=== PATIENT | female | born 1940 | race Caucasian/White ===

== ENCOUNTER 2016-10-22 10:05 | Inpatient (IN) ==
[2016-10-22] MEDS ORDERED: *HR* HYDROmorphone (PF) 1 MG/ML SYRINGE IVP ONE (10:17)
[2016-10-22] MEDS ORDERED: Ondansetron 4 MG/2 ML VIAL IVP ONE (10:19)
--- NOTE | 2016-10-22 10:19 | Emergency Department Note ---
Disposition Clinical Impression: Fall, Pneumonia, Shoulder fracture, left Disposition: Admitted As Inpatient General Adult HPI - General Chief complaint: ED Fall Stated complaint: fall Time Seen by Provider: 10/22/16 10:13 - History of Present Illness Pain Scale: 10 - Related Data Home Medications Medication Instructions Recorded Confirmed Albuterol Sulfate [Proair Hfa] 2 puff IH 4-6XD PRN #0 05/28/15 10/22/16 Amitriptyline [Elavil] 25 mg PO HS #0 05/28/15 10/22/16 Azelastine HCl 1 drop OP BID #0 05/28/15 10/22/16 Citalopram [CeleXA] 40 mg PO HS 05/28/15 10/22/16 Fluticasone Propionate Nasal 1 spray NS DAILY 05/28/15 10/22/16 [Flonase] Montelukast Sodium [Singulair] 10 mg PO HS 05/28/15 10/22/16 Omeprazole [PriLOSEC] 20 mg PO HS 05/28/15 10/22/16 Potassium Chloride [Klor-Con M20] 20 meq PO BID 05/28/15 10/22/16 Tiotropium [Spiriva] 18 mcg IH DAILY 05/28/15 10/22/16 Albuterol Neb [Proventil Neb] 2.5 mg IH Q4HR 09/02/16 10/22/16 Allopurinol [Zyloprim] 300 mg PO DAILY 09/02/16 10/22/16 Aclidinium Peel [Tudorza 1 puff IH BID 10/02/16 10/22/16 Pressair] Guaifenesin [Mucinex] 600 mg PO BID 10/02/16 10/22/16 Oxygen 1 each .ROUTE AD 10/02/16 10/22/16 Cyclobenzaprine HCl 10 mg PO Q12H 10/22/16 10/22/16 Gabapentin [Neurontin] 300 mg PO BID 10/22/16 10/22/16 Hydrocodone/Acetaminophen [Diamond 1 tab PO Q6H 10/22/16 10/22/16 10-325 Tablet] Lactobacillus Acidophilus 1 tab PO TID 10/22/16 10/22/16 [Acidophilus] Lactulose 30 ml PO DAILY 10/22/16 10/22/16 Levofloxacin [Levaquin] 750 mg PO DAILY 10/22/16 10/22/16 Lidocaine Patch [Lidoderm 5% patch] 1 each TP Q12H 10/22/16 10/22/16 Lidocaine Patch [Lidoderm 5% patch] 1 each TP Q12H 10/22/16 10/22/16 Metoprolol [Lopressor] 12.5 mg PO BID 10/22/16 10/22/16 Previous Rx's Medication Instructions Recorded Furosemide [Lasix] 20 mg PO BID #40 tablet 09/09/16 Levothyroxine [Synthroid] 125 mcg PO 0630 #30 tablet 10/15/16 Nystatin [Nystatin Suspension] 100,000 units PO QID #120 ml 10/15/16 Allergies Allergy/AdvReac Type Severity Reaction Status Date / Time acetaminophen [From Percocet] Allergy Rash Verified 10/22/16 12:40 codeine Allergy Rash Verified 10/22/16 12:40 hydrochlorothiazide Allergy Rash Verified 10/22/16 12:40 losartan [Losartan] Allergy Rash Verified 10/22/16 12:40 morphine Allergy Irritable Verified 10/22/16 12:40 Oxycodone [From Percocet] Allergy Rash Verified 10/22/16 12:40 Sulfa (Sulfonamide Allergy Rash Verified 10/22/16 12:40 Antibiotics) NSAIDS (Non-Steroidal AdvReac See Verified 10/22/16 12:40 Anti-Inflamma Comments Past Medical History - Past Medical History Medical history: Reports: arthritis, asthma, CHF, COPD, fibromyalgia, GERD, hyperlipidemia, hypertension, osteoporosis, RA, thyroid disease, syncope, other Surgical history: Reports: appendectomy, cholecystectomy, hysterectomy, orthopedic, other, other Psychiatric history: Reports: no psych history, other FICTION WRITER history: Reports: no FICTION WRITER history - Social History Smoking Status: Never smoker Smokeless Tobacco Status: No Alcohol use: Reports: none Drug use: Reports: none Physical Exam - General General appearance: alert Course - Reevaluation(s) Reevaluation #1: I saw the patient with the resident, Dr. Hill. Patient felt care home. She was stood up and apparently became dizzy and fell backwards. Hit her head on a windowsill. She presents with a complaint of neck pain and left shoulder pain. She has a number of other chronic pain issues but on Physical exam we do not identify any other significant injuries. We will get the patient symptomatically feeling better and get some imaging studies. Time: 10:19 Vital Signs Temperature 98.6 F 10/22/16 10:07 Pulse Rate 87 10/22/16 10:07 Respiratory Rate 18 10/22/16 10:07 Blood Pressure 122/67 10/22/16 10:07 O2 Sat by Pulse Oximetry 89 L 10/22/16 10:07 Temperature 97.4 F L 10/23/16 07:58 Pulse Rate 82 10/23/16 07:58 Respiratory Rate 16 10/23/16 07:58 Blood Pressure 127/92 10/23/16 07:58 O2 Sat by Pulse Oximetry 98 10/23/16 07:58 Oxygen Delivery Oxygen Delivery Nasal Cannula Medical Decision Making - Lab Data Result diagrams: 10/23/16 04:49 10/23/16 04:49 Lab Results 10/22/16 10/22/16 10/22/16 Range/Units 11:29 11:29 11:29 WBC 23.1 H D (4.3-11.1) K/mcL RBC 3.57 L (3.82-4.97) M/mcL Hgb 10.0 L (11.5-15.4) g/dL Hct 31.0 L (35.3-44.9) % MCV 86.8 (83.0-100.0) fL MCH 28.0 (28.0-33.3) pg MCHC 32.3 (31.6-35.5) g/dL RDW 14.7 H (11.5-14.5) % Plt Count 336 (140-400) K/mcL MPV 9.5 (9.4-12.4) fL Immature Gran % 0.8 (0-4) % Seg Neutrophils % 87.1 % Lymphocytes % 6.5 % Monocytes % 4.7 % Eosinophils % 0.6 % Basophils % 0.3 % Neutrophils # 20.1 H (1.6-8.9) K/mcL Lymphocytes # 1.5 (0.6-4.6) K/mcL Monocytes # 1.1 (0.0-1.3) K/mcL Eosinophils # 0.1 (0.0-0.6) K/mcL Basophils # 0.1 (0.0-0.2) K/mcL ABG pH (7.32-7.45) pH Units ABG pCO2 (35-45) mmHg ABG pO2 (85-104) mmHg ABG HCO3 (21-27) mEQ/L ABG Total CO2 (20-26) mEq/L ABG O2 Saturation (95-98) % ABG Base Excess (-2.0 to 3.0) mEq/L Liter Flow L/MIN Blood Gas Modality Inspired O2 % Sodium 137 (136-145) mEq/L Potassium 3.6 (3.5-4.5) mEq/L Chloride 102 (98-109) mEq/L Carbon Dioxide 26 (19-29) mEq/L BUN 21 H (7-20) mg/dL Creatinine 1.52 H (0.57-1.11) mg/dL Est GFR ( Amer) 40 L (> 60) Est GFR (Non-Af Amer) 33 L (> 60) BUN/Creatinine Ratio 14 (6-26) Glucose 119 H (70-99) mg/dL POC Glucose (58-89) Calculated Osmolality 288 (280-300) Lactic Acid (0.5-2.2) mmol/L Calcium 9.1 (8.6-10.8) mg/dL Total Bilirubin 0.4 (0.2-1.2) mg/dL AST 12 (5-34) Units/L ALT 18 (0-55) Units/L Alkaline Phosphatase 87 (38-126) Units/L Troponin I 0.02 (0-0.03) ng/mL Serum Total Protein 6.5 (6.0-8.3) g/dL Albumin 2.7 L (3.5-5.0) g/dL Globulin 3.8 H (2.4-3.5) g/dL Albumin/Globulin Ratio 0.7 L (1.1-2.2) Urine Color (Yellow) Urine Clarity (Clear) Urine pH (5.0-8.0) pH Units Ur Specific [place] (1.010-1.025) Urine Protein (Neg-Trace) mg/dL Urine Glucose (UA) (Normal) mg/dL Urine Ketones (Negative) mg/dL Urine Blood (Negative) Urine Nitrite (Negative) Urine Bilirubin (Negative) Urine Urobilinogen (Normal) mg/dL Ur Leukocyte Esterase (Negative) 10/22/16 10/22/16 10/22/16 Range/Units 11:32 11:54 13:24 WBC (4.3-11.1) K/mcL RBC (3.82-4.97) M/mcL Hgb (11.5-15.4) g/dL Hct (35.3-44.9) % MCV (83.0-100.0) fL MCH (28.0-33.3) pg MCHC (31.6-35.5) g/dL RDW (11.5-14.5) % Plt Count (140-400) K/mcL MPV (9.4-12.4) fL Immature Gran % (0-4) % Seg Neutrophils % % Lymphocytes % % Monocytes % % Eosinophils % % Basophils % % Neutrophils # (1.6-8.9) K/mcL Lymphocytes # (0.6-4.6) K/mcL Monocytes # (0.0-1.3) K/mcL Eosinophils # (0.0-0.6) K/mcL Basophils # (0.0-0.2) K/mcL ABG pH (7.32-7.45) pH Units ABG pCO2 (35-45) mmHg ABG pO2 (85-104) mmHg ABG HCO3 (21-27) mEQ/L ABG Total CO2 (20-26) mEq/L ABG O2 Saturation (95-98) % ABG Base Excess (-2.0 to 3.0) mEq/L Liter Flow L/MIN Blood Gas Modality Inspired O2 % Sodium (136-145) mEq/L Potassium (3.5-4.5) mEq/L Chloride (98-109) mEq/L Carbon Dioxide (19-29) mEq/L BUN (7-20) mg/dL Creatinine (0.57-1.11) mg/dL Est GFR ( Amer) (> 60) Est GFR (Non-Af Amer) (> 60) BUN/Creatinine Ratio (6-26) Glucose (70-99) mg/dL POC Glucose 148 H (58-89) Calculated Osmolality (280-300) Lactic Acid 1.2 (0.5-2.2) mmol/L Calcium (8.6-10.8) mg/dL Total Bilirubin (0.2-1.2) mg/dL AST (5-34) Units/L ALT (0-55) Units/L Alkaline Phosphatase (38-126) Units/L Troponin I (0-0.03) ng/mL Serum Total Protein (6.0-8.3) g/dL Albumin (3.5-5.0) g/dL Globulin (2.4-3.5) g/dL Albumin/Globulin Ratio (1.1-2.2) Urine Color Yellow (Yellow) Urine Clarity Clear (Clear) Urine pH 5.5 (5.0-8.0) pH Units Ur Specific [place] 1.012 (1.010-1.025) Urine Protein Negative (Neg-Trace) mg/dL Urine Glucose (UA) Normal (Normal) mg/dL Urine Ketones Negative (Negative) mg/dL Urine Blood Negative (Negative) Urine Nitrite Negative (Negative) Urine Bilirubin Negative (Negative) Urine Urobilinogen Normal (Normal) mg/dL Ur Leukocyte Esterase Negative (Negative) 10/22/ Range/Units 13:30 WBC (4.3-11.1) K/mcL RBC (3.82-4.97) M/mcL Hgb (11.5-15.4) g/dL Hct (35.3-44.9) % MCV (83.0-100.0) fL MCH (28.0-33.3) pg MCHC (31.6-35.5) g/dL RDW (11.5-14.5) % Plt Count (140-400) K/mcL MPV (9.4-12.4) fL Immature Gran % (0-4) % Seg Neutrophils % % Lymphocytes % % Monocytes % % Eosinophils % % Basophils % % Neutrophils # (1.6-8.9) K/mcL Lymphocytes # (0.6-4.6) K/mcL Monocytes # (0.0-1.3) K/mcL Eosinophils # (0.0-0.6) K/mcL Basophils # (0.0-0.2) K/mcL ABG pH 7.30 L (7.32-7.45) pH Units ABG pCO2 61 H (35-45) mmHg ABG pO2 64 L (85-104) mmHg ABG HCO3 30.0 H (21-27) mEQ/L ABG Total CO2 31.9 H (20-26) mEq/L ABG O2 Saturation 90 L (95-98) % ABG Base Excess 2.4 (-2.0 to 3.0) mEq/L Liter Flow 2 L/MIN Blood Gas Modality [place] Inspired O2 28 % Sodium (136-145) mEq/L Potassium (3.5-4.5) mEq/L Chloride (98-109) mEq/L Carbon Dioxide (19-29) mEq/L BUN (7-20) mg/dL Creatinine (0.57-1.11) mg/dL Est GFR ( Amer) (> 60) Est GFR (Non-Af Amer) (> 60) BUN/Creatinine Ratio (6-26) Glucose (70-99) mg/dL POC Glucose (58-89) Calculated Osmolality (280-300) Lactic Acid (0.5-2.2) mmol/L Calcium (8.6-10.8) mg/dL Total Bilirubin (0.2-1.2) mg/dL AST (5-34) Units/L ALT (0-55) Units/L Alkaline Phosphatase (38-126) Units/L Troponin I (0-0.03) ng/mL Serum Total Protein (6.0-8.3) g/dL Albumin (3.5-5.0) g/dL Globulin (2.4-3.5) g/dL Albumin/Globulin Ratio (1.1-2.2) Urine Color (Yellow) Urine Clarity (Clear) Urine pH (5.0-8.0) pH Units Ur Specific [place] (1.010-1.025) Urine Protein (Neg-Trace) mg/dL Urine Glucose (UA) (Normal) mg/dL Urine Ketones (Negative) mg/dL Urine Blood (Negative) Urine Nitrite (Negative) Urine Bilirubin (Negative) Urine Urobilinogen (Normal) mg/dL Ur Leukocyte Esterase (Negative) Attestation Statement - Attestation Attestation: I, Dr. Sevilla, examined this patient [id number] and my medical decision- making was reviewed with Dr. Hill, Resident Physician. I agree with the documented findings, disposition and treatment plan as described except to the extent set forth below. Please see my progress notes for details.
--- NOTE | 2016-10-22 10:27 | Emergency Department Note ---
Disposition Clinical Impression: Fall Qualifiers: Encounter type: initial encounter Qualified Code(s): W19.XXXA - Unspecified fall, initial encounter Pneumonia Qualifiers: Pneumonia type: due to unspecified organism Laterality: unspecified laterality Lung location: unspecified part of lung Qualified Code(s): J18.9 - Pneumonia, unspecified organism Shoulder fracture, left Qualifiers: Encounter type: initial encounter Fracture type: closed Qualified Code(s): S42.92XA - Fracture of left shoulder girdle, part unspecified, initial encounter for closed fracture Disposition: Admitted As Inpatient Referrals: Unassigned,Provider [Primary Care Provider] - Forms: ED Satisfaction Letter Fall HPI - General Chief Complaint: ED Fall Stated Complaint: fall Time Seen by Provider: 10/22/16 10:13 Source: patient, EMS Mode of arrival: EMS Limitations: no limitations Nursing Notes Reviewed: Yes Vital Signs Reviewed: Yes - History of Present Illness HPI Narrative: 76-year-old female with history of multiple medical problems presents for evaluation following a fall. Patient is a resident at a nursing facility. Fall was described as a patient standing up feeling dizzy and falling back hitting her head on a windowsill. Patient initially denied any loss of consciousness. Patient is not on any blood thinners. Patient does remember the accident. Patient's complaining of left shoulder pain as well as lower cervical pain. Patient states that she feels dizzy every time they give her her medications. Patient denies any chest pain. Does report shortness of breath that has been going on for "years". Daughter at bedside states the patient does have chronic pain management issues were she had a pain pump that was given Dilaudid removed within the past month. Pt Subjective Complaint: fall - Related Data Home Medications Medication Instructions Recorded Confirmed Albuterol Sulfate [Proair Hfa] 2 puff IH 4-6XD PRN #0 05/28/15 10/22/16 Amitriptyline [Elavil] 25 mg PO HS #0 05/28/15 10/22/16 Azelastine HCl 1 drop OP BID #0 05/28/15 10/22/16 Citalopram [CeleXA] 40 mg PO HS 05/28/15 10/22/16 Fluticasone Propionate Nasal 1 spray NS DAILY 05/28/15 10/22/16 [Flonase] Montelukast Sodium [Singulair] 10 mg PO HS 05/28/15 10/22/16 Omeprazole [PriLOSEC] 20 mg PO HS 05/28/15 10/22/16 Potassium Chloride [Klor-Con M20] 20 meq PO BID 05/28/15 10/22/16 Tiotropium [Spiriva] 18 mcg IH DAILY 05/28/15 10/22/16 Albuterol Neb [Proventil Neb] 2.5 mg IH Q4HR 09/02/16 10/22/16 Allopurinol [Zyloprim] 300 mg PO DAILY 09/02/16 10/22/16 Aclidinium [place] [[place]za 1 puff IH BID 10/02/16 10/22/16 Pressair] Guaifenesin [Mucinex] 600 mg PO BID 10/02/16 10/22/16 Oxygen 1 each .ROUTE AD 10/02/16 10/22/16 Cyclobenzaprine HCl 10 mg PO Q12H 10/22/16 10/22/16 Gabapentin [Neurontin] 300 mg PO BID 10/22/16 10/22/16 Hydrocodone/Acetaminophen [[place] 1 tab PO Q6H 10/22/16 10/22/16 10-325 Tablet] Lactobacillus Acidophilus 1 tab PO TID 10/22/16 10/22/16 [Acidophilus] Lactulose 30 ml PO DAILY 10/22/16 10/22/16 Levofloxacin [Levaquin] 750 mg PO DAILY 10/22/16 10/22/16 Lidocaine Patch [Lidoderm 5% patch] 1 each TP Q12H 10/22/16 10/22/16 Lidocaine Patch [Lidoderm 5% patch] 1 each TP Q12H 10/22/16 10/22/16 Metoprolol [Lopressor] 12.5 mg PO BID 10/22/16 10/22/16 Previous Rx's Medication Instructions Recorded Furosemide [Lasix] 20 mg PO BID #40 tablet 09/09/16 Levothyroxine [Synthroid] 125 mcg PO 0630 #30 tablet 10/15/16 Nystatin [Nystatin Suspension] 100,000 units PO QID #120 ml 10/15/16 Allergies Allergy/AdvReac Type Severity Reaction Status Date / Time acetaminophen [From Percocet] Allergy Rash Verified 10/22/16 12:40 codeine Allergy Rash Verified 10/22/16 12:40 hydrochlorothiazide Allergy Rash Verified 10/22/16 12:40 losartan [Losartan] Allergy Rash Verified 10/22/16 12:40 morphine Allergy Irritable Verified 10/22/16 12:40 Oxycodone [From Percocet] Allergy Rash Verified 10/22/16 12:40 Sulfa (Sulfonamide Allergy Rash Verified 10/22/16 12:40 Antibiotics) NSAIDS (Non-Steroidal AdvReac See Verified 10/22/16 12:40 Anti-Inflamma Comments All systems ED: reviewed and negative except as stated. Constitutional: Reports: as per HPI. Denies: fever Eyes: Reports: as per HPI ENT ED: Reports: as per HPI Cardiovascular: Reports: as per HPI. Denies: chest pain Respiratory: Reports: as per HPI, cough, dyspnea Gastrointestinal: Reports: as per HPI. Denies: abdominal pain, nausea, vomiting Genitourinary: Reports: as per HPI Musculoskeletal: Reports: as per HPI, neck pain Integumentary: Reports: as per HPI Neurological: Reports: as per HPI Psychiatric: Reports: as per HPI Endocrine: Reports: as per HPI Fall PM - Past Medical History Medical history: Reports: arthritis, asthma, CHF, COPD, fibromyalgia, GERD, hyperlipidemia, hypertension, osteoporosis, RA, thyroid disease, syncope, other Surgical history: Reports: appendectomy, cholecystectomy, hysterectomy, orthopedic, other, other Psychiatric history: Reports: no psych history, other MACHINE FORMER history: Reports: no MACHINE FORMER history - Social History Smoking Status: Never smoker Alcohol use: Reports: none Drug use: Reports: none Physical Exam She arrived in cervical spine precautions - General Limitations: no limitations General appearance: alert - Head Head exam: normocephalic, normal inspection - Eye Eye exam: Present: normal appearance, EOMI - ENT ENT exam: normal exam, normal oropharynx, mucous membranes moist - Neck Neck exam: Present: normal inspection, other (Cervical spine COLLAR) - Chest Chest inspection: Present: normal inspection, symmetric chest wall rise - Respiratory Respiratory exam: Present: other (Rhonchorous breath sounds). Absent: respiratory distress - Cardiovascular Cardiovascular exam: Present: regular rate, normal rhythm - Abdominal Exam Abdominal exam: Present: soft, Non-Tender. Absent: tenderness, distention, guarding, rebound - Extremities Exam Extremities exam: Present: normal inspection. Absent: pedal edema - Expanded Upper Extremity Exam Shoulder exam: Present: normal inspection, tenderness (Left shoulder). Absent: swelling, abrasion, laceration, ecchymosis - Expanded Lower Extremity Exam Hip/Pelvis exam: Present: normal inspection. Absent: tenderness Upper leg exam: Present: normal inspection. Absent: tenderness Knee exam: Present: normal inspection. Absent: tenderness Lower leg exam: Present: normal inspection. Absent: tenderness Neurovascular/Tendon exam: Present: normal capillary refill - Neurological Exam Neurological exam: Present: alert, oriented X3 - Skin Skin exam: Present: warm, dry, intact, normal color Course Course Narrative: Patient seen and examined. Patient reports after what is presumed to be a mechanical fall. Patient does state that she gets dizzy after medications. Patient alert and oriented 3. Patient will need imaging of the head and neck chest and left shoulder. Patient does have a history of left shoulder rotator cuff injury. - Reevaluation(s) Reevaluation #1: Patient seen and examined. Patient's cervical collar was removed. Daughter was concerned that the patient was not acting appropriately. States that this happens when she feels that her CO2 is off. Patient is receiving a breathing treatment and checking labs. Time: 11:34 Reevaluation #2: Patient seen and examined. Patient's family states the patient is not on any steroids. Patient does have a white count which is not explained. Patient's chest x-ray shows no acute maladies however the patient does have clinical signs and symptoms of pneumonia. Patient will likely need admission Time: 12:27 Vital Signs Temperature 98.6 F 10/22/16 10:07 Pulse Rate 87 10/22/16 10:07 Respiratory Rate 18 10/22/16 10:07 Blood Pressure 122/67 10/22/16 10:07 O2 Sat by Pulse Oximetry 89 L 10/22/16 10:07 Temperature 98.6 F 10/22/16 10:07 Pulse Rate 96 10/22/16 12:23 Respiratory Rate 18 10/22/16 12:23 Blood Pressure 136/68 10/22/16 12:23 O2 Sat by Pulse Oximetry 95 10/22/16 12:23 Oxygen Delivery Oxygen Delivery Room Air Fall - MDM Narrative Medical decision making narrative: 76-year-old female transfer evaluation of fall. It appears that it was a witnessed fall at nursing facility where the patient was getting out of bed or stand up and hit her head on the window sill. There is no obvious trauma to the head. Patient had a workup including imaging of her head and neck and shoulder as well as a chest x-ray. Patient does have findings consistent with his shoulder fracture of the inferior glenoid rim. Daughter states she has been complaining of left shoulder pain for some time now. Patient's lab work reviewed does show that she has a leukocytosis with a left shift that is worsened from past hospitalization. Past hospitalization was concerning for UTI as well as pneumonia. Patient's urine does not appear infected. Patient has been having a productive white cough recently. The chest x-ray did not appreciate a focal infiltrate at this time. Perhaps this is an early pneumonia. Patient does not have a history of CLL or any leukemia. Patient clinically has symptoms of pneumonia. Given the patient's symptoms and recent fall patient would likely need admission for antibiotics and therapy. These findings were discussed with the patient's family at bedside. - Lab Data Lab results reviewed: Yes I reviewed the patient's lab results. Result diagrams: 10/22/16 11:29 10/22/16 11:29 Lab Results 10/22/16 10/22/16 10/22/16 Range/Units 11:29 11:29 11:29 WBC 23.1 H D (4.3-11.1) K/mcL RBC 3.57 L (3.82-4.97) M/mcL Hgb 10.0 L (11.5-15.4) g/dL Hct 31.0 L (35.3-44.9) % MCV 86.8 (83.0-100.0) fL MCH 28.0 (28.0-33.3) pg MCHC 32.3 (31.6-35.5) g/dL RDW 14.7 H (11.5-14.5) % Plt Count 336 (140-400) K/mcL MPV 9.5 (9.4-12.4) fL Immature Gran % 0.8 (0-4) % Seg Neutrophils % 87.1 % Lymphocytes % 6.5 % Monocytes % 4.7 % Eosinophils % 0.6 % Basophils % 0.3 % Neutrophils # 20.1 H (1.6-8.9) K/mcL Lymphocytes # 1.5 (0.6-4.6) K/mcL Monocytes # 1.1 (0.0-1.3) K/mcL Eosinophils # 0.1 (0.0-0.6) K/mcL Basophils # 0.1 (0.0-0.2) K/mcL Sodium 137 (136-145) mEq/L Potassium 3.6 (3.5-4.5) mEq/L Chloride 102 (98-109) mEq/L Carbon Dioxide 26 (19-29) mEq/L BUN 21 H (7-20) mg/dL Creatinine 1.52 H (0.57-1.11) mg/dL Est GFR ( Amer) 40 L (> 60) Est GFR (Non-Af Amer) 33 L (> 60) BUN/Creatinine Ratio 14 (6-26) Glucose 119 H (70-99) mg/dL POC Glucose (58-89) Calculated Osmolality 288 (280-300) Calcium 9.1 (8.6-10.8) mg/dL Total Bilirubin 0.4 (0.2-1.2) mg/dL AST 12 (5-34) Units/L ALT 18 (0-55) Units/L Alkaline Phosphatase 87 (38-126) Units/L Troponin I 0.02 (0-0.03) ng/mL Serum Total Protein 6.5 (6.0-8.3) g/dL Albumin 2.7 L (3.5-5.0) g/dL Globulin 3.8 H (2.4-3.5) g/dL Albumin/Globulin Ratio 0.7 L (1.1-2.2) Urine Color (Yellow) Urine Clarity (Clear) Urine pH (5.0-8.0) pH Units Ur Specific [place] (1.010-1.025) Urine Protein (Neg-Trace) mg/dL Urine Glucose (UA) (Normal) mg/dL Urine Ketones (Negative) mg/dL Urine Blood (Negative) Urine Nitrite (Negative) Urine Bilirubin (Negative) Urine Urobilinogen (Normal) mg/dL Ur Leukocyte Esterase (Negative) 10/22/16 10/22/16 Range/Units 11:32 11:54 WBC (4.3-11.1) K/mcL RBC (3.82-4.97) M/mcL Hgb (11.5-15.4) g/dL Hct (35.3-44.9) % MCV (83.0-100.0) fL MCH (28.0-33.3) pg MCHC (31.6-35.5) g/dL RDW (11.5-14.5) % Plt Count (140-400) K/mcL MPV (9.4-12.4) fL Immature Gran % (0-4) % Seg Neutrophils % % Lymphocytes % % Monocytes % % Eosinophils % % Basophils % % Neutrophils # (1.6-8.9) K/mcL Lymphocytes # (0.6-4.6) K/mcL Monocytes # (0.0-1.3) K/mcL Eosinophils # (0.0-0.6) K/mcL Basophils # (0.0-0.2) K/mcL Sodium (136-145) mEq/L Potassium (3.5-4.5) mEq/L Chloride (98-109) mEq/L Carbon Dioxide (19-29) mEq/L BUN (7-20) mg/dL Creatinine (0.57-1.11) mg/dL Est GFR ( Amer) (> 60) Est GFR (Non-Af Amer) (> 60) BUN/Creatinine Ratio (6-26) Glucose (70-99) mg/dL POC Glucose 148 H (58-89) Calculated Osmolality (280-300) Calcium (8.6-10.8) mg/dL Total Bilirubin (0.2-1.2) mg/dL AST (5-34) Units/L ALT (0-55) Units/L Alkaline Phosphatase (38-126) Units/L Troponin I (0-0.03) ng/mL Serum Total Protein (6.0-8.3) g/dL Albumin (3.5-5.0) g/dL Globulin (2.4-3.5) g/dL Albumin/Globulin Ratio (1.1-2.2) Urine Color Yellow (Yellow) Urine Clarity Clear (Clear) Urine pH 5.5 (5.0-8.0) pH Units Ur Specific [place] 1.012 (1.010-1.025) Urine Protein Negative (Neg-Trace) mg/dL Urine Glucose (UA) Normal (Normal) mg/dL Urine Ketones Negative (Negative) mg/dL Urine Blood Negative (Negative) Urine Nitrite Negative (Negative) Urine Bilirubin Negative (Negative) Urine Urobilinogen Normal (Normal) mg/dL Ur Leukocyte Esterase Negative (Negative) - Radiology Data Radiology results reviewed: Yes I reviewed the patient's radiology results. Cervical Spine CT 10/22/16 10:14 IMPRESSION: 1. Evaluation is limited due to patient motion as well as osteopenia. 2. No convincing evidence of a displaced fracture the cervical spine. 3. Anterior fusion of C5 through C7. 4. Multilevel degenerative changes of the cervical spine. 5. There appears to be mucus within the trachea. D/ / Xavier Hatr MD / Xavier Hart MD Interpreting Provider: Xavier Hart MD Chest X-Ray 10/22/16 10:14 IMPRESSION: Mild right basilar atelectasis. D/ / Hima Cota MD / Hima Cota MD Interpreting Provider: Hima Cota MD Head CT 10/22/16 10:14 IMPRESSION: Limited by motion. No acute traumatic intracranial abnormality Mild atrophy with periventricular and scattered frontal parietal white matter disease, likely due to small-vessel ischemic change. Appearance is similar. Mild paranasal sinus disease D/ / Pablo Ibanez MD / Pablo Ibanez MD Interpreting Provider: Pablo Ibanez MD Shoulder X-Ray 10/22/16 10:14 IMPRESSION: Suspected acute avulsion fractures from the inferior glenoid rim. Alternatively, the fractures may involve the inferior humeral head. Moderate osteoarthritis of the glenohumeral joint. D/ / Hima Cota MD / Hima Cota MD Interpreting Provider: Hima Cota MD - EKG Data EKG attestation: Yes I reviewed and interpreted this EKG. EKG shows normal: sinus rhythm Rate: normal [place]/QRS: normal Voltage: c/w LVH When compared to previous EKG there are: no significant changes Interpretation: no acute changes, unchanged when compared to prior tracing (date ), nonspecific ST-T wave changes
[2016-10-22] MEDS ORDERED: Ipratropium/Albuterol Neb 3 ML IH ONE (11:33)
[2016-10-22 11:36] LABS: Basophils # 0.1 K/mcL (0.0-0.2); Basophils % 0.3 %; Eosinophils % 0.6 %; Immature Granulocytes % 0.8 % (0-4); Lymphocytes # 1.5 K/mcL (0.6-4.6); Lymphocytes % 6.5 %; Mean Corpuscular HGB Conc 32.3 g/dL (31.6-35.5); Mean Corpuscular Volume 86.8 fL (83.0-100.0); Mean Platelet Volume 9.5 fL (9.4-12.4); Monocytes # 1.1 K/mcL (0.0-1.3); Monocytes % 4.7 %; Platelet Count 336 K/mcL (140-400); Red Blood Count 3.57 M/mcL (3.82-4.97); Red Cell Distribution Width 14.7 % (11.5-14.5); Segmented Neutrophils % 87.1 %
[2016-10-22 11:37] LABS: Eosinophils # 0.1 K/mcL (0.0-0.6); Neutrophils # 20.1 K/mcL (1.6-8.9)
[2016-10-22 11:52] LABS: Albumin 2.7 g/dL (3.5-5.0); Albumin/Globulin Ratio 0.7 (1.1-2.2); Bilirubin,Total 0.4 mg/dL (0.2-1.2); Calcium 9.1 mg/dL (8.6-10.8); Globulin 3.8 g/dL (2.4-3.5); Potassium 3.6 mEq/L (3.5-4.5); Total Protein 6.5 g/dL (6.0-8.3)
[2016-10-22 12:07] LABS: Bilirubin,Urine Negative (Negative); Blood,Urine Negative (Negative); Clarity,Urine Clear (Clear); Color,Urine Yellow (Yellow); Glucose,Urine (UA) Normal (Normal); Ketones,Urine Negative (Negative); Leukocyte Esterase,Urine Negative (Negative); Nitrite,Urine Negative (Negative); PH,Urine 5.5 pH Units (5.0-8.0); Protein,Urine Negative (Neg-Trace); Specific Gravity,Urine 1.012 (1.010-1.025); Urobilinogen,Urine Normal (Normal)
[2016-10-22] MEDS ORDERED: 0.9 % Sodium Chloride 500 ML IVC ONE (12:27)
[2016-10-22] MEDS ORDERED: Levofloxacin 750 MG/150 ML 750 MG/150 ML BAG IVPB ONE (12:41)
[2016-10-22] MEDS ORDERED: Vancomycin 1,000 MG in D5% in Water 250 ML IVPB ONE (12:41)
[2016-10-22] MEDS ORDERED: Piperacillin/Tazobactam 3.375 GM in D5% in Water (Mini-Bag+) 100 ML IVPB ONE (12:42)
[2016-10-22 13:46] LABS: ABG Base Excess 2.4 mEq/L (-2.0 to 3.0); ABG Oxygen Saturation 90 % (95-98); ABG PCO2 61 mmHg (35-45); ABG PO2 64 mmHg (85-104); ABG TCO2 31.9 mEq/L (20-26)
[2016-10-22 13:47] LABS: Blood Gas FiO2 28 %; Blood Gas Liter Flow 2 L/MIN
[2016-10-22] MEDS ORDERED: Ondansetron ODT 4 MG TAB.RAPDIS SL PRN (14:07)
[2016-10-22] MEDS ORDERED: Naloxone 0.4 MG/ML INJ IVP PRN (14:07)
[2016-10-22] MEDS ORDERED: *HR* HYDROcodone/Acet 10/325 mg TABLET PO PRN (14:16)
[2016-10-22] MEDS ORDERED: Albuterol 2.5 MG/3 ML NEBULIZER IH PRN (14:21)
--- NOTE | 2016-10-22 15:13 | Internal Med History&Physical ---
<Jed Houser - Last Filed: 10/22/16 18:54> Date of Encounter: 10/22/16 Internal Medicine - H&P: HPI History of present illness: Ms. Lennon is a 76 year old female Internal Medicine - H&P: Meds Albuterol Sulfate [Proair Hfa] 2 puff IH 4-6XD PRN #0 05/28/15 [History] Amitriptyline [Elavil] 25 mg PO HS #0 05/28/15 [History] Azelastine HCl 1 drop OP BID #0 05/28/15 [History] Citalopram [CeleXA] 40 mg PO HS 05/28/15 [History] Fluticasone Propionate Nasal [Flonase] 1 spray NS DAILY 05/28/15 [History] Montelukast Sodium [Singulair] 10 mg PO HS 05/28/15 [History] Omeprazole [PriLOSEC] 20 mg PO HS 05/28/15 [History] Potassium Chloride [Klor-Con M20] 20 meq PO BID 05/28/15 [History] Tiotropium [Spiriva] 18 mcg IH DAILY 05/28/15 [History] Albuterol Neb [Proventil Neb] 2.5 mg IH Q4HR 09/02/16 [History] Allopurinol [Zyloprim] 300 mg PO DAILY 09/02/16 [History] Furosemide [Lasix] 20 mg PO BID #40 tablet 09/09/16 [Rx] Aclidinium [place] [Tudorza Pressair] 1 puff IH BID 10/02/16 [History] Guaifenesin [Mucinex] 600 mg PO BID 10/02/16 [History] Oxygen 1 each .ROUTE AD 10/02/16 [History] Levothyroxine [Synthroid] 125 mcg PO 0630 #30 tablet 10/15/16 [Rx] Nystatin [Nystatin Suspension] 100,000 units PO QID #120 ml 10/15/16 [Rx] Cyclobenzaprine HCl 10 mg PO Q12H 10/22/16 [History] Gabapentin [Neurontin] 300 mg PO BID 10/22/16 [History] Hydrocodone/Acetaminophen [[place] 10-325 Tablet] 1 tab PO Q6H 10/22/16 [History] Lactobacillus Acidophilus [Acidophilus] 1 tab PO TID 10/22/16 [History] Lactulose 30 ml PO DAILY 10/22/16 [History] Levofloxacin [Levaquin] 750 mg PO DAILY 10/22/16 [History] Lidocaine Patch [Lidoderm 5% patch] 1 each TP Q12H 10/22/16 [History] Lidocaine Patch [Lidoderm 5% patch] 1 each TP Q12H 10/22/16 [History] Metoprolol [Lopressor] 12.5 mg PO BID 10/22/16 [History] Allergies acetaminophen [From Percocet] Allergy (Verified 10/22/16 12:40) Rash codeine Allergy (Verified 10/22/16 12:40) Rash hydrochlorothiazide Allergy (Verified 10/22/16 12:40) Rash losartan [Losartan] Allergy (Verified 10/22/16 12:40) Rash morphine Allergy (Verified 10/22/16 12:40) Irritable Oxycodone [From Percocet] Allergy (Verified 10/22/16 12:40) Rash Sulfa (Sulfonamide Antibiotics) Allergy (Verified 10/22/16 12:40) Rash NSAIDS (Non-Steroidal Anti-Inflamma Adverse Reaction (Verified 10/22/16 12:40) See Comments kidney failure All Systems PM: A 10-system review of systems was performed and is negative for pertinent findings except as documented above in the HPI. - Constitutional Vitals: Temp Pulse Resp BP Pulse Ox 98.5 F 96 16 104/61 94 L 10/22/16 15:46 10/22/16 15:46 10/22/16 15:46 10/22/16 15:46 10/22/16 18:10 Internal Med - H&P Results - Labs CBC & Chem 7: 10/22/16 11:29 10/22/16 11:29 - Impressions ITS Impressions Shoulder CT 10/22/16 15:15 IMPRESSION: Examination degraded by motion artifact. Severe left glenohumeral joint osteoarthritic degenerative changes with large marginal osteophytes, extensive subchondral cystic changes, small joint effusion and multiple small intra-articular loose bodies. No evidence of acute fracture or dislocation. Mild AC joint osteoarthritis. D/ / 10/22/2016 16:48:13 Les Hay MD / tim Interpreting Provider: Les Hay MD - Attending Attestation I have seen and examined this patient independently. I have discussed the case with the Nurse Practitioner, Juliet Harrell. I agree with the data gathering in the HPI, physical examination findings, assessment and plan as documented by our ROLLER LEVELER. Admitted after a fall in the SNF. Short of breath and history of COPD and recent discharge from this hospital. Leukocytosis. Will treat as healthcare associated infection. CXR noted. Patient will continue with close monitoring, iv antibiotics, oxygen therapy, bipap. She is DNR comfort care. The plan of care was discussed in detail with the patient and her family member, they expressed understanding. <Juliet Harrell M - Last Filed: 10/22/16 19:42> Date of Encounter: 10/22/16 Time of Encounter: 15:12 Assessment and Plan (1) Hospital acquired PNA Current visit: Yes Status: Acute Patient with worsening cough and SOB. Previous admission for pneumonia, discharged 10/15. Admitted today from senior care. WBC 23. While CXR shows mild right basilar atelectasis, clinically concerning for pneumonia. IV vanc, zosyn and (2) Acute exacerbation of chronic obstructive airways disease Current visit: Yes Status: Acute Patient with wet sounding cough, but unable to bring up sputum. CXR showed mild right basilar atelectasis. Lungs with diffuse wheezing and rhonchi. Concern for HCAP. duoneb treatments q6hr scheduled plus albuterol nebulizers Q2 PRN. Prednisone 40mg PO daily. titrate O2 to O2 sat > 92%. Antibiotics for presumed HCAP. (3) Encephalopathy Current visit: Yes Status: Acute Patient with some inappropriate/out of context comments, and reports seeing things on the ceiling. CT of the head was negative for acute abnormality. With her history of COPD and current exacerbation, it may be encephalopathy due to hypoxemia, though she is satting 96% on 2L. She also has an implanted dilaudid pain pump and receives other pain medication on top of this, so it could be opioid induces, or polypharmacy. Patient is oriented to person place and time. Use pain medication sparingly and only when appropriate, continue to assess respiratory status and neurological status. (4) Fall Current visit: Yes Status: Acute Patient had a witnessed fall this morning after getting up from a chair or bed and getting dizzy. She reports she hit her head on the window sill. Head is atraumatic on exam. CT of Head and Neck show no acute abnormality. Left shoulder XRay showed acute avulsion fracure, ortho consulted. Patient states she gets dizzy when she has "too much medication", and her daughter states she may be getting too much pain medication. Continuous quality assurance monitor, continuous pulse oximetry. Pain medication when appropriate, continue to assess respiratory status and neurological status. Qualifiers: Encounter type: initial encounter Qualified Code(s): W19.XXXA - Unspecified fall, initial encounter (5) Shoulder fracture, left Current visit: Yes Status: Acute Patient fell this morning and was complaining of shoulder pain. Xray of left shoulder showed acute avulsion fracture of inferior glenoid rim versus inferior Humeral head. Consulted Dr. Rubin in orthopedic surgery who requested a CT of her left shoulder. Qualifiers: Encounter type: initial encounter Fracture type: closed Qualified Code(s) : S42.92XA - Fracture of left shoulder girdle, part unspecified, initial encounter for closed fracture (6) Acute and chronic respiratory failure ([id number]) Current visit: No Status: Acute Patient with worsening cough and shortness of breath. ABG showed PCO2 of 61, HCO3 of 30, pH of 7.3, consistent with respiratory acidosis. titrate O2 for O2 sat > 92%. Bipap at night. continuous pulse oximetry Scheduled duoneb treatments Q6H with PRN albuterol Q2H Prednisone 40mg PO daily Qualifiers: Respiratory failure complication: hypoxia and hypercapnia Qualified Code(s) : J96.21 - Acute and chronic respiratory failure with hypoxia; J96.22 - Acute and chronic respiratory failure with hypercapnia (7) Chronic, continuous use of opioids Current visit: Yes Status: Acute Has implanted dilaudid pain pump with lowest setting. Also received oral pain medication from senior care according to her daughter. Assess pain and respiratory status and administer [place] and dilaudid as appropriate. Continuous pulse oximetry Narcan PRN ordered. (8) Chronic back pain Current visit: No Status: Chronic History of multiple spinal fusions Has implanted dilaudid pain pump at lowest setting according to daughter. Qualifiers: Back pain location: low back pain Back pain laterality: bilateral Sciatica presence: without sciatica Qualified Code(s): M54.5 - Low back pain; G89.29 - Other chronic pain (9) Dysphagia Current visit: Yes Status: Acute Patient reports feeling like her food is getting stuck. Speech therapy consult ordered for swallow study. Qualifiers: Dysphagia type: unspecified Qualified Code(s): R13.10 - Dysphagia, unspecified (10) DVT prophylaxis Current visit: No Status: Acute ambulate with assistance calf compressors Heparin 5,000u SQ BID Internal Medicine - H&P: HPI Chief complaint: fall Admitted From: Long-term Nursing Facility Plans for Post Hospital Care: Transfer Residential Care History of present illness: Ms. Lennon is a 76 year old female with history of COPD, chronic back pain, HTN , CKD, who presents from her senior care after a witnessed fall. She was trying to get up from bed, and reportedly got dizzy and fell, hitting her head on a window sill and hitting her left shoulder. She denies any loss of consciousness. She denies any chest pain, palpitations, headache. She reports she has been getting lightheaded lately and states that happens when she gets "too much medicine". She has an implanted dilaudid pain pump for chronic back pain, which is reportedly at the lowest setting down from much higher doses previously, according to the patent's daughter. She is also getting oral pain medicine from the Nursing facility. She also endorses cough and shortness of breath. She reports the cough has been going on for a while, but getting worse in the last week. She reports she feels like she has sputum, but can't get it up. She denies any fever, body aches or night sweats. She was recently discharged on 10/15, and during that hospitalization was treated for UTI, COPD exacerbation, pneumonia, and pain pump malfunction. Her evaluation in the ED was significant for a WBC count of 23. Her UA did not show any infection. Her CXR showed mild right basilar atelectasis. Her CT of the head was negative for any acute abnormality. The xray of the shoulder showed an acute avulsion fracture of the inferior glenoid rim versus the inferior humeral head. She was showing signs of confusion with hallucinations in the ED and an ABG and lactic acid was ordered. The ABG showed chronic respiratory acidosis consistent with her COPD diagnosis. Lactic acid was normal. On exam, she is pleasant, alert and oriented to person, place and time, but does appear to be seeing things on the ceiling and says inappropriate things occasionally. She is satting 96% on 2L, her lungs have diffuse wheezing and rhonchorus sounds, Heart has regular rate and rhythm. Past Med Surg Social Fam HX - Past Medical History Medical history: arthritis, asthma, CHF, COPD, fibromyalgia, GERD, hyperlipidemia, hypertension, osteoporosis, RA, renal disease, thyroid disease, syncope, other Psychiatric history: no psych history, other - Past Surgical History Surgical History: appendectomy, cholecystectomy, hysterectomy, orthopedic, other (cervical fusion, spinal fusion, ), other (right transmetatarsal amputation) - Social History Smoking Status: Never smoker Smokeless Tobacco Status: No Alcohol use: none Drug use: none - Family History Paternal Living Status: Hx Family Cardiac Disorders: Yes Hx Family Respiratory Disorders: Yes Hx Family Cancer: (liver) Hx Family Neurologic Disorders: Yes Hx Family Autoimmune Disorders: (arthritis) Mother Family Member Ethnicity: Non- Living Status: Hx Family Cardiac Disorders: Yes (CHF) Hx Family Respiratory Disorders: No Hx Family Cancer: Yes Hx Family GI Disorders: Yes Hx Family Endocrine Disorder: Yes Hx Family Neuromuscular Disorders: No Hx Family Neurologic Disorders: No Hx Family HEENT Disorders: No Hx Family Autoimmune Disorders: No All Systems PM: A 10-system review of systems was performed and is negative for pertinent findings except as documented above in the HPI. - Constitutional Constitutional: falls, weakness, no chills, no fever(s), no night sweats - EENT Eyes: no change in vision, no discharge, no pain, no photophobia Ears: no ear discharge, no ear pain, no tinnitus Nose, mouth and throat: dysphagia, no nasal discharge, no neck pain, no sore throat - Cardiovascular Cardiovascular ROS IM: dyspnea, no chest pain, no diaphoresis, no lightheadedness, no palpitations, no syncope - Respiratory Respiratory: cough, dyspnea, dyspnea on exertion, wheezing - Gastrointestinal Gastrointestinal: constipation, no abdominal pain, no diarrhea, no hematemesis, no hematochezia, no melena, no nausea, no vomiting - Genitourinary Genitourinary: no change in urinary stream, no dysuria, no flank pain, no hematuria - Musculoskeletal Musculoskeletal ROS IM: no numbness, no tingling - Integumentary Integumentary IM: rash, skin ulcer (sacral) - Neurological Neurological ROS: dizziness, frequent falls, weakness, other visual disturbances , no confusion, no convulsions, no focal weakness, no numbness, no tingling, no tremor(s) - Psychiatric Psychiatric: hallucinations - Hematologic/Lymphatic Hematologic/Lymphatic: easy bruising - Constitutional Vitals: Temp Pulse Resp BP Pulse Ox 98.6 F 98 18 133/67 96 10/22/16 13:53 10/22/16 13:43 10/22/16 13:53 10/22/16 13:53 10/22/16 13:43 General appearance: Present: A&O X 3, pleasant, no acute distress - Head Head exam: Present: atraumatic, normocephalic - Eye Eye exam: Present: PERRL, conjuntiva pink, sclera anicteric Pupils: Present: PERRL - Neck Neck exam general surgery: Present: supple, trachea midline. Absent: lymphadenopathy - Respiratory Respiratory exam: Present: prolonged expiratory phase, rhonchi, wheezes - Cardiovascular Cardiovascular exam: Present: RRR, +S1, +S2. Absent: diastolic murmur, gallop, rubs, systolic murmur - GI/Abdominal GI/Abdominal exam: Present: distended, normal bowel sounds, soft, no peritoneal signs - Extremities Exam Extremities exam: Present: warm, radial pulses palpable and symetrical. Absent : calf tenderness, cyanotic, pedal edema Additional comments: s/p right transmetatarsal amputation, well healed - Expanded Upper Extremities Exam Shoulder exam: Present: tenderness (left). Absent: full ROM (left) - Neurological Exam Neurological exam: Present: alert, altered, CN II-XII intact, strengths equal and symetr throughout. Absent: facial droop, speech deficit - Psychiatric Additional comments: hallucinations and occasional inappropriate comments - Skin Skin exam: Present: rash (under panus) Additional comments: dressing in place over sacral ulcer Internal Med - H&P Results - Labs CBC & Chem 7: 10/22/16 11:29 10/22/16 11:29
[2016-10-22] MEDS: Ipratropium/Albuterol Neb 3 ML IH SCH ×2 (16:20→23:50)
[2016-10-22] MEDS ORDERED: Vancomycin 500 MG in D5% in Water (Mini-Bag+) 100 ML IVPB ONE ×2 (17:00→18:15)
[2016-10-22] MEDS: *HR* Heparin 5,000 UNIT/ML VIAL SQ SCH (17:14)
[2016-10-22] MEDS: Nystatin SUSP 5 ML UD.LIQ PO SCH ×2 (17:15→20:23)
[2016-10-22] MEDS: predniSONE 20 MG TABLET PO SCH (17:29)
--- NOTE | 2016-10-22 17:29 | Orthopedic Consult Note ---
Date of Encounter: 10/22/16 Time of Encounter: 17:27 Assessment and Plan (1) Shoulder arthritis Current Visit: Yes Status: Yoselin Story is a 76-year-old female with multiple medical comorbidities and is being treated for pneumonia. She had an exacerbation of her left shoulder pain after a fall this morning. She has had frequent falls in the past. Exam and imaging shows end-stage osteoarthritis of the left shoulder. She is an established patient of Dr. Lopez. I did discuss treatment options, which include anti-inflammatories and steroid injections. Given that she is admitted with pneumonia, my recommendation was to hold off on injection at this point until she is medically stable. Anti-inflammatories per the hospitalist discretion. Motion and therapy as tolerated, and follow-up with Dr. Lopez as an outpatient once medically stable. I will be available as needed during the patient's inpatient stay. History of Present Illness Chief complaint: Left shoulder pain. HPI: Ms. Lennon is a 76 year old female who is an established patient of Dr. Lopez regarding left shoulder pain. The patient also has several recent admissions for urinary tract infection as well as pneumonia. She is readmitted after a fall and was noted to have an elevated white count and is currently admitted to the hospitalist. She is being treated for pneumonia and orthopedics was consult regarding the left shoulder pain. On my evaluation the patient is complaining of pain at the left shoulder. She has had multiple recent falls including one this morning that exacerbated the left shoulder pain. She denies any new injuries otherwise, denies any headaches, neck pain, chest pain, abdominal pain, and denies new right upper extremity and bilateral lower extremity pain. No numbness, tingling, or any other associated signs or symptoms. Movement makes the pain worse. No other modifying factors. Past Med Surg Social Fam HX - Past Medical History Medical history: arthritis, asthma, CHF, COPD, fibromyalgia, GERD, hyperlipidemia, hypertension, osteoporosis, RA, renal disease, thyroid disease, syncope, other Psychiatric history: no psych history, other - Past Surgical History Surgical History: appendectomy, cholecystectomy, hysterectomy, orthopedic, other (cervical fusion, spinal fusion, ), other (right transmetatarsal amputation) - Social History Smoking Status: Never smoker Smokeless Tobacco Status: No Alcohol use: none Drug use: none - Family History Paternal Living Status: Hx Family Cardiac Disorders: Yes Hx Family Respiratory Disorders: Yes Hx Family Cancer: (liver) Hx Family Neurologic Disorders: Yes Hx Family Autoimmune Disorders: (arthritis) Mother Family Member Ethnicity: Non- Living Status: Hx Family Cardiac Disorders: Yes (CHF) Hx Family Respiratory Disorders: No Hx Family Cancer: Yes Hx Family GI Disorders: Yes Hx Family Endocrine Disorder: Yes Hx Family Neuromuscular Disorders: No Hx Family Neurologic Disorders: No Hx Family HEENT Disorders: No Hx Family Autoimmune Disorders: No Medications and Allergies Albuterol Sulfate [Proair Hfa] 2 puff IH 4-6XD PRN #0 05/28/15 [History] Amitriptyline [Elavil] 25 mg PO HS #0 05/28/15 [History] Azelastine HCl 1 drop OP BID #0 05/28/15 [History] Citalopram [CeleXA] 40 mg PO HS 05/28/15 [History] Fluticasone Propionate Nasal [Flonase] 1 spray NS DAILY 05/28/15 [History] Montelukast Sodium [Singulair] 10 mg PO HS 05/28/15 [History] Omeprazole [PriLOSEC] 20 mg PO HS 05/28/15 [History] Potassium Chloride [Klor-Con M20] 20 meq PO BID 05/28/15 [History] Tiotropium [Spiriva] 18 mcg IH DAILY 05/28/15 [History] Albuterol Neb [Proventil Neb] 2.5 mg IH Q4HR 09/02/16 [History] Allopurinol [Zyloprim] 300 mg PO DAILY 09/02/16 [History] Furosemide [Lasix] 20 mg PO BID #40 tablet 09/09/16 [Rx] Aclidinium [place] [Tudorza Pressair] 1 puff IH BID 10/02/16 [History] Guaifenesin [Mucinex] 600 mg PO BID 10/02/16 [History] Oxygen 1 each .ROUTE AD 10/02/16 [History] Levothyroxine [Synthroid] 125 mcg PO 0630 #30 tablet 10/15/16 [Rx] Nystatin [Nystatin Suspension] 100,000 units PO QID #120 ml 10/15/16 [Rx] Cyclobenzaprine HCl 10 mg PO Q12H 10/22/16 [History] Gabapentin [Neurontin] 300 mg PO BID 10/22/16 [History] Hydrocodone/Acetaminophen [[place] 10-325 Tablet] 1 tab PO Q6H 10/22/16 [History] Lactobacillus Acidophilus [Acidophilus] 1 tab PO TID 10/22/16 [History] Lactulose 30 ml PO DAILY 10/22/16 [History] Levofloxacin [Levaquin] 750 mg PO DAILY 10/22/16 [History] Lidocaine Patch [Lidoderm 5% patch] 1 each TP Q12H 10/22/16 [History] Lidocaine Patch [Lidoderm 5% patch] 1 each TP Q12H 10/22/16 [History] Metoprolol [Lopressor] 12.5 mg PO BID 10/22/16 [History] Allergies acetaminophen [From Percocet] Allergy (Verified 10/22/16 12:40) Rash codeine Allergy (Verified 10/22/16 12:40) Rash hydrochlorothiazide Allergy (Verified 10/22/16 12:40) Rash losartan [Losartan] Allergy (Verified 10/22/16 12:40) Rash morphine Allergy (Verified 10/22/16 12:40) Irritable Oxycodone [From Percocet] Allergy (Verified 10/22/16 12:40) Rash Sulfa (Sulfonamide Antibiotics) Allergy (Verified 10/22/16 12:40) Rash NSAIDS (Non-Steroidal Anti-Inflamma Adverse Reaction (Verified 10/22/16 12:40) See Comments kidney failure All Systems Reviewed: Constitutional and musculoskeletal systems were reviewed and are negative unless otherwise stated in history of present illness. Physical Exam - Constitutional Vitals: Temp Pulse Resp BP Pulse Ox 98.5 F 96 16 104/61 96 10/22/16 15:46 10/22/16 15:46 10/22/16 15:46 10/22/16 15:46 10/22/16 15:46 Constitutional -Vitals reviewed -The patient is a frail, elderly female. -Mood is pleasant. Psychiatric -Some slight confusion. Respiratory: -Respiratory effort normal Abdomen: -Soft abdomen -Non tender -Non distended: Left upper extremity: -No swelling to the shoulder. The overlying skin is intact. I am able to gently range the shoulder, however this does exacerbate her pain. -No tenderness at the brachium, elbow, forearm, wrist, hands, or fingers. -She is able to grossly flex and extend the digits. -Sensation grossly intact to light touch throughout the median, radial, and ulnar distributions. -Radial pulse is present; Fingers have good capillary refill. Right upper extremity: -No deformities. The overlying skin is intact. No obvious signs of acute trauma. -No tenderness to palpation throughout. -No significant pain with passive motion of the shoulder, elbow, wrist, and fingers within the limits of the bed. -She is able to grossly flex and extend the digits. -Sensation grossly intact to light touch throughout the median, radial, and ulnar distributions. -Radial pulse is present; Fingers have good capillary refill. Left lower extremity: -No deformities. The overlying skin is intact. No obvious signs of acute trauma. -No tenderness to palpation throughout. -No pain with passive motion of the hip, knee, ankle, and toes within the limits of the bed. -No pain with axial loading of the thigh. -Able to dorsiflex and plantarflex the ankle and toes. -Sensation is grossly intact to light touch throughout the sural, saphenous, superficial peroneal, and deep peroneal distributions. -Toes have good capillary refill. Right lower extremity: -Prior amputation of all the toes. No deformities. The overlying skin is intact. No obvious signs of acute trauma. -No tenderness to palpation throughout. -No pain with passive motion of the hip, knee, ankle, and toes within the limits of the bed. -No pain with axial loading of the thigh. -Able to dorsiflex and plantarflex the ankle. -Sensation is grossly intact to light touch throughout the sural, saphenous, superficial peroneal, and deep peroneal distributions. -Toes have good capillary refill. Results - Labs Result Diagrams: 10/22/16 11:29 10/22/16 11:29 Labs: Abnormal lab results WBC 23.1 K/mcL (4.3-11.1) H D 10/22/16 11: RBC 3.57 M/mcL (3.82-4.97) L 10/22/16 11: Hgb 10.0 g/dL (11.5-15.4) L 10/22/16 11: Hct 31.0 % (35.3-44.9) L 10/22/16 11: RDW 14.7 % (11.5-14.5) H 10/22/16 11:29 Neutrophils # 20.1 K/mcL (1.6-8.9) H 10/22/16 11:29 ABG pH 7.30 pH Units (7.32-7.45) L 10/22/16 13:30 ABG pCO2 61 mmHg (35-45) H 10/22/16 13:30 ABG pO2 64 mmHg (85-104) L 10/22/16 13:30 ABG HCO3 30.0 mEQ/L (21-27) H 10/22/16 13:30 ABG Total CO2 31.9 mEq/L (20-26) H 10/22/16 13:30 ABG O2 Saturation 90 % (95-98) L 10/22/16 13:30 BUN 21 mg/dL (7-20) H 10/22/16 11:29 Creatinine 1.52 mg/dL (0.57-1.11) H 10/22/16 11:29 Est GFR ( Amer) 40 (> 60) L 10/22/16 11:29 Est GFR (Non-Af Amer) 33 (> 60) L 10/22/16 11:29 Glucose 119 mg/dL (70-99) H 10/22/16 11:29 POC Glucose 148 (58-89) H 10/22/16 11:32 Albumin 2.7 g/dL (3.5-5.0) L 10/22/16 11:29 Globulin 3.8 g/dL (2.4-3.5) H 10/22/16 11:29 Albumin/Globulin Ratio 0.7 (1.1-2.2) L 10/22/16 11:29 All other labs normal. - Diagnostic results Shoulder CT: image reviewed (X-rays and CT scan of the left shoulder demonstrate end-stage osteoarthritis.) Consult Discharge Plan - Plan Referrals: Unassigned,Provider [Primary Care Provider] -
[2016-10-22] MEDS: Gabapentin 300 MG CAPSULE PO SCH (20:25)
[2016-10-22] MEDS: (Azelastine Hcl [Azelastine Hcl] 1 DROP) OP SCH (20:30)
[2016-10-22] MEDS ORDERED: Furosemide 20 MG TABLET PO SCH (21:00)
[2016-10-23] MEDS: Piperacillin/Tazobactam 3.375 GM in D5% in Water (Mini-Bag+) 100 ML IVPB SCH ×3 (00:11→17:13)
[2016-10-23] MEDS: Ipratropium/Albuterol Neb 3 ML IH SCH ×4 (04:05→22:21)
[2016-10-23 05:06] LABS: Basophils % 0.1 %; Hematocrit 27.4 % (35.3-44.9); Hemoglobin 8.7 g/dL (11.5-15.4); Immature Granulocytes % 0.5 % (0-4); Lymphocytes # 1.4 K/mcL (0.6-4.6); Lymphocytes % 8.2 %; Mean Corpuscular HGB Conc 31.8 g/dL (31.6-35.5); Mean Corpuscular Hemoglobin 27.5 pg (28.0-33.3); Mean Corpuscular Volume 86.7 fL (83.0-100.0); Mean Platelet Volume 9.5 fL (9.4-12.4); Monocytes # 0.5 K/mcL (0.0-1.3); Monocytes % 3.1 %; Neutrophils # 14.5 K/mcL (1.6-8.9); Platelet Count 302 K/mcL (140-400); Red Blood Count 3.16 M/mcL (3.82-4.97); Red Cell Distribution Width 14.8 % (11.5-14.5); Segmented Neutrophils % 88.1 %
[2016-10-23 05:20] LABS: Calcium 8.9 mg/dL (8.6-10.8); Potassium 3.2 mEq/L (3.5-4.5)
[2016-10-23] MEDS: *HR* Heparin 5,000 UNIT/ML VIAL SQ SCH ×2 (07:00→16:54)
[2016-10-23] MEDS ORDERED: Furosemide 40 MG/4 ML VIAL IVP SCH (10:30)
--- NOTE | 2016-10-23 11:12 | Electrocardiograph Report ---
[facility] Test Date: 2016-10-22 Pat Name: Janet Lennon Department: 104 Room: 2NE35 Gender: F Security Shift Manager: SHAWANDA : 1940 Requested By: Edwardo Hill Order Number: [id number] Reading MD: Betito Mckeon Measurements Intervals Holiday Rate: 86 P: 33 RI: 190 QRS: -7 QRSD: 91 T: 91 QT: 375 QTc: 418 Interpretive Statements SINUS RHYTHM MODERATE VOLTAGE CRITERIA FOR LVH, CONSIDER NORMAL VARIANT NONSPECIFIC T-WAVE ABNORMALITY Electronically Signed On 10-23-16 11:11:31 EST by Betito Mckeon
[2016-10-23 11:14] LABS: ABG Base Excess 8.9 mEq/L (-2.0 to 3.0); ABG HCO3 35.5 mEQ/L (21-27); ABG Oxygen Saturation 99 % (95-98); ABG PCO2 60 mmHg (35-45); ABG PH 7.38 pH Units (7.32-7.45); ABG PO2 118 mmHg (85-104); ABG TCO2 37.3 mEq/L (20-26)
[2016-10-23 11:15] LABS: Blood Gas FiO2 32 %
--- NOTE | 2016-10-23 12:49 | Internal Med Progress Note ---
<Alonzo Richards - Last Filed: 10/23/16 13:50> Date of Encounter: 10/23/16 Time of Encounter: 10:00 - Assessment and plan (1) Pneumonia Current Visit: Yes Status: Acute Assessment and plan: Suspect HCAP given pts recent hospitalization. CXR reveals mild right basilar atelectasis. Will continue Vancomycin, Zosyn. Follow blood cultures. Qualifiers: Pneumonia type: due to unspecified organism Laterality: unspecified laterality Lung location: unspecified part of lung Qualified Code(s): J18.9 - Pneumonia, unspecified organism (2) Acute exacerbation of chronic obstructive airways disease Current Visit: Yes Status: Acute Assessment and plan: Must consider given pts smoking history and acute hypoxemia. 89% upon admission. Currently 98% on 4L. Will continue O2, duoneb q6h, prednisone 40mg/day, albuterol prn. (3) Leukocytosis Current Visit: Yes Status: Acute Assessment and plan: Likely related to possible PNA infection. WBC peaked at 23.1. Current WBC is 16.5. Likely decreased to due Abx therapy. Qualifiers: Leukocytosis type: unspecified Qualified Code(s): D72.829 - Elevated white blood cell count, unspecified (4) Encephalopathy Current Visit: Yes Status: Acute Assessment and plan: Pt is currently unresponsive to her name or sternal rub. Daughter states this is unlike her. Head and cervical CT scans were negative. AMS likely related to hypoxemia, pneumonia, polypharmacy. Will monitor clinical progression. (5) Shoulder arthritis Current Visit: Yes Status: Chronic Assessment and plan: Shoulder Xray revealed possible avulsion fracture and OA. Ortho consulted, and states that there is severe OA in her left shoulder. Recommended out-patient f/u for steroid injection after PNA has resolved. (6) Congestive heart failure Current Visit: No Status: Chronic Assessment and plan: Pt currently takes 20 mg Lasix PO/day. SOB may be related to acute CHF exacerbation. Will give 40 mg Lasix IV and monitor clinical progression of pt. Qualifiers: Congestive heart failure type: diastolic Congestive heart failure chronicity: chronic Qualified Code(s): I50.32 - Chronic diastolic (congestive ) heart failure (7) HTN (hypertension) Current Visit: No Status: Chronic Assessment and plan: Stable. Continue current regimen. Qualifiers: Hypertension type: unspecified secondary hypertension Qualified Code(s): I15.9 - Secondary hypertension, unspecified; I15 - Secondary hypertension - Time Spent With Patient 25 - 35 minutes - Subjective Interval history: Janet Lennon is a 76 F with a hx of CHF, COPD fibromyalgia, HLD, HTN, RA and asthma who was admitted from a nursing facility to the ED for lightheadedness upon standing with subsequently falling. Pt hit her head on a window ledge when she fell to the ground. She denies any LOC, chest pain and remembers the event. Pt came to the ED because she was experiencing neck and shoulder pain. Pt is also complaining of SOB, which began approximately 2 weeks ago during her previous admission at [facility]. Pt normally requires home O2 and uses a CPAP at night. The entire history today was provided by the pts daughter. The pt is currently not responding to her name or sternal rub. Daughter states that this is not her usual state, and that yesterday she was talking nonsensically. - Constitutional Vitals: Temp Pulse Resp BP Pulse Ox 98.1 F 81 16 133/69 99 10/23/16 10:47 10/23/16 10:47 10/23/16 10:47 10/23/16 10:47 10/23/16 10:47 General appearance: Present: A&O X 0, underweight Exam: Pt appears to be sleeping. She is unresponsive to name and sternal rub. Daughter states that this is unusual. - Head Head exam: Present: atraumatic, normocephalic - Eye Pupils: Present: PERRL - Respiratory Respiratory exam: Present: rales, rhonchi (scattered bilaterally) - Cardiovascular Cardiovascular exam: Present: diastolic murmur (aortic regurg, possible mitral regurg), RRR, +S1, +S2 - GI/Abdominal GI/Abdominal exam: Present: soft, no peritoneal signs. Absent: distended, mass , rigid, tenderness - Extremities Exam Extremities exam: Present: normal capillary refill, radial pulses palpable and symetrical. Absent: calf tenderness, pedal edema - Neurological Exam Neurological exam: Absent: alert, oriented X3 Internal Medicine: Result - Labs CBC & Chem 7: 10/23/16 04:49 10/23/16 04:49 Labs: Short CBC 10/23/16 Range/Units 04:49 WBC 16.5 H (4.3-11.1) K/mcL Hgb 8.7 L (11.5-15.4) g/dL Hct 27.4 L (35.3-44.9) % Plt Count 302 (140-400) K/mcL Neutrophils # 14.5 H (1.6-8.9) K/mcL BMP 10/23/16 04:49 Sodium 139 Potassium 3.2 L Chloride 102 Carbon Dioxide 29 BUN 18 Creatinine 1.45 H Glucose 121 H Calcium 8.9 - ABG Interpretation ABG results: ABG ABG pH 7.38 pH Units (7.32-7.45) 10/23/16 10:54 ABG pCO2 60 mmHg (35-45) H 10/23/16 10:54 ABG pO2 118 mmHg (85-104) H 10/23/16 10:54 ABG O2 Saturation 99 % (95-98) H 10/23/16 10:54 Consult Discharge Plan - Plan Referrals: Unassigned,Provider [Primary Care Provider] - <Gera Mcmahan - Last Filed: 10/23/16 15:53> Date of Encounter: 10/23/16 - Constitutional Vitals: Temp Pulse Resp BP Pulse Ox 98 F 89 14 140/68 96 10/23/16 14:57 10/23/16 14:57 10/23/16 14:57 10/23/16 14:57 10/23/16 14:57 Internal Medicine: Result - Labs CBC & Chem 7: 10/23/16 04:49 10/23/16 04:49 Labs: Short CBC 10/23/16 Range/Units 04:49 WBC 16.5 H (4.3-11.1) K/mcL Hgb 8.7 L (11.5-15.4) g/dL Hct 27.4 L (35.3-44.9) % Plt Count 302 (140-400) K/mcL Neutrophils # 14.5 H (1.6-8.9) K/mcL BMP 10/23/16 04:49 Sodium 139 Potassium 3.2 L Chloride 102 Carbon Dioxide 29 BUN 18 Creatinine 1.45 H Glucose 121 H Calcium 8.9 - ABG Interpretation ABG results: ABG ABG pH 7.38 pH Units (7.32-7.45) 10/23/16 10:54 ABG pCO2 60 mmHg (35-45) H 10/23/16 10:54 ABG pO2 118 mmHg (85-104) H 10/23/16 10:54 ABG O2 Saturation 99 % (95-98) H 10/23/16 10:54 - Attending Attestation I examined this patient and my medical decision-making was reviewed with Dr. Richards. I agree with the documented findings, disposition and treatment plan as described except to the extent set forth below. Pt. on BIPAP and more awake now per staff and family compared to today AM Exam reveals reduced breath sounds bilaterally. Labs reviewed. 1. COPD exacerbation - Steroids, abx. High risk due to worsened respiratory failure and risk of sepsis and septic shock. 2. Pneumonia - At risk of MRSA, MDR E.coli and Pseudomonas. On appropriate antibiotic therapy. 3. CHF 4. Acute on chronic hypercapnic and hypoxic respiratory failure Gera Mcmahan MD
[2016-10-23] MEDS: (Azelastine Hcl [Azelastine Hcl] 1 DROP) OP SCH ×2 (13:02→20:47)
[2016-10-23] MEDS: Fluticasone Propionate Nasal 50 MCG/SPRAY BOTTLE NS SCH (13:10)
[2016-10-23] MEDS: Nystatin SUSP 5 ML UD.LIQ PO SCH ×4 (13:11→20:41)
[2016-10-23] MEDS: Gabapentin 300 MG CAPSULE PO SCH ×2 (13:11→20:46)
[2016-10-23] MEDS: predniSONE 20 MG TABLET PO SCH (13:12)
[2016-10-23] MEDS ORDERED: Vancomycin 1,000 MG in D5% in Water 250 ML IVPB SCH (15:00)
[2016-10-23] MEDS: MethylPREDNISolone 40 MG/ML VIAL IVP SCH (16:54)
[2016-10-23] MEDS: *HR* HYDROcodone/Acet 10/325 mg TABLET PO PRN (17:57)
[2016-10-24] MEDS: Piperacillin/Tazobactam 3.375 GM in D5% in Water (Mini-Bag+) 100 ML IVPB SCH ×3 (00:54→16:58)
[2016-10-24] MEDS: Ipratropium/Albuterol Neb 3 ML IH SCH ×4 (05:01→22:22)
[2016-10-24] MEDS: MethylPREDNISolone 40 MG/ML VIAL IVP SCH ×2 (06:11→16:58)
[2016-10-24] MEDS: *HR* Heparin 5,000 UNIT/ML VIAL SQ SCH ×2 (06:14→16:58)
[2016-10-24] MEDS: *HR* HYDROcodone/Acet 10/325 mg TABLET PO PRN (06:17)
[2016-10-24 08:59] LABS: Basophils % 0.1 %; Hematocrit 28.1 % (35.3-44.9); Hemoglobin 9.1 g/dL (11.5-15.4); Immature Granulocytes % 0.6 % (0-4); Lymphocytes # 0.8 K/mcL (0.6-4.6); Lymphocytes % 5.2 %; Mean Corpuscular HGB Conc 32.4 g/dL (31.6-35.5); Mean Corpuscular Hemoglobin 28.3 pg (28.0-33.3); Mean Corpuscular Volume 87.3 fL (83.0-100.0); Mean Platelet Volume 9.8 fL (9.4-12.4); Monocytes # 0.5 K/mcL (0.0-1.3); Monocytes % 3.2 %; Neutrophils # 13.1 K/mcL (1.6-8.9); Platelet Count 299 K/mcL (140-400); Red Blood Count 3.22 M/mcL (3.82-4.97); Segmented Neutrophils % 90.9 %
[2016-10-24 09:15] LABS: Calcium 9.7 mg/dL (8.6-10.8); Potassium 3.2 mEq/L (3.5-4.5)
[2016-10-24] MEDS: (Azelastine Hcl [Azelastine Hcl] 1 DROP) OP SCH ×2 (10:43→22:30)
[2016-10-24] MEDS: Fluticasone Propionate Nasal 50 MCG/SPRAY BOTTLE NS SCH (10:54)
--- NOTE | 2016-10-24 10:54 | Internal Med Progress Note ---
<Alonzo Richards - Last Filed: 10/24/16 12:20> Date of Encounter: 10/24/16 Time of Encounter: 10:52 - Assessment and plan (1) Pneumonia Current Visit: Yes Status: Acute Assessment and plan: Suspect HCAP given pts recent hospitalization. CXR reveals mild right basilar atelectasis. Will continue Vancomycin, Zosyn, DAY 2. Blood cx: NGTD - Prelim Afebrile, vitals stable gentle fluid hydration, 50ml/hr NS Qualifiers: Pneumonia type: due to unspecified organism Laterality: unspecified laterality Lung location: unspecified part of lung Qualified Code(s): J18.9 - Pneumonia, unspecified organism (2) Acute exacerbation of chronic obstructive airways disease Current Visit: Yes Status: Acute Assessment and plan: Respiratory status appears to be improving since yesterday. Must consider given pts smoking history and acute hypoxemia. 89% upon admission. On 2L O2 at home continuous Currently on 2L at 93% Will continue O2, duoneb q6h, 40mg IV solumedrol BID , albuterol prn. (3) Leukocytosis Current Visit: Yes Status: Acute Assessment and plan: Likely related to possible HCAP Afebrile. Not tachy or tachypneic. WBC peaked at 23.1. Current WBC is 14.5 and trending down. Continue ABx Monitor labs Qualifiers: Leukocytosis type: unspecified Qualified Code(s): D72.829 - Elevated white blood cell count, unspecified (4) Encephalopathy Current Visit: Yes Status: Resolved Assessment and plan: Pt was unresponsive to her name or sternal rub yesterday. Today is awake and alert. Suspect hypercarbia as cause d/t COPD and PNA Head and cervical CT scans were negative. Will monitor clinical progression. (5) Shoulder arthritis Current Visit: Yes Status: Chronic Assessment and plan: Shoulder Xray revealed possible avulsion fracture and OA. Ortho consulted, and states that there is severe OA in her left shoulder. Recommended out-patient f/u for steroid injection after PNA has resolved. Pain meds PRN (6) Congestive heart failure Current Visit: No Status: Chronic Assessment and plan: SOB may be related to acute CHF exacerbation. Received one dose of Lasix yesterday. D/Cd now as looks more likely to be PNA than CHFE. Cr today down to 1.39 from 1.45 Net negative 655 ml since admission Hold lasix for now as pt. does not appear to be fluid overloaded. No rales auscultated, no pedal edema. Harrison in place d/t fall risk Monitor volume status, I&O, daily weights Qualifiers: Congestive heart failure type: diastolic Congestive heart failure chronicity: chronic Qualified Code(s): I50.32 - Chronic diastolic (congestive ) heart failure (7) HTN (hypertension) Current Visit: No Status: Chronic Assessment and plan: Stable. Continue current regimen. Qualifiers: Hypertension type: unspecified secondary hypertension Qualified Code(s): I15.9 - Secondary hypertension, unspecified; I15 - Secondary hypertension - Subjective Interval history: Patient seen and examined. Awake and alert this am. Conversational. Richardson contrast from yesterday when patient was not arousable. States she slept ok and is feeling ok this am. She believes she tripped while at her ECF prior to admission and did not have a LOC. She denied any palpitations, lightheadedness , n/v/diaphoresis prior to fall. Complaining of left shoulder pain. Denies cp, sob, n/v/d. - Constitutional Vitals: Temp Pulse Resp BP Pulse Ox 97.6 F 87 14 123/59 93 L 10/24/16 06:53 10/24/16 06:53 10/24/16 06:53 10/24/16 06:53 10/24/16 08:00 General appearance: Present: A&O X 0, cooperative, A&O X 3, pleasant, underweight - Head Head exam: Present: atraumatic, normocephalic - Eye Eye exam: Present: PERRL, conjuntiva pink, sclera anicteric Pupils: Present: PERRL - Neck Neck exam general surgery: Present: supple, trachea midline. Absent: lymphadenopathy - Respiratory Respiratory exam: Present: decreased breath sounds, prolonged expiratory phase, rhonchi, wheezes. Absent: CTAB, respiratory distress - Cardiovascular Cardiovascular exam: Present: RRR, +S1, +S2 - GI/Abdominal GI/Abdominal exam: Present: normal bowel sounds, soft, tenderness (heparin subq bruising), no peritoneal signs. Absent: rebound, rigid - Extremities Exam Extremities exam: Present: warm, radial pulses palpable and symetrical. Absent : calf tenderness, cyanotic, normal inspection (right foot distal amputation), pedal edema - Back Exam Back exam: Absent: normal inspection (pain pump subdermal left lower back) - Neurological Exam Neurological exam: Present: CN II-XII intact, oriented X3, no focal deficits. Absent: facial droop, speech deficit Internal Medicine: Result - Labs CBC & Chem 7: 10/24/16 08:40 10/24/16 08:40 Labs: Short CBC 10/24/16 Range/Units 08:40 WBC 14.5 H (4.3-11.1) K/mcL Hgb 9.1 L (11.5-15.4) g/dL Hct 28.1 L (35.3-44.9) % Plt Count 299 (140-400) K/mcL Neutrophils # 13.1 H (1.6-8.9) K/mcL BMP 10/24/16 08:40 Sodium 140 Potassium 3.2 L Chloride 98 Carbon Dioxide 32 H BUN 20 Creatinine 1.39 H Glucose 140 H Calcium 9.7 - ABG Interpretation ABG results: ABG ABG pH 7.38 pH Units (7.32-7.45) 10/23/16 10:54 ABG pCO2 60 mmHg (35-45) H 10/23/16 10:54 ABG pO2 118 mmHg (85-104) H 10/23/16 10:54 ABG O2 Saturation 99 % (95-98) H 10/23/16 10:54 - VTE Documentation of Mechanical Device: Intermittent pneumatic compression device Consult Discharge Plan - Plan Referrals: Unassigned,Provider [Primary Care Provider] - <Gera Mcmahan - Last Filed: 10/24/16 16:09> Date of Encounter: 10/24/16 - Constitutional Vitals: Temp Pulse Resp BP Pulse Ox 98 F 81 16 133/63 97 10/24/16 15:05 10/24/16 15:05 10/24/16 15:05 10/24/16 15:05 10/24/16 15:05 Internal Medicine: Result - Labs CBC & Chem 7: 10/24/16 08:40 10/24/16 08:40 Labs: Short CBC 10/24/16 Range/Units 08:40 WBC 14.5 H (4.3-11.1) K/mcL Hgb 9.1 L (11.5-15.4) g/dL Hct 28.1 L (35.3-44.9) % Plt Count 299 (140-400) K/mcL Neutrophils # 13.1 H (1.6-8.9) K/mcL BMP 10/24/16 08:40 Sodium 140 Potassium 3.2 L Chloride 98 Carbon Dioxide 32 H BUN 20 Creatinine 1.39 H Glucose 140 H Calcium 9.7 - ABG Interpretation ABG results: ABG ABG pH 7.38 pH Units (7.32-7.45) 10/23/16 10:54 ABG pCO2 60 mmHg (35-45) H 10/23/16 10:54 ABG pO2 118 mmHg (85-104) H 10/23/16 10:54 ABG O2 Saturation 99 % (95-98) H 10/23/16 10:54 - Attending Attestation I examined this patient and my medical decision-making was reviewed with Dr. Richards. I agree with the documented findings, disposition and treatment plan as described except to the extent set forth below. High risk due to unresolved pneumonia and COPD exacerbation and risk of worsening respiratory failure and sepsis. Gera Mcmahan MD
[2016-10-24] MEDS: Gabapentin 300 MG CAPSULE PO SCH ×2 (10:56→22:21)
[2016-10-24] MEDS: Nystatin SUSP 5 ML UD.LIQ PO SCH ×4 (10:56→22:22)
[2016-10-24] MEDS: *HR* HYDROcodone/Acet 7.5/325 mg TABLET PO PRN ×2 (10:56→18:10)
[2016-10-24] MEDS ORDERED: 0.9 % Sodium Chloride 1,000 ML IVC SCH (11:15)
[2016-10-24] MEDS: Vancomycin 750 MG in D5% in Water 250 ML IVPB SCH (15:19)
[2016-10-25] MEDS: Piperacillin/Tazobactam 3.375 GM in D5% in Water (Mini-Bag+) 100 ML IVPB SCH ×4 (00:48→23:40)
[2016-10-25] MEDS: Ipratropium/Albuterol Neb 3 ML IH SCH ×4 (04:38→22:30)
[2016-10-25 05:24] LABS: Basophils % 0.1 %; Hematocrit 25.5 % (35.3-44.9); Hemoglobin 8.4 g/dL (11.5-15.4); Immature Granulocytes % 0.5 % (0-4); Lymphocytes # 1.3 K/mcL (0.6-4.6); Lymphocytes % 11.4 %; Mean Corpuscular HGB Conc 32.9 g/dL (31.6-35.5); Mean Corpuscular Hemoglobin 28.7 pg (28.0-33.3); Mean Platelet Volume 9.4 fL (9.4-12.4); Monocytes # 0.6 K/mcL (0.0-1.3); Monocytes % 5.7 %; Platelet Count 272 K/mcL (140-400); Red Blood Count 2.93 M/mcL (3.82-4.97); Red Cell Distribution Width 14.8 % (11.5-14.5); Segmented Neutrophils % 82.3 %
[2016-10-25] MEDS: MethylPREDNISolone 40 MG/ML VIAL IVP SCH (05:34)
[2016-10-25] MEDS: *HR* Heparin 5,000 UNIT/ML VIAL SQ SCH ×3 (05:34→18:28)
[2016-10-25] MEDS: *HR* HYDROcodone/Acet 7.5/325 mg TABLET PO PRN ×3 (05:42→14:11)
[2016-10-25 05:45] LABS: Calcium 9.3 mg/dL (8.6-10.8); Potassium 3.6 mEq/L (3.5-4.5)
--- NOTE | 2016-10-25 09:38 | Internal Med Progress Note ---
Date of Encounter: 10/25/16 Time of Encounter: 09:36 - Assessment and plan (1) Pneumonia Current Visit: Yes Status: Acute Assessment and plan: Suspect HCAP given pts recent hospitalization. CXR reveals mild right basilar atelectasis. right LL rales auscultated Will continue Vancomycin, Zosyn, DAY 3. Will continue Vanc for 1 more day. Blood cx: NGTD - Prelim Afebrile, vitals stable Leukocytosis trending down Drinking and eating well Incentive spirometry Up to chair Change from IV to PO steroid Qualifiers: Pneumonia type: due to unspecified organism Laterality: unspecified laterality Lung location: unspecified part of lung Qualified Code(s): J18.9 - Pneumonia, unspecified organism (2) Acute exacerbation of chronic obstructive airways disease Current Visit: Yes Status: Acute Assessment and plan: Respiratory status appears to be improving since yesterday. Must consider given pts smoking history and acute hypoxemia. 89% upon admission. On 2L O2 at home continuous Currently on 2L at 93% Will continue O2, duoneb q6h, albuterol prn. Resp Panel Pending Stop IV solumedrol, start PO prednisone (3) Leukocytosis Current Visit: Yes Status: Acute Assessment and plan: Likely related to possible HCAP Afebrile. Not tachy or tachypneic. WBC peaked at 23.1. Current WBC is 11.0 and is trending down Continue ABx (vanc and zosyn Day 3) Monitor labs Qualifiers: Leukocytosis type: unspecified Qualified Code(s): D72.829 - Elevated white blood cell count, unspecified (4) Encephalopathy Current Visit: Yes Status: Resolved Assessment and plan: Resolved Today is awake and alert. Suspect hypercarbia as cause d/t COPD and PNA Head and cervical CT scans were negative. Will monitor clinical progression. (5) Shoulder arthritis Current Visit: Yes Status: Chronic Assessment and plan: Shoulder Xray revealed possible avulsion fracture and OA. Ortho consulted, and states that there is severe OA in her left shoulder. Recommended out-patient f/u for steroid injection after PNA has resolved. Pain meds PRN (6) Congestive heart failure Current Visit: No Status: Chronic Assessment and plan: SOB may be related to acute CHF exacerbation. Received one dose of Lasix yesterday. D/Cd now as looks more likely to be PNA than CHFE. Cr 1.18 today and trending down Harrison in place d/t fall risk Monitor volume status, I&O, daily weights Qualifiers: Congestive heart failure type: diastolic Congestive heart failure chronicity: chronic Qualified Code(s): I50.32 - Chronic diastolic (congestive ) heart failure (7) HTN (hypertension) Current Visit: No Status: Chronic Assessment and plan: Stable. Continue current regimen. Qualifiers: Hypertension type: unspecified secondary hypertension Qualified Code(s): I15.9 - Secondary hypertension, unspecified; I15 - Secondary hypertension - Subjective Interval history: Patient seen and examined. Awake and alert this am. Conversational. Richardson contrast from two days ago when patient was not arousable. States she slept ok and is feeling ok this am. Complaining of left shoulder pain. States pain is controlled with norco. Denies cp, sob, n/v/d. - Constitutional Vitals: Temp Pulse Resp BP Pulse Ox 97.5 F L 75 18 156/91 99 10/25/16 04:00 10/25/16 07:00 10/25/16 07:00 10/25/16 07:00 10/25/16 07:00 General appearance: Present: cooperative, A&O X 3, pleasant, underweight - Head Head exam: Present: atraumatic, normocephalic - Eye Eye exam: Present: PERRL, conjuntiva pink, sclera anicteric Pupils: Present: PERRL - Neck Neck exam general surgery: Present: supple, trachea midline. Absent: lymphadenopathy - Respiratory Respiratory exam: Present: decreased breath sounds, prolonged expiratory phase, rales, rhonchi. Absent: respiratory distress - Cardiovascular Cardiovascular exam: Present: RRR, +S1, +S2. Absent: diastolic murmur, gallop, rubs - GI/Abdominal GI/Abdominal exam: Present: normal bowel sounds, soft, no peritoneal signs. Absent: distended, tenderness - Extremities Exam Extremities exam: Present: warm, radial pulses palpable and symetrical. Absent : calf tenderness, cyanotic, normal inspection (right foot amputation), pedal edema - Neurological Exam Neurological exam: Present: CN II-XII intact, oriented X3, no focal deficits. Absent: facial droop, speech deficit - Skin Skin exam: Present: dry, intact Internal Medicine: Result - Labs CBC & Chem 7: 10/25/16 05:06 10/25/16 05:06 Labs: Short CBC 10/25/16 Range/Units 05:06 WBC 11.0 (4.3-11.1) K/mcL Hgb 8.4 L (11.5-15.4) g/dL Hct 25.5 L (35.3-44.9) % Plt Count 272 (140-400) K/mcL Neutrophils # 9.0 H (1.6-8.9) K/mcL BMP 10/25/16 05:06 Sodium 142 Potassium 3.6 Chloride 102 Carbon Dioxide 33 H BUN 23 H Creatinine 1.18 H Glucose 90 Calcium 9.3 - ABG Interpretation ABG results: ABG ABG pH 7.38 pH Units (7.32-7.45) 10/23/16 10:54 ABG pCO2 60 mmHg (35-45) H 10/23/16 10:54 ABG pO2 118 mmHg (85-104) H 10/23/16 10:54 ABG O2 Saturation 99 % (95-98) H 10/23/16 10:54 - VTE Documentation of Mechanical Device: Intermittent pneumatic compression device Consult Discharge Plan - Plan Referrals: Unassigned,Provider [Primary Care Provider] -
[2016-10-25] MEDS: (Azelastine Hcl [Azelastine Hcl] 1 DROP) OP SCH ×2 (10:11→23:44)
[2016-10-25] MEDS: Fluticasone Propionate Nasal 50 MCG/SPRAY BOTTLE NS SCH (10:19)
[2016-10-25] MEDS: Nystatin SUSP 5 ML UD.LIQ PO SCH ×4 (10:19→21:01)
[2016-10-25] MEDS: Gabapentin 300 MG CAPSULE PO SCH ×2 (10:21→21:00)
[2016-10-25 13:36] LABS: Adenovirus Not Detected (Not Detect); Bordetella Pertussis Not Detected (Not Detect); Chlamydophila pneumoniae Not Detected (Not Detect); Coronavirus 229E Not Detected (Not Detect); Coronavirus HKU1 Not Detected (Not Detect); Coronavirus NL63 Not Detected (Not Detect); Coronavirus OC43 Not Detected (Not Detect); Human Metapneumovirus Not Detected (Not Detect); Human Rhinovirus/Enterovirus Not Detected (Not Detect); Influenza A Subtype 2009 H1 Not Detected (Not Detect); Influenza A Untypeable Not Detected (Not Detect); Influenza B Not Detected (Not Detect); Mycoplasma pneumoniae Not Detected (Not Detect); Parainfluenza Virus 1 Not Detected (Not Detect); Parainfluenza Virus 2 Not Detected (Not Detect); Parainfluenza Virus 3 Not Detected (Not Detect); Parainfluenza Virus 4 Not Detected (Not Detect); Respiratory Syncytial Virus Not Detected (Not Detect)
[2016-10-25] MEDS: Vancomycin 750 MG in D5% in Water 250 ML IVPB SCH (18:09)
[2016-10-26] MEDS: Ipratropium/Albuterol Neb 3 ML IH SCH ×4 (04:22→22:38)
[2016-10-26] MEDS: *HR* Heparin 5,000 UNIT/ML VIAL SQ SCH ×2 (05:30→18:09)
[2016-10-26] MEDS: (Azelastine Hcl [Azelastine Hcl] 1 DROP) OP SCH (08:00)
[2016-10-26] MEDS: Fluticasone Propionate Nasal 50 MCG/SPRAY BOTTLE NS SCH (08:10)
[2016-10-26] MEDS: Nystatin SUSP 5 ML UD.LIQ PO SCH ×4 (08:10→21:31)
[2016-10-26] MEDS: *HR* HYDROcodone/Acet 7.5/325 mg TABLET PO PRN ×2 (08:11→12:55)
[2016-10-26] MEDS: Piperacillin/Tazobactam 3.375 GM in D5% in Water (Mini-Bag+) 100 ML IVPB SCH ×2 (08:11→18:14)
[2016-10-26] MEDS: Gabapentin 300 MG CAPSULE PO SCH ×2 (08:11→21:31)
[2016-10-26] MEDS: predniSONE 20 MG TABLET PO SCH (08:11)
--- NOTE | 2016-10-26 12:04 | Internal Med Progress Note ---
<Alonzo Richards - Last Filed: 10/26/16 14:06> Date of Encounter: 10/26/16 Time of Encounter: 12:01 - Assessment and plan (1) Pneumonia Current Visit: Yes Status: Acute Assessment and plan: Suspect HCAP given pts recent hospitalization. CXR reveals mild right basilar atelectasis. right LL rales auscultated Will continue Vancomycin, Zosyn, DAY 4 Hx of MRSA. Blood cx: NGTD - Prelim Afebrile, vitals stable Leukocytosis trending down Drinking and eating well Incentive spirometry Up to chair, ambulate. Change from IV to PO steroid Hope to D/C tomorrow home with home health. Social service helping with D/c planning. Qualifiers: Pneumonia type: due to unspecified organism Laterality: unspecified laterality Lung location: unspecified part of lung Qualified Code(s): J18.9 - Pneumonia, unspecified organism (2) Acute exacerbation of chronic obstructive airways disease Current Visit: Yes Status: Acute Assessment and plan: Respiratory status appears to be improving since yesterday. Must consider given pts smoking history and acute hypoxemia. 89% upon admission. On 2L O2 at home continuous Currently on 1L at 92% Will continue O2, duoneb q6h, albuterol prn. Resp Panel negative Stop IV solumedrol, start PO prednisone (3) Leukocytosis Current Visit: Yes Status: Acute Assessment and plan: Likely related to possible HCAP Afebrile. Not tachy or tachypneic. WBC peaked at 23.1. Current WBC is 11.1 and is stable x2 dyas Continue ABx (vanc and zosyn Day 4) Monitor labs Qualifiers: Leukocytosis type: unspecified Qualified Code(s): D72.829 - Elevated white blood cell count, unspecified (4) Encephalopathy Current Visit: Yes Status: Resolved Assessment and plan: Resolved Today is awake and alert. Suspect hypercarbia as cause d/t COPD and PNA Head and cervical CT scans were negative. Will monitor clinical progression. (5) Shoulder arthritis Current Visit: Yes Status: Chronic Assessment and plan: Shoulder Xray revealed possible avulsion fracture and OA. Ortho consulted, and states that there is severe OA in her left shoulder. Recommended out-patient f/u for steroid injection after PNA has resolved. Pain meds PRN (6) Congestive heart failure Current Visit: No Status: Chronic Assessment and plan: SOB may be related to acute CHF exacerbation. Received one dose of Lasix yesterday. D/Cd now as looks more likely to be PNA than CHFE. Cr 1.18 today and trending down [place] to be removed today. net negative 1200 ml since admission. 61.8 kg today. Was 60.1 kg yesterday. No pedal edema. Does not appear to be volume overloaded. Monitor volume status, I&O, daily weights Qualifiers: Congestive heart failure type: diastolic Congestive heart failure chronicity: chronic Qualified Code(s): I50.32 - Chronic diastolic (congestive ) heart failure (7) HTN (hypertension) Current Visit: No Status: Chronic Assessment and plan: Stable. Continue current regimen. Qualifiers: Hypertension type: unspecified secondary hypertension Qualified Code(s): I15.9 - Secondary hypertension, unspecified; I15 - Secondary hypertension - Subjective Interval history: Patient seen and examined. Awake and alert this am. Conversational. States she slept ok and is feeling ok this am. Complaining of left shoulder pain. States pain is controlled with norco. Denies cp, sob, n/v/d. Patient has stated that she is interested in going home with her daughter as opposed to going back to [facility]. - Constitutional Vitals: Temp Pulse Resp BP Pulse Ox 97.5 F L 77 16 151/81 92 L 10/26/16 07:00 10/26/16 07:00 10/26/16 07:00 10/26/16 07:00 10/26/16 07:00 General appearance: Present: cooperative, A&O X 3, pleasant, underweight - Head Head exam: Present: atraumatic, normocephalic - Eye Eye exam: Present: PERRL, conjuntiva pink, sclera anicteric Pupils: Present: PERRL - Neck Neck exam general surgery: Present: supple, trachea midline. Absent: lymphadenopathy - Respiratory Respiratory exam: Present: wheezes. Absent: CTAB - Cardiovascular Cardiovascular exam: Present: RRR, +S1, +S2 - GI/Abdominal GI/Abdominal exam: Present: normal bowel sounds, soft, no peritoneal signs. Absent: distended, tenderness - Extremities Exam Extremities exam: Absent: normal inspection (Right foot amputation) - Neurological Exam Neurological exam: Present: CN II-XII intact, oriented X3, no focal deficits. Absent: facial droop, speech deficit - Skin Skin exam: Present: dry, intact Internal Medicine: Result - Labs CBC & Chem 7: 10/26/16 13:39 10/26/16 13:39 - ABG Interpretation ABG results: ABG ABG pH 7.38 pH Units (7.32-7.45) 10/23/16 10:54 ABG pCO2 60 mmHg (35-45) H 10/23/16 10:54 ABG pO2 118 mmHg (85-104) H 10/23/16 10:54 ABG O2 Saturation 99 % (95-98) H 10/23/16 10:54 - VTE Documentation of Mechanical Device: Intermittent pneumatic compression device Consult Discharge Plan - Plan Referrals: Unassigned,Provider [Primary Care Provider] - <Emir Naqvi - Last Filed: 10/26/16 19:07> Date of Encounter: 10/26/16 - Constitutional Vitals: Temp Pulse Resp BP Pulse Ox 98.5 F 74 18 139/69 98 10/26/16 15:00 10/26/16 15:00 10/26/16 15:42 10/26/16 15:00 10/26/16 15:42 Internal Medicine: Result - Labs CBC & Chem 7: 10/26/16 13:39 10/26/16 13:39 Labs: Short CBC 10/26/16 Range/Units 13:39 WBC 11.1 (4.3-11.1) K/mcL Hgb 9.4 L (11.5-15.4) g/dL Hct 30.0 L (35.3-44.9) % Plt Count 302 (140-400) K/mcL Neutrophils # 10.4 H (1.6-8.9) K/mcL BMP 10/26/16 13:39 Sodium 141 Potassium 4.5 Chloride 103 Carbon Dioxide 29 BUN 25 H Creatinine 1.22 H Glucose 144 H Calcium 9.3 - ABG Interpretation ABG results: ABG ABG pH 7.38 pH Units (7.32-7.45) 10/23/16 10:54 ABG pCO2 60 mmHg (35-45) H 10/23/16 10:54 ABG pO2 118 mmHg (85-104) H 10/23/16 10:54 ABG O2 Saturation 99 % (95-98) H 10/23/16 10:54 - Attending Attestation I examined this patient and my medical decision-making was reviewed with the DIORAMIST/PA/Advanced Practice Nurse/Resident Physician. I agree with the documented findings, disposition and treatment plan as described
[2016-10-26 13:49] LABS: Basophils % 0.1 %; Eosinophils % 0.1 %; Hemoglobin 9.4 g/dL (11.5-15.4); Immature Granulocytes % 0.4 % (0-4); Lymphocytes # 0.6 K/mcL (0.6-4.6); Lymphocytes % 5.3 %; Mean Corpuscular HGB Conc 31.3 g/dL (31.6-35.5); Mean Corpuscular Hemoglobin 27.8 pg (28.0-33.3); Mean Corpuscular Volume 88.8 fL (83.0-100.0); Mean Platelet Volume 9.6 fL (9.4-12.4); Monocytes # 0.1 K/mcL (0.0-1.3); Monocytes % 0.5 %; Neutrophils # 10.4 K/mcL (1.6-8.9); Platelet Count 302 K/mcL (140-400); Red Blood Count 3.38 M/mcL (3.82-4.97); Red Cell Distribution Width 15.3 % (11.5-14.5); Segmented Neutrophils % 93.6 %
[2016-10-26 14:03] LABS: Calcium 9.3 mg/dL (8.6-10.8); Potassium 4.5 mEq/L (3.5-4.5)
[2016-10-27] MEDS: (Azelastine Hcl [Azelastine Hcl] 1 DROP) OP SCH ×2 (00:07→10:22)
[2016-10-27] MEDS: Piperacillin/Tazobactam 3.375 GM in D5% in Water (Mini-Bag+) 100 ML IVPB SCH ×2 (00:10→10:21)
[2016-10-27] MEDS: Ipratropium/Albuterol Neb 3 ML IH SCH ×3 (03:12→16:29)
[2016-10-27] MEDS: *HR* Heparin 5,000 UNIT/ML VIAL SQ SCH (06:16)
[2016-10-27] MEDS: Fluticasone Propionate Nasal 50 MCG/SPRAY BOTTLE NS SCH (10:21)
[2016-10-27] MEDS: Gabapentin 300 MG CAPSULE PO SCH (10:21)
[2016-10-27] MEDS: Nystatin SUSP 5 ML UD.LIQ PO SCH (10:22)
[2016-10-27] MEDS: predniSONE 20 MG TABLET PO SCH (10:22)
[2016-10-27] MEDS: *HR* HYDROcodone/Acet 7.5/325 mg TABLET PO PRN (10:30)
--- NOTE | 2016-10-27 12:09 | Discharge Summary ---
Date of Encounter: 10/27/16 Time of Encounter: 12:05 - Discharge Diagnosis (1) Acute exacerbation of chronic obstructive airways disease Priority: Primary Status: Acute (2) Hospital acquired PNA Priority: Primary Status: Acute - Discharge Medications Prescriptions: Levofloxacin [Levaquin] 750 mg PO DAILY #5 tablet PredniSONE 10 mg PO DAILY #21 tablet Home Medications: Albuterol Sulfate [Proair Hfa] 2 puff IH 4-6XD PRN #0 05/28/15 [History] Amitriptyline [Elavil] 25 mg PO HS #0 05/28/15 [History] Azelastine HCl 1 drop OP BID #0 05/28/15 [History] Citalopram [CeleXA] 40 mg PO HS 05/28/15 [History] Fluticasone Propionate Nasal [Flonase] 1 spray NS DAILY 05/28/15 [History] Montelukast Sodium [Singulair] 10 mg PO HS 05/28/15 [History] Omeprazole [PriLOSEC] 20 mg PO HS 05/28/15 [History] Potassium Chloride [Klor-Con M20] 20 meq PO BID 05/28/15 [History] Tiotropium [Spiriva] 18 mcg IH DAILY 05/28/15 [History] Albuterol Neb [Proventil Neb] 2.5 mg IH Q4HR 09/02/16 [History] Allopurinol [Zyloprim] 300 mg PO DAILY 09/02/16 [History] Furosemide [Lasix] 20 mg PO BID #40 tablet 09/09/16 [Rx] Aclidinium [place] [Tudorza Pressair] 1 puff IH BID 10/02/16 [History] Guaifenesin [Mucinex] 600 mg PO BID 10/02/16 [History] Oxygen 1 each .ROUTE AD 10/02/16 [History] Levothyroxine [Synthroid] 125 mcg PO 0630 #30 tablet 10/15/16 [Rx] Nystatin [Nystatin Suspension] 100,000 units PO QID #120 ml 10/15/16 [Rx] Cyclobenzaprine HCl 10 mg PO Q12H 10/22/16 [History] Gabapentin [Neurontin] 300 mg PO BID 10/22/16 [History] Hydrocodone/Acetaminophen [[place] 10-325 Tablet] 1 tab PO Q6H 10/22/16 [History] Lactobacillus Acidophilus [Acidophilus] 1 tab PO TID 10/22/16 [History] Lactulose 30 ml PO DAILY 10/22/16 [History] Lidocaine Patch [Lidoderm 5% patch] 1 each TP Q12H 10/22/16 [History] Lidocaine Patch [Lidoderm 5% patch] 1 each TP Q12H 10/22/16 [History] Metoprolol [Lopressor] 12.5 mg PO BID 10/22/16 [History] Levofloxacin [Levaquin] 750 mg PO DAILY #5 tablet 10/27/16 [Rx] PredniSONE 10 mg PO DAILY #21 tablet 10/27/16 [Rx] Allergies/Adverse Reactions: Allergies acetaminophen [From Percocet] Allergy (Verified 10/22/16 12:40) Rash codeine Allergy (Verified 10/22/16 12:40) Rash hydrochlorothiazide Allergy (Verified 10/22/16 12:40) Rash losartan [Losartan] Allergy (Verified 10/22/16 12:40) Rash morphine Allergy (Verified 10/22/16 12:40) Irritable Oxycodone [From Percocet] Allergy (Verified 10/22/16 12:40) Rash Sulfa (Sulfonamide Antibiotics) Allergy (Verified 10/22/16 12:40) Rash NSAIDS (Non-Steroidal Anti-Inflamma Adverse Reaction (Verified 10/22/16 12:40) See Comments kidney failure Date of admission: 10/22/16 16:47 Primary care physician: Provider Unassigned Consults: 10/24/16 12:19 Consult to Occupational Therapy [CONS] Routine Comment: Evaluate, develop and implement POC Consult to Physical Therapy [CONS] Routine Comment: Evaluate, develop and implement POC Discharging clinician: Emir Naqvi Anticipated date of discharge: 10/27/16 - Patient Status Disposition: Home, Self-Care Condition: Fair Functional capacity at discharge: independent ambulation Overall status at discharge: patient is back to baseline - Discharge Instructions Instructions: Prednisone (By mouth), Levofloxacin (By mouth), Chronic Obstructive Pulmonary Disease (DC), Fall Prevention (DC), Pneumonia (DC) Follow Up With: Unassigned,Provider [Non-Partnered Physician] - - Diet and Activity Activity: as per physical therapy Diet: advance to your usual diet Interval History: Ms. Lennon is a 76 year old female with history of COPD, chronic back pain, HTN , CKD, who presents from her [facility] after a witnessed fall. She was trying to get up from bed, and reportedly got dizzy and fell, hitting her head on a window sill and hitting her left shoulder. She denies any loss of consciousness. She denies any chest pain, palpitations, headache. She reports she has been getting lightheaded lately and states that happens when she gets "too much medicine". She has an implanted dilaudid pain pump for chronic back pain, which is reportedly at the lowest setting down from much higher doses previously, according to the patent's daughter. She is also getting oral pain medicine from the Nursing facility. She also endorses cough and shortness of breath. She reports the cough has been going on for a while, but getting worse in the last week. She reports she feels like she has sputum, but can't get it up. She denies any fever, body aches or night sweats. She was recently discharged on 10/15, and during that hospitalization was treated for UTI, COPD exacerbation, pneumonia, and pain pump malfunction. Her evaluation in the ED was significant for a WBC count of 23. Her UA did not show any infection. Her CXR showed mild right basilar atelectasis. Her CT of the head was negative for any acute abnormality. The xray of the shoulder showed an acute avulsion fracture of the inferior glenoid rim versus the inferior humeral head. She was showing signs of confusion with hallucinations in the ED and an ABG and lactic acid was ordered. The ABG showed chronic respiratory acidosis consistent with her COPD diagnosis. Lactic acid was normal. Hospital course: Ms. Lennon was admitted for HCAP suspected cliniclaly. CXR reveals mild right basilar atelectasis.right LL rales auscultated, was initially started on Vancomycin, Zosyn. Blood cx: NGTD , vanco was stopped, Afebrile, vitals stable WBC peaked at 23.1.,Leukocytosis trended down with IV zosyn. Resp Panel negative Drinking and eating well Incentive spirometry, IV steroids was tapered to oral , patinet improved cliniclaly on above treatment. she is being dc today in stable condition. Time spent discussing smoking cessation with patient: more than 10 minutes - Time Spent with Patient Total time spent providing and/or coordinating discharge services: Greater than 30 minutes - Constitutional Vitals: Temp Pulse Resp BP Pulse Ox 98 F 68 16 178/79 100 10/27/16 08:16 10/27/16 08:16 10/27/16 10:00 10/27/16 08:16 10/27/16 10:00 General appearance: Present: cooperative, A&O X 3, pleasant, underweight Exam: General appearance: Present: cooperative, A&O X 3, pleasant, underweight - Head Head exam: Present: atraumatic, normocephalic - Eye Eye exam: Present: PERRL, conjuntiva pink, sclera anicteric Pupils: Present: PERRL - Neck Neck exam general surgery: Present: supple, trachea midline. Absent: lymphadenopathy - Respiratory Respiratory exam: Present: wheezes. Absent: CTAB - Cardiovascular Cardiovascular exam: Present: RRR, +S1, +S2 - GI/Abdominal GI/Abdominal exam: Present: normal bowel sounds, soft, no peritoneal signs. Absent: distended, tenderness - Extremities Exam Extremities exam: Absent: normal inspection (Right foot amputation) - Neurological Exam Neurological exam: Present: CN II-XII intact, oriented X3, no focal deficits. Absent: facial droop, speech deficit - Skin Skin exam: Present: dry, intact - VTE Documentation of Mechanical Device: Intermittent pneumatic compression device
--- NOTE | 2016-10-27 12:11 | Physician Discharge Referral ---
ExtendedCare Referral Info Transfer To: F Provider in Charge: maricruz siu Institutional Level of Care: Skilled - Diagnosis (1) Acute exacerbation of chronic obstructive airways disease Status: Acute (2) Hospital acquired PNA Status: Acute - Transfer Medications Prescriptions: Levofloxacin [Levaquin] 750 mg PO DAILY #5 tablet PredniSONE 10 mg PO DAILY #21 tablet Home Medications: Albuterol Sulfate [Proair Hfa] 2 puff IH 4-6XD PRN #0 05/28/15 [History] Amitriptyline [Elavil] 25 mg PO HS #0 05/28/15 [History] Azelastine HCl 1 drop OP BID #0 05/28/15 [History] Citalopram [CeleXA] 40 mg PO HS 05/28/15 [History] Fluticasone Propionate Nasal [Flonase] 1 spray NS DAILY 05/28/15 [History] Montelukast Sodium [Singulair] 10 mg PO HS 05/28/15 [History] Omeprazole [PriLOSEC] 20 mg PO HS 05/28/15 [History] Potassium Chloride [Klor-Con M20] 20 meq PO BID 05/28/15 [History] Tiotropium [Spiriva] 18 mcg IH DAILY 05/28/15 [History] Albuterol Neb [Proventil Neb] 2.5 mg IH Q4HR 09/02/16 [History] Allopurinol [Zyloprim] 300 mg PO DAILY 09/02/16 [History] Furosemide [Lasix] 20 mg PO BID #40 tablet 09/09/16 [Rx] Aclidinium [place] [Tudorza Pressair] 1 puff IH BID 10/02/16 [History] Guaifenesin [Mucinex] 600 mg PO BID 10/02/16 [History] Oxygen 1 each .ROUTE AD 10/02/16 [History] Levothyroxine [Synthroid] 125 mcg PO 0630 #30 tablet 10/15/16 [Rx] Nystatin [Nystatin Suspension] 100,000 units PO QID #120 ml 10/15/16 [Rx] Cyclobenzaprine HCl 10 mg PO Q12H 10/22/16 [History] Gabapentin [Neurontin] 300 mg PO BID 10/22/16 [History] Hydrocodone/Acetaminophen [[place] 10-325 Tablet] 1 tab PO Q6H 10/22/16 [History] Lactobacillus Acidophilus [Acidophilus] 1 tab PO TID 10/22/16 [History] Lactulose 30 ml PO DAILY 10/22/16 [History] Lidocaine Patch [Lidoderm 5% patch] 1 each TP Q12H 10/22/16 [History] Lidocaine Patch [Lidoderm 5% patch] 1 each TP Q12H 10/22/16 [History] Metoprolol [Lopressor] 12.5 mg PO BID 10/22/16 [History] Levofloxacin [Levaquin] 750 mg PO DAILY #5 tablet 10/27/16 [Rx] PredniSONE 10 mg PO DAILY #21 tablet 10/27/16 [Rx] Allergies/Adverse Reactions: Allergies acetaminophen [From Percocet] Allergy (Verified 10/22/16 12:40) Rash codeine Allergy (Verified 10/22/16 12:40) Rash hydrochlorothiazide Allergy (Verified 10/22/16 12:40) Rash losartan [Losartan] Allergy (Verified 10/22/16 12:40) Rash morphine Allergy (Verified 10/22/16 12:40) Irritable Oxycodone [From Percocet] Allergy (Verified 10/22/16 12:40) Rash Sulfa (Sulfonamide Antibiotics) Allergy (Verified 10/22/16 12:40) Rash NSAIDS (Non-Steroidal Anti-Inflamma Adverse Reaction (Verified 10/22/16 12:40) See Comments kidney failure - Respiratory Orders Oxygen / L per min (2.5l) Smoking Cessation: Smoking cessation has been advised. For more information, call the [place] Tobacco Quit Line at 8-110-JNYA-NOW. - Advance Directives Code Status: DNR-Comfort Care - Mobility Orders Chair, Ambulate - Rehabiliation Orders Rehab Potential: Fair Rehab Orders: ROM Exercises, Evaluation for Physical Therapy, Evaluation for Occupational Therapy - Diet Orders Mechanical Soft CERTIFICATION: I certify that the transfer of the above named patient to an Extended Care Facility is necessary for the continuing treatment of the diagnosis listed. The above information is true and accurate reflection of patient's current condition. Confidential - Redisclosure prohibited without a patient's written consent.
--- NOTE | 2016-10-27 12:20 | Physician Discharge Referral ---
Home Health/Hosp Referral Info Transfer to: Home Health Attending Provider: maricruz siu - Diagnosis (1) Acute exacerbation of chronic obstructive airways disease Status: Acute (2) Hospital acquired PNA Status: Acute - Respiratory Orders Oxygen / L per min (2.5) Smoking Cessation: Smoking cessation has been advised. For more information, call the [place] Tobacco Quit Line at 0-445-XYRC-NOW. - Diet/Nutrition Diet/Nutrition Orders: Regular - Activity Activity Orders: Up ad [place], Ambulate - Services Needed Following services are medically necessary services: Nursing, Home Health Aide, Physical Therapy, Occupational Therapy - Transfer Medications Prescriptions: Levofloxacin [Levaquin] 750 mg PO DAILY #5 tablet PredniSONE 10 mg PO DAILY #21 tablet Home Medications: Albuterol Sulfate [Proair Hfa] 2 puff IH 4-6XD PRN #0 05/28/15 [History] Amitriptyline [Elavil] 25 mg PO HS #0 05/28/15 [History] Azelastine HCl 1 drop OP BID #0 05/28/15 [History] Citalopram [CeleXA] 40 mg PO HS 05/28/15 [History] Fluticasone Propionate Nasal [Flonase] 1 spray NS DAILY 05/28/15 [History] Montelukast Sodium [Singulair] 10 mg PO HS 05/28/15 [History] Omeprazole [PriLOSEC] 20 mg PO HS 05/28/15 [History] Potassium Chloride [Klor-Con M20] 20 meq PO BID 05/28/15 [History] Tiotropium [Spiriva] 18 mcg IH DAILY 05/28/15 [History] Albuterol Neb [Proventil Neb] 2.5 mg IH Q4HR 09/02/16 [History] Allopurinol [Zyloprim] 300 mg PO DAILY 09/02/16 [History] Furosemide [Lasix] 20 mg PO BID #40 tablet 09/09/16 [Rx] Aclidinium [place] [Tudorza Pressair] 1 puff IH BID 10/02/16 [History] Guaifenesin [Mucinex] 600 mg PO BID 10/02/16 [History] Oxygen 1 each .ROUTE AD 10/02/16 [History] Levothyroxine [Synthroid] 125 mcg PO 0630 #30 tablet 10/15/16 [Rx] Nystatin [Nystatin Suspension] 100,000 units PO QID #120 ml 10/15/16 [Rx] Cyclobenzaprine HCl 10 mg PO Q12H 10/22/16 [History] Gabapentin [Neurontin] 300 mg PO BID 10/22/16 [History] Hydrocodone/Acetaminophen [[place] 10-325 Tablet] 1 tab PO Q6H 10/22/16 [History] Lactobacillus Acidophilus [Acidophilus] 1 tab PO TID 10/22/16 [History] Lactulose 30 ml PO DAILY 10/22/16 [History] Lidocaine Patch [Lidoderm 5% patch] 1 each TP Q12H 10/22/16 [History] Lidocaine Patch [Lidoderm 5% patch] 1 each TP Q12H 10/22/16 [History] Metoprolol [Lopressor] 12.5 mg PO BID 10/22/16 [History] Levofloxacin [Levaquin] 750 mg PO DAILY #5 tablet 10/27/16 [Rx] PredniSONE 10 mg PO DAILY #21 tablet 10/27/16 [Rx] Allergies/Adverse Reactions: Allergies acetaminophen [From Percocet] Allergy (Verified 10/22/16 12:40) Rash codeine Allergy (Verified 10/22/16 12:40) Rash hydrochlorothiazide Allergy (Verified 10/22/16 12:40) Rash losartan [Losartan] Allergy (Verified 10/22/16 12:40) Rash morphine Allergy (Verified 10/22/16 12:40) Irritable Oxycodone [From Percocet] Allergy (Verified 10/22/16 12:40) Rash Sulfa (Sulfonamide Antibiotics) Allergy (Verified 10/22/16 12:40) Rash NSAIDS (Non-Steroidal Anti-Inflamma Adverse Reaction (Verified 10/22/16 12:40) See Comments kidney failure Certification: Further, I certify that my clinical findings support that this patient is homebound (i.e. absences from home require considerable and taxing effort and are for medical reasons or yazdanism services or infrequently or short duration when for other reasons) because: Homebound Reason: Patient requires assistance of a person or device to safely leave home Attestation: My signature below is to certify that this patient is under my care and that I, or nurse practitioner, or a physician's assistant professor of archaeology working with me, has a face-to -face encounter with this patient.
[2016-10-27 16:07] VITALS: BP 139/67
[2016-10-27] MEDS ORDERED: Aminoglycoside Consult 1 EACH MC ONE (17:04)
== END 2016-10-27 17:05 | disposition home or self-care (01) | DRG 190 ==
LOC: EMEROO 10:05 → 2NENU 10:05 → SUATTDRO 16:47
PROVIDERS: ADMIT Internal Medicine; ATTEND Internal Medicine Endocrinology, Diabetes & Metabolism

== ENCOUNTER 2017-03-09 22:22 | Inpatient (IN) ==
[2017-03-09 23:14] LABS: Basophils % 0.3 %; Eosinophils # 0.2 K/mcL (0.0-0.6); Eosinophils % 1.7 %; Hematocrit 30.1 % (35.3-44.9); Hemoglobin 9.6 g/dL (11.5-15.4); Immature Granulocytes % 0.4 % (0-4); Immature Platelets 2.1 % (1.1-6.1); Lymphocytes # 1.8 K/mcL (0.6-4.6); Lymphocytes % 14.3 %; Mean Corpuscular HGB Conc 31.9 g/dL (31.6-35.5); Mean Corpuscular Hemoglobin 28.2 pg (28.0-33.3); Mean Corpuscular Volume 88.5 fL (83.0-100.0); Mean Platelet Volume 8.8 fL (9.4-12.4); Monocytes # 0.7 K/mcL (0.0-1.3); Monocytes % 5.8 %; Neutrophils # 9.5 K/mcL (1.6-8.9); Platelet Count 429 K/mcL (140-400); Red Cell Distribution Width 13.8 % (11.5-14.5); Segmented Neutrophils % 77.5 %
[2017-03-09 23:18] LABS: INR 1.3; Prothrombin Time 14.4 Seconds (9.4-12.1)
[2017-03-09 23:21] LABS: Activated Partial Thrombo Time 34.8 Seconds (26.0-36.0)
[2017-03-09 23:26] LABS: Calcium 9.9 mg/dL (8.6-10.8)
[2017-03-09] MEDS ORDERED: Ipratropium/Albuterol Neb 3 ML IH ONE (23:44)
--- NOTE | 2017-03-09 23:48 | Emergency Department Note ---
Disposition Clinical Impression: Community acquired pneumonia Disposition: Admitted As Inpatient Condition: Good Referrals: NO,PCP [Primary Care Provider] - Forms: ED Satisfaction Letter Time of Disposition: 00:46 SOB HPI - General Chief Complaint: ED Chest Pain Stated Complaint: Worse pneumonia Time Seen by Provider: 03/09/17 23:26 Source: patient, family Mode of arrival: ambulatory Limitations: no limitations Nursing Notes Reviewed: Yes Vital Signs Reviewed: Yes - History of Present Illness 76-year-old female with history of COPD and diagnosis of pneumonia 12 days ago presents with persistent shortness of breath especially on minimal exertion despite Levaquin administration. No associated chest pain or hemoptysis. No productive cough, fevers, headache, confusion. No abdominal pain, nausea or vomiting, changes in bowel movements or urination. No rashes or lower extremity edema. She does note left shoulder pain due to chronic rotator cuff injury and currently is using a sling for the pain because it is worse with her cough. She states that she has had the pneumonia diagnosis and shortness of breath prior to the shoulder injury. She notes that she is unable to perform her ADLs for the last 1-2 days due to her significant diffuse weakness. Pt Subjective Complaint: shortness of breath, cough - Related Data Home Medications Medication Instructions Recorded Confirmed Albuterol Sulfate [Proair Hfa] 2 puff IH 4-6XD PRN #0 05/28/15 10/22/16 Amitriptyline [Elavil] 25 mg PO HS #0 05/28/15 10/22/16 Azelastine HCl 1 drop OP BID #0 05/28/15 10/22/16 Citalopram [CeleXA] 40 mg PO HS 05/28/15 10/22/16 Fluticasone Propionate Nasal 1 spray NS DAILY 05/28/15 10/22/16 [Flonase] Montelukast Sodium [Singulair] 10 mg PO HS 05/28/15 10/22/16 Omeprazole [PriLOSEC] 20 mg PO HS 05/28/15 10/22/16 Potassium Chloride [Klor-Con M20] 20 meq PO BID 05/28/15 10/22/16 Tiotropium [Spiriva] 18 mcg IH DAILY 05/28/15 10/22/16 Albuterol Neb [Proventil Neb] 2.5 mg IH Q4HR 09/02/16 10/22/16 Allopurinol [Zyloprim] 300 mg PO DAILY 09/02/16 10/22/16 Aclidinium [place] [Tudorza 1 puff IH BID 10/02/16 10/22/16 Pressair] Guaifenesin [Mucinex] 600 mg PO BID 10/02/16 10/22/16 Oxygen 1 each .ROUTE AD 10/02/16 10/22/16 Cyclobenzaprine HCl 10 mg PO Q12H 10/22/16 10/22/16 Gabapentin [Neurontin] 300 mg PO BID 10/22/16 10/22/16 Hydrocodone/Acetaminophen [[place] 1 tab PO Q6H 10/22/16 10/22/16 10-325 Tablet] Lactobacillus Acidophilus 1 tab PO TID 10/22/16 10/22/16 [Acidophilus] Lactulose 30 ml PO DAILY 10/22/16 10/22/16 Lidocaine Patch [Lidoderm 5% patch] 1 each TP Q12H 10/22/16 10/22/16 Lidocaine Patch [Lidoderm 5% patch] 1 each TP Q12H 10/22/16 10/22/16 Metoprolol [Lopressor] 12.5 mg PO BID 10/22/16 10/22/16 Previous Rx's Medication Instructions Recorded Furosemide [Lasix] 20 mg PO BID #40 tablet 09/09/16 Levothyroxine [Synthroid] 125 mcg PO 0630 #30 tablet 10/15/16 Nystatin [Nystatin Suspension] 100,000 units PO QID #120 ml 10/15/16 Levofloxacin [Levaquin] 750 mg PO DAILY #5 tablet 10/27/16 predniSONE [PredniSONE] 10 mg PO DAILY #21 tablet 10/27/16 Clindamycin HCl [Cleocin HCl] 300 mg PO QID #40 cap 12/08/16 Gabapentin [Neurontin] 300 mg PO BID #60 capsule 12/08/16 cephALEXin [Keflex] 500 mg PO QID #40 capsule 12/08/16 hydrOXYzine pamoate [Hydroxyzine 25 mg PO Q6HR #30 capsule 12/08/16 Pamoate] Cefdinir [Omnicef] 300 mg PO BID #20 capsule 12/31/16 Allergies Allergy/AdvReac Type Severity Reaction Status Date / Time acetaminophen [From Percocet] Allergy Rash Verified 10/22/16 12:40 clindamycin Allergy Itching Verified 12/31/16 13:54 codeine Allergy Rash Verified 10/22/16 12:40 hydrochlorothiazide Allergy Rash Verified 10/22/16 12:40 losartan [Losartan] Allergy Rash Verified 10/22/16 12:40 morphine Allergy Irritable Verified 10/22/16 12:40 Oxycodone [From Percocet] Allergy Rash Verified 10/22/16 12:40 Sulfa (Sulfonamide Allergy Rash Verified 10/22/16 12:40 Antibiotics) NSAIDS (Non-Steroidal AdvReac See Verified 10/22/16 12:40 Anti-Inflamma Comments All systems ED: reviewed and negative except as stated. Past Medical History - Past Medical History Attestation: Yes The following information was validated with the patient. Source: patient Medical history: Reports: asthma, COPD, hyperlipidemia, hypertension Surgical history: Reports: appendectomy, cholecystectomy, hysterectomy, orthopedic, other, other Psychiatric history: Reports: no psych history, other EDUCATION LIAISON history: Reports: no EDUCATION LIAISON history - Social History Smoking Status: Former smoker Smokeless Tobacco Status: No Alcohol use: Reports: none Drug use: Reports: none Physical Exam - Head Head exam: atraumatic, normocephalic, normal inspection - Eye Eye exam: Present: normal appearance, PERRL, EOMI - ENT ENT exam: normal exam, normal oropharynx, mucous membranes moist - Neck Neck exam: Present: normal inspection, full ROM, trachea midline - Chest Chest inspection: Present: normal inspection, symmetric chest wall rise - Respiratory Diffuse moderate wheezes with good air movement throughout. No respiratory distress. Cardiovascular Cardiovascular exam: Present: regular rate, normal rhythm, normal heart sounds - Abdominal Exam Abdominal exam: Present: soft, Non-Tender. Absent: tenderness, distention, guarding, rebound, rigidity - Extremities Exam Right foot is status post TMA. Left leg is normal. No calf swelling or tenderness. - Back Exam Back exam: Present: normal inspection, full ROM. Absent: tenderness, CVA tenderness (R), CVA tenderness (L) - Neurological Exam Neurological exam: Present: alert, oriented X3, CN II-XII intact - Psychiatric Psychiatric exam: Present: normal affect, normal mood - Skin Skin exam: Present: warm, dry, intact, normal color - General Limitations: no limitations General appearance: alert, in no apparent distress Course - Reevaluation(s) Reevaluation #1: CT of the chest performed to better evaluate the patient's lungs. This shows right-sided pneumonia. D-dimer was mildly elevated 2 645 which is less than the patient's expected age-adjusted d-dimer maximum of 700. Patient had no significant improvement after nebulizers. Given the patient is feeling too weak to perform her ADLs and lives alone and has failed outpatient Levaquin therapy she will need to be admitted for her pneumonia. Started on Rocephin and azithromycin here. Time: 00:45 Reevaluation #2: Excepted by Dr. Sow. Time: 01:07 Vital Signs Temperature 98.0 F 03/09/17 22:27 Pulse Rate 104 03/09/17 22:27 Respiratory Rate 20 03/09/17 22:27 Blood Pressure 133/72 03/09/17 22:27 O2 Sat by Pulse Oximetry 95 03/09/17 22:27 Temperature 98.0 F 03/09/17 22:27 Pulse Rate 88 03/10/17 00:14 Respiratory Rate 20 03/10/17 00:14 Blood Pressure 130/76 03/10/17 00:14 O2 Sat by Pulse Oximetry 100 03/10/17 00:14 Oxygen Delivery Oxygen Delivery Nasal Cannula Shortness of Breath/Dyspnea - Lab Data Result diagrams: 03/09/17 23:05 03/09/17 23:05 Lab Results 03/09/17 03/09/17 03/09/17 Range/Units 23:05 23:05 23:05 WBC 12.2 H (4.3-11.1) K/mcL RBC 3.40 L (3.82-4.97) M/mcL Hgb 9.6 L (11.5-15.4) g/dL Hct 30.1 L (35.3-44.9) % MCV 88.5 (83.0-100.0) fL MCH 28.2 (28.0-33.3) pg MCHC 31.9 (31.6-35.5) g/dL RDW 13.8 (11.5-14.5) % Plt Count 429 H (140-400) K/mcL MPV 8.8 L (9.4-12.4) fL Immature Gran % 0.4 (0-4) % Seg Neutrophils % 77.5 % Lymphocytes % 14.3 % Monocytes % 5.8 % Eosinophils % 1.7 % Basophils % 0.3 % Neutrophils # 9.5 H (1.6-8.9) K/mcL Lymphocytes # 1.8 (0.6-4.6) K/mcL Monocytes # 0.7 (0.0-1.3) K/mcL Eosinophils # 0.2 (0.0-0.6) K/mcL Basophils # 0.0 (0.0-0.2) K/mcL Immature Plt Fraction 2.1 (1.1-6.1) % PT 14.4 H (9.4-12.1) Seconds INR 1.3 APTT 34.8 (26.0-36.0) Seconds D-Dimer (0-500) ng/mLFEU Sodium 136 (136-145) mEq/L Potassium 3.0 L (3.5-4.5) mEq/L Chloride 91 L (98-109) mEq/L Carbon Dioxide 29 (19-29) mEq/L BUN 31 H (7-20) mg/dL Creatinine 1.67 H (0.57-1.11) mg/dL Est GFR ( Amer) 36 L (> 60) Est GFR (Non-Af Amer) 30 L (> 60) BUN/Creatinine Ratio 19 (6-26) Glucose 165 H (70-99) mg/dL Calculated Osmolality 292 (280-300) Calcium 9.9 (8.6-10.8) mg/dL Troponin I (0-0.03) ng/mL 03/09/17 03/09/17 Range/Units 23:05 23:05 WBC (4.3-11.1) K/mcL RBC (3.82-4.97) M/mcL Hgb (11.5-15.4) g/dL Hct (35.3-44.9) % MCV (83.0-100.0) fL MCH (28.0-33.3) pg MCHC (31.6-35.5) g/dL RDW (11.5-14.5) % Plt Count (140-400) K/mcL MPV (9.4-12.4) fL Immature Gran % (0-4) % Seg Neutrophils % % Lymphocytes % % Monocytes % % Eosinophils % % Basophils % % Neutrophils # (1.6-8.9) K/mcL Lymphocytes # (0.6-4.6) K/mcL Monocytes # (0.0-1.3) K/mcL Eosinophils # (0.0-0.6) K/mcL Basophils # (0.0-0.2) K/mcL Immature Plt Fraction (1.1-6.1) % PT (9.4-12.1) Seconds INR APTT (26.0-36.0) Seconds D-Dimer 645 H (0-500) ng/mLFEU Sodium (136-145) mEq/L Potassium (3.5-4.5) mEq/L Chloride (98-109) mEq/L Carbon Dioxide (19-29) mEq/L BUN (7-20) mg/dL Creatinine (0.57-1.11) mg/dL Est GFR ( Amer) (> 60) Est GFR (Non-Af Amer) (> 60) BUN/Creatinine Ratio (6-26) Glucose (70-99) mg/dL Calculated Osmolality (280-300) Calcium (8.6-10.8) mg/dL Troponin I 0.00 (0-0.03) ng/mL - EKG Data EKG attestation: Yes I reviewed and interpreted this EKG. EKG results narrative: EKG shows sinus tachycardia at 103 with left axis deviation. No ST elevation or depression. No pathologic Q waves. No significant change other than rate when compared with 10/22/2016.
[2017-03-10] MEDS ORDERED: Azithromycin 500 MG in D5% in Water 250 ML IVPB ONE (00:43)
--- NOTE | 2017-03-10 00:59 | Emergency Department Note ---
Disposition Clinical Impression: Community acquired pneumonia Disposition: Admitted As Inpatient Condition: Good Referrals: NO,PCP [Primary Care Provider] - Forms: ED Satisfaction Letter General Adult HPI - General Chief complaint: ED Chest Pain Stated complaint: Worse pneumonia Time Seen by Provider: 03/09/17 23:26 Source: patient, family Mode of arrival: ambulatory Limitations: no limitations - History of Present Illness Pain Scale: 4 - Related Data Home Medications Medication Instructions Recorded Confirmed Albuterol Sulfate [Proair Hfa] 2 puff IH 4-6XD PRN #0 05/28/15 10/22/16 Amitriptyline [Elavil] 25 mg PO HS #0 05/28/15 10/22/16 Azelastine HCl 1 drop OP BID #0 05/28/15 10/22/16 Citalopram [CeleXA] 40 mg PO HS 05/28/15 10/22/16 Fluticasone Propionate Nasal 1 spray NS DAILY 05/28/15 10/22/16 [Flonase] Montelukast Sodium [Singulair] 10 mg PO HS 05/28/15 10/22/16 Omeprazole [PriLOSEC] 20 mg PO HS 05/28/15 10/22/16 Potassium Chloride [Klor-Con M20] 20 meq PO BID 05/28/15 10/22/16 Tiotropium [Spiriva] 18 mcg IH DAILY 05/28/15 10/22/16 Albuterol Neb [Proventil Neb] 2.5 mg IH Q4HR 09/02/16 10/22/16 Allopurinol [Zyloprim] 300 mg PO DAILY 09/02/16 10/22/16 Aclidinium [place] [Tudorza 1 puff IH BID 10/02/16 10/22/16 Pressair] Guaifenesin [Mucinex] 600 mg PO BID 10/02/16 10/22/16 Oxygen 1 each .ROUTE AD 10/02/16 10/22/16 Cyclobenzaprine HCl 10 mg PO Q12H 10/22/16 10/22/16 Gabapentin [Neurontin] 300 mg PO BID 10/22/16 10/22/16 Hydrocodone/Acetaminophen [[place] 1 tab PO Q6H 10/22/16 10/22/16 10-325 Tablet] Lactobacillus Acidophilus 1 tab PO TID 10/22/16 10/22/16 [Acidophilus] Lactulose 30 ml PO DAILY 10/22/16 10/22/16 Lidocaine Patch [Lidoderm 5% patch] 1 each TP Q12H 10/22/16 10/22/16 Lidocaine Patch [Lidoderm 5% patch] 1 each TP Q12H 10/22/16 10/22/16 Metoprolol [Lopressor] 12.5 mg PO BID 10/22/16 10/22/16 Previous Rx's Medication Instructions Recorded Furosemide [Lasix] 20 mg PO BID #40 tablet 09/09/16 Levothyroxine [Synthroid] 125 mcg PO 0630 #30 tablet 10/15/16 Nystatin [Nystatin Suspension] 100,000 units PO QID #120 ml 10/15/16 Levofloxacin [Levaquin] 750 mg PO DAILY #5 tablet 10/27/16 predniSONE [PredniSONE] 10 mg PO DAILY #21 tablet 10/27/16 Clindamycin HCl [Cleocin HCl] 300 mg PO QID #40 cap 12/08/16 Gabapentin [Neurontin] 300 mg PO BID #60 capsule 12/08/16 cephALEXin [Keflex] 500 mg PO QID #40 capsule 12/08/16 hydrOXYzine pamoate [Hydroxyzine 25 mg PO Q6HR #30 capsule 12/08/16 Pamoate] Cefdinir [Omnicef] 300 mg PO BID #20 capsule 12/31/16 Allergies Allergy/AdvReac Type Severity Reaction Status Date / Time acetaminophen [From Percocet] Allergy Rash Verified 10/22/16 12:40 clindamycin Allergy Itching Verified 12/31/16 13:54 codeine Allergy Rash Verified 10/22/16 12:40 hydrochlorothiazide Allergy Rash Verified 10/22/16 12:40 losartan [Losartan] Allergy Rash Verified 10/22/16 12:40 morphine Allergy Irritable Verified 10/22/16 12:40 Oxycodone [From Percocet] Allergy Rash Verified 10/22/16 12:40 Sulfa (Sulfonamide Allergy Rash Verified 10/22/16 12:40 Antibiotics) NSAIDS (Non-Steroidal AdvReac See Verified 10/22/16 12:40 Anti-Inflamma Comments Past Medical History - Past Medical History Medical history: Reports: asthma, COPD, hyperlipidemia, hypertension Surgical history: Reports: appendectomy, cholecystectomy, hysterectomy, orthopedic, other, other Psychiatric history: Reports: no psych history, other YARN SPOOLER history: Reports: no YARN SPOOLER history - Social History Smoking Status: Former smoker Smokeless Tobacco Status: No Alcohol use: Reports: none Drug use: Reports: none Physical Exam - General Limitations: no limitations General appearance: alert, in no apparent distress Course - Reevaluation(s) Reevaluation #1: I saw the patient with the resident, Dr. Carrillo. Patient presents complaining of weakness and shortness of breath. She was initially diagnosed with pneumonia and started on Levaquin. She has taken her last dose but feels that she still getting worse. On examination she is tachycardic. CAT scan still shows pneumonia in the chest. Given the overall weakness and shortness of breath that is worsening despite outpatient antibiotics, I feel the patient is to be admitted for IV antibiotics to treat this pneumonia. We have spoken with the hospitalist and the patient has been accepted for admission. Time: 00:58 Vital Signs Temperature 98.0 F 03/09/17 22:27 Pulse Rate 104 03/09/17 22:27 Respiratory Rate 20 03/09/17 22:27 Blood Pressure 133/72 03/09/17 22:27 O2 Sat by Pulse Oximetry 95 03/09/17 22:27 Temperature 98.0 F 03/09/17 22:27 Pulse Rate 88 03/10/17 00:14 Respiratory Rate 20 03/10/17 00:14 Blood Pressure 130/76 03/10/17 00:14 O2 Sat by Pulse Oximetry 100 03/10/17 00:14 Oxygen Delivery Oxygen Delivery Nasal Cannula Medical Decision Making - Lab Data Result diagrams: 03/09/17 23:05 03/09/17 23:05 Lab Results 03/09/17 03/09/17 03/09/17 Range/Units 23:05 23:05 23:05 WBC 12.2 H (4.3-11.1) K/mcL RBC 3.40 L (3.82-4.97) M/mcL Hgb 9.6 L (11.5-15.4) g/dL Hct 30.1 L (35.3-44.9) % MCV 88.5 (83.0-100.0) fL MCH 28.2 (28.0-33.3) pg MCHC 31.9 (31.6-35.5) g/dL RDW 13.8 (11.5-14.5) % Plt Count 429 H (140-400) K/mcL MPV 8.8 L (9.4-12.4) fL Immature Gran % 0.4 (0-4) % Seg Neutrophils % 77.5 % Lymphocytes % 14.3 % Monocytes % 5.8 % Eosinophils % 1.7 % Basophils % 0.3 % Neutrophils # 9.5 H (1.6-8.9) K/mcL Lymphocytes # 1.8 (0.6-4.6) K/mcL Monocytes # 0.7 (0.0-1.3) K/mcL Eosinophils # 0.2 (0.0-0.6) K/mcL Basophils # 0.0 (0.0-0.2) K/mcL Immature Plt Fraction 2.1 (1.1-6.1) % PT 14.4 H (9.4-12.1) Seconds INR 1.3 APTT 34.8 (26.0-36.0) Seconds D-Dimer (0-500) ng/mLFEU Sodium 136 (136-145) mEq/L Potassium 3.0 L (3.5-4.5) mEq/L Chloride 91 L (98-109) mEq/L Carbon Dioxide 29 (19-29) mEq/L BUN 31 H (7-20) mg/dL Creatinine 1.67 H (0.57-1.11) mg/dL Est GFR ( Amer) 36 L (> 60) Est GFR (Non-Af Amer) 30 L (> 60) BUN/Creatinine Ratio 19 (6-26) Glucose 165 H (70-99) mg/dL Calculated Osmolality 292 (280-300) Calcium 9.9 (8.6-10.8) mg/dL Troponin I (0-0.03) ng/mL 03/09/17 03/09/17 Range/Units 23:05 23:05 WBC (4.3-11.1) K/mcL RBC (3.82-4.97) M/mcL Hgb (11.5-15.4) g/dL Hct (35.3-44.9) % MCV (83.0-100.0) fL MCH (28.0-33.3) pg MCHC (31.6-35.5) g/dL RDW (11.5-14.5) % Plt Count (140-400) K/mcL MPV (9.4-12.4) fL Immature Gran % (0-4) % Seg Neutrophils % % Lymphocytes % % Monocytes % % Eosinophils % % Basophils % % Neutrophils # (1.6-8.9) K/mcL Lymphocytes # (0.6-4.6) K/mcL Monocytes # (0.0-1.3) K/mcL Eosinophils # (0.0-0.6) K/mcL Basophils # (0.0-0.2) K/mcL Immature Plt Fraction (1.1-6.1) % PT (9.4-12.1) Seconds INR APTT (26.0-36.0) Seconds D-Dimer 645 H (0-500) ng/mLFEU Sodium (136-145) mEq/L Potassium (3.5-4.5) mEq/L Chloride (98-109) mEq/L Carbon Dioxide (19-29) mEq/L BUN (7-20) mg/dL Creatinine (0.57-1.11) mg/dL Est GFR ( Amer) (> 60) Est GFR (Non-Af Amer) (> 60) BUN/Creatinine Ratio (6-26) Glucose (70-99) mg/dL Calculated Osmolality (280-300) Calcium (8.6-10.8) mg/dL Troponin I 0.00 (0-0.03) ng/mL Attestation Statement - Attestation Attestation: I, Dr. Sevilla, examined this patient [id number] and my medical decision- making was reviewed with Dr. Carrillo, Resident Physician. I agree with the documented findings, disposition and treatment plan as described except to the extent set forth below. Please see my progress notes for details.
[2017-03-10] MEDS ORDERED: Naloxone 0.4 MG/ML INJ IVP PRN (03:30)
--- NOTE | 2017-03-10 03:50 | Internal Med History&Physical ---
Date of Encounter: 03/10/17 Time of Encounter: 03:41 Assessment and Plan (1) Community acquired pneumonia Current visit: Yes Status: Acute With failed outpatient therapy. CT scan shows evidence of bilateral pneumonia. Patient was given Rocephin and Zithromax in the ED. Given that the patient has a history of MRSA pneumonia we will cover for this with vancomycin. Continue Zithromax. (2) COPD exacerbation Current visit: No Status: Resolved Patient has moderate to severe COPD with evidence of exacerbation. Likely related to pneumonia as discussed above. Patient has diffuse wheezing and reports wheezing at home despite nebulized breathing treatments. We will continue oxygen therapy, nebulized DuoNeb nebs every 4 hours scheduled. Antibiotics have been ordered. We will start prednisone 40 mg daily for 5 days. (3) Hypokalemia Current visit: No Status: Acute Potassium 3.0 on presentation. Will replete orally. We will check magnesium. No EKG changes. (4) BEVERLY (obstructive sleep apnea) Current visit: No Status: Acute Patient uses CPAP at home, will order for use in the hospital. (5) Chronic back pain Current visit: No Status: Chronic On chronic opioid therapy as well as lidocaine patches. Patient also has a pain pump in place. Pain is at baseline. Continue current therapy. Qualifiers: Back pain location: low back pain Back pain laterality: bilateral Sciatica presence: without sciatica Qualified Code(s): M54.5 - Low back pain; G89.29 - Other chronic pain (6) HTN (hypertension) Current visit: No Status: Chronic Blood pressures under good control at this time. Continue home medications. Qualifiers: Hypertension type: unspecified secondary hypertension Qualified Code(s): I15.9 - Secondary hypertension, unspecified; I15 - Secondary hypertension (7) DVT prophylaxis Current visit: No Status: Acute Heparin 5000 units subcutaneous twice a day Internal Medicine - H&P: HPI Chief complaint: Dyspnea Admitted From: Emergency Dept Plans for Post Hospital Care: Home History of present illness: Ms. Lennon is a 76 year old female with history of COPD presents with shortness of breath and cough. Patient states that her symptoms began approximately 2 weeks ago at which time she saw her PCP who placed her on Levaquin. Patient states that she has not felt any better despite antibiotic therapy and is continued to get worse. She complains of worsening shortness of breath, dry cough. She denies production but feels like she has sputum that she just cannot get up. Patient also reports wheezing, chills but denies fever. She states that today she developed chest pain that she reports as an ache in the center of her chest. She denies radiation, associated shortness of breath or diaphoresis. Patient states that the pain is not related to activity. She denies nausea, vomiting, diarrhea, dysuria, lower extremity swelling. Past Med Surg Social Fam HX - Past Medical History Medical history: asthma, COPD, hyperlipidemia, hypertension Psychiatric history: no psych history, other - Past Surgical History Surgical History: appendectomy, cholecystectomy, hysterectomy, orthopedic, other , other - Social History Smoking Status: Former smoker Smokeless Tobacco Status: No Alcohol use: none Drug use: none - Family History Paternal Living Status: Hx Family Cardiac Disorders: Yes Hx Family Respiratory Disorders: Yes Hx Family Cancer: (liver) Hx Family Neurologic Disorders: Yes Hx Family Autoimmune Disorders: (arthritis) Mother Family Member Ethnicity: Non- Living Status: Hx Family Cardiac Disorders: Yes (CHF) Hx Family Respiratory Disorders: No Hx Family Cancer: Yes Hx Family GI Disorders: Yes Hx Family Endocrine Disorder: Yes Hx Family Neuromuscular Disorders: No Hx Family Neurologic Disorders: No Hx Family HEENT Disorders: No Hx Family Autoimmune Disorders: No Internal Medicine - H&P: Meds Albuterol Sulfate [Proair Hfa] 2 puff IH 4-6XD PRN #0 05/28/15 [History] Amitriptyline [Elavil] 25 mg PO HS #0 05/28/15 [History] Azelastine HCl 1 drop OP BID #0 05/28/15 [History] Citalopram [CeleXA] 40 mg PO HS 05/28/15 [History] Fluticasone Propionate Nasal [Flonase] 1 spray NS DAILY 05/28/15 [History] Montelukast Sodium [Singulair] 10 mg PO HS 05/28/15 [History] Omeprazole [PriLOSEC] 20 mg PO HS 05/28/15 [History] Potassium Chloride [Klor-Con M20] 20 meq PO BID 05/28/15 [History] Tiotropium [Spiriva] 18 mcg IH DAILY 05/28/15 [History] Albuterol Neb [Proventil Neb] 2.5 mg IH Q4HR 09/02/16 [History] Allopurinol [Zyloprim] 300 mg PO DAILY 09/02/16 [History] Furosemide [Lasix] 20 mg PO BID #40 tablet 09/09/16 [Rx] Aclidinium [place] [Tudorza Pressair] 1 puff IH BID 10/02/16 [History] Guaifenesin [Mucinex] 600 mg PO BID 10/02/16 [History] Oxygen 1 each .ROUTE AD 10/02/16 [History] Levothyroxine [Synthroid] 125 mcg PO 0630 #30 tablet 10/15/16 [Rx] Nystatin [Nystatin Suspension] 100,000 units PO QID #120 ml 10/15/16 [Rx] Cyclobenzaprine HCl 10 mg PO Q12H 10/22/16 [History] Gabapentin [Neurontin] 300 mg PO BID 10/22/16 [History] Hydrocodone/Acetaminophen [Annona 10-325 Tablet] 1 tab PO Q6H 10/22/16 [History] Lactobacillus Acidophilus [Acidophilus] 1 tab PO TID 10/22/16 [History] Lactulose 30 ml PO DAILY 10/22/16 [History] Lidocaine Patch [Lidoderm 5% patch] 1 each TP Q12H 10/22/16 [History] Lidocaine Patch [Lidoderm 5% patch] 1 each TP Q12H 10/22/16 [History] Metoprolol [Lopressor] 12.5 mg PO BID 10/22/16 [History] Levofloxacin [Levaquin] 750 mg PO DAILY #5 tablet 10/27/16 [Rx] predniSONE [PredniSONE] 10 mg PO DAILY #21 tablet 10/27/16 [Rx] Clindamycin HCl [Cleocin HCl] 300 mg PO QID #40 cap 12/08/16 [Rx] Gabapentin [Neurontin] 300 mg PO BID #60 capsule 12/08/16 [Rx] cephALEXin [Keflex] 500 mg PO QID #40 capsule 12/08/16 [Rx] hydrOXYzine pamoate [Hydroxyzine Pamoate] 25 mg PO Q6HR #30 capsule 12/08/16 [Rx ] Cefdinir [Omnicef] 300 mg PO BID #20 capsule 12/31/16 [Rx] Allergies acetaminophen [From Percocet] Allergy (Verified 10/22/16 12:40) Rash clindamycin Allergy (Verified 12/31/16 13:54) Itching codeine Allergy (Verified 10/22/16 12:40) Rash hydrochlorothiazide Allergy (Verified 10/22/16 12:40) Rash losartan [Losartan] Allergy (Verified 10/22/16 12:40) Rash morphine Allergy (Verified 10/22/16 12:40) Irritable Oxycodone [From Percocet] Allergy (Verified 10/22/16 12:40) Rash Sulfa (Sulfonamide Antibiotics) Allergy (Verified 10/22/16 12:40) Rash NSAIDS (Non-Steroidal Anti-Inflamma Adverse Reaction (Verified 10/22/16 12:40) See Comments kidney failure All Systems PM: A 10-system review of systems was performed and is negative for pertinent findings except as documented above in the HPI. - Constitutional Constitutional: chills, lethargy, weakness, no fever(s) - EENT Eyes: no blurry vision, no change in vision Nose, mouth and throat: no sinus pain, no sinus pressure, no sore throat - Cardiovascular Cardiovascular ROS IM: chest pain, dyspnea, dyspnea on exertion, no edema, no palpitations - Respiratory Respiratory: cough, dyspnea, wheezing, chest congestion, pain with cough, no hemoptysis, no excessive phlegm production, no change in phlegm color - Gastrointestinal Gastrointestinal: no abdominal pain, no diarrhea, no nausea, no vomiting - Genitourinary Genitourinary: no dysuria, no hematuria, no urinary frequency, no urinary hesitancy, no urinary incontinence, no urinary urgency - Musculoskeletal Musculoskeletal ROS IM: numbness, tingling - Integumentary Integumentary IM: sores - Neurological Neurological ROS: weakness, no confusion, no frequent falls - Constitutional Vitals: Temp Pulse Resp BP Pulse Ox 98.0 F 92 18 134/89 98 03/09/17 22:27 03/10/17 01:07 03/10/17 02:12 03/10/17 02:12 03/10/17 01:07 General appearance: Present: A&O X 3, pleasant, no acute distress - Head Head exam: Present: atraumatic, normal inspection, normocephalic - Eye Eye exam: Present: EOMI, PERRL - ENT ENT exam: Present: mucous membranes moist - Respiratory Respiratory exam: Present: rhonchi (Bilateral), wheezes (Bilateral, scattered). Absent: rales, respiratory distress, tachypnea - Cardiovascular Cardiovascular exam: Present: RRR, systolic murmur (2 out of 6). Absent: gallop , rubs, tachycardia - GI/Abdominal GI/Abdominal exam: Present: soft. Absent: distended, tenderness - Extremities Exam Extremities exam: Present: warm. Absent: pedal edema, tenderness Additional comments: The toes on the right foot are surgically absent - Neurological Exam Neurological exam: Present: alert, CN II-XII intact, oriented X3, no focal deficits - Skin Skin exam: Present: dry, intact, warm Internal Med - H&P Results - Labs CBC & Chem 7: 03/09/17 23:05 03/09/17 23:05
[2017-03-10] MEDS ORDERED: Azithromycin 500 MG in D5% in Water 250 ML IVPB SCH (04:00)
[2017-03-10] MEDS ORDERED: Vancomycin (wt based) 1,000 MG VIAL IVPB SCH (04:00)
[2017-03-10] MEDS: Ipratropium/Albuterol Neb 3 ML IH SCH ×5 (04:10→20:21)
[2017-03-10] MEDS ORDERED: Vancomycin 1,250 MG in D5% in Water 250 ML IVPB ONE ×2 (05:00→19:00)
[2017-03-10] MEDS: *HR* Heparin 5,000 UNIT/ML VIAL SQ SCH ×2 (05:02→21:48)
[2017-03-10] MEDS ORDERED: *HR* HYDROcodone/Acet 10/325 mg TABLET PO SCH (05:15)
[2017-03-10 05:53] LABS: Basophils # 0.1 K/mcL (0.0-0.2); Basophils % 0.4 %; Eosinophils # 0.2 K/mcL (0.0-0.6); Eosinophils % 1.5 %; Hematocrit 27.5 % (35.3-44.9); Hemoglobin 8.9 g/dL (11.5-15.4); Immature Granulocytes % 0.4 % (0-4); Lymphocytes # 2.1 K/mcL (0.6-4.6); Lymphocytes % 17.8 %; Mean Corpuscular HGB Conc 32.4 g/dL (31.6-35.5); Mean Corpuscular Hemoglobin 28.7 pg (28.0-33.3); Mean Corpuscular Volume 88.7 fL (83.0-100.0); Monocytes # 0.8 K/mcL (0.0-1.3); Monocytes % 6.7 %; Neutrophils # 8.7 K/mcL (1.6-8.9); Platelet Count 344 K/mcL (140-400); Red Cell Distribution Width 13.8 % (11.5-14.5); Segmented Neutrophils % 73.2 %
[2017-03-10] MEDS ORDERED: Albuterol 2.5 MG/3 ML NEBULIZER IH PRN (06:00)
[2017-03-10] MEDS: Acetaminophen 325 MG TABLET PO PRN ×2 (06:05→21:51)
[2017-03-10 06:12] LABS: Hemoglobin A1C 5.2 %
[2017-03-10 06:18] LABS: Calcium 9.4 mg/dL (8.6-10.8); Magnesium 1.4 mg/dL (1.6-2.6); Potassium 2.8 mEq/L (3.5-4.5)
[2017-03-10] MEDS: Lactobacillus 1 EACH CAP.SPRINK PO SCH ×2 (08:35→21:50)
[2017-03-10] MEDS: Furosemide 20 MG TABLET PO SCH ×2 (08:36→21:48)
[2017-03-10] MEDS: Fluticasone Propionate Nasal 50 MCG/SPRAY BOTTLE NS SCH (08:36)
[2017-03-10] MEDS ORDERED: predniSONE 20 MG TABLET PO SCH (09:00)
--- NOTE | 2017-03-10 10:14 | Internal Med Progress Note ---
<Jenny Garrison - Last Filed: 03/10/17 15:12> Date of Encounter: 03/10/17 Time of Encounter: 10:15 - Assessment and plan (1) Pneumonia Current Visit: No Status: Acute Assessment and plan: - Worsening shortness of breath and cough failed to outpatient levofloxacin treatment. Patient needs to be hospitalized for close monitoring and management with IV antibiotics. - CT chest found bilateral scattered ground-glass opacities, greater in CONCHA, suggestive of pneumonia. - Sputum culture from 02/28/17 grew melo-sensitive (including levofloxacin) Pseudomonas aeruginosa. 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 - Negative urine antigens for Legionella and S. pneumoniae. - Sputum culture with gram stain if sputum sample can be obtained. - Continue IV vancomycin and azithromycin. Will add IV cefepime for Pseudomonas. - Closely monitor. Qualifiers: Pneumonia type: due to unspecified organism Laterality: bilateral Lung location: unspecified part of lung Qualified Code(s): J18.9 - Pneumonia, unspecified organism (2) COPD exacerbation Current Visit: No Status: Resolved Assessment and plan: - With moderate to severe COPD at baseline. - Likely secondary pneumonia. - Continue prednisone, scheduled Duoneb and supplemental oxygen. (3) Hypokalemia Current Visit: No Status: Acute Assessment and plan: - K at 2.8 with Mg at 1.4 today. - Will give KCl (40 meq IV and 20 meq PO BID) and MgSO4 2 g IV x1. - Continue to monitor and replenish accordingly. (4) BEVERLY (obstructive sleep apnea) Current Visit: No Status: Acute Assessment and plan: - Continue nighttime CPAP use. (5) HTN (hypertension) Current Visit: No Status: Chronic Assessment and plan: - Continue current antihypertensive regimen. Qualifiers: Hypertension type: unspecified secondary hypertension Qualified Code(s): I15.9 - Secondary hypertension, unspecified; I15 - Secondary hypertension (6) DVT prophylaxis Current Visit: No Status: Acute Assessment and plan: - SQ heparin - Subjective Interval history: This note is not for billing purpose. Patient was seen and examined this morning. Patient reports breathing better compared to on admission but still has some non-productive cough. Patient denies fever, chills, chest pain, abdominal pain, nausea, vomiting, diarrhea. - Constitutional Vitals: Temp Pulse Resp BP Pulse Ox 98.2 F 92 18 139/75 95 03/10/17 06:58 03/10/17 08:03 03/10/17 08:03 03/10/17 08:03 03/10/17 08:03 General appearance: Present: A&O X 3, pleasant, no acute distress - Head Head exam: Present: atraumatic, normocephalic - Eye Eye exam: Present: EOMI, PERRL, conjuntiva pink, sclera anicteric - Neck Neck exam general surgery: Present: supple, trachea midline. Absent: lymphadenopathy - Respiratory Respiratory exam: Present: rales (Bibasilar crackles). Absent: accessory muscle use, rhonchi, wheezes - Cardiovascular Cardiovascular exam: Present: RRR, +S1, +S2, systolic murmur. Absent: diastolic murmur, gallop, rubs - GI/Abdominal GI/Abdominal exam: Present: normal bowel sounds, soft, no peritoneal signs. Absent: distended, tenderness - Extremities Exam Extremities exam: Present: warm, radial pulses palpable and symetrical. Absent : calf tenderness, cyanotic, pedal edema - Neurological Exam Neurological exam: Present: CN II-XII intact, oriented X3, no focal deficits. Absent: pronater drift, facial droop, speech deficit - Skin Skin exam: Present: dry, intact, warm Internal Medicine: Result - Labs CBC & Chem 7: 03/10/17 05:40 03/10/17 05:40 Labs: Short CBC 03/10/17 Range/Units 05:40 WBC 11.9 H (4.3-11.1) K/mcL Hgb 8.9 L (11.5-15.4) g/dL Hct 27.5 L (35.3-44.9) % Plt Count 344 (140-400) K/mcL Neutrophils # 8.7 (1.6-8.9) K/mcL BMP 03/10/17 05:40 Sodium 133 L Potassium 2.8 L Chloride 91 L Carbon Dioxide 33 H BUN 28 H Creatinine 1.52 H Glucose 197 H Calcium 9.4 Cardiac Enzymes 03/10/17 Range/Units 05:40 Troponin I 0.01 (0-0.03) ng/mL - ABG Interpretation ABG results: PT/INR, D-dimer PT 14.4 Seconds (9.4-12.1) H 03/09/17 23:05 D-Dimer 645 ng/mLFEU (0-500) H 03/09/17 23:05 - Impressions Impressions Chest X-Ray 03/09/17 22:33 IMPRESSION: Left lung airspace disease has improved. Chest x-ray is otherwise unchanged. D/ / Joe Khalil MD / Joe Khalil MD Interpreting Provider: Joe Khalil MD Chest CT 03/10/17 00:04 IMPRESSION: 1. Minimal scattered ground-glass opacities in both lungs, greater in the left upper lobes. Findings are suspicious for mild pneumonia. 2. Chronic elevation of right hemidiaphragm is without appreciable change. D/ / 03/10/2017 06:14:11 Elijah Kenney MD / yunier Interpreting Provider: Elijah Kenney MD Consult Discharge Plan - Plan Referrals: NO,PCP [Primary Care Provider] - <Dilip Sanabria - Last Filed: 03/10/17 18:24> Date of Encounter: 03/10/17 - Constitutional Vitals: Temp Pulse Resp BP Pulse Ox 97.9 F 86 16 123/69 98 03/10/17 15:35 03/10/17 15:35 03/10/17 16:28 03/10/17 15:35 03/10/17 16:28 Internal Medicine: Result - Labs CBC & Chem 7: 03/10/17 05:40 03/10/17 05:40 Labs: Short CBC 03/10/17 Range/Units 05:40 WBC 11.9 H (4.3-11.1) K/mcL Hgb 8.9 L (11.5-15.4) g/dL Hct 27.5 L (35.3-44.9) % Plt Count 344 (140-400) K/mcL Neutrophils # 8.7 (1.6-8.9) K/mcL BMP 03/10/17 05:40 Sodium 133 L Potassium 2.8 L Chloride 91 L Carbon Dioxide 33 H BUN 28 H Creatinine 1.52 H Glucose 197 H Calcium 9.4 Cardiac Enzymes 03/10/17 Range/Units 05:40 Troponin I 0.01 (0-0.03) ng/mL - ABG Interpretation ABG results: PT/INR, D-dimer PT 14.4 Seconds (9.4-12.1) H 03/09/17 23:05 D-Dimer 645 ng/mLFEU (0-500) H 03/09/17 23:05 - Attending Attestation I examined this patient and my medical decision-making was reviewed with the Resident Physician on 03/10/17. I agree with the documented findings, disposition and treatment plan as described except to the extent set forth below. Ms. Lennon was admitted early this AM with pneumonia. She is doing about the same. Continue same plan as ordered.
[2017-03-10] MEDS: Cefepime HCl 2,000 MG in D5% in Water (Mini-Bag+) 100 ML IVPB SCH (14:35)
[2017-03-10] MEDS ORDERED: Magnesium Sulfate 2 GM in D5% in Water 100 ML IVPB ONE (15:32)
--- NOTE | 2017-03-10 20:42 | Electrocardiograph Report ---
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
[2017-03-11] MEDS: Ipratropium/Albuterol Neb 3 ML IH SCH ×7 (00:09→23:29)
[2017-03-11] MEDS: Azithromycin 500 MG in D5% in Water 250 ML IVPB SCH ×2 (00:19→23:53)
[2017-03-11] MEDS ORDERED: POTASSIUM CHLORIDE IVPB ONE (01:42)
[2017-03-11 05:43] LABS: Basophils % 0.4 %; Eosinophils # 0.2 K/mcL (0.0-0.6); Hematocrit 27.4 % (35.3-44.9); Hemoglobin 8.9 g/dL (11.5-15.4); Immature Granulocytes % 0.3 % (0-4); Lymphocytes # 3.3 K/mcL (0.6-4.6); Mean Corpuscular HGB Conc 32.5 g/dL (31.6-35.5); Mean Corpuscular Hemoglobin 28.6 pg (28.0-33.3); Mean Corpuscular Volume 88.1 fL (83.0-100.0); Mean Platelet Volume 9.3 fL (9.4-12.4); Monocytes # 0.9 K/mcL (0.0-1.3); Monocytes % 8.7 %; Neutrophils # 6.1 K/mcL (1.6-8.9); Platelet Count 352 K/mcL (140-400); Red Blood Count 3.11 M/mcL (3.82-4.97); Segmented Neutrophils % 57.6 %
[2017-03-11 05:55] LABS: Calcium 9.3 mg/dL (8.6-10.8); Potassium 3.5 mEq/L (3.5-4.5)
[2017-03-11] MEDS ORDERED: 0.9 % Sodium Chloride 250 ML ONE (06:15)
[2017-03-11] MEDS: Furosemide 20 MG TABLET PO SCH ×2 (08:28→22:07)
[2017-03-11] MEDS: *HR* Heparin 5,000 UNIT/ML VIAL SQ SCH ×2 (08:28→17:10)
[2017-03-11] MEDS: Lactobacillus 1 EACH CAP.SPRINK PO SCH ×2 (08:29→22:05)
[2017-03-11] MEDS: Fluticasone Propionate Nasal 50 MCG/SPRAY BOTTLE NS SCH (08:36)
--- NOTE | 2017-03-11 09:33 | Internal Med Progress Note ---
<Jenny Garrison - Last Filed: 03/11/17 11:36> Date of Encounter: 03/11/17 Time of Encounter: 09:15 - Assessment and plan (1) Pneumonia Current Visit: No Status: Acute Assessment and plan: - Worsening shortness of breath and cough failed to outpatient levofloxacin treatment on admission. Patient needs to be hospitalized for close monitoring and management with IV antibiotics. - CT chest found bilateral scattered ground-glass opacities, greater in CONCHA, suggestive of pneumonia. - Sputum culture from 02/28/17 grew melo-sensitive (including levofloxacin) Pseudomonas aeruginosa. 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 - Negative urine antigens for Legionella and S. pneumoniae. - Sputum culture with gram stain if sputum sample can be obtained. - Blood cultures pending. - Continue IV vancomycin, cefepime and azithromycin. Will de-escalate later based on clinical findings and/or culture result. - Closely monitor. Qualifiers: Pneumonia type: due to unspecified organism Laterality: bilateral Lung location: unspecified part of lung Qualified Code(s): J18.9 - Pneumonia, unspecified organism (2) COPD (chronic obstructive pulmonary disease) Current Visit: No Status: Chronic Assessment and plan: - Moderate to severe COPD - Continue prednisone, scheduled Duoneb and supplemental oxygen. Qualifiers: COPD type: unspecified COPD Qualified Code(s): J44.9 - Chronic obstructive pulmonary disease, unspecified (3) Hypokalemia Current Visit: No Status: Acute Assessment and plan: - K as low as 2.8 on 03/10/17 - K at 3.5 today. - Continue to monitor and replenish accordingly. (4) BEVERLY (obstructive sleep apnea) Current Visit: No Status: Acute Assessment and plan: - Continue nighttime CPAP use. (5) HTN (hypertension) Current Visit: No Status: Chronic Assessment and plan: - Continue current antihypertensive regimen. Qualifiers: Hypertension type: unspecified secondary hypertension Qualified Code(s): I15.9 - Secondary hypertension, unspecified (6) DVT prophylaxis Current Visit: No Status: Acute Assessment and plan: - SQ heparin - Subjective Interval history: No significant event noted overnight. Patient was seen and examined this morning. Patient reports breathing better and able to cough better compared to yesterday. Patient denies fever, chills, chest pain, abdominal pain, nausea, vomiting, diarrhea. - Constitutional Vitals: Temp Pulse Resp BP Pulse Ox 98 F 91 16 142/73 98 03/11/17 07:29 03/11/17 07:29 03/11/17 07:29 03/11/17 07:29 03/11/17 07:29 General appearance: Present: A&O X 3, pleasant, no acute distress - Head Head exam: Present: atraumatic, normocephalic - Eye Eye exam: Present: EOMI, PERRL, conjuntiva pink, sclera anicteric - Neck Neck exam general surgery: Present: supple, trachea midline. Absent: lymphadenopathy - Respiratory Respiratory exam: Present: rhonchi (Bilateral). Absent: accessory muscle use, rales, wheezes - Cardiovascular Cardiovascular exam: Present: +S1, +S2, tachycardia. Absent: diastolic murmur, gallop, rubs, systolic murmur - GI/Abdominal GI/Abdominal exam: Present: normal bowel sounds, soft, no peritoneal signs. Absent: distended, tenderness - Extremities Exam Extremities exam: Present: warm, radial pulses palpable and symetrical. Absent : calf tenderness, cyanotic, pedal edema - Neurological Exam Neurological exam: Present: CN II-XII intact, oriented X3, no focal deficits. Absent: pronater drift, facial droop, speech deficit - Skin Skin exam: Present: dry, intact, warm Internal Medicine: Result - Labs CBC & Chem 7: 03/11/17 04:34 03/11/17 04:34 Labs: Short CBC 03/11/17 Range/Units 04:34 WBC 10.5 (4.3-11.1) K/mcL Hgb 8.9 L (11.5-15.4) g/dL Hct 27.4 L (35.3-44.9) % Plt Count 352 (140-400) K/mcL Neutrophils # 6.1 (1.6-8.9) K/mcL BMP 03/11/17 04:34 Sodium 135 L Potassium 3.5 Chloride 93 L Carbon Dioxide 29 BUN 21 H Creatinine 1.31 H Glucose 103 H Calcium 9.3 - ABG Interpretation ABG results: PT/INR, D-dimer PT 14.4 Seconds (9.4-12.1) H 03/09/17 23:05 D-Dimer 645 ng/mLFEU (0-500) H 03/09/17 23:05 Consult Discharge Plan - Plan Referrals: NO,PCP [Primary Care Provider] - <Dilip Sanabria - Last Filed: 03/11/17 18:27> Date of Encounter: 03/11/17 - Assessment and plan (1) Acute and chronic respiratory failure with hypoxia Current Visit: Yes Status: Acute Assessment and plan: Supplement oxygen. (2) Community acquired pneumonia Current Visit: Yes Status: Acute (3) COPD (chronic obstructive pulmonary disease) Current Visit: No Status: Chronic Qualifiers: COPD type: unspecified COPD Qualified Code(s): J44.9 - Chronic obstructive pulmonary disease, unspecified (4) Hypokalemia Current Visit: No Status: Acute (5) HTN (hypertension) Current Visit: No Status: Chronic Qualifiers: Hypertension type: essential hypertension Qualified Code(s): I10 - Essential (primary) hypertension - Constitutional Vitals: Temp Pulse Resp BP Pulse Ox 98.1 F 81 16 129/73 98 03/11/17 15:16 03/11/17 15:16 03/11/17 15:16 03/11/17 15:16 03/11/17 15:16 Internal Medicine: Result - Labs CBC & Chem 7: 03/11/17 04:34 03/11/17 04:34 Labs: Short CBC 03/11/17 Range/Units 04:34 WBC 10.5 (4.3-11.1) K/mcL Hgb 8.9 L (11.5-15.4) g/dL Hct 27.4 L (35.3-44.9) % Plt Count 352 (140-400) K/mcL Neutrophils # 6.1 (1.6-8.9) K/mcL BMP 03/11/17 04:34 Sodium 135 L Potassium 3.5 Chloride 93 L Carbon Dioxide 29 BUN 21 H Creatinine 1.31 H Glucose 103 H Calcium 9.3 - ABG Interpretation ABG results: PT/INR, D-dimer PT 14.4 Seconds (9.4-12.1) H 03/09/17 23:05 D-Dimer 645 ng/mLFEU (0-500) H 03/09/17 23:05 - Attending Attestation I examined this patient and my medical decision-making was reviewed with the Resident Physician on 03/11/17. I agree with the documented findings, disposition and treatment plan as described except to the extent set forth below. Ms. Lennon is currently admitted for acute hypoxic resp failure and pneumonia. She is moderate to high risk due to potential for worsening respiratory status. Ms. Lennon is beginning to feel a little better. She has been up with therapy. No fever or chills. No GI symptoms. Exam Alert. Comfortable Heart not tachy Lungs with crackles on L mostly I/P 1. Hypoxic resp failure 2. PNA Further diagnoses and plan as above.
[2017-03-11] MEDS: Acetaminophen 325 MG TABLET PO PRN (10:00)
[2017-03-11] MEDS: Cefepime HCl 2,000 MG in D5% in Water (Mini-Bag+) 100 ML IVPB SCH (14:45)
[2017-03-12] MEDS: Acetaminophen 325 MG TABLET PO PRN ×2 (01:14→22:11)
[2017-03-12] MEDS: Ipratropium/Albuterol Neb 3 ML IH SCH ×6 (04:11→23:58)
[2017-03-12] MEDS: *HR* Heparin 5,000 UNIT/ML VIAL SQ SCH ×2 (04:52→17:18)
[2017-03-12 08:24] LABS: Basophils % 0.4 %; Eosinophils # 0.3 K/mcL (0.0-0.6); Eosinophils % 3.7 %; Hematocrit 30.2 % (35.3-44.9); Hemoglobin 9.7 g/dL (11.5-15.4); Immature Granulocytes % 0.2 % (0-4); Lymphocytes # 3.1 K/mcL (0.6-4.6); Lymphocytes % 33.3 %; Mean Corpuscular HGB Conc 32.1 g/dL (31.6-35.5); Mean Corpuscular Hemoglobin 28.6 pg (28.0-33.3); Mean Corpuscular Volume 89.1 fL (83.0-100.0); Mean Platelet Volume 9.1 fL (9.4-12.4); Monocytes # 0.8 K/mcL (0.0-1.3); Monocytes % 8.4 %; Platelet Count 320 K/mcL (140-400); Red Blood Count 3.39 M/mcL (3.82-4.97)
[2017-03-12] MEDS: Lactobacillus 1 EACH CAP.SPRINK PO SCH ×2 (08:34→22:12)
[2017-03-12] MEDS: Furosemide 20 MG TABLET PO SCH ×2 (08:35→17:18)
[2017-03-12] MEDS: Fluticasone Propionate Nasal 50 MCG/SPRAY BOTTLE NS SCH (08:35)
[2017-03-12 08:40] LABS: Calcium 9.4 mg/dL (8.6-10.8); Potassium 3.7 mEq/L (3.5-4.5)
[2017-03-12 08:59] LABS: Magnesium 1.3 mg/dL (1.6-2.6)
[2017-03-12] MEDS ORDERED: Magnesium Sulfate 2 GM in D5% in Water 100 ML IVPB ONE (09:03)
--- NOTE | 2017-03-12 10:23 | Internal Med Progress Note ---
<Jenny Garrison - Last Filed: 03/12/17 15:02> Date of Encounter: 03/12/17 Time of Encounter: 10:00 - Assessment and plan (1) Pneumonia Current Visit: No Status: Acute Assessment and plan: - Worsening shortness of breath and cough failed to outpatient levofloxacin treatment on admission. Patient needs to be hospitalized for close monitoring and management with IV antibiotics. - CT chest found bilateral scattered ground-glass opacities, greater in CONCHA, suggestive of pneumonia. - Sputum culture from 02/28/17 grew melo-sensitive (including levofloxacin) Pseudomonas aeruginosa. 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 - Negative urine antigens for Legionella and S. pneumoniae. - Sputum culture with gram stain if sputum sample can be obtained. - Blood cultures NGTD. - Will discontinue azithromycin. Continue IV cefepime and plan to switch to prolonged course of PO anti-pseudomonas antibiotic on discharge. - Closely monitor. Qualifiers: Pneumonia type: due to unspecified organism Laterality: bilateral Lung location: unspecified part of lung Qualified Code(s): J18.9 - Pneumonia, unspecified organism (2) COPD (chronic obstructive pulmonary disease) Current Visit: No Status: Chronic Assessment and plan: - Moderate to severe COPD - Continue prednisone, scheduled Duoneb and supplemental oxygen. Qualifiers: COPD type: unspecified COPD Qualified Code(s): J44.9 - Chronic obstructive pulmonary disease, unspecified (3) Hypokalemia Current Visit: No Status: Acute Assessment and plan: - K as low as 2.8 on 03/10/17 - K at 3.7 today. - Continue to monitor and replenish accordingly. (4) BEVERLY (obstructive sleep apnea) Current Visit: No Status: Acute Assessment and plan: - Continue nighttime CPAP use. (5) HTN (hypertension) Current Visit: No Status: Chronic Assessment and plan: - Continue current antihypertensive regimen. Qualifiers: Hypertension type: essential hypertension Qualified Code(s): I10 - Essential (primary) hypertension (6) DVT prophylaxis Current Visit: No Status: Acute Assessment and plan: - SQ heparin - Subjective Interval history: No significant event noted overnight. Patient was seen and examined this morning. Patient reports breathing and cough continue to improve. Patient denies fever, chills, chest pain, abdominal pain, nausea, vomiting, diarrhea. Patient is somnolent but arousable to verbal stimuli. Patient states she did not get good sleep last night. - Constitutional Vitals: Temp Pulse Resp BP Pulse Ox 98.2 F 83 16 143/71 99 03/12/17 07:25 03/12/17 07:25 03/12/17 07:43 03/12/17 07:25 03/12/17 07:43 General appearance: Present: A&O X 3, pleasant, no acute distress - Head Head exam: Present: atraumatic, normocephalic - Eye Eye exam: Present: EOMI, PERRL, conjuntiva pink, sclera anicteric - Neck Neck exam general surgery: Present: supple, trachea midline. Absent: lymphadenopathy - Respiratory Respiratory exam: Present: CTAB. Absent: accessory muscle use, rales, rhonchi, wheezes - Cardiovascular Cardiovascular exam: Present: RRR, +S1, +S2. Absent: diastolic murmur, gallop, rubs, systolic murmur - GI/Abdominal GI/Abdominal exam: Present: normal bowel sounds, soft, no peritoneal signs. Absent: distended, tenderness - Extremities Exam Extremities exam: Present: warm, radial pulses palpable and symetrical. Absent : calf tenderness, cyanotic, pedal edema - Neurological Exam Neurological exam: Present: CN II-XII intact, oriented X3, no focal deficits. Absent: pronater drift, facial droop, speech deficit - Skin Skin exam: Present: dry, intact, warm Internal Medicine: Result - Labs CBC & Chem 7: 03/12/17 08:13 03/12/17 08:13 Labs: Short CBC 03/12/17 Range/Units 08:13 WBC 9.2 (4.3-11.1) K/mcL Hgb 9.7 L (11.5-15.4) g/dL Hct 30.2 L (35.3-44.9) % Plt Count 320 (140-400) K/mcL Neutrophils # 5.0 (1.6-8.9) K/mcL BMP 03/12/17 08:13 Sodium 137 Potassium 3.7 Chloride 96 L Carbon Dioxide 30 H BUN 19 Creatinine 1.32 H Glucose 106 H Calcium 9.4 - ABG Interpretation ABG results: PT/INR, D-dimer PT 14.4 Seconds (9.4-12.1) H 03/09/17 23:05 D-Dimer 645 ng/mLFEU (0-500) H 03/09/17 23:05 Consult Discharge Plan - Plan Referrals: NO,PCP [Primary Care Provider] - <Dilip Sanabria - Last Filed: 03/12/17 18:53> Date of Encounter: 03/12/17 - Assessment and plan (1) Acute and chronic respiratory failure with hypoxia Current Visit: Yes Status: Acute (2) Community acquired pneumonia Current Visit: Yes Status: Acute (3) COPD (chronic obstructive pulmonary disease) Current Visit: No Status: Chronic Qualifiers: COPD type: unspecified COPD Qualified Code(s): J44.9 - Chronic obstructive pulmonary disease, unspecified (4) Hypokalemia Current Visit: No Status: Acute (5) HTN (hypertension) Current Visit: No Status: Chronic Qualifiers: Hypertension type: essential hypertension Qualified Code(s): I10 - Essential (primary) hypertension (6) CKD (chronic kidney disease) stage 3, GFR 30-59 ml/min Current Visit: No Status: Chronic - Constitutional Vitals: Temp Pulse Resp BP Pulse Ox 98.3 F 98 16 121/73 98 03/12/17 15:23 03/12/17 15:23 03/12/17 17:04 03/12/17 15:23 03/12/17 17:04 Internal Medicine: Result - Labs CBC & Chem 7: 03/12/17 08:13 03/12/17 08:13 Labs: Short CBC 03/12/17 Range/Units 08:13 WBC 9.2 (4.3-11.1) K/mcL Hgb 9.7 L (11.5-15.4) g/dL Hct 30.2 L (35.3-44.9) % Plt Count 320 (140-400) K/mcL Neutrophils # 5.0 (1.6-8.9) K/mcL BMP 03/12/17 08:13 Sodium 137 Potassium 3.7 Chloride 96 L Carbon Dioxide 30 H BUN 19 Creatinine 1.32 H Glucose 106 H Calcium 9.4 - ABG Interpretation ABG results: PT/INR, D-dimer PT 14.4 Seconds (9.4-12.1) H 03/09/17 23:05 D-Dimer 645 ng/mLFEU (0-500) H 03/09/17 23:05 - Attending Attestation I examined this patient and my medical decision-making was reviewed with the Resident Physician on 03/12/17. I agree with the documented findings, disposition and treatment plan as described except to the extent set forth below. Ms. Lennon is currently admitted for acute on chronic hypoxic resp failure. She is moderate to high risk due to potential for worsening respiratory status. Ms. Lennon is feeling somewhat better. She is coughing less. She was tired a lot today. She is going to wear her CPAP tonight. Exam Alert. Comfortable Heart reg Lungs with rales No edema I/P 1. Hypoxic resp failure 2. PNA Further diagnoses and plan as above.
[2017-03-12] MEDS: Cefepime HCl 2,000 MG in D5% in Water (Mini-Bag+) 100 ML IVPB SCH (17:19)
[2017-03-13] MEDS ORDERED: *HR* OxyCODONE/APAP 5/325 TABLET PO ONE (02:55)
[2017-03-13 03:38] LABS: Basophils # 0.1 K/mcL (0.0-0.2); Basophils % 0.5 %; Eosinophils # 0.4 K/mcL (0.0-0.6); Eosinophils % 3.7 %; Hematocrit 29.4 % (35.3-44.9); Hemoglobin 9.3 g/dL (11.5-15.4); Immature Granulocytes % 0.6 % (0-4); Lymphocytes # 2.6 K/mcL (0.6-4.6); Lymphocytes % 25.3 %; Mean Corpuscular HGB Conc 31.6 g/dL (31.6-35.5); Mean Corpuscular Volume 88.6 fL (83.0-100.0); Mean Platelet Volume 9.3 fL (9.4-12.4); Monocytes # 0.8 K/mcL (0.0-1.3); Monocytes % 7.9 %; Neutrophils # 6.4 K/mcL (1.6-8.9); Platelet Count 355 K/mcL (140-400); Red Blood Count 3.32 M/mcL (3.82-4.97); Red Cell Distribution Width 14.1 % (11.5-14.5)
[2017-03-13] MEDS: Ipratropium/Albuterol Neb 3 ML IH SCH ×5 (03:45→20:29)
[2017-03-13 03:57] LABS: Calcium 9.6 mg/dL (8.6-10.8); Potassium 3.9 mEq/L (3.5-4.5)
[2017-03-13] MEDS: Acetaminophen 325 MG TABLET PO PRN (04:01)
[2017-03-13] MEDS: *HR* Heparin 5,000 UNIT/ML VIAL SQ SCH (06:18)
[2017-03-13] MEDS: Lactobacillus 1 EACH CAP.SPRINK PO SCH (08:40)
[2017-03-13] MEDS: Furosemide 20 MG TABLET PO SCH ×2 (08:40→15:34)
[2017-03-13] MEDS: Fluticasone Propionate Nasal 50 MCG/SPRAY BOTTLE NS SCH (08:41)
[2017-03-13] MEDS: Cefepime HCl 2,000 MG in D5% in Water (Mini-Bag+) 100 ML IVPB SCH (15:34)
[2017-03-13 15:44] VITALS: BP 109/58
--- NOTE | 2017-03-13 16:13 | Discharge Summary ---
Date of Encounter: 03/13/17 Time of Encounter: 16:06 - Discharge Diagnosis (1) Acute and chronic respiratory failure with hypoxia Priority: Primary Status: Acute (2) Community acquired pneumonia Priority: Primary Status: Acute (3) COPD (chronic obstructive pulmonary disease) Priority: Secondary Status: Chronic Qualifiers: COPD type: unspecified COPD Qualified Code(s): J44.9 - Chronic obstructive pulmonary disease, unspecified (4) Hypokalemia Priority: Secondary Status: Acute (5) HTN (hypertension) Priority: Secondary Status: Chronic Qualifiers: Hypertension type: essential hypertension Qualified Code(s): I10 - Essential (primary) hypertension (6) CKD (chronic kidney disease) stage 3, GFR 30-59 ml/min Priority: Secondary Status: Chronic (7) BEVERLY (obstructive sleep apnea) Priority: Secondary Status: Chronic (8) Chronic back pain Priority: Secondary Status: Chronic Qualifiers: Back pain location: low back pain Back pain laterality: bilateral Sciatica presence: without sciatica Qualified Code(s): M54.5 - Low back pain; G89.29 - Other chronic pain (9) Hypothyroidism Priority: Secondary Status: Chronic Qualifiers: Hypothyroidism type: unspecified Qualified Code(s): E03.9 - Hypothyroidism , unspecified (10) HLD (hyperlipidemia) Priority: Secondary Status: Chronic Qualifiers: Hyperlipidemia type: mixed hyperlipidemia Qualified Code(s): E78.2 - Mixed hyperlipidemia - Discharge Medications Prescriptions: Levofloxacin [Levaquin] 750 mg PO DAILY #5 tablet Levothyroxine Sodium [Levo-T] 150 mcg PO 0630 #30 tablet Home Medications: Albuterol Sulfate [Proair Hfa] 2 puff IH 4-6XD PRN #0 05/28/15 [History] Amitriptyline [Elavil] 25 mg PO HS #0 05/28/15 [History] Azelastine HCl 1 drop OP BID #0 05/28/15 [History] Citalopram [CeleXA] 40 mg PO HS 05/28/15 [History] Fluticasone Propionate Nasal [Flonase] 1 spray NS DAILY 05/28/15 [History] Montelukast Sodium [Singulair] 10 mg PO HS 05/28/15 [History] Potassium Chloride [Klor-Con M20] 20 meq PO BID 08/04/15 [History] Tiotropium [Spiriva] 18 mcg IH DAILY 05/28/15 [History] Allopurinol [Zyloprim] 300 mg PO DAILY 09/02/16 [History] Furosemide [Lasix] 20 mg PO BID #40 tablet 09/09/16 [Rx] Aclidinium [place] [Tudorza Pressair] 1 puff IH BID 10/02/16 [History] Guaifenesin [Mucinex] 600 mg PO BID 10/02/16 [History] Oxygen 2 l NS AD 10/02/16 [History] Cyclobenzaprine HCl 10 mg PO TID PRN 10/22/16 [History] Hydrocodone/Acetaminophen [[place] 10-325 Tablet] 1 tab PO Q8H PRN 10/22/16 [ History] Lactobacillus Acidophilus [Acidophilus] 1 tab PO BID 10/22/16 [History] Metoprolol [Lopressor] 12.5 mg PO BID 10/22/16 [History] Celecoxib [Celebrex] 100 mg PO DAILY 03/10/17 [History] Docusate [Colace] 100 mg PO DAILY 03/10/17 [History] Estrogens, Conjugated [Premarin] 0.625 mg PO QPM 03/10/17 [History] Ferrous Sulfate [Iron] 325 mg PO DAILY 03/10/17 [History] Ipratropium/Albuterol Neb [Duoneb] 3 ml IH Q6HR PRN 03/10/17 [History] Ipratropium/Albuterol Neb [Duoneb] 3 ml IH [id number] inhsol 03/13/17 [Rx] Levofloxacin [Levaquin] 750 mg PO DAILY #5 tablet 03/13/17 [Rx] Levothyroxine Sodium [Levo-T] 150 mcg PO 0630 #30 tablet 03/13/17 [Rx] Allergies/Adverse Reactions: Allergies clindamycin Allergy (Verified 12/31/16 13:54) Itching codeine Allergy (Verified 10/22/16 12:40) Rash hydrochlorothiazide Allergy (Verified 10/22/16 12:40) Rash hydrocodone Allergy (Verified 03/10/17 06:01) Rash losartan [Losartan] Allergy (Verified 10/22/16 12:40) Rash morphine Allergy (Verified 10/22/16 12:40) Irritable Oxycodone [From Percocet] Allergy (Verified 10/22/16 12:40) Rash Sulfa (Sulfonamide Antibiotics) Allergy (Verified 10/22/16 12:40) Rash NSAIDS (Non-Steroidal Anti-Inflamma Adverse Reaction (Verified 10/22/16 12:40) See Comments kidney failure Date of admission: 03/10/17 03:47 Primary care physician: PCP NO Consults: 03/10/17 03:56 Consult to Physical Therapy [CONS] Routine Comment: Evaluate, develop and implement POC Reason for Consult: Deconditioning 03/10/17 03:57 Consult to Occupational Therapy [CONS] Routine Comment: Evaluate, develop and implement POC Reason for Consult: Deconditioning 03/10/17 16:47 PICC [Consult to Invasive Line Access Team] [CONS] Routine Reason for Consult: PNA needs IV antibiotic Line Type: EPIV PICC line indications: Limited vascular access Call Completed: No Discharging clinician: Dilip Sanabria Anticipated date of discharge: 03/13/17 - Patient Status Disposition: Home Health Service Condition: Good Functional capacity at discharge: uses cane/walker Overall status at discharge: patient is progressing back to baseline - Discharge Instructions Follow Up With: NO,PCP [Primary Care Provider] - Additional Instructions: Follow with usual doctor/PCP in 1-2 weeks. Start antibiotic tomorrow. For worsening symptoms please return. - Diet and Activity Activity: increase activity as tolerated Diet: advance to your usual diet Hospital course: Ms. Lennon is a 76 year old female with history of MRSA pneumonia and MAC presented to ED with cough and dyspnea. She had completed outpatient treatment with abx but had not improved. In ED she was felt to have pneumonia and admitted. Recent sputum culture grew Pseudomonas. Ms. Lennon was admitted to [facility]. She was placed on IV abx of Azithromycin and Vancomycin. She had continued with oxygen and aerosol and received Prednisone as well. On day 2 Cefipime was added for Pseudomonas and her potassium and magnesium were replaced. She had slow improvement in her symptoms initially. Azithromycin was discontinued and she completed steroids. She was seen by PT/ OT and home care was recommended. On 03/12 she was doing somewhat better but still not quite near baseline. She slept better and on 03/13 was doing well. She was afebrile with stable vitals. At that time she was felt ready to be discharged home. - Time Spent with Patient Total time spent providing and/or coordinating discharge services: 42min - Constitutional Vitals: Temp Pulse Resp BP Pulse Ox 97.8 F 92 16 109/58 96 03/13/17 15:42 03/13/17 15:42 03/13/17 15:42 03/13/17 15:42 03/13/17 15:42 General appearance: Present: A&O X 3, pleasant, no acute distress - Head Head exam: Present: normocephalic - ENT ENT exam: Present: mucous membranes moist - Respiratory Respiratory exam: Present: decreased breath sounds, rales. Absent: rhonchi, wheezes - Cardiovascular Cardiovascular exam: Present: RRR. Absent: tachycardia - GI/Abdominal GI/Abdominal exam: Present: soft. Absent: tenderness - Extremities Exam Extremities exam: Present: warm. Absent: tenderness - Neurological Exam Neurological exam: Present: alert, oriented X3 - Skin Skin exam: Present: dry, warm. Absent: rash
--- NOTE | 2017-03-13 16:28 | Physician Discharge Referral ---
Home Health/Hosp Referral Info Transfer to: Home Health Attending Provider: Dilip Sanabria DO Provider in Charge Post Discharge: PCP - Diagnosis (1) Acute and chronic respiratory failure with hypoxia Priority: Primary Status: Acute (2) Community acquired pneumonia Priority: Primary Status: Acute (3) COPD (chronic obstructive pulmonary disease) Priority: Secondary Status: Chronic (4) Hypokalemia Priority: Secondary Status: Acute (5) HTN (hypertension) Priority: Secondary Status: Chronic (6) CKD (chronic kidney disease) stage 3, GFR 30-59 ml/min Priority: Secondary Status: Chronic (7) BEVERLY (obstructive sleep apnea) Priority: Secondary Status: Chronic (8) Chronic back pain Status: Chronic (9) Hypothyroidism Priority: Secondary Status: Chronic (10) HLD (hyperlipidemia) Priority: Secondary Status: Chronic - Respiratory Orders Oxygen / L per min (Maintain saturation greater than 90%) Smoking Cessation: Smoking cessation has been advised. For more information, call the [employer] Tobacco Quit Line at 1-404-OZMF-NOW. - Diet/Nutrition Diet/Nutrition Orders: Cardiac - Activity Activity Orders: Up ad [place], Walker - Services Needed Following services are medically necessary services: Nursing, Physical Therapy, Occupational Therapy - Transfer Medications Prescriptions: Levofloxacin [Levaquin] 750 mg PO DAILY #5 tablet Levothyroxine Sodium [Levo-T] 150 mcg PO 0630 #30 tablet Home Medications: Albuterol Sulfate [Proair Hfa] 2 puff IH 4-6XD PRN #0 05/28/15 [History] Amitriptyline [Elavil] 25 mg PO HS #0 05/28/15 [History] Azelastine HCl 1 drop OP BID #0 05/28/15 [History] Citalopram [CeleXA] 40 mg PO HS 05/28/15 [History] Fluticasone Propionate Nasal [Flonase] 1 spray NS DAILY 05/28/15 [History] Montelukast Sodium [Singulair] 10 mg PO HS 05/28/15 [History] Potassium Chloride [Klor-Con M20] 20 meq PO BID 05/28/15 [History] Tiotropium [Spiriva] 18 mcg IH DAILY 05/28/15 [History] Allopurinol [Zyloprim] 300 mg PO DAILY 09/02/16 [History] Furosemide [Lasix] 20 mg PO BID #40 tablet 09/09/16 [Rx] Aclidinium [place] [Tudorza Pressair] 1 puff IH BID 10/02/16 [History] Guaifenesin [Mucinex] 600 mg PO BID 10/02/16 [History] Oxygen 2 l NS AD 10/02/16 [History] Cyclobenzaprine HCl 10 mg PO TID PRN 10/22/16 [History] Hydrocodone/Acetaminophen [[place] 10-325 Tablet] 1 tab PO Q8H PRN 10/22/16 [ History] Lactobacillus Acidophilus [Acidophilus] 1 tab PO BID 10/22/16 [History] Metoprolol [Lopressor] 12.5 mg PO BID 10/22/16 [History] Celecoxib [Celebrex] 100 mg PO DAILY 03/10/17 [History] Docusate [Colace] 100 mg PO DAILY 03/10/17 [History] Estrogens, Conjugated [Premarin] 0.625 mg PO QPM 03/10/17 [History] Ferrous Sulfate [Iron] 325 mg PO DAILY 03/10/17 [History] Ipratropium/Albuterol Neb [Duoneb] 3 ml IH Q6HR PRN 03/10/17 [History] Ipratropium/Albuterol Neb [Duoneb] 3 ml IH [id number] inhsol 03/13/17 [Rx] Levofloxacin [Levaquin] 750 mg PO DAILY #5 tablet 03/13/17 [Rx] Levothyroxine Sodium [Levo-T] 150 mcg PO 0630 #30 tablet 03/13/17 [Rx] Allergies/Adverse Reactions: Allergies clindamycin Allergy (Verified 12/31/16 13:54) Itching codeine Allergy (Verified 10/22/16 12:40) Rash hydrochlorothiazide Allergy (Verified 10/22/16 12:40) Rash hydrocodone Allergy (Verified 03/10/17 06:01) Rash losartan [Losartan] Allergy (Verified 10/22/16 12:40) Rash morphine Allergy (Verified 10/22/16 12:40) Irritable Oxycodone [From Percocet] Allergy (Verified 10/22/16 12:40) Rash Sulfa (Sulfonamide Antibiotics) Allergy (Verified 10/22/16 12:40) Rash NSAIDS (Non-Steroidal Anti-Inflamma Adverse Reaction (Verified 10/22/16 12:40) See Comments kidney failure Certification: Further, I certify that my clinical findings support that this patient is homebound (i.e. absences from home require considerable and taxing effort and are for medical reasons or restorationism services or infrequently or short duration when for other reasons) because: Homebound Reason: Patient requires assistance of a person or device to safely leave home, Leaving home requires considerable and taxing effort due to condition, Severity of cardiac or pulmonary status limits activity tolerance Attestation: My signature below is to certify that this patient is under my care and that I, or nurse practitioner, or a physician's court assistant working with me, has a face-to -face encounter with this patient.
[2017-03-13] MEDS ORDERED: Aminoglycoside Consult 1 EACH MC ONE (19:29)
== END 2017-03-13 19:30 | disposition home health service (06) | DRG 190 ==
LOC: EMEROO 22:22 → 2NENU 22:22 → UNDODISIN 03-11 15:22
PROVIDERS: ADMIT Internal Medicine; ATTEND Internal Medicine

== ENCOUNTER 2018-07-05 14:25 | Inpatient (IN) ==
--- NOTE | 2018-07-05 15:07 | Emergency Department Note ---
Disposition Clinical Impression: Atrial flutter with rapid ventricular response Atrial flutter Qualifiers: Atrial flutter type: typical Qualified Code(s): I48.3 - Typical atrial flutter Disposition: Admitted As Inpatient Referrals: Ritika Humphreys CNP [Primary Care Provider] - Forms: ED Satisfaction Letter Time of Disposition: 16:27 General Adult HPI - General Chief complaint: ED Arrhythmia/Palpitations Stated complaint: High Heart Rate 150 Time Seen by Provider: 07/05/18 14:56 Source: patient, family Mode of arrival: ambulatory Limitations: no limitations - History of Present Illness HPI Narrative: This is a 78-year-old female who comes to emergency department with shortness of breath for the last few days, and found to have a rapid heart rate 2-3 hours prior to arrival when she was seen by her visiting nurse. Her daughter states that she had previously been taking metoprolol, but her mangle tender recently switched her to carvedilol because she apparently was intolerant of metoprolol. She denies chest pain. Pain Scale: 0 - Related Data Home Medications Medication Instructions Recorded Confirmed Amitriptyline [Elavil] 25 mg PO HS #0 05/28/15 01/30/18 Citalopram [CeleXA] 40 mg PO HS 05/28/15 01/30/18 Fluticasone Propionate Nasal 1 spray NS DAILY 05/28/15 01/30/18 [Flonase] Montelukast Sodium [Singulair] 10 mg PO HS 05/28/15 01/30/18 Allopurinol [Zyloprim] 300 mg PO DAILY 09/02/16 01/30/18 Docusate [Colace] 100 mg PO DAILY 03/10/17 01/30/18 Ferrous Sulfate [Iron] 325 mg PO DAILY 03/10/17 01/30/18 Cyclobenzaprine [Flexeril] 10 mg PO BID PRN 10/19/17 01/30/18 Gabapentin [Neurontin] 300 mg PO BID 10/19/17 01/30/18 Multivitamin [Multivitamins] 1 each PO QAM 10/19/17 01/30/18 Omeprazole 20 mg PO QAM 10/19/17 01/30/18 Tiotropium [Spiriva] 18 mcg IH 0700 10/19/17 01/30/18 Albuterol Neb [Proventil Neb] 2.5 mg IH QID PRN 01/17/18 01/30/18 Albuterol Sulfate [Proair Hfa] 2 puff IH Q4H PRN 01/17/18 01/30/18 Fluticasone/Salmeterol [Advair 1 puff IH BID 01/17/18 01/30/18 500-50 Diskus] GuaiFENesin/Dextromethorphan 1 tab PO BID 01/17/18 01/30/18 [Mucinex Dm] HYDROcodone/Acet 10/325 mg [Pitcher 1 tab PO TID PRN 01/17/18 01/30/18 10-325 mg] Previous Rx's Medication Instructions Recorded Furosemide [Lasix] 20 mg PO DAILY #40 tablet 10/21/17 Isosorbide MONOnitrate (24 HR) 30 mg PO DAILY #30 tab.er.24h 10/21/17 [Imdur] Metoprolol [Lopressor] 25 mg PO BID #60 tablet 10/21/17 Lisinopril [Zestril] 10 mg PO DAILY #30 tablet 01/25/18 Levothyroxine [Synthroid] 125 mcg PO 0630 #30 tablet 01/29/18 Allergies Allergy/AdvReac Type Severity Reaction Status Date / Time acetaminophen [From Percocet] Allergy Rash Verified 12/19/17 19:38 clindamycin Allergy Itching Verified 12/19/17 19:38 codeine Allergy Rash Verified 12/19/17 19:38 hydrochlorothiazide Allergy Rash Verified 12/19/17 19:38 losartan [Losartan] Allergy Rash Verified 12/19/17 19:38 morphine Allergy Irritable Verified 12/19/17 19:38 Oxycodone [From Percocet] Allergy Rash Verified 12/19/17 19:38 Sulfa (Sulfonamide Allergy Rash Verified 12/19/17 19:38 Antibiotics) NSAIDS (Non-Steroidal AdvReac See Verified 12/19/17 19:38 Anti-Inflamma Comments All systems ED: reviewed and negative except as stated. Cardiovascular: Reports: other (Tachycardia) Respiratory: Reports: dyspnea Past Medical History - Past Medical History Medical history: Reports: asthma, atrial fibrillation, COPD, diabetes, hyperlipidemia, hypertension Surgical history: Reports: appendectomy, cholecystectomy, hysterectomy, orthopedic, other, other Psychiatric history: Reports: no psych history, other TEACHERS AIDE history: Reports: no TEACHERS AIDE history - Social History Smoking Status: Former smoker Smokeless Tobacco Status: No Alcohol use: Reports: none Drug use: Reports: none Physical Exam - General Limitations: no limitations General appearance: alert, in no apparent distress - Head Head exam: atraumatic, normocephalic, normal inspection - Eye Eye exam: Present: normal appearance, PERRL, EOMI - Chest Chest inspection: Present: normal inspection, symmetric chest wall rise - Respiratory Respiratory exam: Present: normal lung sounds bilaterally - Cardiovascular Cardiovascular exam: Present: tachycardia, irregular rhythm, normal heart sounds - Abdominal Exam Abdominal exam: Present: soft, Non-Tender. Absent: tenderness, distention, guarding, rebound, rigidity - Extremities Exam Extremities exam: Present: normal inspection, full ROM. Absent: tenderness, pedal edema - Neurological Exam Neurological exam: Present: alert, oriented X3 - Psychiatric Psychiatric exam: Present: normal affect, normal mood - Skin Skin exam: Present: warm, dry, intact, normal color Course Course Narrative: This is a 78-year-old female who appears to have atrial fibrillation with RVR. Vital Signs Temperature 98.0 F 07/05/18 14:49 Pulse Rate 160 07/05/18 14:49 Respiratory Rate 18 07/05/18 14:49 Blood Pressure 118/73 07/05/18 14:49 O2 Sat by Pulse Oximetry 98 07/05/18 14:49 Temperature 98.0 F 07/05/18 15:06 Pulse Rate 89 07/05/18 15:50 Respiratory Rate 16 07/05/18 15:50 Blood Pressure 113/62 07/05/18 15:50 O2 Sat by Pulse Oximetry 100 07/05/18 15:50 Oxygen Delivery Oxygen Delivery Nasal Cannula Medical Decision Making - [facility] Narrative Medical decision making narrative: This is a 78-year-old female with atrial flutter with RVR. She was rate controlled using diltiazem, and will benefit from admission for optimization of her heart rate control. Heparin infusion was started for anticoagulation I discussed her case with the on-call hospitalist, who accepted her for admission - Lab Data Result diagrams: 07/05/18 15:25 07/05/18 15:25 Lab Results 07/05/18 07/05/18 Range/Units 15:25 15:25 WBC 9.6 (4.3-11.1) K/mcL RBC 3.25 L (3.82-4.97) M/mcL Hgb 9.7 L (11.5-15.4) g/dL Hct 31.9 L (35.3-44.9) % MCV 98.2 (83.0-100.0) fL MCH 29.8 (28.0-33.3) pg MCHC 30.4 L (31.6-35.5) g/dL RDW 14.6 H (11.5-14.5) % Plt Count 313 (140-400) K/mcL MPV 9.4 (9.4-12.4) fL Immature Gran % 0.3 (0-4) % Seg Neutrophils % 59.4 % Lymphocytes % 28.1 % Monocytes % 7.8 % Eosinophils % 3.9 % Basophils % 0.5 % Neutrophils # 5.7 (1.6-8.9) K/mcL Lymphocytes # 2.7 (0.6-4.6) K/mcL Monocytes # 0.8 (0.0-1.3) K/mcL Eosinophils # 0.4 (0.0-0.6) K/mcL Basophils # 0.1 (0.0-0.2) K/mcL Sodium 140 (136-145) mEq/L Potassium 4.3 (3.5-5.1) mEq/L Chloride 99 (98-107) mEq/L Carbon Dioxide 37 H (23-29) mEq/L BUN 21 (8-23) mg/dL Creatinine 1.21 H (0.60-1.20) mg/dL Est GFR ( Amer) 52 L (> 60) Est GFR (Non-Af Amer) 43 L (> 60) BUN/Creatinine Ratio 17 (6-26) Glucose 114 H (70-105) mg/dL Calculated Osmolality 294 (280-300) Calcium 8.9 (8.6-10.3) mg/dL Magnesium 2.0 (1.6-2.6) mg/dL Troponin I < 0.03 (< 0.04) ng/mL - Radiology Data Radiology results reviewed: Yes I reviewed the patient's radiology results. Chest x-ray shows chronic elevation of the right hemidiaphragm and no acute process - EKG Data EKG #1 EKG attestation: Yes I reviewed and interpreted this EKG. EKG results narrative: ECG shows a regular tachycardia at 154 bpm there is most likely atrial flutter, normal intervals, normal axis, no T-wave abnormalities, slight ST depression in V5 and V6 Critical Care Time Critical Care Time: Yes Total Critical Care Time: 30 Attestation: 20 minutes of critical care time was invested independent of other separately billable procedures
[2018-07-05 15:38] LABS: Basophils # 0.1 K/mcL (0.0-0.2); Basophils % 0.5 %; Eosinophils # 0.4 K/mcL (0.0-0.6); Eosinophils % 3.9 %; Hematocrit 31.9 % (35.3-44.9); Hemoglobin 9.7 g/dL (11.5-15.4); Immature Granulocytes % 0.3 % (0-4); Lymphocytes # 2.7 K/mcL (0.6-4.6); Lymphocytes % 28.1 %; Mean Corpuscular HGB Conc 30.4 g/dL (31.6-35.5); Mean Corpuscular Hemoglobin 29.8 pg (28.0-33.3); Mean Corpuscular Volume 98.2 fL (83.0-100.0); Mean Platelet Volume 9.4 fL (9.4-12.4); Monocytes # 0.8 K/mcL (0.0-1.3); Monocytes % 7.8 %; Neutrophils # 5.7 K/mcL (1.6-8.9); Platelet Count 313 K/mcL (140-400); Red Blood Count 3.25 M/mcL (3.82-4.97); Red Cell Distribution Width 14.6 % (11.5-14.5); Segmented Neutrophils % 59.4 %
[2018-07-05 16:04] LABS: BUN/Creatinine Ratio 17 (6-26); Blood Urea Nitrogen 21 mg/dL (8-23); Calcium 8.9 mg/dL (8.6-10.3); Carbon Dioxide 37 mEq/L (23-29); Chloride 99 mEq/L (98-107); Glucose 114 mg/dL (70-105); Osmolality,Calculated 294 (280-300); Potassium 4.3 mEq/L (3.5-5.1); Sodium 140 mEq/L (136-145); Troponin I < 0.03 ng/mL (< 0.04); eGFR For Non-African Americans 43 (> 60)
[2018-07-05] MEDS ORDERED: *HR* Heparin 5,000 UNIT/ML VIAL IVP ONE (16:24)
[2018-07-05] MEDS ORDERED: *HR* Heparin 5,000 UNIT/ML VIAL IVP PRN ×2 (16:24)
[2018-07-05 16:44] LABS: Heparin anti-factor XA UFH 0.04 IU/mL (0.30-0.70)
[2018-07-05 16:45] LABS: INR 0.9; Prothrombin Time 10.5 Seconds (9.4-12.1)
[2018-07-05] MEDS: Heparin 25,000 UNIT/500 ML D5W 25,000 UNIT/500 ML BAG IVC SCH (17:22)
[2018-07-05] MEDS ORDERED: Naloxone 0.4 MG/ML INJ IVP PRN (17:27)
[2018-07-05] MEDS ORDERED: Acetaminophen 325 MG TABLET PO PRN (17:27)
--- NOTE | 2018-07-05 18:02 | Internal Med History&Physical ---
<BrittneyJorge A Bolivar - Last Filed: 07/05/18 18:56> Date of Encounter: 07/05/18 Time of Encounter: 16:30 Internal Medicine - H&P: HPI Chief complaint: Arrhythmia/Palpitations Admitted From: Emergency Dept Plans for Post Hospital Care: Home History of present illness: Ms. Lennon is a 78 year old female w/PMH of asthma, gout, thyroid disease, diastolic CHF, atrial fibrillation, COPD, HLD, HTN, and pain pump in back for chronic back pain presents from ED w/CC of arrhythmia and heart palpitations today and SOB for the past several days. Pt. reports associated sx of weakness, shakiness, and nausea. States symptoms occurred before in April when Holter monitor was ordered. Pts. daughter states pt. does not take Imdur or Metoprolol anymore since Dr. Cooper changed to Carvedilol and Lisinopril d/t large swings in pts. BP. No aggravating or alleviating factors. Pt. denies recent illness, fever, chills, vomiting, changes in vision, headache, chest pain, unusual bleeding, abdominal pain, diarrhea, constipation, dizziness, lightheadedness, numbness, tingling, pre-syncope, or syncope. 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 neuropathy - Social History Smoking Status: Former smoker Packs per day: 10 cigarettes daily - Reports quitting in 1981 Smokeless Tobacco Status: No Alcohol use: none Drug use: none Current living situation: Home, With Family Activity Level: Uses cane/walker Recent Out of Country Travel Within the Last 8 Weeks: No Exposure or Possible Exposure to Illness During Travel: No - Family History Brother Race: Family Member Ethnicity: Non- Living Status: Age at : 77 Cause of : CVA Hx Family Cardiac Disorders: Yes (CAD, CVA) Hx Family Cancer: Yes (Colon) Hx Family Neurologic Disorders: Yes (CVA) Sister Race: Family Member Ethnicity: Non- Living Status: Age at : 70 Cause of : DM complications Hx Family Endocrine Disorder: Yes (DM) Paternal Race: Family Member Ethnicity: Non- Living Status: Hx Family Cardiac Disorders: Yes Hx Family Respiratory Disorders: Yes Hx Family Cancer: (liver) Hx Family GI Disorders: No Hx Family Endocrine Disorder: No Hx Family Neuromuscular Disorders: No Hx Family Neurologic Disorders: Yes Hx Family HEENT Disorders: No Hx Family Autoimmune Disorders: (arthritis) Mother Race: Family Member Ethnicity: Non- Living Status: Age at : 78 Cause of : Liver cancer Hx Family Cardiac Disorders: Yes (HTN) Hx Family Cancer: Yes (Liver) Hx Family Endocrine Disorder: Yes (DM) Father Race: Family Member Ethnicity: Non- Living Status: Age at : 86 Cause of : Heart failure Hx Family Cardiac Disorders: Yes (CAD, HF) Internal Medicine - H&P: Meds Albuterol Sulfate [Proair Hfa] 2 puff IH Q4H PRN 07/05/18 [History] Allopurinol [Zyloprim] 300 mg PO DAILY 07/05/18 [History] Amitriptyline [Elavil] 25 mg PO HS 07/05/18 [History] Azelastine HCl 1 drop BOTH EYES BID 07/05/18 [History] Carvedilol [Coreg] 6.25 mg PO BIDWM 07/05/18 [History] Citalopram Hydrobromide [Celexa] 40 mg PO DAILY 07/05/18 [History] Cyclobenzaprine HCl 10 mg PO TID PRN 07/05/18 [History] Denosumab [Prolia (For Outpatient Infusion)] 60 mg SQ [id number] 07/05/18 [History ] Docusate [Colace] 100 mg PO DAILY 07/05/18 [History] Ferrous Sulfate 325 mg PO DAILY 07/05/18 [History] Fluticasone Propionate Nasal [Flonase] 1 spr NS DAILY PRN 07/05/18 [History] Fluticasone/Salmeterol [Advair 250-50 Diskus] 1 puff IH BID 07/05/18 [History] Furosemide [Lasix] 20 mg PO DAILY 07/05/18 [History] Gabapentin [Neurontin] 400 mg PO BID 07/05/18 [History] HYDROcodone/Acet 10/325 mg [Harrell 10-325 mg] 1 tab PO Q8H PRN 07/05/18 [History] Ipratropium/Albuterol Neb [Duoneb] 3 ml IH Q6HR PRN 07/05/18 [History] Lactobacillus Acidophilus [Acidophilus] 1 cap PO HS 07/05/18 [History] Levothyroxine [Synthroid] 125 mcg PO 6XW 07/05/18 [History] Lisinopril [Zestril] 5 mg PO DAILY 07/05/18 [History] Montelukast [Singulair] 10 mg PO HS 07/05/18 [History] Multivitamin [One Daily Multivitamin] 1 tab PO DAILY 07/05/18 [History] Nystatin Cream [Mycostatin Cream] 1 appl TP BID PRN 07/05/18 [History] Omeprazole [PriLOSEC] 20 mg PO DAILY 07/05/18 [History] Polyethylene Glycol 3350 [MiraLAX] 17 gm PO DAILY 07/05/18 [History] Roflumilast [Daliresp] 500 mcg PO DAILY 07/05/18 [History] Tiotropium [place] [Spiriva Respimat] 2 puff IH DAILY 07/05/18 [History] 3 Allergy/AdvReac Type Severity Reaction Status Date / Time acetaminophen [From Percocet] Allergy Rash Verified 07/05/18 19:07 aspirin Allergy See Verified 07/05/18 19:07 Comments clindamycin Allergy Itching Verified 07/05/18 19:07 hydrochlorothiazide Allergy Rash Verified 07/05/18 19:07 losartan [Losartan] Allergy Rash Verified 07/05/18 19:07 Oxycodone [From Percocet] Allergy Rash Verified 07/05/18 19:07 Sulfa (Sulfonamide Allergy Rash Verified 07/05/18 19:07 Antibiotics) codeine AdvReac Nausea Verified 07/05/18 19:07 levofloxacin [From Levaquin] AdvReac Hallucinati Verified 07/05/18 19:07 ng morphine AdvReac Irritable Verified 07/05/18 19:07 NSAIDS (Non-Steroidal AdvReac See Verified 07/05/18 19:07 Anti-Inflamma Comments rofecoxib [From Vioxx] AdvReac See Verified 07/05/18 19:07 Comments ropinirole [From Requip] AdvReac See Verified 07/05/18 19:07 Comments All Systems PM: A 10-system review of systems was performed and is negative for pertinent findings except as documented above in the HPI. - Constitutional Constitutional: as per HPI, fatigue, weakness, no chills, no fever(s), no night sweats - EENT Eyes: no change in vision, no discharge, no pain, no photophobia Ears: no ear discharge, no ear pain, no tinnitus Nose, mouth and throat: no dysphagia, no nasal discharge, no neck pain, no sore throat - Breasts Breasts: as per HPI - Cardiovascular Cardiovascular ROS IM: as per HPI, dyspnea, dyspnea on exertion, irregular heart rhythm, no chest pain, no diaphoresis, no lightheadedness, no palpitations , no syncope - Respiratory Respiratory: as per HPI, dyspnea, dyspnea on exertion, no cough, no wheezing, no excessive phlegm production - Gastrointestinal Gastrointestinal: as per HPI, nausea, no abdominal pain, no diarrhea, no hematemesis, no hematochezia, no melena, no vomiting - Genitourinary Genitourinary: no change in urinary stream, no dysuria, no flank pain, no hematuria Menstruation: as per HPI, post hysterectomy - Musculoskeletal Musculoskeletal ROS IM: as per HPI, back pain, no numbness, no tingling - Integumentary Integumentary IM: no rash, no unusual bruising - Neurological Neurological ROS: as per HPI, weakness, no confusion, no convulsions, no focal weakness, no numbness, no tingling, no tremor(s) - Psychiatric Psychiatric: as per HPI - Endocrine Endocrine IM: as per HPI - Hematologic/Lymphatic Hematologic/Lymphatic: no easy bruising - Allergic/Immunologic Allergic/Immunologic: as per HPI - Constitutional Vitals: Temp Pulse Resp BP Pulse Ox 98.0 F 87 15 143/75 100 07/05/18 15:06 07/05/18 17:29 07/05/18 17:29 07/05/18 17:29 07/05/18 17:29 General appearance: Present: cooperative, mild distress (Respiratory), A&O X 3, pleasant, answers questions appropriately Exam: Pt. examined at bedside in ED. Pt. reports SOB, weakness, shakiness, and nausea w/palpitations. Reports hx of COPD and CHF. Denies CP. Also reports swings in her BP for which Dr. Cooper adjusted her HTN medications from Metoprolol and Imdur to Carvedilol and Lisinopril. Reports chronic back pain and presence of pain pump set to lowest dosing. Will monitor pt. for constipations d/t opioids. Falls/safety precautions and up with assist. Pt. denies any other complaints at this time. Plan of care discussed w/pt. and daughter. VS: temp 98.0F, HR 89, RR 16, BP 113/62, and SpO2 100% on 2L via NC. - Head Head exam: Present: atraumatic, normocephalic - Eye Eye exam: Present: PERRL, conjuntiva pink, sclera anicteric Pupils: Present: PERRL - ENT ENT exam: Present: normal exam - Neck Neck exam general surgery: Present: normal inspection, supple, trachea midline. Absent: lymphadenopathy - Respiratory Respiratory exam: Present: CTAB. Absent: accessory muscle use, rales, rhonchi, wheezes - Cardiovascular Cardiovascular exam: Present: RRR, +S1, +S2. Absent: diastolic murmur, gallop, rubs, systolic murmur - GI/Abdominal GI/Abdominal exam: Present: normal bowel sounds, soft, no peritoneal signs. Absent: distended, tenderness - Rectal Rectal exam: Present: deferred - Additional comments: exam deferred. - Extremities Exam Extremities exam: Present: pedal edema, warm, radial pulses palpable and symmetrical. Absent: calf tenderness, cyanotic - Back Exam Back exam: Present: normal inspection - Neurological Exam Neurological exam: Present: alert, CN II-XII intact, oriented X3, no focal deficits. Absent: pronater drift, facial droop, speech deficit - Psychiatric Psychiatric exam: Present: normal affect, normal mood - Skin Skin exam: Present: dry, intact Internal Med - H&P Results - Labs CBC & Chem 7: 07/05/18 15:25 07/05/18 15:25 - EKG Data Prior EKG available for review: yes EKG comments: 07/05/18 18:18 EKG dated 05/09/2018 shows sinus rhythm with voltage criteria for LVH and nonspecific T-wave abnormality. EKG dated 07/05/2018 so supraventricular tachycardia with right axis deviation, low voltage in extremity and precordial leads, and anteroseptal infarct ( probably old). - Diagnostic Studies Chest x-ray Additional comments: Impressions Chest X-Ray 07/05/18 15:03 IMPRESSION: Stable chest demonstrating elevation of the right hemidiaphragm and atelectatic changes in the right lung. No acute abnormalities identified D/ / Tyson Suarez MD / Tyson Suarez MD Interpreting Provider: Tyson Suarez MD - Assessment and plan (1) Atrial flutter with rapid ventricular response Current Visit: Yes Status: Acute Assessment and plan: Acute atrial flutter w/RVR that began today. Denies CP. Pt. has hx of chronic atrial fibrillation and is not currently anti-coagulated. Pt. states she does not take daily aspirin. Pt. reports having her HTN medications changed recently by Dr. Cooper from Metoprolol and Imdur to Carvedilol and Lisinopril. States she has large swings in her BP. Dobutamine Stress Echo on 04/19/18 showed normal left ventricular systolic function at baseline with LVEF of 60-65%. Baseline ECG demonstrates NSR with nonspecific ST-T changes, pharmacologic stress ECG is nondiagnostic for ischemia secondary to baseline nonspecific ST and T findings, 1 PVC observed during early stress, no chest pain during stress procedure, appropriate increase LVEF with stress. Pt. placed on Cardizem drip and heparin drip in ED and will continue. Continuous cardiac telemetry. Supplemental O2 w/ titration and SpO2 monitoring. Consider adding Cardiology consult d/t pt. not being anti-coagulated on regular basis w/hx of chronic Afib or have pt. f/u on OP basis w/Seasonal Customer Service Associate. Pt. discussed w/Dr. Sahni who agrees w/plan of care. Pt. is high risk for further morbidity and complications d/t current atrial flutter w/RVR requiring Cardizem and heparin drips w/close monitoring and titration, hx of chronic Afib not on anti-coagulation, weakness and increased risk for falls, hx; and risk factors of HLD, HTN w/wide swings, COPD, and CHF. Inpatient. (2) Nausea Current Visit: Yes Status: Acute Assessment and plan: Acute nausea w/current sx. IVP Phenergan 12.5 Q6HR PRN for N/V. (3) SOB (shortness of breath) Current Visit: Yes Status: Acute Assessment and plan: Acute on chronic SOB w/current Afib sx. Pt. has hx of COPD and CHF. Continue pts. inhalers and home breathing txs. Supplemental O2 w/titration and SpO2 monitoring. (4) Chronic, continuous use of opioids Current Visit: Yes Status: Chronic Assessment and plan: Hx of chronic opioid use d/t chronic back pain and lumbar back surgeries x3. Pt. and daughter report presence of pain pump in pts. back which is currently set to lowest setting. Continue Colace for bowels. Add Miralax if pt. becomes constipated. (5) CKD (chronic kidney disease) stage 3, GFR 30-59 ml/min Current Visit: Yes Status: Chronic Assessment and plan: Hx of CKD, currently stage 3 w/GFR of 43 and creatinine of 1.21. Will use IV fluids judiciously if warranted d/t hx of CHF and current renal dysfunction. Avoid nephrotoxins. Monitor I&O and daily weight. (6) COPD (chronic obstructive pulmonary disease) Current Visit: Yes Status: Chronic Assessment and plan: Hx of chronic COPD. Stable. Continue pts. inhalers and home txs. Supplemental O2 w/titration and SpO2 monitoring. BiPAP HS. Respiratory consult. Qualifiers: COPD type: unspecified COPD Qualified Code(s): J44.9 - Chronic obstructive pulmonary disease, unspecified (7) Diastolic CHF Current Visit: Yes Status: Chronic Assessment and plan: Hx of diastolic CHF. Stable. Dobutamine Stress Echo on 04/19/18 showed normal left ventricular systolic function at baseline with LVEF of 60-65%. Baseline ECG demonstrates NSR with nonspecific ST-T changes, pharmacologic stress ECG is nondiagnostic for ischemia secondary to baseline nonspecific ST and T findings, 1 PVC observed during early stress, no chest pain during stress procedure, appropriate increase LVEF with stress. 1.5L daily fluid restriction. Monitor I& O and daily weight. Will use IV fluids judiciously if warranted. Qualifiers: Heart failure chronicity: acute on chronic Qualified Code(s): I50.33 - Acute on chronic diastolic (congestive) heart failure (8) HLD (hyperlipidemia) Current Visit: Yes Status: Chronic Assessment and plan: Hx of chronic HLD. Lipid panel in a.m. labs. Pt. does not currently take statin. Consider adding statin to pts. home medications based on lipid panel results. Qualifiers: Hyperlipidemia type: mixed hyperlipidemia Qualified Code(s): E78.2 - Mixed hyperlipidemia (9) HTN (hypertension) Current Visit: Yes Status: Chronic Assessment and plan: Hx of chronic HTN. Monitor pt. and VS. Pt. reports previously taking Imdur and Metoprolol but was changed to Lisinopril and Carvedilol by Dr. Cooper d/t large swings in pts. BP. Add hydralazine 5 mg Q6HR PRN w/parameters. Qualifiers: Hypertension type: essential hypertension Qualified Code(s): I10 - Essential (primary) hypertension (10) BEVERLY (obstructive sleep apnea) Current Visit: Yes Status: Chronic Assessment and plan: Hx of chronic BEVERLY. Pt. reports using BiPAP nightly. BiPAP ordered w/respiratory consult. (11) Gout Current Visit: Yes Status: Chronic Assessment and plan: Hx of chronic gout. Continue pts. Allopurinol. Qualifiers: Gout site: unspecified site Gout etiology: unspecified cause Chronicity: chronic Presence of tophus: without tophus Qualified Code(s): M1A.9XX0 - Chronic gout, unspecified, without tophus (tophi) (12) Thyroid disease Current Visit: Yes Status: Chronic Assessment and plan: Hx of chronic thyroid disease. TSH ordered. Continue pts. Synthroid. (13) DVT prophylaxis Current Visit: Yes Status: Acute Assessment and plan: Pt. placed on heparin drip d/t current atrial flutter w/RVR. Monitor pt. for signs of bleeding. (14) Weakness Current Visit: Yes Status: Acute Assessment and plan: Acute weakness over the past several days w/SOB and palpitations. Falls/safety precautions and up with assist only. PT/OT consults to assess for rehab needs. - Time Spent With Patient Total time spent is greater than 50% in coordination of care (as documented) at patient's floor/unit and/or counseling patient: <Gisela Sahni - Last Filed: 07/06/18 20:08> Date of Encounter: 07/06/18 Internal Medicine - H&P: HPI History of present illness: Ms. Lennon is a 78 year old female All Systems PM: A 10-system review of systems was performed and is negative for pertinent findings except as documented above in the HPI. - Constitutional Vitals: Temp Pulse Resp BP Pulse Ox 98.2 F 87 20 165/80 98 07/06/18 16:32 07/06/18 16:32 07/06/18 16:32 07/06/18 16:32 07/06/18 16:32 Internal Med - H&P Results - Labs CBC & Chem 7: 07/06/18 03:49 07/06/18 03:49 Labs: Short CBC 07/06/18 Range/Units 03:49 WBC 8.4 (4.3-11.1) K/mcL Hgb 8.5 L (11.5-15.4) g/dL Hct 29.0 L (35.3-44.9) % Plt Count 265 (140-400) K/mcL Neutrophils # 4.3 (1.6-8.9) K/mcL BMP 07/06/18 03:49 Sodium 140 Potassium 4.0 Chloride 104 Carbon Dioxide 33 H BUN 21 Creatinine 0.98 Glucose 96 Calcium 8.6 Liver Function 07/06/18 Range/Units 03:49 Total Bilirubin 0.2 L (0.3-1.0) mg/dL AST 15 (13-39) Units/L ALT 8 (7-52) Units/L Alkaline Phosphatase 76 (34-104) Units/L Albumin 3.2 L (3.5-5.7) g/dL - Assessment and plan (1) COPD (chronic obstructive pulmonary disease) Current Visit: Yes Status: Chronic Qualifiers: COPD type: unspecified COPD Qualified Code(s): J44.9 - Chronic obstructive pulmonary disease, unspecified (2) BEVERLY (obstructive sleep apnea) Current Visit: Yes Status: Chronic (3) HLD (hyperlipidemia) Current Visit: Yes Status: Chronic Qualifiers: Hyperlipidemia type: mixed hyperlipidemia Qualified Code(s): E78.2 - Mixed hyperlipidemia (4) HTN (hypertension) Current Visit: Yes Status: Chronic Qualifiers: Hypertension type: essential hypertension Qualified Code(s): I10 - Essential (primary) hypertension (5) CKD (chronic kidney disease) stage 3, GFR 30-59 ml/min Current Visit: Yes Status: Chronic (6) Chronic, continuous use of opioids Current Visit: Yes Status: Chronic (7) Atrial flutter with rapid ventricular response Current Visit: Yes Status: Acute (8) Diastolic CHF Current Visit: Yes Status: Chronic Qualifiers: Heart failure chronicity: acute on chronic Qualified Code(s): I50.33 - Acute on chronic diastolic (congestive) heart failure (9) DVT prophylaxis Current Visit: Yes Status: Acute (10) SOB (shortness of breath) Current Visit: Yes Status: Acute (11) Gout Current Visit: Yes Status: Chronic Qualifiers: Gout site: unspecified site Gout etiology: unspecified cause Chronicity: chronic Presence of tophus: without tophus Qualified Code(s): M1A.9XX0 - Chronic gout, unspecified, without tophus (tophi) (12) Thyroid disease Current Visit: Yes Status: Chronic (13) Nausea Current Visit: Yes Status: Acute (14) Weakness Current Visit: Yes Status: Acute - Time Spent With Patient Total time spent is greater than 50% in coordination of care (as documented) at patient's floor/unit and/or counseling patient: - Attending Attestation Seen and assessed. Continue management for atrial flutter with RVR. Agree with plan per [employer] PREPARATION SUPERVISOR
[2018-07-05] MEDS ORDERED: *HR* Promethazine 25 MG/ML VIAL IVP PRN (18:45)
[2018-07-05 19:31] LABS: Thyroid Stimulating Hormone 0.066 mcIU/mL (0.340-5.600)
[2018-07-05 19:52] LABS: Vitamin B12 1223 pg/mL (250-1100)
[2018-07-05 19:55] LABS: Folate > 22.3 ng/mL (3.0-16.0)
[2018-07-05] MEDS ORDERED: Nystatin Cream 15 GM TUBE TP PRN (20:08)
[2018-07-05] MEDS ORDERED: Fluticasone Propionate Nasal 50 MCG/SPRAY BOTTLE NS PRN (20:08)
[2018-07-05] MEDS ORDERED: Ipratropium/Albuterol Neb 3 ML IH PRN (20:08)
[2018-07-05] MEDS: Lactobacillus 1 EACH CAP.SPRINK PO SCH (22:20)
[2018-07-05] MEDS: Gabapentin 400 MG CAPSULE PO SCH (22:20)
[2018-07-06] MEDS: *HR* HYDROcodone/Acet 10/325 mg TABLET PO PRN (01:33)
[2018-07-06 03:57] LABS: Basophils # 0.1 K/mcL (0.0-0.2); Basophils % 0.6 %; Eosinophils # 0.4 K/mcL (0.0-0.6); Eosinophils % 4.2 %; Hemoglobin 8.5 g/dL (11.5-15.4); Immature Granulocytes % 0.1 % (0-4); Lymphocytes % 35.5 %; Mean Corpuscular HGB Conc 29.3 g/dL (31.6-35.5); Mean Corpuscular Hemoglobin 28.8 pg (28.0-33.3); Mean Corpuscular Volume 98.3 fL (83.0-100.0); Mean Platelet Volume 9.4 fL (9.4-12.4); Monocytes # 0.7 K/mcL (0.0-1.3); Monocytes % 8.3 %; Neutrophils # 4.3 K/mcL (1.6-8.9); Platelet Count 265 K/mcL (140-400); Red Blood Count 2.95 M/mcL (3.82-4.97); Red Cell Distribution Width 14.6 % (11.5-14.5); Segmented Neutrophils % 51.3 %
[2018-07-06 04:04] LABS: Prothrombin Time 11.2 Seconds (9.4-12.1)
[2018-07-06 04:21] LABS: Alanine Aminotransferase 8 Units/L (7-52); Albumin 3.2 g/dL (3.5-5.7); Albumin/Globulin Ratio 1.2 (1.1-2.2); Alkaline Phosphatase 76 Units/L (34-104); Aspartate Amino Transferase 15 Units/L (13-39); BUN/Creatinine Ratio 21 (6-26); Bilirubin,Total 0.2 mg/dL (0.3-1.0); Blood Urea Nitrogen 21 mg/dL (8-23); Calcium 8.6 mg/dL (8.6-10.3); Carbon Dioxide 33 mEq/L (23-29); Chloride 104 mEq/L (98-107); Chol/HDL Ratio 3.3 (0-4.9); Cholesterol 150 mg/dL (< 200); Globulin 2.6 g/dL (2.4-3.5); Glucose 96 mg/dL (70-105); HDL Cholesterol 46 mg/dL (40-59); LDL Cholesterol,Calculated 88 mg/dL (0-99); Osmolality,Calculated 293 (280-300); Sodium 140 mEq/L (136-145); Total Protein 5.8 g/dL (6.4-8.9); Triglycerides 78 mg/dL (< 150); eGFR For Non-African Americans 55 (> 60)
[2018-07-06 04:34] LABS: Activated Partial Thrombo Time 151.5 Seconds (26.0-36.0)
[2018-07-06 08:56] LABS: Estimated Average Glucose 120 mg/dl; Hemoglobin A1C 5.8 %
[2018-07-06] MEDS: Furosemide 20 MG TABLET PO SCH (09:24)
[2018-07-06] MEDS: Multivit/Ca/Min/Fe/FA 1 TAB TABLET PO SCH (09:24)
[2018-07-06] MEDS: Gabapentin 400 MG CAPSULE PO SCH ×2 (09:25→19:45)
[2018-07-06] MEDS: Budesonide/Formoterol 80/4.5 MDI IH SCH ×2 (11:41→21:17)
[2018-07-06] MEDS: Tiotropium 18 MCG inhalation IH SCH (11:45)
--- NOTE | 2018-07-06 12:27 | Cardiology Consult Note ---
<JoséMacario yuan R - Last Filed: 07/06/18 13:07> Date of Encounter: 07/06/18 Time of Encounter: 12:24 Assessment and Plan (1) Atrial flutter with rapid ventricular response Current Visit: Yes Status: Acute Known PAF hx. Presented A-Flutter RVR HR 150s. Was on Coreg 6.125mg BID at home. Started on Cardizem gtt on admission and has since converted back to SR. Hospitalist started Cardizem PO 30mg [id number]. Will transition to long acting Cardizem CD 120mg daily. Recent stress echo 03/2018 EF preserved with appropriate increase in EF during test. K, Mag WNL. TSH 0.066--management per primary team. [id number] 4 (Age, HTN, Female). Currently on heparin gtt. High CVA risk. Per pt , frequent nose bleeds over recent weeks, all right sided. HGB 8.5--within baseline range, chronic anemia. Will consult ENT for right sided epistaxis to see if intervention is warranted in order to safely anticoagulate with Coumadin vs NOAC. Continue to follow. Plan to refer to EP as outpt for PAF/Fl. Discussion w patient/family: The assessment and plan as outlined above was discussed with the patient and/or family members who expressed understanding and agreement. All questions were answered. Thank you for involving us in the care of your patient. Please call with any questions. I will discuss all the above with Dr. Vallecillo and make changes as necessary. History of Present Illness Consult date: 07/06/18 Consult reason: A-Fib Chief complaint: weakness History of present illness: Ms. Lennon is a 78 year old female w/PMH of asthma, gout, thyroid disease, diastolic CHF, PAF, COPD, HLD, HTN, and pain pump in back for chronic back pain presents from ED w/CC of weakness, heart palpitations, dyspnea, shakiness, and nausea. Reports HR 150s at home. EKG on presentation reviewed--Appears to be A- Flutter HR 150s. College Advisor is Dr. Cooper, seen outpt recently and Lopressor was changed to Carvedilol due to complaints of fatigue and dyspnea. Pt was started on cardizem gtt and has since converted back to SR. Cardizem gtt turned off--now on PO Cardizem 30mg [id number]. Pt also endorses frequent nose bleeds over recent weeks. Prior CV testing: Holter 05/11/18--Baseline rhythm NS with occasional PVCs and PACs. Dobutamine stress echo 04/21/18: Appropriate increase in LVEF with stress. Pharmacologic stress ECG is not diagnostic for ischemia secondary to baseline nonspecific ST and T findings. Normal left ventricular systolic function at baseline, LVEF 60-65%. TTE 10/19/17: LVEF 60-65%. Mild left ventricular diastolic dysfunction. Normal right ventricular structure and function. Moderate aortic regurgitation. Mild- moderate mitral regurgitation. Mild pulmonic regurgitation. No pulmonary hypertension. Possible inter-atrial septal defect. 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 neuropathy - Social History Smoking Status: Former smoker Packs per day: 10 cigarettes daily - Reports quitting in 1981 Smokeless Tobacco Status: No Alcohol use: none Drug use: none - Family History Brother Race: Family Member Ethnicity: Non- Living Status: Age at : 77 Cause of : CVA Hx Family Cardiac Disorders: Yes (CAD, CVA) Hx Family Respiratory Disorders: No Hx Family Cancer: Yes (Colon) Hx Family GI Disorders: No Hx Family Endocrine Disorder: Yes Hx Family Neuromuscular Disorders: No Hx Family Neurologic Disorders: Yes (CVA) Hx Family HEENT Disorders: No Hx Family Autoimmune Disorders: No Sister Race: Family Member Ethnicity: Non- Living Status: Age at : 70 Cause of : DM complications Hx Family Cardiac Disorders: Yes Hx Family Respiratory Disorders: No Hx Family Cancer: No Hx Family GI Disorders: No Hx Family Endocrine Disorder: Yes (DM) Hx Family Neuromuscular Disorders: No Hx Family Neurologic Disorders: No Hx Family HEENT Disorders: No Hx Family Autoimmune Disorders: No Father Race: Family Member Ethnicity: Non- Living Status: Age at : 86 Cause of : Heart failure Hx Family Cardiac Disorders: Yes (CAD, HF) Hx Family Respiratory Disorders: No Hx Family Cancer: No Hx Family GI Disorders: No Hx Family Genitourinary Disorders: No Hx Family Endocrine Disorder: No Hx Family Musculoskeletal Disorders: No Hx Family Neuromuscular Disorders: No Hx Family Medical Disorders: Yes Paternal Race: Family Member Ethnicity: Non- Living Status: Hx Family Cardiac Disorders: Yes Hx Family Respiratory Disorders: Yes Hx Family Cancer: (liver) Hx Family GI Disorders: No Hx Family Endocrine Disorder: No Hx Family Neuromuscular Disorders: No Hx Family Neurologic Disorders: Yes Hx Family HEENT Disorders: No Hx Family Autoimmune Disorders: (arthritis) Mother Race: Family Member Ethnicity: Non- Living Status: Age at : 78 Cause of : Liver cancer Hx Family Cardiac Disorders: Yes (HTN) Hx Family Respiratory Disorders: No Hx Family Cancer: Yes (Liver) Hx Family GI Disorders: Yes Hx Family Endocrine Disorder: Yes (DM) Hx Family Neuromuscular Disorders: No Hx Family Neurologic Disorders: No Hx Family HEENT Disorders: No Hx Family Autoimmune Disorders: No Medications and Allergies Albuterol Sulfate [Proair Hfa] 2 puff IH Q4H PRN 07/05/18 [History] Allopurinol [Zyloprim] 300 mg PO DAILY 07/05/18 [History] Amitriptyline [Elavil] 25 mg PO HS 07/05/18 [History] Azelastine HCl 1 drop BOTH EYES BID 07/05/18 [History] Carvedilol [Coreg] 6.25 mg PO BIDWM 07/05/18 [History] Citalopram Hydrobromide [Celexa] 40 mg PO DAILY 07/05/18 [History] Cyclobenzaprine HCl 10 mg PO TID PRN 07/05/18 [History] Denosumab [Prolia (For Outpatient Infusion)] 60 mg SQ [id number] 07/05/18 [History ] Docusate [Colace] 100 mg PO DAILY 07/05/18 [History] Ferrous Sulfate 325 mg PO DAILY 07/05/18 [History] Fluticasone Propionate Nasal [Flonase] 1 spr NS DAILY PRN 07/05/18 [History] Fluticasone/Salmeterol [Advair 250-50 Diskus] 1 puff IH BID 07/05/18 [History] Furosemide [Lasix] 20 mg PO DAILY 07/05/18 [History] Gabapentin [Neurontin] 400 mg PO BID 07/05/18 [History] HYDROcodone/Acet 10/325 mg [Redding 10-325 mg] 1 tab PO Q8H PRN 07/05/18 [History] Ipratropium/Albuterol Neb [Duoneb] 3 ml IH Q6HR PRN 07/05/18 [History] Lactobacillus Acidophilus [Acidophilus] 1 cap PO HS 07/05/18 [History] Levothyroxine [Synthroid] 125 mcg PO 6XW 07/05/18 [History] Lisinopril [Zestril] 5 mg PO DAILY 07/05/18 [History] Montelukast [Singulair] 10 mg PO HS 07/05/18 [History] Multivitamin [One Daily Multivitamin] 1 tab PO DAILY 07/05/18 [History] Nystatin Cream [Mycostatin Cream] 1 appl TP BID PRN 07/05/18 [History] Omeprazole [PriLOSEC] 20 mg PO DAILY 07/05/18 [History] Polyethylene Glycol 3350 [MiraLAX] 17 gm PO DAILY 07/05/18 [History] Roflumilast [Daliresp] 500 mcg PO DAILY 07/05/18 [History] Tiotropium Onsted [Spiriva Respimat] 2 puff IH DAILY 07/05/18 [History] 3 Allergy/AdvReac Type Severity Reaction Status Date / Time acetaminophen [From Percocet] Allergy Rash Verified 07/05/18 19:07 aspirin Allergy See Verified 07/05/18 19:07 Comments clindamycin Allergy Itching Verified 07/05/18 19:07 hydrochlorothiazide Allergy Rash Verified 07/05/18 19:07 losartan [Losartan] Allergy Rash Verified 07/05/18 19:07 Oxycodone [From Percocet] Allergy Rash Verified 07/05/18 19:07 Sulfa (Sulfonamide Allergy Rash Verified 07/05/18 19:07 Antibiotics) codeine AdvReac Nausea Verified 07/05/18 19:07 levofloxacin [From Levaquin] AdvReac Hallucinati Verified 07/05/18 19:07 ng morphine AdvReac Irritable Verified 07/05/18 19:07 NSAIDS (Non-Steroidal AdvReac See Verified 07/05/18 19:07 Anti-Inflamma Comments rofecoxib [From Vioxx] AdvReac See Verified 07/05/18 19:07 Comments ropinirole [From Requip] AdvReac See Verified 07/05/18 19:07 Comments All Systems Review: The remainder of the systems were reviewed and are negative - Constitutional Constitutional: weakness - Cardiovascular Cardiovascular: as per HPI, dyspnea at rest, dyspnea on exertion, palpitations - Respiratory Respiratory: dyspnea Physical Examination Vital Signs, Last 4 Hours Resp Pulse Ox 07/06/18 11:46 16 95 07/06/18 09:39 95 Vital Signs Temp Pulse Resp BP Pulse Ox 07/06/18 11:46 16 95 07/06/18 09:39 95 07/06/18 07:59 96.9 F L 88 20 159/83 95 07/06/18 04:02 97.5 F L 86 16 143/72 98 07/06/18 00:08 98.1 F 91 16 146/86 97 07/05/18 23:30 16 98 07/05/18 18:30 98.2 F 86 16 145/79 98 07/05/18 17:29 87 15 143/75 100 07/05/18 15:50 89 16 113/62 100 07/05/18 15:06 98.0 F 160 18 118/73 100 07/05/18 15:05 100 07/05/18 14:49 98.0 F 160 18 118/73 98 Intake and Output 07/05/18 07/06/18 07/06/18 23:59 07:59 15:59 Intake Total 0 / 0 350 / 350 40 / 40 Output Total 200 / 200 850 / 850 400 / 400 Balance -200 / -200 -500 / -500 -360 / -360 Intake: IV Fluids 250 / 250 40 / 40 Cardizem 50 MG In 0.9 % Sodium 50 / 50 40 / 40 Chloride 40 ML @ 5 MG/HR 5 mls/ hr IVC .Q10H [facility] Rx#:[id number] Heparin 25,000 UNIT/500 ML D5W 200 / 200 25,000 unit In 500 ml @ 14 UNIT /KG/HR 15.876 mls/hr IVC .Q24H [facility] Rx#:[id number] Oral 0 / 0 100 / 100 Output: Urine 200 / 200 850 / 850 400 / 400 Other: Stool Size Copious Stool Consistency formed Stool Color Green # Bowel Movements 1 Weight 57.5 kg 57.5 kg Patient Weight 07/06/18 23:59 Weight 57.5 kg General: Conversant, No Apparent Distress HEENT: Atraumatic, Normocephaly, Mucus Membranes Moist Neck: No JVD, Normal carotid pulses Cardiac: Reg Rate and Rhythm, Normal S1 and S2, No Murmur Lungs: Normal Breath Sounds, No Wheeze, Rales, Rhonchi Neuro: Alert and responsive, No focal deficits noted Abdomen: Soft, Non-Tender Skin: No rashes noted on visualized skin Musculoskeletal: No Chest Wall Tenderness Extremities: No Clubbing, No Cyanosis, No Edema, Normal Pulses Results 07/06/18 03:49 07/06/18 03:49 Lab Results 07/06/18 07/06/18 07/06/18 03:49 03:49 03:49 WBC 8.4 Hgb 8.5 L Hct 29.0 L Plt Count 265 INR 1.0 APTT 151.5 H* Sodium 140 Potassium 4.0 Chloride 104 Carbon Dioxide 33 H BUN 21 Creatinine 0.98 Glucose 96 Calcium 8.6 Total Bilirubin 0.2 L AST 15 ALT 8 Alkaline Phosphatase 76 Short CBC 07/06/18 07/05/18 Range/Units 03:49 15:25 WBC 8.4 9.6 (4.3-11.1) K/mcL Hgb 8.5 L 9.7 L (11.5-15.4) g/dL Hct 29.0 L 31.9 L (35.3-44.9) % Plt Count 265 313 (140-400) K/mcL Neutrophils # 4.3 5.7 (1.6-8.9) K/mcL BMP 07/06/18 07/05/18 Range/Units 03:49 15:25 Sodium 140 140 (136-145) mEq/L Potassium 4.0 4.3 (3.5-5.1) mEq/L Chloride 104 99 (98-107) mEq/L Carbon Dioxide 33 H 37 H (23-29) mEq/L BUN 21 21 (8-23) mg/dL Creatinine 0.98 1.21 H (0.60-1.20) mg/dL Glucose 96 114 H (70-105) mg/dL Calcium 8.6 8.9 (8.6-10.3) mg/dL Cardiac Enzymes 07/05/18 Range/Units 15:25 Troponin I < 0.03 (< 0.04) ng/mL Liver Function 07/06/18 Range/Units 03:49 Total Bilirubin 0.2 L (0.3-1.0) mg/dL AST 15 (13-39) Units/L ALT 8 (7-52) Units/L Alkaline Phosphatase 76 (34-104) Units/L Albumin 3.2 L (3.5-5.7) g/dL Active Medications Hydrocodone Bitart/Acetaminophen (Redding 10-325 Mg) 1 each PO Q8H PRN PRN Reason: mild to moderate pain Stop: 01/05/19 01:04 Last Admin: 07/06/18 01:33 Dose: 1 each Albuterol Sulfate (Albuterol Inhaler) 2 puff IH Q4H PRN PRN Reason: Shortness Of Breath Stop: 01/04/19 20:09 Allopurinol (Zyloprim) 300 mg PO DAILY [facility] Stop: 01/05/19 09:01 Last Admin: 07/06/18 09:24 Dose: 300 mg Amitriptyline HCl (Elavil) 25 mg PO HS [facility] Stop: 01/04/19 21:01 Last Admin: 07/05/18 22:19 Dose: 25 mg Budesonide/Formoterol Fumarate (Symbicort) 1 puff IH BIDR [facility] Stop: 01/05/19 10:01 Last Admin: 07/06/18 11:41 Dose: 1 puff Carvedilol (Coreg) 6.25 mg PO BIDWM [facility] PRN Reason: Protocol Stop: 01/05/19 08:01 Last Admin: 07/06/18 09:29 Dose: 6.25 mg Citalopram Hydrobromide (Celexa) 40 mg PO DAILY [facility] Stop: 01/05/19 09:01 Last Admin: 07/06/18 09:25 Dose: 40 mg Cyclobenzaprine HCl (Flexeril) 10 mg PO TID PRN PRN Reason: Muscle Spasm Stop: 01/04/19 20:09 Last Admin: 07/05/18 23:39 Dose: 10 mg Diltiazem HCl (Cardizem) 30 mg PO Q6H [facility] Stop: 01/05/19 09:01 Last Admin: 07/06/18 09:25 Dose: 30 mg Docusate Sodium (Colace) 100 mg PO DAILY [facility] PRN Reason: Protocol Stop: 01/04/19 20:16 Last Admin: 07/06/18 09:25 Dose: 100 mg Ferrous Sulfate (Ferrous Sulfate) 325 mg PO DAILY [facility] Stop: 01/05/19 09:01 Last Admin: 07/06/18 09:25 Dose: 325 mg Fluticasone Propionate (Flonase) 50 mcg NS DAILY PRN; Protocol PRN Reason: Allergy Symptoms Stop: 01/04/19 20:09 Furosemide (Lasix) 20 mg PO DAILY [facility] Stop: 01/05/19 09:01 Last Admin: 07/06/18 09:24 Dose: 20 mg Gabapentin (Neurontin) 400 mg PO BID [facility] Stop: 01/04/19 21:01 Last Admin: 07/06/18 09:25 Dose: 400 mg Heparin Sodium (Porcine) (Heparin) 4,000 unit 70 unit/kg (4000 unit) IVP Q6H PRN PRN Reason: SEE COMMENTS Stop: 01/04/19 16:25 Heparin Sodium (Porcine) (Heparin) 2,000 unit 35 unit/kg (2000 unit) IVP Q6H PRN PRN Reason: SEE COMMENTS Stop: 01/04/19 16:25 Hydralazine HCl (Hydralazine) 5 mg IVP Q6HR PRN PRN Reason: Hypertension Stop: 01/04/19 17:55 Diltiazem HCl 50 mg/ Sodium (Chloride) 50 mls @ 5 mls/hr IVC .Q10H [facility] PRN Reason: 5 MG/HR Stop: 01/04/19 15:16 Last Infusion: 07/06/18 10:46 Dose: 0 mg/hr, 0 mls/hr Heparin Sodium/Dextrose (Heparin 25,000 Unit/500 Ml D5w) 25,000 unit in 500 mls @ 15.876 mls/hr IVC .Q24H [facility]; 14 UNIT/KG/HR PRN Reason: Protocol Stop: 01/04/19 16:31 Last Titration: 07/06/18 06:04 Dose: 14 unit/kg/hr, 15.876 mls/hr Lactobacillus Acidophilus/Rhamnosus (Culturelle) 1 each PO HS [facility] Stop: 01/04/19 21:01 Last Admin: 07/05/18 22:20 Dose: 1 each Levothyroxine Sodium (Synthroid) 125 mcg PO 6XW@0630 [facility] Stop: 01/05/19 06:31 Last Admin: 07/06/18 05:39 Dose: 125 mcg Lisinopril (Zestril) 5 mg PO DAILY [facility] PRN Reason: Protocol Stop: 01/05/19 09:01 Last Admin: 07/06/18 09:24 Dose: 5 mg Montelukast Sodium (Singulair) 10 mg PO HS [facility] Stop: 01/04/19 21:01 Last Admin: 07/05/18 22:19 Dose: 10 mg Multivitamins/Calcium (Thera M Plus) 1 tab PO DAILY [facility] Stop: 01/05/19 09:01 Last Admin: 07/06/18 09:24 Dose: 1 tab Naloxone HCl (Narcan) 0.4 mg IVP Q2MIN PRN PRN Reason: SEE COMMENTS Stop: 01/04/19 17:28 Nystatin (Mycostatin Cream) 1 appl TP BID PRN PRN Reason: Skin Irritation Stop: 01/04/19 20:09 Omeprazole (Prilosec) 20 mg PO 0630 [facility] PRN Reason: Protocol Stop: 01/05/19 06:31 Last Admin: 07/06/18 05:39 Dose: 20 mg Pharmacy Profile Note (Patient Taking Own Medication) 1 each OP BID [facility] Stop: 01/04/19 21:01 Last Admin: 07/05/18 22:20 Dose: Not Given Pharmacy Profile Note (Patient Taking Own Medication) 500 each PO DAILY [facility] Stop: 01/05/19 09:01 Polyethylene Glycol (Miralax) 17 gm PO DAILY [facility] Stop: 01/05/19 09:01 Last Admin: 07/06/18 09:25 Dose: 17 gm Promethazine HCl (Phenergan) 12.5 mg IVP Q6HR PRN PRN Reason: Nausea And Vomiting Stop: 01/04/19 18:46 Tiotropium Onsted (Spiriva) 18 mcg IH DAILY [facility] Stop: 01/05/19 09:01 Last Admin: 07/06/18 11:45 Dose: 18 mcg - Imaging and Cardiology Stress Test: report reviewed Echo: report reviewed - EKG Interpretation EKG results cardiology: personally reviewed (A-Flutter HR 150s), other (12 hr tele AVG HR 83, now SR) Consult Discharge Plan - Plan Referrals: Ritika Humphreys, NON LICENSED OPERATOR [Primary Care Provider] - <Snow Vallecillo - Last Filed: 07/06/18 19:19> Date of Encounter: 07/06/18 - Attending Attestation Patient was seen and evaluated independently by me. Findings, assessment and plan were discussed at length with patient, questions answered. Agree with nurse practitioner's documentation. Addition as follows, 78yoCF ho PAF, HFpEF, COPD p/w palpitation, fould in Aflutter/fib RVR, spontaneous conversion to SR. In SR when seen, VSS, CTA, RR, no LE edema TSH 0.06 A: Paroxysmal atrial flutter/fib with RVR, epistaxis per ENT ok for anticoagulation hyperthyroidism iatrogenic P: - add cardizem for rate ctr - start xarelto before going home - synthroid dosing adjustment per primary team Snow Vallecillo MD, PhD Assessment and Plan Discussion w patient/family: The assessment and plan as outlined above was discussed with the patient and/or family members who expressed understanding and agreement. All questions were answered. Thank you for involving us in the care of your patient. Please call with any questions. History of Present Illness History of present illness: Ms. Lennon is a 78 year old female All Systems Review: The remainder of the systems were reviewed and are negative Physical Examination Vital Signs, Last 4 Hours Temp Pulse Resp BP Pulse Ox 07/06/18 16:32 98.2 F 87 20 165/80 98 Results 07/06/18 03:49 07/06/18 03:49 Lab Results 07/06/18 07/06/18 07/06/18 03:49 03:49 03:49 WBC 8.4 Hgb 8.5 L Hct 29.0 L Plt Count 265 INR 1.0 APTT 151.5 H* Sodium 140 Potassium 4.0 Chloride 104 Carbon Dioxide 33 H BUN 21 Creatinine 0.98 Glucose 96 Calcium 8.6 Total Bilirubin 0.2 L AST 15 ALT 8 Alkaline Phosphatase 76
--- NOTE | 2018-07-06 13:31 | Internal Med Progress Note ---
Hospitalist Progress Note - Encounter Date of Encounter: 07/06/18 Time of Encounter: 09:00 - Subjective Interval History: Patient is laying on bed comfortably. Denies chest pain, shortness of breath, or palpitation. Heart rate get down to 80s with sinus rhythm. - Exam Vitals: Temp Pulse Resp BP Pulse Ox 96.9 F L 88 16 159/83 95 07/06/18 07:59 07/06/18 07:59 07/06/18 11:46 07/06/18 07:59 07/06/18 11:46 Exam: Patient is awake alert, oriented 3, in no acute distress HEENT: AC/NT, PERRL Neck: Supple, no JVD Lungs: CTA B/L Heart: S1S2, RRR Abd: Soft, NT Ext: No pedal edema Neuro: No focal deficit. - Assessment and Plan (1) COPD (chronic obstructive pulmonary disease) Current Visit: Yes Status: Chronic Assessment and Plan: Hx of chronic COPD. Stable. Continue pts. inhalers and home txs. Supplemental O2 w/titration and SpO2 monitoring. BiPAP HS. Respiratory consult. (2) BEVERLY (obstructive sleep apnea) Current Visit: Yes Status: Chronic Assessment and Plan: Hx of chronic BEVERLY. Pt. reports using BiPAP nightly. BiPAP ordered w/respiratory consult. (3) HLD (hyperlipidemia) Current Visit: Yes Status: Chronic Assessment and Plan: Lipid profile shows LDL 88. Will continue current treatment (4) HTN (hypertension) Current Visit: Yes Status: Chronic Assessment and Plan: Continue home medications. Add cardizem, closely monitor BP (5) CKD (chronic kidney disease) stage 3, GFR 30-59 ml/min Current Visit: Yes Status: Chronic Assessment and Plan: Continue closely monitor renal function (6) Chronic, continuous use of opioids Current Visit: Yes Status: Chronic Assessment and Plan: Hx of chronic opioid use d/t chronic back pain and lumbar back surgeries x3. Pt. and daughter report presence of pain pump in pts. back which is currently set to lowest setting. Continue Colace for bowels. Add Miralax if pt. becomes constipated. (7) Atrial flutter with rapid ventricular response Current Visit: Yes Status: Acute Assessment and Plan: HR switch to SR. Will switch Cardizem drip to by mouth. - Cardiology consult appreciated. Plan for ENT consult for frequent nose bleeding. Then decide long-term anticoagulation. - Continue heparin drip at this point (8) Diastolic CHF Current Visit: Yes Status: Chronic Assessment and Plan: Patient appears euvolemic. Continue home medications. (9) DVT prophylaxis Current Visit: Yes Status: Acute Assessment and Plan: On heparin drip (10) SOB (shortness of breath) Current Visit: Yes Status: Acute Assessment and Plan: Improved after heart rate is controlled (11) Gout Current Visit: Yes Status: Chronic Assessment and Plan: Hx of chronic gout. Continue pts. Allopurinol. (12) Thyroid disease Current Visit: Yes Status: Chronic Assessment and Plan: Hx of chronic thyroid disease. TSH 0.066, improved from 1 months ago. Seems her Synthroid dose was adjusted by PCP. Will continue closely monitor as outpatient and follow-up with PCP (13) Nausea Current Visit: Yes Status: Acute Assessment and Plan: Improved (14) Weakness Current Visit: Yes Status: Acute Assessment and Plan: Falls/safety precautions and up with assist only. PT/OT consults to assess for rehab needs. DVT Prophylaxis: On heparin drip - Time Spent with Patient Total time spent is greater than 50% in coordination of care (as documented) at patient's floor/unit and/or counseling patient: 40 minutes Greater than 35 minutes Plan of Care Discussed with: patient Internal Medicine: Result - Labs CBC & Chem 7: 07/06/18 03:49 07/06/18 03:49 Labs: Short CBC 07/06/18 Range/Units 03:49 WBC 8.4 (4.3-11.1) K/mcL Hgb 8.5 L (11.5-15.4) g/dL Hct 29.0 L (35.3-44.9) % Plt Count 265 (140-400) K/mcL Neutrophils # 4.3 (1.6-8.9) K/mcL BMP 07/06/18 03:49 Sodium 140 Potassium 4.0 Chloride 104 Carbon Dioxide 33 H BUN 21 Creatinine 0.98 Glucose 96 Calcium 8.6 Liver Function 07/06/18 Range/Units 03:49 Total Bilirubin 0.2 L (0.3-1.0) mg/dL AST 15 (13-39) Units/L ALT 8 (7-52) Units/L Alkaline Phosphatase 76 (34-104) Units/L Albumin 3.2 L (3.5-5.7) g/dL - ABG Interpretation ABG results: PT/INR, D-dimer PT 11.2 Seconds (9.4-12.1) 07/06/18 03:49 Consult Discharge Plan - Plan Referrals: Ritika Humphreys, PULVERIZING AND SIFTING OPERATOR [Primary Care Provider] - (1) COPD (chronic obstructive pulmonary disease) Qualifiers: COPD type: unspecified COPD Qualified Code(s): J44.9 - Chronic obstructive pulmonary disease, unspecified (3) HLD (hyperlipidemia) Qualifiers: Hyperlipidemia type: mixed hyperlipidemia Qualified Code(s): E78.2 - Mixed hyperlipidemia (4) HTN (hypertension) Qualifiers: Hypertension type: essential hypertension Qualified Code(s): I10 - Essential (primary) hypertension (8) Diastolic CHF Qualifiers: Heart failure chronicity: acute on chronic Qualified Code(s): I50.33 - Acute on chronic diastolic (congestive) heart failure (11) Gout Qualifiers: Gout site: unspecified site Gout etiology: unspecified cause Chronicity: chronic Presence of tophus: without tophus Qualified Code(s): M1A.9XX0 - Chronic gout, unspecified, without tophus (tophi)
[2018-07-06] MEDS: Diltiazem CD (24hr) 120 MG CAPSULE PO SCH (14:11)
--- NOTE | 2018-07-06 16:46 | ENT - Consult Note ---
Date of Encounter: 07/06/18 Time of Encounter: 16:41 Assessment and Plan (1) Recurrent epistaxis Current Visit: Yes Status: Chronic Recommend treatment to prevent nosebleeds: --3 sprays of nasal saline spray to each nostril 4-5 times daily. --Apply a pea-sized dollop of nasal saline gel to each nostril at night time. --If you have a humidifier, use it at night while sleeping. If nosebleed occurs, we discussed "at home" treatment discussed for active nosebleed including: --1. Forcefully blow the nose to remove any clots present in the nasal cavity. --2. Place 4-5 sprays of Afrin nasal spray in each nostril. --3. Apply pressure to the nasal tip with the forefinger and thumb for 20 minutes continuously. --If bleeding has not stopped after 20 minutes repeat steps 1 through 3. --If bleeding has not stopped after repeating steps 1 through 3, report to the Emergency department for evaluation The patient is safe to undergo anticoagulation therapy and that I do not feel that the severity of her nosebleeds in the past pose her for significant risk of epistaxis. If the patient does experience significant epistaxis that does not respond to pressure and vasoconstrictive therapy, please contact ENT for packing placement or cautery. On today's exam, there are no areas of active bleeding to cauterize. History of Present Illness Consult date: 07/06/18 Reason for ENT Consult: epistaxis Requesting physician: Macario Kumar History of present illness: Ms. Lennon is a 78 year old female w/PMH of asthma, gout, thyroid disease, diastolic CHF, PAF, COPD, HLD, HTN, and pain pump in back for chronic back pain presents from ED w/CC of weakness, heart palpitations, dyspnea, shakiness, and nausea. She is asked to consult for recommendations on epistaxis prior to beginning anticoagulation therapy with either warfarin or oral anticoagulation. Epistaxis onset: 2-3 weeks ago Frequency: 1-2 x/ week Duration in time: minutes Left, Right, or Both Sides with greater bleeding: Right Approximate amount: Enougth to soak 2 kleenex Methods used to control the nosebleed: Placing kleenex in the nose History of Severe nosebleed with packing placed: Denies History of Trauma to the nose: Denies History of Smoking or other Nasal Irritants: Patient does not smoke, but she does wear O2 via NC and does not use humidification. Only uses humidification on her BiPAP. History of Digital Trauma: Denies History of Nasal Surgery: Septoplasty in past. 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 neuropathy - Social History Smoking Status: Former smoker Packs per day: 10 cigarettes daily - Reports quitting in 1981 Smokeless Tobacco Status: No Alcohol use: none Drug use: none - Family History Brother Race: Family Member Ethnicity: Non- Living Status: Age at : 78 Cause of : CVA Hx Family Cardiac Disorders: Yes (CAD, CVA) Hx Family Respiratory Disorders: No Hx Family Cancer: Yes (Colon) Hx Family GI Disorders: No Hx Family Endocrine Disorder: Yes Hx Family Neuromuscular Disorders: No Hx Family Neurologic Disorders: Yes (CVA) Hx Family HEENT Disorders: No Hx Family Autoimmune Disorders: No Sister Race: Family Member Ethnicity: Non- Living Status: Age at : 70 Cause of : DM complications Hx Family Cardiac Disorders: Yes Hx Family Respiratory Disorders: No Hx Family Cancer: No Hx Family GI Disorders: No Hx Family Endocrine Disorder: Yes (DM) Hx Family Neuromuscular Disorders: No Hx Family Neurologic Disorders: No Hx Family HEENT Disorders: No Hx Family Autoimmune Disorders: No Father Race: Family Member Ethnicity: Non- Living Status: Age at : 86 Cause of : Heart failure Hx Family Cardiac Disorders: Yes (CAD, HF) Hx Family Respiratory Disorders: No Hx Family Cancer: No Hx Family GI Disorders: No Hx Family Genitourinary Disorders: No Hx Family Endocrine Disorder: No Hx Family Musculoskeletal Disorders: No Hx Family Neuromuscular Disorders: No Hx Family Medical Disorders: Yes Paternal Race: Family Member Ethnicity: Non- Living Status: Hx Family Cardiac Disorders: Yes Hx Family Respiratory Disorders: Yes Hx Family Cancer: (liver) Hx Family GI Disorders: No Hx Family Endocrine Disorder: No Hx Family Neuromuscular Disorders: No Hx Family Neurologic Disorders: Yes Hx Family HEENT Disorders: No Hx Family Autoimmune Disorders: (arthritis) Mother Race: Family Member Ethnicity: Non- Living Status: Age at : 78 Cause of : Liver cancer Hx Family Cardiac Disorders: Yes (HTN) Hx Family Respiratory Disorders: No Hx Family Cancer: Yes (Liver) Hx Family GI Disorders: Yes Hx Family Endocrine Disorder: Yes (DM) Hx Family Neuromuscular Disorders: No Hx Family Neurologic Disorders: No Hx Family HEENT Disorders: No Hx Family Autoimmune Disorders: No Medications and Allergies Albuterol Sulfate [Proair Hfa] 2 puff IH Q4H PRN 07/05/18 [History] Allopurinol [Zyloprim] 300 mg PO DAILY 07/05/18 [History] Amitriptyline [Elavil] 25 mg PO HS 07/05/18 [History] Azelastine HCl 1 drop BOTH EYES BID 07/05/18 [History] Carvedilol [Coreg] 6.25 mg PO BIDWM 07/05/18 [History] Citalopram Hydrobromide [Celexa] 40 mg PO DAILY 07/05/18 [History] Cyclobenzaprine HCl 10 mg PO TID PRN 07/05/18 [History] Denosumab [Prolia (For Outpatient Infusion)] 60 mg SQ [id number] 07/05/18 [History ] Docusate [Colace] 100 mg PO DAILY 07/05/18 [History] Ferrous Sulfate 325 mg PO DAILY 07/05/18 [History] Fluticasone Propionate Nasal [Flonase] 1 spr NS DAILY PRN 07/05/18 [History] Fluticasone/Salmeterol [Advair 250-50 Diskus] 1 puff IH BID 07/05/18 [History] Furosemide [Lasix] 20 mg PO DAILY 07/05/18 [History] Gabapentin [Neurontin] 400 mg PO BID 07/05/18 [History] HYDROcodone/Acet 10/325 mg [[place] 10-325 mg] 1 tab PO Q8H PRN 07/05/18 [History] Ipratropium/Albuterol Neb [Duoneb] 3 ml IH Q6HR PRN 07/05/18 [History] Lactobacillus Acidophilus [Acidophilus] 1 cap PO HS 07/05/18 [History] Levothyroxine [Synthroid] 125 mcg PO 6XW 07/05/18 [History] Lisinopril [Zestril] 5 mg PO DAILY 07/05/18 [History] Montelukast [Singulair] 10 mg PO HS 07/05/18 [History] Multivitamin [One Daily Multivitamin] 1 tab PO DAILY 07/05/18 [History] Nystatin Cream [Mycostatin Cream] 1 appl TP BID PRN 07/05/18 [History] Omeprazole [PriLOSEC] 20 mg PO DAILY 07/05/18 [History] Polyethylene Glycol 3350 [MiraLAX] 17 gm PO DAILY 07/05/18 [History] Roflumilast [Daliresp] 500 mcg PO DAILY 07/05/18 [History] Tiotropium [place] [Spiriva Respimat] 2 puff IH DAILY 07/05/18 [History] 3 Allergy/AdvReac Type Severity Reaction Status Date / Time acetaminophen [From Percocet] Allergy Rash Verified 07/05/18 19:07 aspirin Allergy See Verified 07/05/18 19:07 Comments clindamycin Allergy Itching Verified 07/05/18 19:07 hydrochlorothiazide Allergy Rash Verified 07/05/18 19:07 losartan [Losartan] Allergy Rash Verified 07/05/18 19:07 Oxycodone [From Percocet] Allergy Rash Verified 07/05/18 19:07 Sulfa (Sulfonamide Allergy Rash Verified 07/05/18 19:07 Antibiotics) codeine AdvReac Nausea Verified 07/05/18 19:07 levofloxacin [From Levaquin] AdvReac Hallucinati Verified 07/05/18 19:07 ng morphine AdvReac Irritable Verified 07/05/18 19:07 NSAIDS (Non-Steroidal AdvReac See Verified 07/05/18 19:07 Anti-Inflamma Comments rofecoxib [From Vioxx] AdvReac See Verified 07/05/18 19:07 Comments ropinirole [From Requip] AdvReac See Verified 07/05/18 19:07 Comments ENT - ROS - EENT Nose, mouth and throat: epistaxis - Cardiovascular Cardiovascular ROS IM: irregular heart rhythm - Respiratory dyspnea on exertion - Gastrointestinal Gastrointestinal: as per HPI - Musculoskeletal Musculoskeletal ROS: as per HPI - Neurological Neurological ROS: as per HPI - Endocrine Endocrine: as per HPI - Allergic/Immunologic as per HPI ENT Exam Initial Vital Signs Temp Pulse Resp BP Pulse Ox 98.0 F 160 18 118/73 98 07/05/18 14:49 07/05/18 14:49 07/05/18 14:49 07/05/18 14:49 07/05/18 14:49 Exam Initial Vital Signs Temp Pulse Resp BP Pulse Ox 98.0 F 160 18 118/73 98 07/05/18 14:49 07/05/18 14:49 07/05/18 14:49 07/05/18 14:49 07/05/18 14:49 - Additional Findings APPEARANCE: Well developed. Well nourished. No acute distress. COMMUNICATION: Able to communicate. No hoarseness. No breathiness of voice. HEAD & FACE: No mass or lesions. On palpation of the sinuses, there is no sinus tenderness. Parotid and submandibular salivary glands are symmetric. Facial strength is symmetric, House [place]ack[place] I/ Bilaterally. EYES: Conjunctiva withoug injection. Lids normal appearance. Extraocular movements intact. Primary gaze normal. NOSE: Inferior nasal turbinates are normal in appearance. Nasal septum is deviated to the right. The nasal mucosa is normal in appearance with the exception of an area of dryness and crusting on the bilateral caudal septum with prominent vasculature. There are no nasal masses or polyps noted on anterior rhinoscopy. MOUTH/PHARYNX/LARYNX: Upper Dentures. Edentulous lower. Membranes are moist, no oral lesions. The tonsils are absent. No redundancy of soft palate and uvula. Tongue displays full movement with no mucosal irregularities. Mirror exam deferred due to gag reflex. 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 The right pinna is without lesion. The right external auditory canal is clear, it is without stenosis, erythema or edema. The tympanic membrane is clear and without scarring, retraction, middle ear effusion or perforation. The left Pinna is without lesion. The left external auditory canal is clear, it is without stenosis, erythema or edema. The tympanic membrane is clear and without scarring, retraction, middle ear effusion or perforation. NECK: No cervical lymphadenopathy No neck mass/crepitus or asymmetry. Trachea is midline. No thyroid enlargement, tenderness, or mass. NEURO/PSYCH: III/IV/- intact & symmetric. V 1,2,3-symmetric, sensation intact bilaterally. VII-all divisions symmetric. IX-velum elevates symmetrically. X- voice is phonic, XI/XII- symmetric mobility. Patient is oriented to person, place and time. Mood and affect appear normal for age and mental capacity. RESPIRATION: Expansion is symmetric. Respiratory effort is normal. CARDIOVASCULAR: No JVD noted Carotid pulse 2+ No cyanosis noted. Results - Labs 07/06/18 03:49 07/06/18 03:49 Abnormal lab results RBC 2.95 M/mcL (3.82-4.97) L 07/06/18 03:49 Hgb 8.5 g/dL (11.5-15.4) L 07/06/18 03:49 Hct 29.0 % (35.3-44.9) L 07/06/18 03:49 MCHC 29.3 g/dL (31.6-35.5) L 07/06/18 03:49 RDW 14.6 % (11.5-14.5) H 07/06/18 03:49 APTT 151.5 Seconds (26.0-36.0) H* 07/06/18 03:49 Carbon Dioxide 33 mEq/L (23-29) H 07/06/18 03:49 Est GFR (Non-Af Amer) 55 (> 60) L 07/06/18 03:49 Hemoglobin A1c 5.8 % (-5.6) H 07/06/18 03:49 Total Bilirubin 0.2 mg/dL (0.3-1.0) L 07/06/18 03:49 Serum Total Protein 5.8 g/dL (6.4-8.9) L 07/06/18 03:49 Albumin 3.2 g/dL (3.5-5.7) L 07/06/18 03:49 Vitamin B12 1223 pg/mL (250-1100) H 07/05/18 18:57 Folate > 22.3 ng/mL (3.0-16.0) H 07/05/18 18:57 TSH 0.066 mcIU/mL (0.340-5.600) L 07/05/18 15:25 Diabetes panel 07/06/18 07/06/18 Range/Units 03:49 03:49 Sodium 140 (136-145) mEq/L Potassium 4.0 (3.5-5.1) mEq/L Chloride 104 (98-107) mEq/L Carbon Dioxide 33 H (23-29) mEq/L BUN 21 (8-23) mg/dL Creatinine 0.98 (0.60-1.20) mg/dL Glucose 96 (70-105) mg/dL Hemoglobin A1c 5.8 H ( - 5.6) % Calcium 8.6 (8.6-10.3) mg/dL AST 15 (13-39) Units/L ALT 8 (7-52) Units/L Alkaline Phosphatase 76 (34-104) Units/L Albumin 3.2 L (3.5-5.7) g/dL Triglycerides 78 (< 150) mg/dL HDL Cholesterol 46 (40-59) mg/dL Calcium panel 07/06/18 Range/Units 03:49 Calcium 8.6 (8.6-10.3) mg/dL Albumin 3.2 L (3.5-5.7) g/dL Pituitary panel 07/06/18 Range/Units 03:49 Sodium 140 (136-145) mEq/L Potassium 4.0 (3.5-5.1) mEq/L Chloride 104 (98-107) mEq/L Carbon Dioxide 33 H (23-29) mEq/L BUN 21 (8-23) mg/dL Creatinine 0.98 (0.60-1.20) mg/dL Glucose 96 (70-105) mg/dL Calcium 8.6 (8.6-10.3) mg/dL Adrenal panel 07/06/18 Range/Units 03:49 Sodium 140 (136-145) mEq/L Potassium 4.0 (3.5-5.1) mEq/L Chloride 104 (98-107) mEq/L Carbon Dioxide 33 H (23-29) mEq/L BUN 21 (8-23) mg/dL Creatinine 0.98 (0.60-1.20) mg/dL Glucose 96 (70-105) mg/dL Calcium 8.6 (8.6-10.3) mg/dL Total Bilirubin 0.2 L (0.3-1.0) mg/dL AST 15 (13-39) Units/L ALT 8 (7-52) Units/L Alkaline Phosphatase 76 (34-104) Units/L Albumin 3.2 L (3.5-5.7) g/dL All other labs normal. Consult Discharge Plan - Plan Referrals: Ritika Humphreys, [facility] [Primary Care Provider] -
--- NOTE | 2018-07-06 18:03 | Electrocardiograph Report ---
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
[2018-07-06] MEDS: Patient Taking Own Medication 1 EACH PO SCH (18:10)
[2018-07-06] MEDS: Lactobacillus 1 EACH CAP.SPRINK PO SCH (19:45)
[2018-07-07] MEDS ORDERED: *HR* Metoprolol 5 MG/5 ML VIAL IVP ONE (00:56)
[2018-07-07] MEDS: Heparin 25,000 UNIT/500 ML D5W 25,000 UNIT/500 ML BAG IVC SCH (01:14)
[2018-07-07 04:28] LABS: Basophils % 0.4 %; Eosinophils # 0.4 K/mcL (0.0-0.6); Eosinophils % 3.5 %; Hematocrit 30.2 % (35.3-44.9); Hemoglobin 9.6 g/dL (11.5-15.4); Immature Granulocytes % 0.3 % (0-4); Lymphocytes # 2.9 K/mcL (0.6-4.6); Lymphocytes % 26.9 %; Mean Corpuscular HGB Conc 31.8 g/dL (31.6-35.5); Mean Corpuscular Volume 94.4 fL (83.0-100.0); Mean Platelet Volume 9.2 fL (9.4-12.4); Monocytes # 0.9 K/mcL (0.0-1.3); Monocytes % 8.4 %; Neutrophils # 6.6 K/mcL (1.6-8.9); Platelet Count 301 K/mcL (140-400); Red Cell Distribution Width 14.4 % (11.5-14.5); Segmented Neutrophils % 60.5 %
[2018-07-07 04:47] LABS: Alanine Aminotransferase 9 Units/L (7-52); Albumin 3.6 g/dL (3.5-5.7); Albumin/Globulin Ratio 1.3 (1.1-2.2); Alkaline Phosphatase 87 Units/L (34-104); Aspartate Amino Transferase 17 Units/L (13-39); BUN/Creatinine Ratio 17 (6-26); Bilirubin,Total 0.3 mg/dL (0.3-1.0); Blood Urea Nitrogen 15 mg/dL (8-23); Calcium 8.9 mg/dL (8.6-10.3); Carbon Dioxide 32 mEq/L (23-29); Chloride 102 mEq/L (98-107); Globulin 2.8 g/dL (2.4-3.5); Glucose 95 mg/dL (70-105); Osmolality,Calculated 289 (280-300); Potassium 3.7 mEq/L (3.5-5.1); Sodium 139 mEq/L (136-145); Total Protein 6.4 g/dL (6.4-8.9); eGFR For Non-African Americans > 60 (> 60)
[2018-07-07] MEDS: Diltiazem CD (24hr) 120 MG CAPSULE PO SCH (08:00)
[2018-07-07] MEDS: Gabapentin 400 MG CAPSULE PO SCH (08:01)
[2018-07-07] MEDS: Multivit/Ca/Min/Fe/FA 1 TAB TABLET PO SCH (08:01)
[2018-07-07] MEDS: Furosemide 20 MG TABLET PO SCH (08:02)
[2018-07-07] MEDS: Patient Taking Own Medication 1 EACH PO SCH (08:07)
[2018-07-07] MEDS: *HR* HYDROcodone/Acet 10/325 mg TABLET PO PRN (09:33)
[2018-07-07 09:38] VITALS: BP 136/75
--- NOTE | 2018-07-07 09:46 | Cardiology Progress Note ---
Date of Encounter: 07/07/18 Time of Encounter: 09:43 Assessment and Plan (1) Atrial flutter with rapid ventricular response Current Visit: Yes Status: Acute Known PAF hx. Presented A-Flutter RVR HR 150s. On Coreg 6.125mg BID at home. Converted to SR on cardizem gtt. Transitioned to long acting Cardizem CD 120mg daily yesterday. Recent stress echo 03/2018 EF preserved with appropriate increase in EF during test. K, Mag WNL. TSH 0.066--management per primary team. [id number] 4 (Age, HTN, Female). Currently on heparin gtt. High CVA risk. Consulted ENT for right sided epistaxis to see to determine if she can be safely anticoagulated. Per ENT, no contraindications to anticoagulation. R/B/A discussed with pt. Agrees to NOAC. [place] checked Xarelto 20mg daily $0 copay. Start Xarelto 20mg daily today. Stop heparin gtt. Chronic anemia--HGB 9.6 today, within baseline. Denies active bleeding. Given chronic anemia, recommend primary team consider outpt GI referral. Refer to EP as outpt for PAF/Fl. Cardiology signing off. Reconsult PRN. Discussion w patient/family: The assessment and plan as outlined above was discussed with the patient and/or family members who expressed understanding and agreement. All questions were answered. Thank you for involving us in the care of your patient. Please call with any questions. I will discuss all the above with Dr. Vallecillo and make changes as necessary. Subjective Principal diagnosis: PAFl Interval history: No acute complaints this AM. Denies chest pain or dyspnea this AM, denies palpitations. SR at bedside. ENT evaluated pt, no contraindication to AC from their standpoint. Objective Vital Signs, Last 4 Hours Pulse Resp BP Pulse Ox 07/07/18 09:37 136/75 07/07/18 08:12 98 07/07/18 06:43 88 19 179/84 98 Vital Signs Temp Pulse Resp BP Pulse Ox 07/07/18 09:37 136/75 07/07/18 08:12 98 07/07/18 06:43 88 19 179/84 98 07/07/18 03:26 88 17 166/94 97 07/06/18 21:17 18 97 07/06/18 20:00 97.9 F 97 16 180/83 95 07/06/18 16:32 98.2 F 87 20 165/80 98 07/06/18 11:46 16 95 Intake and Output 07/06/18 07/07/18 07/07/18 23:59 07:59 15:59 Intake Total 240 / 240 390 / 390 Output Total 550 / 550 900 / 900 Balance -310 / -310 -510 / -510 Intake: IV Fluids 390 / 390 Heparin 25,000 UNIT/500 ML D5W 390 / 390 25,000 unit In 500 ml @ 14 UNIT /KG/HR 15.876 mls/hr IVC .Q24H [facility] Rx#:[id number] Oral 240 / 240 0 / 0 Output: Urine 550 / 550 900 / 900 Other: Meal Dinner Percent of Meal Consumed 100% Stool Size Moderate Moderate Stool Consistency formed formed Stool Color Brown # Bowel Movements 1 1 Weight 58.2 kg Patient Weight 07/07/18 23:59 Weight 58.2 kg General: Conversant, No Apparent Distress HEENT: Atraumatic, Normocephaly, Mucus Membranes Moist Neck: No JVD, Normal carotid pulses Cardiac: Reg Rate and Rhythm, Normal S1 and S2, No Murmur Lungs: Normal Breath Sounds, No Wheeze, Rales, Rhonchi Neuro: Alert and responsive Abdomen: Soft, Non-Tender Skin: No rashes noted on visualized skin Musculoskeletal: No Chest Wall Tenderness Extremities: No Clubbing, No Cyanosis, No Edema, Normal Pulses Results 07/07/18 03:53 07/07/18 03:53 Lab Results 07/07/18 07/07/18 07/07/18 03:53 03:53 03:53 WBC 10.8 Hgb 9.6 L Hct 30.2 L Plt Count 301 Sodium 139 Potassium 3.7 Chloride 102 Carbon Dioxide 32 H BUN 15 Creatinine 0.90 Glucose 95 Calcium 8.9 Magnesium 2.0 Total Bilirubin 0.3 AST 17 ALT 9 Alkaline Phosphatase 87 Short CBC 07/07/18 Range/Units 03:53 WBC 10.8 (4.3-11.1) K/mcL Hgb 9.6 L (11.5-15.4) g/dL Hct 30.2 L (35.3-44.9) % Plt Count 301 (140-400) K/mcL Neutrophils # 6.6 (1.6-8.9) K/mcL BMP 07/07/18 Range/Units 03:53 Sodium 139 (136-145) mEq/L Potassium 3.7 (3.5-5.1) mEq/L Chloride 102 (98-107) mEq/L Carbon Dioxide 32 H (23-29) mEq/L BUN 15 (8-23) mg/dL Creatinine 0.90 (0.60-1.20) mg/dL Glucose 95 (70-105) mg/dL Calcium 8.9 (8.6-10.3) mg/dL Liver Function 07/07/18 Range/Units 03:53 Total Bilirubin 0.3 (0.3-1.0) mg/dL AST 17 (13-39) Units/L ALT 9 (7-52) Units/L Alkaline Phosphatase 87 (34-104) Units/L Albumin 3.6 (3.5-5.7) g/dL Active Medications Hydrocodone Bitart/Acetaminophen ([place] 10-325 Mg) 1 each PO Q8H PRN PRN Reason: mild to moderate pain Stop: 01/05/19 01:04 Last Admin: 07/07/18 09:33 Dose: 1 each Albuterol Sulfate (Albuterol Inhaler) 2 puff IH Q4H PRN PRN Reason: Shortness Of Breath Stop: 01/04/19 20:09 Last Admin: 07/06/18 21:17 Dose: 2 puff Allopurinol (Zyloprim) 300 mg PO DAILY [facility] Stop: 01/05/19 09:01 Last Admin: 07/07/18 08:01 Dose: 300 mg Amitriptyline HCl (Elavil) 25 mg PO HS [facility] Stop: 01/04/19 21:01 Last Admin: 07/06/18 19:45 Dose: 25 mg Budesonide/Formoterol Fumarate (Symbicort) 1 puff IH BIDR [facility] Stop: 01/05/19 10:01 Last Admin: 07/06/18 21:17 Dose: 1 puff Carvedilol (Coreg) 6.25 mg PO BIDWM [facility] PRN Reason: Protocol Stop: 01/05/19 08:01 Last Admin: 07/07/18 08:01 Dose: 6.25 mg Citalopram Hydrobromide (Celexa) 40 mg PO DAILY [facility] Stop: 01/05/19 09:01 Last Admin: 07/07/18 08:00 Dose: 40 mg Cyclobenzaprine HCl (Flexeril) 10 mg PO TID PRN PRN Reason: Muscle Spasm Stop: 01/04/19 20:09 Last Admin: 07/05/18 23:39 Dose: 10 mg Diltiazem HCl (Cardizem Cd) 120 mg PO DAILY [facility] Stop: 01/05/19 13:31 Last Admin: 07/07/18 08:00 Dose: 120 mg Docusate Sodium (Colace) 100 mg PO DAILY [facility] PRN Reason: Protocol Stop: 01/04/19 20:16 Last Admin: 07/07/18 08:01 Dose: 100 mg Ferrous Sulfate (Ferrous Sulfate) 325 mg PO DAILY [facility] Stop: 01/05/19 09:01 Last Admin: 07/07/18 08:02 Dose: 325 mg Fluticasone Propionate (Flonase) 50 mcg NS DAILY PRN; Protocol PRN Reason: Allergy Symptoms Stop: 01/04/19 20:09 Furosemide (Lasix) 20 mg PO DAILY [facility] Stop: 01/05/19 09:01 Last Admin: 07/07/18 08:02 Dose: 20 mg Gabapentin (Neurontin) 400 mg PO BID [facility] Stop: 01/04/19 21:01 Last Admin: 07/07/18 08:01 Dose: 400 mg Heparin Sodium (Porcine) (Heparin) 4,000 unit 70 unit/kg (4000 unit) IVP Q6H PRN PRN Reason: SEE COMMENTS Stop: 01/04/19 16:25 Heparin Sodium (Porcine) (Heparin) 2,000 unit 35 unit/kg (2000 unit) IVP Q6H PRN PRN Reason: SEE COMMENTS Stop: 01/04/19 16:25 Last Admin: 07/07/18 06:45 Dose: 2,000 unit Hydralazine HCl (Hydralazine) 5 mg IVP Q6HR PRN PRN Reason: Hypertension Stop: 01/04/19 17:55 Last Admin: 07/06/18 21:16 Dose: 5 mg Heparin Sodium/Dextrose (Heparin 25,000 Unit/500 Ml D5w) 25,000 unit in 500 mls @ 15.876 mls/hr IVC .Q24H BIANCA; 14 UNIT/KG/HR PRN Reason: Protocol Stop: 01/04/19 16:31 Last Titration: 07/07/18 06:46 Dose: 16.09 unit/kg/hr, 18.257 mls/hr Lactobacillus Acidophilus/Rhamnosus (Culturelle) 1 each PO HS [facility] Stop: 01/04/19 21:01 Last Admin: 07/06/18 19:45 Dose: 1 each Levothyroxine Sodium (Synthroid) 125 mcg PO 6XW@0630 [facility] Stop: 01/05/19 06:31 Last Admin: 07/07/18 06:45 Dose: 125 mcg Lisinopril (Zestril) 10 mg PO DAILY [facility] PRN Reason: Protocol Stop: 01/06/19 09:01 Last Admin: 07/07/18 09:33 Dose: 10 mg Montelukast Sodium (Singulair) 10 mg PO HS [facility] Stop: 01/04/19 21:01 Last Admin: 07/06/18 19:45 Dose: 10 mg Multivitamins/Calcium (Thera M Plus) 1 tab PO DAILY [facility] Stop: 01/05/19 09:01 Last Admin: 07/07/18 08:01 Dose: 1 tab Naloxone HCl (Narcan) 0.4 mg IVP Q2MIN PRN PRN Reason: SEE COMMENTS Stop: 01/04/19 17:28 Nystatin (Mycostatin Cream) 1 appl TP BID PRN PRN Reason: Skin Irritation Stop: 01/04/19 20:09 Omeprazole (Prilosec) 20 mg PO 0630 [facility] PRN Reason: Protocol Stop: 01/05/19 06:31 Last Admin: 07/07/18 06:44 Dose: 20 mg Pharmacy Profile Note (Patient Taking Own Medication) 1 each OP BID [facility] Stop: 01/04/19 21:01 Last Admin: 07/07/18 08:07 Dose: Not Given Pharmacy Profile Note (Patient Taking Own Medication) 500 each PO DAILY [facility] Stop: 01/05/19 09:01 Last Admin: 07/07/18 08:07 Dose: Not Given Polyethylene Glycol (Miralax) 17 gm PO DAILY [facility] Stop: 01/05/19 09:01 Last Admin: 07/07/18 08:02 Dose: 17 gm Promethazine HCl (Phenergan) 12.5 mg IVP Q6HR PRN PRN Reason: Nausea And Vomiting Stop: 01/04/19 18:46 Tiotropium [place] (Spiriva) 18 mcg IH DAILY [facility] Stop: 01/05/19 09:01 Last Admin: 07/06/18 11:45 Dose: 18 mcg - Imaging and Cardiology Stress Test: report reviewed Echo: report reviewed - EKG Interpretation EKG results cardiology: other (12 hr tele AVG HR 91, SR, no significant pauses or arrhythmias) Consult Discharge Plan - Plan Referrals: Ritika Humphreys, [employer] [Primary Care Provider] -
--- NOTE | 2018-07-07 10:27 | Discharge Summary ---
- NOTES TO OUTPATIENT PROVIDER Notes to Outpatient Provider: 1. Add cardizem XL 120mg po daily and xarelto 20mg po daily for A fib, per cardio. Orders not resulted at time of discharge: Pending orders 07/07/18 13:00 Heparin anti-factor XA UFH [COAG] Timed 07/08/18 04:00 Complete Blood Count [HEME] AM 0400 Comprehensive Metabolic Panel AM 0400 07/09/18 04:00 Complete Blood Count [HEME] AM 0400 Comprehensive Metabolic Panel AM 0400 07/10/18 04:00 Complete Blood Count [HEME] AM 0400 Comprehensive Metabolic Panel AM 0400 Date of Encounter: 07/07/18 Time of Encounter: 10:00 - Discharge Diagnosis (1) COPD (chronic obstructive pulmonary disease) Priority: Secondary Status: Chronic Qualifiers: COPD type: unspecified COPD Qualified Code(s): J44.9 - Chronic obstructive pulmonary disease, unspecified (2) BEVERLY (obstructive sleep apnea) Priority: Secondary Status: Chronic (3) HLD (hyperlipidemia) Priority: Secondary Status: Chronic Qualifiers: Hyperlipidemia type: mixed hyperlipidemia Qualified Code(s): E78.2 - Mixed hyperlipidemia (4) HTN (hypertension) Priority: Secondary Status: Chronic Qualifiers: Hypertension type: essential hypertension Qualified Code(s): I10 - Essential (primary) hypertension (5) CKD (chronic kidney disease) stage 3, GFR 30-59 ml/min Priority: Secondary Status: Chronic (6) Chronic, continuous use of opioids Priority: Secondary Status: Chronic (7) Atrial flutter with rapid ventricular response Priority: Primary Status: Acute (8) Diastolic CHF Priority: Secondary Status: Chronic Qualifiers: Heart failure chronicity: acute on chronic Qualified Code(s): I50.33 - Acute on chronic diastolic (congestive) heart failure (9) DVT prophylaxis Priority: Secondary Status: Acute (10) SOB (shortness of breath) Priority: Primary Status: Acute (11) Gout Priority: Secondary Status: Chronic Qualifiers: Gout site: unspecified site Gout etiology: unspecified cause Chronicity: chronic Presence of tophus: without tophus Qualified Code(s): [id number].[id number] - Chronic gout, unspecified, without tophus (tophi) (12) Thyroid disease Priority: Secondary Status: Chronic (13) Nausea Priority: Primary Status: Acute (14) Weakness Priority: Primary Status: Acute Hospital course: Ms. Lennon is a 78 year old female present to ER for palpitation and shortness of breath. In the emergency room, patient was found A. fib with RVR. Patient has a history of paroxysmal A. fib. Patient was placed on Cardizem drip and heparin drip. After treatment, her heart rate switch to sinus rhythm with heart rate around 80. Cardiology saw patient and recommend long-term anticoagulations. After ENT consult to rule out contraindication, xarelto 20mg po daily was started. I saw and examined the patient today. Patient feels fine. Patient has COPD on long-term home oxygen and home BiPAP during night. Her shortness of breath is at baseline. Vitals are stable. Heart rhythm remains sinus rhythm. Will discharge patient home with new medication Cardizem CD 120mg po daily and xarelto 20mg po daily. Also order saline nasal spray as pt is always on [place] O2 and has recent nose bleeding. Will continue patient's home health service. Discharge discussed with: patient - Time Spent with Patient Total time spent providing and/or coordinating discharge services: 28 min Less than 30 minutes - Discharge Medications Prescriptions: Diltiazem CD (24hr) [Cardizem CD] 120 mg PO DAILY 30 Days #30 cap.er.24h Rivaroxaban [Xarelto] 20 mg PO DAILY 30 Days #30 tablet Home Medications: Albuterol Sulfate [Proair Hfa] 2 puff IH Q4H PRN 07/05/18 [History] Allopurinol [Zyloprim] 300 mg PO DAILY 07/05/18 [History] Amitriptyline [Elavil] 25 mg PO HS 07/05/18 [History] Azelastine HCl 1 drop BOTH EYES BID 07/05/18 [History] Carvedilol [Coreg] 6.25 mg PO BIDWM 07/05/18 [History] Citalopram Hydrobromide [Celexa] 40 mg PO DAILY 07/05/18 [History] Cyclobenzaprine HCl 10 mg PO TID PRN 07/05/18 [History] Denosumab [Prolia (For Outpatient Infusion)] 60 mg SQ [id number] 07/05/18 [History ] Docusate [Colace] 100 mg PO DAILY 07/05/18 [History] Ferrous Sulfate 325 mg PO DAILY 07/05/18 [History] Fluticasone Propionate Nasal [Flonase] 1 spr NS DAILY PRN 07/05/18 [History] Fluticasone/Salmeterol [Advair 250-50 Diskus] 1 puff IH BID 07/05/18 [History] Furosemide [Lasix] 20 mg PO DAILY 07/05/18 [History] Gabapentin [Neurontin] 400 mg PO BID 07/05/18 [History] HYDROcodone/Acet 10/325 mg [[place] 10-325 mg] 1 tab PO Q8H PRN 07/05/18 [History] Ipratropium/Albuterol Neb [Duoneb] 3 ml IH Q6HR PRN 07/05/18 [History] Lactobacillus Acidophilus [Acidophilus] 1 cap PO HS 07/05/18 [History] Levothyroxine [Synthroid] 125 mcg PO 6XW 07/05/18 [History] Lisinopril [Zestril] 5 mg PO DAILY 07/05/18 [History] Montelukast [Singulair] 10 mg PO HS 07/05/18 [History] Multivitamin [One Daily Multivitamin] 1 tab PO DAILY 07/05/18 [History] Nystatin Cream [Mycostatin Cream] 1 appl TP BID PRN 07/05/18 [History] Omeprazole [PriLOSEC] 20 mg PO DAILY 07/05/18 [History] Polyethylene Glycol 3350 [MiraLAX] 17 gm PO DAILY 07/05/18 [History] Roflumilast [Daliresp] 500 mcg PO DAILY 07/05/18 [History] Tiotropium [place] [Spiriva Respimat] 2 puff IH DAILY 07/05/18 [History] Diltiazem CD (24hr) [Cardizem CD] 120 mg PO DAILY 30 Days #30 cap.er.24h [Rx] Rivaroxaban [Xarelto] 20 mg PO DAILY 30 Days #30 tablet 07/07/18 [Rx] Saline Nasal [place] [[place] Nasal [place]] 44 ml NS QID #2 bottle 07/07/18 [Rx] Allergies/Adverse Reactions: 3 Allergy/AdvReac Type Severity Reaction Status Date / Time acetaminophen [From Percocet] Allergy Rash Verified 07/05/18 19:07 aspirin Allergy See Verified 07/05/18 19:07 Comments clindamycin Allergy Itching Verified 07/05/18 19:07 hydrochlorothiazide Allergy Rash Verified 07/05/18 19:07 losartan [Losartan] Allergy Rash Verified 07/05/18 19:07 Oxycodone [From Percocet] Allergy Rash Verified 07/05/18 19:07 Sulfa (Sulfonamide Allergy Rash Verified 07/05/18 19:07 Antibiotics) codeine AdvReac Nausea Verified 07/05/18 19:07 levofloxacin [From Levaquin] AdvReac Hallucinati Verified 07/05/18 19:07 ng morphine AdvReac Irritable Verified 07/05/18 19:07 NSAIDS (Non-Steroidal AdvReac See Verified 07/05/18 19:07 Anti-Inflamma Comments rofecoxib [From Vioxx] AdvReac See Verified 07/05/18 19:07 Comments ropinirole [From Requip] AdvReac See Verified 07/05/18 19:07 Comments Date of admission: 07/05/18 16:48 Primary care physician: Ritika Humphreys CNP Consults: 07/05/18 17:34 Consult to Civil Estimator [CONS] Routine Reason for SW Consult: Has Home Health NCR [facility] O2 2L DURING DAY, 3L @ HS 07/05/18 17:35 Consult to Physical Therapy [CONS] Routine Comment: Evaluate, develop and implement POC Reason for Consult: Patient reports difficulty w/ambulation d/t weakness in bilateral LEs and uses walker with difficulty. Please assess patient for ambulation strength, safety, stability, and possible home assistive/ rehabilitaiton needs for post-discharge planning. Does patient have active BEDREST order?: No Is patient medically & hemodynamically stable?: Yes Patient assessed for mobility or mobilized this visit?: No 07/05/18 17:47 Consult to Nutrition [CONS] Routine Comment: [place] Consulting Provider: NUTRITION Reason for Dietary Consult: PO Supplementation 07/06/18 07:46 Consult to Cardiology [CONS] Routine Comment: Consulting Provider: Card[facility] [place] Reason for Consult: A Fib RVR, recent med adjusted by cardio Call Completed: No 07/06/18 13:18 Consult to ENT [CONS] Routine Consulting Provider: E[facility] [place] Reason for Consult: right sided epistaxis Call Completed: Yes Discharging clinician: Amy Moore Anticipated date of discharge: 07/07/18 - Constitutional Vitals: Temp Pulse Resp BP Pulse Ox 97.9 F 88 19 136/75 98 07/06/18 20:00 07/07/18 06:43 07/07/18 06:43 07/07/18 09:37 07/07/18 08:12 General appearance: Present: cooperative, A&O X 3, pleasant, no acute distress, answers questions appropriately Exam: In NAD - Head Head exam: Present: atraumatic, normocephalic - Eye Eye exam: Present: PERRL, conjuntiva pink, sclera anicteric Pupils: Present: PERRL - Neck Neck exam general surgery: Present: supple, trachea midline. Absent: lymphadenopathy - Respiratory Respiratory exam: Present: CTAB. Absent: accessory muscle use, rales, rhonchi, wheezes - Cardiovascular Cardiovascular exam: Present: RRR, +S1, +S2. Absent: diastolic murmur, gallop, rubs, systolic murmur - GI/Abdominal GI/Abdominal exam: Present: normal bowel sounds, soft, no peritoneal signs. Absent: distended, tenderness - Extremities Exam Extremities exam: Present: warm, radial pulses palpable and symmetrical. Absent : calf tenderness, cyanotic, pedal edema - Neurological Exam Neurological exam: Present: CN II-XII intact, oriented X3, no focal deficits. Absent: pronater drift, facial droop, speech deficit - Skin Skin exam: Present: dry, intact - Patient Status Disposition: Home Health Service Condition: Fair Functional capacity at discharge: uses cane/walker Overall status at discharge: patient is back to baseline - Discharge Instructions Follow Up With: Ritika Humphreys RESTAURANT SUPERVISOR [Primary Care Provider] - - Diet and Activity Activity: as per physical therapy Diet: low fat, low cholesterol, low salt diet
--- NOTE | 2018-07-07 10:44 | Physician Discharge Referral ---
Home Health/Hosp Referral Info Transfer to: Home Health Provider in Charge Post Discharge: PCP - Diagnosis (1) COPD (chronic obstructive pulmonary disease) Status: Chronic (2) BEVERLY (obstructive sleep apnea) Status: Chronic (3) HLD (hyperlipidemia) Status: Chronic (4) HTN (hypertension) Status: Chronic (5) CKD (chronic kidney disease) stage 3, GFR 30-59 ml/min Status: Chronic (6) Chronic, continuous use of opioids Status: Chronic (7) Atrial flutter with rapid ventricular response Status: Acute (8) Diastolic CHF Status: Chronic (9) DVT prophylaxis Status: Acute (10) SOB (shortness of breath) Status: Acute (11) Gout Status: Chronic (12) Thyroid disease Status: Chronic (13) Nausea Status: Acute (14) Weakness Status: Acute - Respiratory Orders Oxygen / L per min (2-3) Smoking Cessation: Smoking cessation has been advised. For more information, call the [place] Tobacco Quit Line at 2-141-JRHJ-NOW. - Diet/Nutrition Diet/Nutrition Orders: Cardiac - Activity Activity Orders: Walker - Services Needed Following services are medically necessary services: Nursing, Home Health Aide, Physical Therapy, Occupational Therapy - Transfer Medications Prescriptions: Diltiazem CD (24hr) [Cardizem CD] 120 mg PO DAILY 30 Days #30 cap.er.24h Rivaroxaban [Xarelto] 20 mg PO DAILY 30 Days #30 tablet Saline Nasal [place] [[place] Nasal [place]] 44 ml NS QID #2 bottle Home Medications: Albuterol Sulfate [Proair Hfa] 2 puff IH Q4H PRN 07/05/18 [History] Allopurinol [Zyloprim] 300 mg PO DAILY 07/05/18 [History] Amitriptyline [Elavil] 25 mg PO HS 07/05/18 [History] Azelastine HCl 1 drop BOTH EYES BID 07/05/18 [History] Carvedilol [Coreg] 6.25 mg PO BIDWM 07/05/18 [History] Citalopram Hydrobromide [Celexa] 40 mg PO DAILY 07/05/18 [History] Cyclobenzaprine HCl 10 mg PO TID PRN 07/05/18 [History] Denosumab [Prolia (For Outpatient Infusion)] 60 mg SQ [id number] 07/05/18 [History ] Docusate [Colace] 100 mg PO DAILY 07/05/18 [History] Ferrous Sulfate 325 mg PO DAILY 07/05/18 [History] Fluticasone Propionate Nasal [Flonase] 1 spr NS DAILY PRN 07/05/18 [History] Fluticasone/Salmeterol [Advair 250-50 Diskus] 1 puff IH BID 07/05/18 [History] Furosemide [Lasix] 20 mg PO DAILY 07/05/18 [History] Gabapentin [Neurontin] 400 mg PO BID 07/05/18 [History] HYDROcodone/Acet 10/325 mg [[place] 10-325 mg] 1 tab PO Q8H PRN 07/05/18 [History] Ipratropium/Albuterol Neb [Duoneb] 3 ml IH Q6HR PRN 07/05/18 [History] Lactobacillus Acidophilus [Acidophilus] 1 cap PO HS 07/05/18 [History] Levothyroxine [Synthroid] 125 mcg PO 6XW 07/05/18 [History] Lisinopril [Zestril] 5 mg PO DAILY 07/05/18 [History] Montelukast [Singulair] 10 mg PO HS 07/05/18 [History] Multivitamin [One Daily Multivitamin] 1 tab PO DAILY 07/05/18 [History] Nystatin Cream [Mycostatin Cream] 1 appl TP BID PRN 07/05/18 [History] Omeprazole [PriLOSEC] 20 mg PO DAILY 07/05/18 [History] Polyethylene Glycol 3350 [MiraLAX] 17 gm PO DAILY 07/05/18 [History] Roflumilast [Daliresp] 500 mcg PO DAILY 07/05/18 [History] Tiotropium [place] [Spiriva Respimat] 2 puff IH DAILY 07/05/18 [History] Diltiazem CD (24hr) [Cardizem CD] 120 mg PO DAILY 30 Days #30 cap.er.24h [Rx] Rivaroxaban [Xarelto] 20 mg PO DAILY 30 Days #30 tablet 07/07/18 [Rx] Saline Nasal [place] [[place] Nasal [place]] 44 ml NS QID #2 bottle 07/07/18 [Rx] Allergies/Adverse Reactions: 3 Allergy/AdvReac Type Severity Reaction Status Date / Time acetaminophen [From Percocet] Allergy Rash Verified 07/05/18 19:07 aspirin Allergy See Verified 07/05/18 19:07 Comments clindamycin Allergy Itching Verified 07/05/18 19:07 hydrochlorothiazide Allergy Rash Verified 07/05/18 19:07 losartan [Losartan] Allergy Rash Verified 07/05/18 19:07 Oxycodone [From Percocet] Allergy Rash Verified 07/05/18 19:07 Sulfa (Sulfonamide Allergy Rash Verified 07/05/18 19:07 Antibiotics) codeine AdvReac Nausea Verified 07/05/18 19:07 levofloxacin [From Levaquin] AdvReac Hallucinati Verified 07/05/18 19:07 ng morphine AdvReac Irritable Verified 07/05/18 19:07 NSAIDS (Non-Steroidal AdvReac See Verified 07/05/18 19:07 Anti-Inflamma Comments rofecoxib [From Vioxx] AdvReac See Verified 07/05/18 19:07 Comments ropinirole [From Requip] AdvReac See Verified 07/05/18 19:07 Comments Certification: Further, I certify that my clinical findings support that this patient is homebound (i.e. absences from home require considerable and taxing effort and are for medical reasons or temple services or infrequently or short duration when for other reasons) because: Homebound Reason: Patient requires assistance of a person or device to safely leave home Attestation: My signature below is to certify that this patient is under my care and that I, or nurse practitioner, or a physician's hardware sales assistant working with me, has a face-to -face encounter with this patient.
[2018-07-07] MEDS: Budesonide/Formoterol 80/4.5 MDI IH SCH (10:52)
[2018-07-07] MEDS: Tiotropium 18 MCG inhalation IH SCH (10:52)
[2018-07-07] MEDS ORDERED: *HR* Rivaroxaban 10 MG TABLET PO SCH (11:45)
[2018-07-07] MEDS ORDERED: Saline Nasal Spray 44 ML BOTTLE NS PRN (13:27)
== END 2018-07-07 14:04 | disposition home health service (06) | DRG 308 ==
LOC: EMEROOARM 14:25 → 2NENU 16:48
PROVIDERS: ADMIT Student in an Organized Health Care Education/Training Program; ATTEND Student in an Organized Health Care Education/Training Program

== ENCOUNTER 2018-07-18 09:23 | Inpatient (IN) ==
[2018-07-18] MEDS ORDERED: Ipratropium/Albuterol Neb 3 ML IH ONE (09:53)
[2018-07-18] MEDS ORDERED: methylPREDNISolone 125 MG/2 ML VIAL IVP ONE (09:53)
--- NOTE | 2018-07-18 09:57 | Emergency Department Note ---
Disposition Clinical Impression: COPD exacerbation, EMILIANO (acute kidney injury), Elevated CO2 level Pneumonia Qualifiers: Pneumonia type: due to unspecified organism Laterality: right Lung location: lower lobe of lung Qualified Code(s): J18.1 - Lobar pneumonia, unspecified organism Leukocytosis Qualifiers: Leukocytosis type: unspecified Qualified Code(s): D72.829 - Elevated white blood cell count, unspecified Disposition: Admitted As Inpatient Condition: Good Referrals: Ritika Humphreys, VAC PRESS OPERATOR [Primary Care Provider] - Forms: ED Satisfaction Letter Time of Disposition: 11:55 SOB HPI - General Chief Complaint: ED Shortness of Breath/Dyspnea Stated Complaint: MILAN Time Seen by Provider: 07/18/18 09:39 Source: patient, family Mode of arrival: ambulatory Limitations: no limitations Nursing Notes Reviewed: Yes Vital Signs Reviewed: Yes - History of Present Illness Patient is a 78-year-old female with past medical history of A. fib, hypertension COPD, CHF. She currently takes to steroid inhalers, albuterol as needed, N-acetylcysteine, Lasix 20 mg daily. She does have a history of needing BiPAP and also elevation in December 2017. She uses 2 L nasal cannula oxygen chronically 24 hours a day and uses BiPAP at night. She presents today due to increased shortness of breath over the past 2-3 days. She also admits to productive cough increase above her baseline. Denies any chest pain, fevers , nausea, vomiting, diarrhea, abdominal pain, dysuria. Daughter does note that she has had some urinary retention within the past week or 2 and had to have a temporary Harrison catheter placed. She notes that she has been a little confused above her baseline and was concern for possible UTI versus CO2 retention. Patient does have a history of CO2 retention according to daughter. - Related Data Home Medications Medication Instructions Recorded Confirmed Albuterol Sulfate [Proair Hfa] 2 puff IH Q4H PRN 07/05/18 07/18/18 Allopurinol [Zyloprim] 300 mg PO DAILY 07/05/18 07/18/18 Amitriptyline [Elavil] 25 mg PO HS 07/05/18 07/18/18 Azelastine HCl 1 drop BOTH EYES BID 07/05/18 07/18/18 Carvedilol [Coreg] 6.25 mg PO BIDWM 07/05/18 07/18/18 Citalopram Hydrobromide [Celexa] 40 mg PO DAILY 07/05/18 07/18/18 Cyclobenzaprine HCl 10 mg PO TID PRN 07/05/18 07/18/18 Denosumab [Prolia (For Outpatient 60 mg SQ [id number] 07/05/18 07/18/18 Infusion)] Docusate [Colace] 100 mg PO DAILY 07/05/18 07/18/18 Ferrous Sulfate 325 mg PO DAILY 07/05/18 07/18/18 Fluticasone Propionate Nasal 1 spr NS DAILY PRN 07/05/18 07/18/18 [Flonase] Fluticasone/Salmeterol [Advair 1 puff IH BID 07/05/18 07/18/18 250-50 Diskus] Furosemide [Lasix] 20 mg PO DAILY 07/05/18 07/18/18 Gabapentin [Neurontin] 400 mg PO BID 07/05/18 07/18/18 HYDROcodone/Acet 10/325 mg [[place] 1 tab PO Q8H PRN 07/05/18 07/18/18 10-325 mg] Ipratropium/Albuterol Neb [Duoneb] 3 ml IH Q6HR PRN 07/05/18 07/18/18 Lactobacillus Acidophilus 1 cap PO HS 07/05/18 07/18/18 [Acidophilus] Levothyroxine [Synthroid] 125 mcg PO 6XW 07/05/18 07/18/18 Lisinopril [Zestril] 5 mg PO DAILY 07/05/18 07/18/18 Montelukast [Singulair] 10 mg PO HS 07/05/18 07/18/18 Multivitamin [One Daily 1 tab PO DAILY 07/05/18 07/18/18 Multivitamin] Nystatin Cream [Mycostatin Cream] 1 appl TP BID PRN 07/05/18 07/18/18 Omeprazole [PriLOSEC] 20 mg PO DAILY 07/05/18 07/18/18 Polyethylene Glycol 3350 [MiraLAX] 17 gm PO DAILY 07/05/18 07/18/18 Roflumilast [Daliresp] 500 mcg PO DAILY 07/05/18 07/18/18 Tiotropium [place] [Spiriva 2 puff IH DAILY 07/05/18 07/18/18 Respimat] Previous Rx's Medication Instructions Recorded Diltiazem CD (24hr) [Cardizem CD] 120 mg PO DAILY 30 Days #30 07/07/18 cap.er.24h Rivaroxaban [Xarelto] 20 mg PO DAILY 30 Days #30 tablet 07/07/18 Allergies Allergy/AdvReac Type Severity Reaction Status Date / Time acetaminophen [From Percocet] Allergy Rash Verified 07/05/18 19:07 aspirin Allergy See Verified 07/09/18 17:26 Comments clindamycin Allergy Itching Verified 07/09/18 17:26 hydrochlorothiazide Allergy Rash Verified 07/09/18 17:26 losartan [Losartan] Allergy Rash Verified 07/09/18 17:26 Oxycodone [From Percocet] Allergy Rash Verified 07/09/18 17:26 Sulfa (Sulfonamide Allergy Rash Verified 07/09/18 17:26 Antibiotics) codeine AdvReac Nausea Verified 07/09/18 17:26 levofloxacin [From Levaquin] AdvReac Hallucinati Verified 07/09/18 17:26 ng morphine AdvReac Irritable Verified 07/09/18 17:26 NSAIDS (Non-Steroidal AdvReac See Verified 07/09/18 17:26 Anti-Inflamma Comments rofecoxib [From Vioxx] AdvReac See Verified 07/09/18 17:26 Comments ropinirole [From Requip] AdvReac See Verified 07/09/18 17:26 Comments All systems ED: reviewed and negative except as stated. Constitutional: Denies: fever Cardiovascular: Denies: chest pain Respiratory: Reports: cough, dyspnea, wheezes, sputum production Gastrointestinal: Denies: abdominal pain, nausea, vomiting, diarrhea, constipation Genitourinary: Denies: urgency, dysuria, frequency, hematuria, discharge, abnormal menses Neurological: Denies: headache, weakness, numbness, paresthesias Past Medical History - Past Medical History Attestation: Yes The following information was validated with the patient. Source: patient Medical history: Reports: asthma, atrial fibrillation, COPD, hyperlipidemia, hypertension, renal disease, thyroid disease Surgical history: Reports: appendectomy, cholecystectomy, hysterectomy, orthopedic, other, other Psychiatric history: Reports: no psych history, other SALON ASSISTANT history: Reports: no SALON ASSISTANT history - Social History Smoking Status: Former smoker Smokeless Tobacco Status: No Alcohol use: Reports: none Drug use: Reports: none Physical Exam - General Limitations: no limitations General appearance: alert, in no apparent distress - Head Head exam: atraumatic, normocephalic, normal inspection - Eye Eye exam: Present: normal appearance, PERRL, EOMI - ENT ENT exam: normal exam, normal oropharynx, mucous membranes moist - Neck Neck exam: Present: normal inspection, full ROM, trachea midline - Chest Chest inspection: Present: normal inspection, symmetric chest wall rise - Respiratory Respiratory exam: Present: accessory muscle use (Mild), other (Moderate to severe bilateral lower lobe rhonchi and crackles.) - Cardiovascular Cardiovascular exam: Present: regular rate, normal rhythm, normal heart sounds - Abdominal Exam Abdominal exam: Present: soft, Non-Tender. Absent: tenderness, distention, guarding, rebound, rigidity - Extremities Exam Extremities exam: Present: normal inspection, full ROM. Absent: tenderness, pedal edema - Neurological Exam Neurological exam: Present: alert, oriented X3, CN II-XII intact. Absent: motor sensory deficit - Psychiatric Psychiatric exam: Present: normal affect, normal mood Course Course Narrative: On my exam, patient was satting 91% on 2 L nasal cannula oxygen that she usually wears at home. She did have significant rhonchi and crackles bilateral lower lobes. No significant pedal edema. Otherwise, the rest of the physical exam was fairly benign. Currently concern for mixed COPD versus CHF exacerbation, possible pneumonia. We will perform an EKG, basic blood work, chest x-ray. We will give the patient DuoNeb x 3 and Solu-Medrol. If chest x- ray shows significant edema, we will give the patient IV Lasix. With low O2 sat just at rest, concern that patient will need admission for further care. 11:52 patient has elevated white blood cell count of 30. No major joint abnormality. Patient did have elevated CO2 of 75 which is higher than previous values. Patient was started on BiPAP here she is currently tolerating that comfortably. Chest x-ray shows possible right lower lobe pneumonia. Patient was started on vancomycin and Zosyn. She is allergic to Levaquin and clindamycin, these were not ordered. Gave her a small fluid bolus of 500 mL. With history of CHF and current shortness of breath, did not want to fluid overload her at this time. We will hold fluids for now. I discussed admission with patient she is agreeable with this plan. Patient has been accepted for admission by Dr. Valle this time. She remained stable. Urinalysis is currently pending and this was relayed to the hospitalist. Patient had limited vascular access, PICC team has been called. Patient did require PICC placement upon last admission due to limited vascular availability. Chest X-Ray 07/18/18 09:39 IMPRESSION: Elevated right hemidiaphragm and decreased right lung volumes. Right basilar opacity which may represent atelectasis or infection. D/ / Yoana Jesus MD / Yoana Jesus MD Interpreting Provider: Yoana Jesus MD Vital Signs Temperature 97.6 F 07/18/18 09:26 Pulse Rate 85 07/18/18 09:26 Respiratory Rate 10 07/18/18 09:26 Blood Pressure 100/53 07/18/18 09:26 O2 Sat by Pulse Oximetry 97 07/18/18 09:26 Temperature 97.6 F 07/18/18 09:50 Pulse Rate 83 07/18/18 12:16 Respiratory Rate 16 07/18/18 12:16 Blood Pressure 121/83 07/18/18 12:16 O2 Sat by Pulse Oximetry 96 07/18/18 12:16 Oxygen Delivery Oxygen Delivery Bipap Shortness of Breath/Dyspnea - [facility] Narrative Medical decision making narrative: On my exam, patient was satting 91% on 2 L nasal cannula oxygen that she usually wears at home. She did have significant rhonchi and crackles bilateral lower lobes. No significant pedal edema. Otherwise, the rest of the physical exam was fairly benign. Currently concern for mixed COPD versus CHF exacerbation, possible pneumonia. We will perform an EKG, basic blood work, chest x-ray. We will give the patient DuoNeb x 3 and Solu-Medrol. If chest x- ray shows significant edema, we will give the patient IV Lasix. With low O2 sat just at rest, concern that patient will need admission for further care. 11:52 patient has elevated white blood cell count of 30. No major joint abnormality. Patient did have elevated CO2 of 75 which is higher than previous values. Patient was started on BiPAP here she is currently tolerating that comfortably. Chest x-ray shows possible right lower lobe pneumonia. Patient was started on vancomycin and Zosyn. She is allergic to Levaquin and clindamycin, these were not ordered. Gave her a small fluid bolus of 500 mL. With history of CHF and current shortness of breath, did not want to fluid overload her at this time. We will hold fluids for now. I discussed admission with patient she is agreeable with this plan. Patient has been accepted for admission by Dr. Valle this time. She remained stable. Urinalysis is currently pending and this was relayed to the hospitalist. Patient had limited vascular access, PICC team has been called. Patient did require PICC placement upon last admission due to limited vascular availability. - Medical Records Medical records reviewed: Yes I reviewed the patient's medical records. - Lab Data Lab results reviewed: Yes I reviewed the patient's lab results. Result diagrams: 07/18/18 10:27 07/18/18 10:27 Lab Results 07/18/18 07/18/18 07/18/18 Range/Units 10:27 10:27 10:27 WBC 30.4 H* (4.3-11.1) K/mcL RBC 2.66 L (3.82-4.97) M/mcL Hgb 7.8 L (11.5-15.4) g/dL Hct 26.1 L (35.3-44.9) % MCV 98.1 (83.0-100.0) fL MCH 29.3 (28.0-33.3) pg MCHC 29.9 L (31.6-35.5) g/dL RDW 15.6 H (11.5-14.5) % Plt Count 317 (140-400) K/mcL MPV 9.3 L (9.4-12.4) fL Immature Gran % 0.9 (0-4) % Seg Neutrophils % 84.5 % Lymphocytes % 9.5 % Monocytes % 4.6 % Eosinophils % 0.4 % Basophils % 0.1 % Neutrophils # 25.7 H (1.6-8.9) K/mcL Lymphocytes # 2.9 (0.6-4.6) K/mcL Monocytes # 1.4 H (0.0-1.3) K/mcL Eosinophils # 0.1 (0.0-0.6) K/mcL Basophils # 0.0 (0.0-0.2) K/mcL Platelet Estimate Normal (Normal) ABG pH (7.32-7.45) pH Units ABG pCO2 (35-45) mmHg ABG pO2 (85-104) mmHg ABG HCO3 (21-27) mEq/L ABG Total CO2 (20-26) mEq/L ABG O2 Saturation (95-98) % ABG Base Excess (-2 to 3) mEq/L O2 Delivery Device Inspired O2 (1-15=lpm [id number]=%) Sodium 138 (136-145) mEq/L Potassium 4.9 (3.5-5.1) mEq/L Chloride 101 (98-107) mEq/L Carbon Dioxide 30 H (23-29) mEq/L BUN 30 H (8-23) mg/dL Creatinine 1.29 H (0.60-1.20) mg/dL Est GFR ( Amer) 49 L (> 60) Est GFR (Non-Af Amer) 40 L (> 60) BUN/Creatinine Ratio 23 (6-26) Glucose 108 H (70-105) mg/dL Calculated Osmolality 293 (280-300) Lactic Acid 0.5 (0.5-2.2) mmol/L Calcium 8.4 L (8.6-10.3) mg/dL Troponin I 0.03 (< 0.04) ng/mL B-Natriuretic Peptide (Less than 100) pg/mL Urine Color (Yellow) Urine Clarity (Clear) Urine pH (5.0-8.0) pH Units Ur Specific [place] (1.010-1.025) Urine Protein (Neg-Trace) mg/dL Urine Glucose (UA) (Normal) mg/dL Urine Ketones (Negative) mg/dL Urine Blood (Negative) Urine Nitrite (Negative) Urine Bilirubin (Negative) Urine Urobilinogen (Normal) mg/dL Ur Leukocyte Esterase (Negative) Urine Microscopic RBC (0-3) per hpf Urine Microscopic WBC (0-3) per hpf Ur Squamous Epith Cells (None-Few) per lpf Urine Bacteria (None-Few) per hpf Hyaline Casts (None-Few) per lpf Ur Culture Indicated? (NO) 09/24/18 09/24/18 09/24/18 Range/Units 10:27 10:44 12:10 WBC (4.3-11.1) K/mcL RBC (3.82-4.97) M/mcL Hgb (11.5-15.4) g/dL Hct (35.3-44.9) % MCV (83.0-100.0) fL MCH (28.0-33.3) pg MCHC (31.6-35.5) g/dL RDW (11.5-14.5) % Plt Count (140-400) K/mcL MPV (9.4-12.4) fL Immature Gran % (0-4) % Seg Neutrophils % % Lymphocytes % % Monocytes % % Eosinophils % % Basophils % % Neutrophils # (1.6-8.9) K/mcL Lymphocytes # (0.6-4.6) K/mcL Monocytes # (0.0-1.3) K/mcL Eosinophils # (0.0-0.6) K/mcL Basophils # (0.0-0.2) K/mcL Platelet Estimate (Normal) ABG pH 7.28 L (7.32-7.45) pH Units ABG pCO2 75 H* (35-45) mmHg ABG pO2 72 L (85-104) mmHg ABG HCO3 35 H (21-27) mEq/L ABG Total CO2 37 H (20-26) mEq/L ABG O2 Saturation 91 L (95-98) % ABG Base Excess 7 H (-2 to 3) mEq/L O2 Delivery Device Cannula Inspired O2 2.0 (1-15=lpm [id number]=%) Sodium (136-145) mEq/L Potassium (3.5-5.1) mEq/L Chloride (98-107) mEq/L Carbon Dioxide (23-29) mEq/L BUN (8-23) mg/dL Creatinine (0.60-1.20) mg/dL Est GFR ( Amer) (> 60) Est GFR (Non-Af Amer) (> 60) BUN/Creatinine Ratio (6-26) Glucose (70-105) mg/dL Calculated Osmolality (280-300) Lactic Acid (0.5-2.2) mmol/L Calcium (8.6-10.3) mg/dL Troponin I (< 0.04) ng/mL B-Natriuretic Peptide 181 H (Less than 100) pg/mL Urine Color Yellow (Yellow) Urine Clarity Cloudy A (Clear) Urine pH 6.0 (5.0-8.0) pH Units Ur Specific [place] 1.018 (1.010-1.025) Urine Protein Trace (Neg-Trace) mg/dL Urine Glucose (UA) Normal (Normal) mg/dL Urine Ketones Negative (Negative) mg/dL Urine Blood Moderate H (Negative) Urine Nitrite Positive A (Negative) Urine Bilirubin Negative (Negative) Urine Urobilinogen Normal (Normal) mg/dL Ur Leukocyte Esterase Large H (Negative) Urine Microscopic RBC 5-15 H (0-3) per hpf Urine Microscopic WBC TNTC H (0-3) per hpf Ur Squamous Epith Cells None Seen (None-Few) per lpf Urine Bacteria Moderate H (None-Few) per hpf Hyaline Casts None Seen (None-Few) per lpf Ur Culture Indicated? YES A (NO) - Radiology Data Radiology results reviewed: Yes I reviewed the patient's radiology results. Chest X-Ray 07/18/18 09:39 IMPRESSION: Elevated right hemidiaphragm and decreased right lung volumes. Right basilar opacity which may represent atelectasis or infection. D/ / Yoana Jesus MD / Yoana Jesus MD Interpreting Provider: Yoana Jesus MD - EKG Data EKG attestation: Yes I reviewed and interpreted this EKG. EKG results narrative: 07/18/2018 at 09:49. Normal sinus rhythm. Rate 81. PA 178. QRS 84. QTC 451. [place] deviation. No acute ST elevation or depression. No changes from old EKG on 07/09/2018. S.B.A.R. - S.B.A.R. Situation: Demographics, MOA Background: Presenting Complaint, Relevant PMH, Meds, & Allergies Assessment: Vital Signs, Course and respsone to treatment, Exam Concerns, Patient/Family Expectation, Pertinant Lab Results, Outstanding Labs Recommendation: Barrier(s) to disposition, Recommendation based on pending studies, treatments, or consults S.B.A.R. Report Given to: Dr. Leonard Solano Repor Time: 11:56 Attestation Statement - Attestation Attestation: I, Betito Linder, examined this patient and my medical decision-making was reviewed with the STRATEGIC DEVELOPMENT MANAGER/PA/Advanced Practice Nurse/Resident Physician. I agree with the documented findings, disposition and treatment plan as described except to the extent set forth below. 78-year-old female presents emergency Department with concerns of increased difficulty breathing over the past few days. Patient states she has a history of COPD, she has had a productive cough of whitish green sputum. She was recently admitted to the hospital for age fibrillation which improved with adjustment of her medications. She is not in atrial fibrillation today. Family is also concerned about increased weakness and fatigue over the past week and noted that she had a Harrison catheter in place while she was admitted to the hospital previously. Chest x-ray showed possible pneumonia. Patient has significantly elevated white blood cell count. ABG showed hypercapnia the patient was placed on BiPAP. Patient is stable in the emergency department. She will be admitted to the hospital for further care and evaluation. She is started on antibiotics in the emergency department.
[2018-07-18 10:47] LABS: Basophils % 0.1 %; Eosinophils % 0.4 %; Red Cell Distribution Width 15.6 % (11.5-14.5)
[2018-07-18 10:48] LABS: Eosinophils # 0.1 K/mcL (0.0-0.6); Hematocrit 26.1 % (35.3-44.9); Hemoglobin 7.8 g/dL (11.5-15.4); Immature Granulocytes % 0.9 % (0-4); Lymphocytes # 2.9 K/mcL (0.6-4.6); Lymphocytes % 9.5 %; Mean Corpuscular HGB Conc 29.9 g/dL (31.6-35.5); Mean Corpuscular Hemoglobin 29.3 pg (28.0-33.3); Mean Corpuscular Volume 98.1 fL (83.0-100.0); Mean Platelet Volume 9.3 fL (9.4-12.4); Monocytes # 1.4 K/mcL (0.0-1.3); Monocytes % 4.6 %; Neutrophils # 25.7 K/mcL (1.6-8.9); Platelet Count 317 K/mcL (140-400); Red Blood Count 2.66 M/mcL (3.82-4.97); Segmented Neutrophils % 84.5 %
[2018-07-18 10:52] LABS: ABG Base Excess 7 mEq/L (-2 to 3); ABG HCO3 35 mEq/L (21-27); ABG Oxygen Saturation 91 % (95-98); ABG PCO2 75 mmHg (35-45); ABG PH 7.28 pH Units (7.32-7.45); ABG PO2 72 mmHg (85-104); ABG TCO2 37 mEq/L (20-26)
[2018-07-18 11:04] LABS: Troponin I 0.03 ng/mL (< 0.04)
[2018-07-18] MEDS ORDERED: Piperacillin/Tazobactam 3.375 GM in 0.9 % Sodium Chloride Mini Bag 100 ML IVPB ONE (11:04)
[2018-07-18 11:18] LABS: Calcium 8.4 mg/dL (8.6-10.3); Potassium 4.9 mEq/L (3.5-5.1)
[2018-07-18] MEDS ORDERED: Lidocaine -MPF 1% 5 ML AMPUL INFILT ONE (11:23)
[2018-07-18 11:34] LABS: Platelet Estimate Normal (Normal)
[2018-07-18] MEDS ORDERED: 0.9 % Sodium Chloride 500 ML IVC ONE (11:49)
[2018-07-18 12:30] LABS: Bilirubin,Urine Negative (Negative); Blood,Urine Moderate (Negative); Clarity,Urine Cloudy (Clear); Color,Urine Yellow (Yellow); Glucose,Urine (UA) Normal (Normal); Ketones,Urine Negative (Negative); Leukocyte Esterase,Urine Large (Negative); Nitrite,Urine Positive (Negative); Protein,Urine Trace mg/dL (Neg-Trace); Specific Gravity,Urine 1.018 (1.010-1.025); Urobilinogen,Urine Normal (Normal)
[2018-07-18 12:34] LABS: Bacteria,Urine Moderate per hpf (None-Few); Hyaline Casts,Urine None Seen per lpf (None-Few); Squamous Epithelial Cell,Urine None Seen per lpf (None-Few); WBC,Urine TNTC per hpf (0-3)
[2018-07-18] MEDS ORDERED: Naloxone 0.4 MG/ML INJ IVP PRN (13:13)
[2018-07-18] MEDS ORDERED: Albuterol 2.5 MG/3 ML NEBULIZER IH PRN (16:23)
[2018-07-18] MEDS ORDERED: Nystatin Cream 15 GM TUBE TP PRN (16:24)
[2018-07-18] MEDS ORDERED: Fluticasone Propionate Nasal 50 MCG/SPRAY BOTTLE NS PRN (16:24)
--- NOTE | 2018-07-18 16:56 | Internal Med History&Physical ---
Date of Encounter: 07/18/18 Time of Encounter: 16:30 Internal Medicine - H&P: HPI Chief complaint: Shortness of breath Admitted From: Emergency Dept Plans for Post Hospital Care: Home History of present illness: Ms. Lennon is a 78 year old female patient with a history of atrial fibrillation, hypertension, COPD and CHF who presented to the ER with complaints of shortness of breath that has been progressively worsening over the past 2-3 days. She reports clear sputum. She denies any fevers or chills but has been feeling very sick. She was hospitalized here earlier this month and was discharged home after brief hospitalization for atrial fibrillation. During that time she was started on Xarelto for anticoagulation. She felt fine initially after discharge for a few days but began to decreased urine output. She came to the ER and had a Harrison catheter placed. She then followed up with urology. During her ER visit, she was told that she may be developing pneumonia and was placed on azithromycin. Urology evaluated her in the clinic and after voiding trial removed the Harrison catheter. She has been having shortness of breath since about that time. She denies any orthopnea or PND. She denies any hematemesis or melena. Past Med Surg Social Fam HX - Past Medical History Attestation: Yes The following information was validated with the patient. Source: patient Medical history: asthma, atrial fibrillation, COPD, hyperlipidemia, hypertension , renal disease, thyroid disease Additional medical history: neuropathy; osteomyelitis; MRSA to right foot and detected in bronchial washings; Psychiatric history: no psych history, other - Past Surgical History Surgical History: appendectomy, cholecystectomy, hysterectomy, orthopedic, other , other Additional surgical history: right toes amputated - Social History Smoking Status: Former smoker Smokeless Tobacco Status: No Alcohol use: none Drug use: none - Family History Brother Family Member Ethnicity: Non- Living Status: Age at : 71 Cause of : CVA complications Hx Family Cardiac Disorders: Yes Hx Family Respiratory Disorders: No Hx Family Cancer: Yes Hx Family GI Disorders: No Hx Family Endocrine Disorder: Yes Hx Family Neuromuscular Disorders: No Hx Family Neurologic Disorders: Yes Hx Family HEENT Disorders: No Hx Family Autoimmune Disorders: No Hx Family Medical Disorders: Yes Sister Family Member Ethnicity: Non- Living Status: Hx Family Cardiac Disorders: Yes Hx Family Respiratory Disorders: No Hx Family Cancer: No Hx Family GI Disorders: No Hx Family Endocrine Disorder: Yes (DM) Hx Family Neuromuscular Disorders: No Hx Family Neurologic Disorders: No Hx Family HEENT Disorders: No Hx Family Autoimmune Disorders: No Father Family Member Ethnicity: Non- Living Status: Hx Family Cardiac Disorders: Yes (CAD, HF) Hx Family Respiratory Disorders: No Hx Family Cancer: No Hx Family GI Disorders: No Hx Family Endocrine Disorder: No Hx Family Neuromuscular Disorders: No Paternal Family Member Ethnicity: Non- Living Status: Hx Family Cardiac Disorders: Yes Hx Family Respiratory Disorders: Yes Hx Family Cancer: (liver) Hx Family GI Disorders: No Hx Family Endocrine Disorder: No Hx Family Neuromuscular Disorders: No Hx Family Neurologic Disorders: Yes Hx Family HEENT Disorders: No Hx Family Autoimmune Disorders: (arthritis) Mother Family Member Ethnicity: Non- Living Status: Hx Family Cardiac Disorders: Yes (HTN) Hx Family Respiratory Disorders: No Hx Family Cancer: Yes (Liver) Hx Family GI Disorders: Yes Hx Family Endocrine Disorder: Yes (DM) Hx Family Neuromuscular Disorders: No Hx Family Neurologic Disorders: No Hx Family HEENT Disorders: No Hx Family Autoimmune Disorders: No Internal Medicine - H&P: Meds Albuterol Sulfate [Proair Hfa] 2 puff IH Q4H PRN 07/05/18 [History] Allopurinol [Zyloprim] 300 mg PO DAILY 07/05/18 [History] Amitriptyline [Elavil] 25 mg PO HS 07/05/18 [History] Azelastine HCl 1 drop BOTH EYES BID 07/05/18 [History] Carvedilol [Coreg] 6.25 mg PO BIDWM 07/05/18 [History] Citalopram Hydrobromide [Celexa] 40 mg PO DAILY 07/05/18 [History] Cyclobenzaprine HCl 10 mg PO TID PRN 07/05/18 [History] Denosumab [Prolia (For Outpatient Infusion)] 60 mg SQ [id number] 07/05/18 [History ] Docusate [Colace] 100 mg PO DAILY 07/05/18 [History] Ferrous Sulfate 325 mg PO DAILY 07/05/18 [History] Fluticasone Propionate Nasal [Flonase] 1 spr NS DAILY PRN 07/05/18 [History] Fluticasone/Salmeterol [Advair 250-50 Diskus] 1 puff IH BID 07/05/18 [History] Furosemide [Lasix] 20 mg PO DAILY 07/05/18 [History] Gabapentin [Neurontin] 400 mg PO BID 07/05/18 [History] HYDROcodone/Acet 10/325 mg [[place] 10-325 mg] 1 tab PO Q8H PRN 07/05/18 [History] Ipratropium/Albuterol Neb [Duoneb] 3 ml IH Q6HR PRN 07/05/18 [History] Lactobacillus Acidophilus [Acidophilus] 1 cap PO HS 07/05/18 [History] Levothyroxine [Synthroid] 125 mcg PO 6XW 07/05/18 [History] Lisinopril [Zestril] 5 mg PO DAILY 07/05/18 [History] Montelukast [Singulair] 10 mg PO HS 07/05/18 [History] Multivitamin [One Daily Multivitamin] 1 tab PO DAILY 07/05/18 [History] Nystatin Cream [Mycostatin Cream] 1 appl TP BID PRN 07/05/18 [History] Omeprazole [PriLOSEC] 20 mg PO DAILY 07/05/18 [History] Polyethylene Glycol 3350 [MiraLAX] 17 gm PO DAILY 07/05/18 [History] Roflumilast [Daliresp] 500 mcg PO DAILY 07/05/18 [History] Tiotropium [place] [Spiriva Respimat] 2 puff IH DAILY 07/05/18 [History] Diltiazem CD (24hr) [Cardizem CD] 120 mg PO DAILY 30 Days #30 cap.er.24h [Rx] Rivaroxaban [Xarelto] 20 mg PO DAILY 30 Days #30 tablet 07/07/18 [Rx] 3 Allergy/AdvReac Type Severity Reaction Status Date / Time acetaminophen [From Percocet] Allergy Rash Verified 07/05/18 19:07 aspirin Allergy See Verified 07/09/18 17:26 Comments clindamycin Allergy Itching Verified 07/09/18 17:26 hydrochlorothiazide Allergy Rash Verified 07/09/18 17:26 losartan [Losartan] Allergy Rash Verified 07/09/18 17:26 Oxycodone [From Percocet] Allergy Rash Verified 07/09/18 17:26 Sulfa (Sulfonamide Allergy Rash Verified 07/09/18 17:26 Antibiotics) codeine AdvReac Nausea Verified 07/09/18 17:26 levofloxacin [From Levaquin] AdvReac Hallucinati Verified 07/09/18 17:26 ng morphine AdvReac Irritable Verified 07/09/18 17:26 NSAIDS (Non-Steroidal AdvReac See Verified 07/09/18 17:26 Anti-Inflamma Comments rofecoxib [From Vioxx] AdvReac See Verified 07/09/18 17:26 Comments ropinirole [From Requip] AdvReac See Verified 07/09/18 17:26 Comments All Systems PM: A 10-system review of systems was performed and is negative for pertinent findings except as documented above in the HPI. - Constitutional Constitutional: no chills, no fever(s), no night sweats - EENT Eyes: no change in vision, no discharge, no pain, no photophobia Ears: no ear discharge, no ear pain, no tinnitus Nose, mouth and throat: no dysphagia, no nasal discharge, no neck pain, no sore throat - Cardiovascular Cardiovascular ROS IM: no chest pain, no diaphoresis, no dyspnea, no lightheadedness, no palpitations, no syncope - Respiratory Respiratory: cough, dyspnea, dyspnea on exertion, wheezing, excessive phlegm production - Gastrointestinal Gastrointestinal: no abdominal pain, no diarrhea, no hematemesis, no hematochezia, no melena, no nausea, no vomiting - Genitourinary Genitourinary: no change in urinary stream, no dysuria, no flank pain, no hematuria - Musculoskeletal Musculoskeletal ROS IM: no numbness, no tingling - Integumentary Integumentary IM: no rash, no unusual bruising - Neurological Neurological ROS: no confusion, no convulsions, no focal weakness, no numbness, no tingling, no tremor(s) - Hematologic/Lymphatic Hematologic/Lymphatic: no easy bruising - Constitutional Vitals: Temp Pulse Resp BP Pulse Ox 97.6 F 85 19 140/72 97 07/18/18 09:50 07/18/18 14:42 07/18/18 14:42 07/18/18 14:42 07/18/18 14:42 General appearance: Present: cooperative, A&O X 3, answers questions appropriately Exam: Moderate distress - Neck Neck exam general surgery: Present: supple, trachea midline. Absent: lymphadenopathy - Respiratory Respiratory exam: Present: prolonged expiratory phase, rhonchi, wheezes. Absent : accessory muscle use, rales Additional comments: Coarse bilateral crackles - Cardiovascular Cardiovascular exam: Present: RRR, +S1, +S2. Absent: diastolic murmur, gallop, rubs, systolic murmur - GI/Abdominal GI/Abdominal exam: Present: normal bowel sounds, soft, no peritoneal signs. Absent: distended, tenderness - Extremities Exam Extremities exam: Present: warm, radial pulses palpable and symmetrical. Absent : calf tenderness, cyanotic, pedal edema - Neurological Exam Neurological exam: Present: alert, oriented X3, no focal deficits. Absent: facial droop, speech deficit - Psychiatric Psychiatric exam: Present: anxious - Skin Skin exam: Present: dry, intact Internal Med - H&P Results - Labs CBC & Chem 7: 07/18/18 10:27 07/18/18 10:27 - EKG Data -: EKG Interpreted by Myself EKG shows normal: sinus rhythm Rate: normal - EKG Data When compared to previous EKG: there is no significant change - Impressions Impressions Chest X-Ray 07/18/18 09:39 IMPRESSION: Elevated right hemidiaphragm and decreased right lung volumes. Right basilar opacity which may represent atelectasis or infection. D/ / Yoana Jesus MD / Yoana Jesus MD Interpreting Provider: Yoana Jesus MD - Assessment and plan (1) Acute and chronic respiratory failure ([id number]) Current Visit: Yes Status: Acute Assessment and plan: Patient is having acute on chronic respiratory failure with underlying COPD exacerbation and pneumonia. We will treat with the spectrum antibiotics. IV steroids. Monitor vital signs closely. Continue O2 supplementation and BiPAP use as needed. Qualifiers: Respiratory failure complication: hypoxia and hypercapnia Qualified Code(s) : J96.21 - Acute and chronic respiratory failure with hypoxia; J96.22 - Acute and chronic respiratory failure with hypercapnia; J96.22 - Acute and chronic respiratory failure with hypercapnia; J96.22 - Acute and chronic respiratory failure with hypercapnia (2) Pneumonia Current Visit: Yes Status: Suspected Assessment and plan: Patient with history of MRSA pneumonia presenting with right basilar opacity along with leukocytosis. Concerning for pneumonia. We will treat with broad- spectrum antibiotics while we await culture results. High risk for complications. Continue O2 supplementation Qualifiers: Pneumonia type: due to methicillin-resistant Staphylococcus aureus (MRSA) Laterality: right Lung location: lower lobe of lung Qualified Code(s): J15.212 - Pneumonia due to Methicillin resistant Staphylococcus aureus (3) COPD exacerbation Current Visit: Yes Status: Acute Assessment and plan: Treat as above with scheduled bronchodilators, antibiotics, O2 supplementation and intravenous steroids. (4) Atrial fibrillation Current Visit: Yes Status: Chronic Assessment and plan: Rate controlled and in sinus rhythm currently. Patient was recently started on Xarelto. However her hemoglobin levels have dropped by 2 g since her last hospitalization. Will hold Xarelto for now. Check stool for occult blood. Qualifiers: Atrial fibrillation type: paroxysmal Qualified Code(s): I48.0 - Paroxysmal atrial fibrillation (5) Anemia of chronic disease Current Visit: Yes Status: Acute Assessment and plan: Acute on chronic anemia. Hemoglobin 7.8. Will monitor hemoglobin levels closely. Check stool for occult blood. Check iron profile, folic acid and B12 levels. Hold Xarelto for now. (6) CKD (chronic kidney disease) stage 3, GFR 30-59 ml/min Current Visit: Yes Status: Chronic Assessment and plan: Creatinine 1.29. Appears to be improving since her last lab test. Will monitor renal function. We will schedule antibiotics per renal dosage. (7) Urinary tract infection Current Visit: Yes Status: Acute Assessment and plan: Patient's urine suggests acute UTI. She recently had a Harrison catheter in which could be contributing to this. Harrison catheter has since been removed. Will follow urine culture results. Patient will be on broad-spectrum antibiotics. Qualifiers: Urinary tract infection type: acute cystitis Hematuria presence: with hematuria Qualified Code(s): N30.01 - Acute cystitis with hematuria - Time Spent With Patient Total time spent is greater than 50% in coordination of care (as documented) at patient's floor/unit and/or counseling patient:
[2018-07-18] MEDS: Piperacillin/Tazobactam 3.375 GM in 0.9 % Sodium Chloride Mini Bag 100 ML IVPB SCH ×2 (18:16→23:34)
[2018-07-18] MEDS: *HR* HYDROcodone/Acet 10/325 mg TABLET PO PRN (18:28)
--- NOTE | 2018-07-18 18:32 | Electrocardiograph Report ---
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
[2018-07-18] MEDS: Acetaminophen 325 MG TABLET PO PRN (18:50)
[2018-07-18] MEDS: Ipratropium/Albuterol Neb 3 ML IH SCH ×2 (19:37→23:11)
[2018-07-18] MEDS: Budesonide/Formoterol 80/4.5 MDI IH SCH (19:38)
[2018-07-18] MEDS: (Azelastine Hcl [Azelastine Hcl] 1 DROP) OP SCH (20:33)
[2018-07-18] MEDS: Gabapentin 400 MG CAPSULE PO SCH (20:33)
[2018-07-18] MEDS: Lactobacillus 1 EACH CAP.SPRINK PO SCH (20:33)
[2018-07-18] MEDS ORDERED: Lactobacillus 1 EACH CAP.SPRINK PO SCH (21:00)
[2018-07-18] MEDS: methylPREDNISolone 125 MG/2 ML VIAL IVP SCH (23:34)
[2018-07-19] MEDS: Ipratropium/Albuterol Neb 3 ML IH SCH ×6 (04:26→19:20)
[2018-07-19 04:29] LABS: Basophils % 0.2 %; Hematocrit 23.2 % (35.3-44.9); Immature Granulocytes % 1.1 % (0-4); Lymphocytes # 0.7 K/mcL (0.6-4.6); Lymphocytes % 2.5 %; Mean Corpuscular HGB Conc 30.2 g/dL (31.6-35.5); Mean Corpuscular Hemoglobin 29.2 pg (28.0-33.3); Mean Corpuscular Volume 96.7 fL (83.0-100.0); Mean Platelet Volume 9.3 fL (9.4-12.4); Monocytes # 0.2 K/mcL (0.0-1.3); Monocytes % 0.7 %; Neutrophils # 25.2 K/mcL (1.6-8.9); Platelet Count 290 K/mcL (140-400); Red Cell Distribution Width 15.6 % (11.5-14.5); Segmented Neutrophils % 95.5 %
[2018-07-19 04:40] LABS: Basophils # 0.1 K/mcL (0.0-0.2)
[2018-07-19 04:42] LABS: Calcium 8.1 mg/dL (8.6-10.3); Potassium 4.5 mEq/L (3.5-5.1)
[2018-07-19 05:20] LABS: Macrocytosis Present (Not Present); Platelet Estimate Normal (Normal)
[2018-07-19] MEDS: Budesonide/Formoterol 80/4.5 MDI IH SCH (07:26)
[2018-07-19] MEDS: Lactobacillus 1 EACH CAP.SPRINK PO SCH ×2 (08:55→19:57)
[2018-07-19] MEDS: Gabapentin 400 MG CAPSULE PO SCH ×2 (08:56→19:57)
[2018-07-19] MEDS: Acetaminophen 325 MG TABLET PO PRN ×2 (08:56→19:56)
[2018-07-19] MEDS: Multivit/Ca/Min/Fe/FA 1 TAB TABLET PO SCH (08:56)
[2018-07-19] MEDS: *HR* HYDROcodone/Acet 10/325 mg TABLET PO PRN ×2 (08:57→19:57)
[2018-07-19] MEDS: methylPREDNISolone 125 MG/2 ML VIAL IVP SCH ×3 (08:59→23:32)
[2018-07-19] MEDS: Piperacillin/Tazobactam 3.375 GM in 0.9 % Sodium Chloride Mini Bag 100 ML IVPB SCH ×3 (09:00→23:32)
[2018-07-19] MEDS ORDERED: Furosemide 20 MG TABLET PO SCH (09:00)
[2018-07-19] MEDS ORDERED: (Roflumilast [Daliresp] 500 MCG) PO SCH (09:00)
[2018-07-19] MEDS: (Azelastine Hcl [Azelastine Hcl] 1 DROP) OP SCH (09:04)
[2018-07-19] MEDS: Diltiazem CD (24hr) 120 MG CAPSULE PO SCH (09:10)
[2018-07-19] MEDS ORDERED: Tiotropium 18 MCG inhalation IH SCH (10:00)
[2018-07-19 17:09] LABS: Hematocrit 23.8 % (35.3-44.9); Hemoglobin 7.5 g/dL (11.5-15.4)
--- NOTE | 2018-07-19 21:06 | Internal Med Progress Note ---
Hospitalist Progress Note - Encounter Date of Encounter: 07/19/18 Time of Encounter: 19:00 - Subjective Interval History: SUBJECTIVE: The patient feels better. Her breathing is less labored. She does have mild cough but not wheezing. She uses BiPAP - like at home. She is on supplemental oxygen at 4 L/min; 2 L/min at home. Denies chest pain. Denies abdominal pain, nausea and vomiting. She makes good amounts of urine. OBJECTIVE: Skin: Free of rash and discoloration. ENMT: Oral/pharyngeal mucosa is normal in appearance. Eyes: Sclera is white. There is no discharge from eyes. Respiratory: Normal breath sounds; no crackles or wheezes. CV: Heart is regular; no gallop or murmur. GI: Abdomen is soft and not tender. There is no palpable mass or visceromegaly. Neuro: There is no focal deficits. Her WBC is 26.4; 33.4 yesterday. Hemoglobin is 7.0; 7.8 yesterday. Repeated hemoglobin from today afternoon on is 7.5. Her ABG from yesterday showed pH of 7.28 with PCO2 of 75 and PO2 of 72. Bicarb was 35. BMP from today is normal except of bicarb of 32. Creatinine is 1.30 with GFR of 40. ASSESSMENT AND PLAN: Pneumonia/COPD exacerbation/acute on chronic hypoxic and hypercapnic respiratory failure. Better. We will continue IV vancomycin, IV Zosyn, and nebulizer treatments with DuoNeb/Symbicort. We will continue BiPAP treatments and supplemental oxygen. Atrial fibrillation. Rate controlled. Will continue Coreg and Cardizem CD. Xarelto is on hold due to low Hb. Anemia. Likely chronic in nature. Hemoccult of stool is pending. This problem is likely due to chronic kidney disease. Xarelto is on hold. Hypertensive renal disease with her CKD 3. She is on Coreg, Cardizem CD and the lisinopril. - Exam Vitals: Temp Pulse Resp BP Pulse Ox 97.6 F 91 17 158/69 99 07/19/18 15:46 07/19/18 15:46 07/19/18 19:20 07/19/18 15:46 07/19/18 19:20 Exam: xx - Assessment and Plan (1) Pneumonia Current Visit: Yes Status: Suspected (2) COPD exacerbation Current Visit: Yes Status: Acute (3) Acute and chronic respiratory failure ([id number]) Current Visit: Yes Status: Acute (4) Atrial fibrillation Current Visit: Yes Status: Chronic (5) Hypertensive renal disease with renal failure Current Visit: Yes Status: Chronic (6) CKD (chronic kidney disease) stage 3, GFR 30-59 ml/min Current Visit: Yes Status: Chronic (7) Anemia of chronic disease Current Visit: Yes Status: Acute - Time Spent with Patient Total time spent is greater than 50% in coordination of care (as documented) at patient's floor/unit and/or counseling patient: 25 - 35 minutes Plan of Care Discussed with: patient Internal Medicine: Result - Labs CBC & Chem 7: 07/19/18 16:57 07/19/18 04:00 Labs: Short CBC 07/19/18 07/19/18 Range/Units 04:00 16:57 WBC 26.4 H (4.3-11.1) K/mcL Hgb 7.0 L 7.5 L (11.5-15.4) g/dL Hct 23.2 L 23.8 L (35.3-44.9) % Plt Count 290 (140-400) K/mcL Neutrophils # 25.2 H (1.6-8.9) K/mcL BMP 07/19/18 04:00 Sodium 140 Potassium 4.5 Chloride 103 Carbon Dioxide 32 H BUN 31 H Creatinine 1.30 H Glucose 183 H Calcium 8.1 L - ABG Interpretation ABG results: ABG ABG pH 7.28 pH Units (7.32-7.45) L 07/18/18 10:44 ABG pCO2 75 mmHg (35-45) H* 07/18/18 10:44 ABG pO2 72 mmHg (85-104) L 07/18/18 10:44 ABG O2 Saturation 91 % (95-98) L 07/18/18 10:44 Consult Discharge Plan - Plan Referrals: Ritika Humphreys, [employer] IN[employer]CTOR [Primary Care Provider] - (1) Pneumonia Qualifiers: Pneumonia type: due to methicillin-resistant Staphylococcus aureus (MRSA) Laterality: right Lung location: lower lobe of lung Qualified Code(s): J15.212 - Pneumonia due to Methicillin resistant Staphylococcus aureus (3) Acute and chronic respiratory failure ([id number]-[id number]) Qualifiers: Respiratory failure complication: hypoxia and hypercapnia Qualified Code(s): J96.21 - Acute and chronic respiratory failure with hypoxia; J96.22 - Acute and chronic respiratory failure with hypercapnia; J96.22 - Acute and chronic respiratory failure with hypercapnia; J96.22 - Acute and chronic respiratory failure with hypercapnia (4) Atrial fibrillation Qualifiers: Atrial fibrillation type: paroxysmal Qualified Code(s): I48.0 - Paroxysmal atrial fibrillation
[2018-07-20] MEDS: Ipratropium/Albuterol Neb 3 ML IH SCH ×6 (03:45→19:34)
[2018-07-20 03:58] LABS: Hemoglobin 7.5 g/dL (11.5-15.4); Immature Granulocytes % 1.5 % (0-4); Lymphocytes # 0.6 K/mcL (0.6-4.6); Lymphocytes % 2.5 %; Mean Corpuscular HGB Conc 31.3 g/dL (31.6-35.5); Mean Corpuscular Hemoglobin 30.6 pg (28.0-33.3); Mean Platelet Volume 9.3 fL (9.4-12.4); Monocytes # 0.3 K/mcL (0.0-1.3); Monocytes % 1.3 %; Neutrophils # 21.8 K/mcL (1.6-8.9); Platelet Count 276 K/mcL (140-400); Red Blood Count 2.45 M/mcL (3.82-4.97); Red Cell Distribution Width 15.6 % (11.5-14.5); Segmented Neutrophils % 94.7 %
[2018-07-20 04:17] LABS: Albumin 3.2 g/dL (3.5-5.7); Albumin/Globulin Ratio 1.3 (1.1-2.2); Bilirubin,Total 0.2 mg/dL (0.3-1.0); Calcium 8.3 mg/dL (8.6-10.3); Globulin 2.4 g/dL (2.4-3.5); Potassium 3.6 mEq/L (3.5-5.1); Total Protein 5.6 g/dL (6.4-8.9)
[2018-07-20 04:45] LABS: Platelet Estimate Normal (Normal)
[2018-07-20] MEDS ORDERED: Aminoglycoside Consult 1 EACH MC ONE (08:00)
[2018-07-20] MEDS: Lactobacillus 1 EACH CAP.SPRINK PO SCH ×2 (09:15→20:28)
[2018-07-20] MEDS: Piperacillin/Tazobactam 3.375 GM in 0.9 % Sodium Chloride Mini Bag 100 ML IVPB SCH (09:15)
[2018-07-20] MEDS: Gabapentin 400 MG CAPSULE PO SCH ×2 (09:15→20:28)
[2018-07-20] MEDS: methylPREDNISolone 125 MG/2 ML VIAL IVP SCH ×2 (09:15→16:14)
[2018-07-20] MEDS: Diltiazem CD (24hr) 120 MG CAPSULE PO SCH (09:16)
[2018-07-20] MEDS: Multivit/Ca/Min/Fe/FA 1 TAB TABLET PO SCH (09:16)
[2018-07-20] MEDS: *HR* HYDROcodone/Acet 10/325 mg TABLET PO PRN (14:07)
[2018-07-20] MEDS: Acetaminophen 325 MG TABLET PO PRN (14:07)
[2018-07-20] MEDS: Cefepime HCl 2,000 MG in Water for inj. (sterile) 20 ML 20 ML IVP SCH (16:14)
[2018-07-20] MEDS ORDERED: Ketorolac 15 MG/ML VIAL IVP PRN (18:24)
--- NOTE | 2018-07-20 21:21 | Internal Med Progress Note ---
Hospitalist Progress Note - Encounter Date of Encounter: 07/20/18 Time of Encounter: 19:00 - Subjective Interval History: SUBJECTIVE: The patient feels progressively better. Her breathing is not labored any more. She does have mild cough but not wheezing. She uses BiPAP - like at home. She uses supplemental oxygen at 2 L/min nasal cannula - like at home. Denies chest pain. Denies abdominal pain, nausea and vomiting. She reports to me normal color bowel movements. She makes good amounts of urine. OBJECTIVE: Skin: Free of rash and discoloration. ENMT: Oral/pharyngeal mucosa is normal in appearance. Eyes: Sclera is white. There is no discharge from eyes. Respiratory: Normal breath sounds; no crackles or wheezes. CV: Heart is regular; no gallop or murmur. GI: Abdomen is soft and not tender. There is no palpable mass or visceromegaly. Neuro: There is no focal deficits. Her WBC is 23.0 thousand; 26.4 thousand yesterday and 30.4 thousand at admission. Hemoglobin 7.5; the same yesterday. She had hemoglobin of 10.8 2 weeks ago. Her creatinine is 1.21; 1.29 at admission. She has normal electrolytes. ASSESSMENT AND PLAN: Pneumonia/COPD exacerbation/acute on chronic hypoxic and hypercapnic respiratory failure. Better. We will substitute IV vancomycin/IV Zosyn with IV cefepime (Pseudomonas aeruginosa is growing in urine culture). We will continue nebulizer treatments with DuoNeb/Symbicort. We will continue BiPAP treatments and supplemental oxygen. Atrial fibrillation. Rate controlled. Will continue Coreg and Cardizem CD. Xarelto is on hold due to low Hb. Anemia. Hemoccult of stool is positive. I talked to GI service. They will likely do upper endoscopy tomorrow morning. Xarelto is on hold. Hypertensive renal disease with her CKD 3. She is on Coreg and Cardizem CD. Her lisinopril is discontinued. - Exam Vitals: Temp Pulse Resp BP Pulse Ox 97.9 F 80 20 152/79 99 07/20/18 20:00 07/20/18 20:00 07/20/18 20:00 07/20/18 20:00 07/20/18 20:00 Exam: xx - Assessment and Plan (1) Pneumonia Current Visit: Yes Status: Suspected (2) COPD exacerbation Current Visit: Yes Status: Acute (3) Acute and chronic respiratory failure ([id number]) Current Visit: Yes Status: Acute (4) Atrial fibrillation Current Visit: Yes Status: Chronic (5) Hypertensive renal disease with renal failure Current Visit: Yes Status: Chronic (6) CKD (chronic kidney disease) stage 3, GFR 30-59 ml/min Current Visit: Yes Status: Chronic (7) Anemia of chronic disease Current Visit: Yes Status: Acute - Time Spent with Patient Total time spent is greater than 50% in coordination of care (as documented) at patient's floor/unit and/or counseling patient: 25 - 35 minutes Plan of Care Discussed with: patient (and family..) Internal Medicine: Result - Labs CBC & Chem 7: 07/20/18 03:40 07/20/18 03:40 Labs: Short CBC 07/20/18 Range/Units 03:40 WBC 23.0 H (4.3-11.1) K/mcL Hgb 7.5 L (11.5-15.4) g/dL Hct 24.0 L (35.3-44.9) % Plt Count 276 (140-400) K/mcL Neutrophils # 21.8 H (1.6-8.9) K/mcL BMP 07/20/18 03:40 Sodium 143 Potassium 3.6 Chloride 105 Carbon Dioxide 33 H BUN 32 H Creatinine 1.21 H Glucose 171 H Calcium 8.3 L Liver Function 07/20/18 Range/Units 03:40 Total Bilirubin 0.2 L (0.3-1.0) mg/dL AST 12 L (13-39) Units/L ALT 23 (7-52) Units/L Alkaline Phosphatase 82 (34-104) Units/L Albumin 3.2 L (3.5-5.7) g/dL - ABG Interpretation ABG results: ABG ABG pH 7.28 pH Units (7.32-7.45) L 07/18/18 10:44 ABG pCO2 75 mmHg (35-45) H* 07/18/18 10:44 ABG pO2 72 mmHg (85-104) L 07/18/18 10:44 ABG O2 Saturation 91 % (95-98) L 07/18/18 10:44 Consult Discharge Plan - Plan Referrals: Ritika Humphreys, [employer] [Primary Care Provider] - (1) Pneumonia Qualifiers: Pneumonia type: due to methicillin-resistant Staphylococcus aureus (MRSA) Laterality: right Lung location: lower lobe of lung Qualified Code(s): J15.212 - Pneumonia due to Methicillin resistant Staphylococcus aureus (3) Acute and chronic respiratory failure ([id number]) Qualifiers: Respiratory failure complication: hypoxia and hypercapnia Qualified Code(s): J96.21 - Acute and chronic respiratory failure with hypoxia; J96.22 - Acute and chronic respiratory failure with hypercapnia; J96.22 - Acute and chronic respiratory failure with hypercapnia; J96.22 - Acute and chronic respiratory failure with hypercapnia (4) Atrial fibrillation Qualifiers: Atrial fibrillation type: paroxysmal Qualified Code(s): I48.0 - Paroxysmal atrial fibrillation
[2018-07-21] MEDS ORDERED: *HR* LORazepam 0.5 MG TABLET PO ONE (00:10)
[2018-07-21] MEDS: *HR* HYDROcodone/Acet 10/325 mg TABLET PO PRN ×2 (03:41→11:49)
[2018-07-21] MEDS: Acetaminophen 325 MG TABLET PO PRN ×2 (03:41→11:49)
[2018-07-21] MEDS: Cefepime HCl 2,000 MG in Water for inj. (sterile) 20 ML 20 ML IVP SCH ×2 (03:42→18:04)
[2018-07-21] MEDS: Ipratropium/Albuterol Neb 3 ML IH SCH ×6 (04:01→23:00)
[2018-07-21 04:58] LABS: Basophils % 0.1 %; Hematocrit 23.2 % (35.3-44.9); Hemoglobin 7.1 g/dL (11.5-15.4); Immature Granulocytes % 0.9 % (0-4); Lymphocytes # 0.7 K/mcL (0.6-4.6); Mean Corpuscular HGB Conc 30.6 g/dL (31.6-35.5); Mean Corpuscular Hemoglobin 29.5 pg (28.0-33.3); Mean Corpuscular Volume 96.3 fL (83.0-100.0); Mean Platelet Volume 9.2 fL (9.4-12.4); Monocytes # 0.5 K/mcL (0.0-1.3); Monocytes % 3.2 %; Neutrophils # 15.5 K/mcL (1.6-8.9); Nucleated Red Blood Cells 0.2 /100 WBC (0); Platelet Count 268 K/mcL (140-400); Red Blood Count 2.41 M/mcL (3.82-4.97); Red Cell Distribution Width 15.5 % (11.5-14.5); Segmented Neutrophils % 91.8 %
[2018-07-21 05:08] LABS: BUN/Creatinine Ratio 33 (6-26); Blood Urea Nitrogen 32 mg/dL (8-23); Calcium 8.2 mg/dL (8.6-10.3); Carbon Dioxide 35 mEq/L (23-29); Chloride 103 mEq/L (98-107); Glucose 144 mg/dL (70-105); Osmolality,Calculated 303 (280-300); Potassium 3.9 mEq/L (3.5-5.1); Sodium 142 mEq/L (136-145); eGFR For Non-African Americans 56 (> 60)
[2018-07-21] MEDS: Multivit/Ca/Min/Fe/FA 1 TAB TABLET PO SCH (10:11)
[2018-07-21] MEDS: Lactobacillus 1 EACH CAP.SPRINK PO SCH ×2 (10:12→20:45)
[2018-07-21] MEDS: Diltiazem CD (24hr) 120 MG CAPSULE PO SCH (10:12)
[2018-07-21] MEDS: Gabapentin 400 MG CAPSULE PO SCH ×2 (10:12→20:45)
[2018-07-21] MEDS: predniSONE 20 MG TABLET PO SCH (10:12)
--- NOTE | 2018-07-21 11:30 | Gastroenterology Consult Note ---
<Tyson Baker Chucho - Last Filed: 07/21/18 11:34> Date of Encounter: 07/21/18 Time of Encounter: 09:55 - Assessment and plan (1) Anemia Current Visit: Yes Status: Acute Assessment and plan: Hgb on admission was 7.8 and this AM Hgb 7.1. Fecal occult blood test was positive. Continue to monitor CBC and transfuse PRBC as needed. Plan for EGD and colonoscopy tomorrow. Clear liquid diet today, no red or purple. NPO at midnight. If unable tolerate NuLytely please use MiraLAX prep. If not clear by 6 AM, give 2 tap water enemas. Qualifiers: Anemia type: unspecified type Qualified Code(s): D64.9 - Anemia, unspecified (2) COPD exacerbation Current Visit: No Status: Resolved (3) Pneumonia Current Visit: Yes Status: Suspected Qualifiers: Pneumonia type: due to methicillin-resistant Staphylococcus aureus (MRSA) Laterality: right Lung location: lower lobe of lung Qualified Code(s): J15.212 - Pneumonia due to Methicillin resistant Staphylococcus aureus - Time Spent With Patient Total time spent is greater than 50% in coordination of care (as documented) at patient's floor/unit and/or counseling patient: GI History of Present Illness - Data of Consult Patient: new to practice Consult date: 07/21/18 Requesting Physician: Lester Roy - Consult Narrative Reason for consult: anemia History of present illness: Ms. Lennon is a 78 year old female with PMHx of asthma, Afib, COPD, HLD, HTN, renal disease who presented to the ED with complaints of shortness of breath that had been progressively worsening over the past 2-3 days. She was hospitalized here earlier this month and was discharged home after brief hospitalization for atrial fibrillation. During that time she was started on Xarelto for anticoagulation. She denies fever, chills, chest pain, abdominal pain, nausea, vomiting, melena, of hematochezia. We were consulted to evaluate her anemia. Hgb on admission was 7.8 and this AM Hgb 7.1. Fecal occult blood test was positive. Procedures: Colonoscopy 12/21/2001 Dr. Aleman: Nonspecific rectal inflammation. NSAIDs: None Anticoagulation: Xarelto Past Med Surg Social Fam HX - Past Medical History Medical history: asthma, atrial fibrillation, COPD, hyperlipidemia, hypertension , renal disease, thyroid disease Additional medical history: neuropathy; osteomyelitis; MRSA to right foot and detected in bronchial washings; Psychiatric history: no psych history, other - Past Surgical History Surgical History: appendectomy, cholecystectomy, hysterectomy, orthopedic, other , other Additional surgical history: right toes amputated - Social History Smoking Status: Former smoker Smokeless Tobacco Status: No Alcohol use: none Drug use: none - Family History Brother Family Member Ethnicity: Non- Living Status: Age at : 71 Cause of : CVA complications Hx Family Cardiac Disorders: Yes Hx Family Respiratory Disorders: No Hx Family Cancer: Yes Hx Family GI Disorders: No Hx Family Endocrine Disorder: Yes Hx Family Neuromuscular Disorders: No Hx Family Neurologic Disorders: Yes Hx Family HEENT Disorders: No Hx Family Autoimmune Disorders: No Hx Family Medical Disorders: Yes Sister Family Member Ethnicity: Non- Living Status: Hx Family Cardiac Disorders: Yes Hx Family Respiratory Disorders: No Hx Family Cancer: No Hx Family GI Disorders: No Hx Family Endocrine Disorder: Yes (DM) Hx Family Neuromuscular Disorders: No Hx Family Neurologic Disorders: No Hx Family HEENT Disorders: No Hx Family Autoimmune Disorders: No Father Family Member Ethnicity: Non- Living Status: Hx Family Cardiac Disorders: Yes (CAD, HF) Hx Family Respiratory Disorders: No Hx Family Cancer: No Hx Family GI Disorders: No Hx Family Endocrine Disorder: No Hx Family Neuromuscular Disorders: No Paternal Family Member Ethnicity: Non- Living Status: Hx Family Cardiac Disorders: Yes Hx Family Respiratory Disorders: Yes Hx Family Cancer: (liver) Hx Family GI Disorders: No Hx Family Endocrine Disorder: No Hx Family Neuromuscular Disorders: No Hx Family Neurologic Disorders: Yes Hx Family HEENT Disorders: No Hx Family Autoimmune Disorders: (arthritis) Mother Family Member Ethnicity: Non- Living Status: Hx Family Cardiac Disorders: Yes (HTN) Hx Family Respiratory Disorders: No Hx Family Cancer: Yes (Liver) Hx Family GI Disorders: Yes Hx Family Endocrine Disorder: Yes (DM) Hx Family Neuromuscular Disorders: No Hx Family Neurologic Disorders: No Hx Family HEENT Disorders: No Hx Family Autoimmune Disorders: No - Gastrointestinal Gastrointestinal: Present: as per HPI - Constitutional Constitutional: as per HPI - EENT Eyes: as per HPI Ears: Present: as per HPI Nose, mouth and throat: Present: as per HPI - Cardiovascular Cardiovascular ROS: Present: as per HPI - Respiratory Respiratory IM: Present: as per HPI - Genitourinary Genitourinary: Absent: change in color, Urinary frequency - Neurological ROS Neurological GI: Present: as per HPI - Hematologic/Lymphatic Hematologic/Lymphatic pediatric: Present: as per HPI - Musculoskeletal Musculoskeletal ROS GI: Present: as per HPI - Integumentary Integumentary GI: Present: as per HPI - Psychiatric ROS Psychiatric GI: Present: as per HPI - Endocrine Endocrine IM: Present: as per HPI - Constitutional Vitals: Temp Pulse Resp BP Pulse Ox 98.2 F 85 21 168/74 98 07/21/18 06:47 07/21/18 06:47 07/21/18 06:47 07/21/18 06:47 07/21/18 08:00 General appearance: Present: cooperative, A&O X 3, no acute distress, answers questions appropriately - Head Head exam: Present: atraumatic, normocephalic - Eye Eye exam: Present: normal appearance, sclera anicteric - ENT ENT exam: Present: mucous membranes dry - Neck Neck exam general surgery: Present: normal inspection, trachea midline - Respiratory Respiratory exam: Present: decreased breath sounds, CTAB. Absent: rales, rhonchi - Cardiovascular Cardiovascular exam: Present: RRR, +S1, +S2 - GI/Abdominal GI/Abdominal exam: Present: soft, no peritoneal signs. Absent: distended, firm , guarding, tenderness - Rectal Rectal exam: Present: deferred - Extremities Exam Extremities exam: Present: warm - Neurological Exam Neurological exam: Present: no focal deficits - Psychiatric Psychiatric exam: Present: normal affect, normal mood - Skin Skin exam: Present: dry, intact, normal color, warm Results - Labs CBC & Chem 7: 07/21/18 04:40 07/21/18 04:40 Labs: Last Result Calcium 8.2 mg/dL (8.6-10.3) L 07/21/18 04:40 Troponin I 0.03 ng/mL (< 0.04) 07/18/18 10:27 Stool Occult Blood Positive (Negative) A 07/19/18 Unknown Entire Visit Hgb 7.1 g/dL (11.5-15.4) L 07/21/18 04:40 Hct 23.2 % (35.3-44.9) L 07/21/18 04:40 Total Bilirubin 0.2 mg/dL (0.3-1.0) L 07/20/18 03:40 AST 12 Units/L (13-39) L 07/20/18 03:40 ALT 23 Units/L (7-52) 07/20/18 03:40 - ABG ABG results: ABG ABG pH 7.28 pH Units (7.32-7.45) L 07/18/18 10:44 ABG pCO2 75 mmHg (35-45) H* 07/18/18 10:44 ABG pO2 72 mmHg (85-104) L 07/18/18 10:44 ABG O2 Saturation 91 % (95-98) L 07/18/18 10:44 - Impressions Impressions Chest X-Ray 07/20/18 21:15 IMPRESSION: Bibasilar airspace disease, atelectasis or pneumonia. D/ / Maggy Gregorio Cha, MD / Maggy Gregorio Cha, MD Interpreting Provider: Maggy Gregorio Cha, MD Consult Discharge Plan - Plan Referrals: Ritika Humphreys, ENROLLMENT MANAGEMENT COORDINATOR [Primary Care Provider] - <Rodolfo Gifford - Last Filed: 07/25/18 00:41> Date of Encounter: 07/21/18 - Time Spent With Patient Total time spent is greater than 50% in coordination of care (as documented) at patient's floor/unit and/or counseling patient: GI History of Present Illness - Data of Consult Requesting Physician: Lester Roy - Consult Narrative History of present illness: Ms. Lennon is a 78 year old female - Constitutional Vitals: Temp Pulse Resp BP Pulse Ox 98.2 F 107 20 148/62 95 07/24/18 19:00 07/24/18 19:00 07/24/18 23:20 07/24/18 19:00 07/24/18 23:20 Results - Labs CBC & Chem 7: 07/24/18 04:57 07/24/18 04:57 Labs: Last Result Calcium 8.5 mg/dL (8.6-10.3) L 07/24/18 04:57 Troponin I 0.03 ng/mL (< 0.04) 07/18/18 10:27 Stool Occult Blood Positive (Negative) A 07/19/18 Unknown Entire Visit Hgb 8.0 g/dL (11.5-15.4) L 07/24/18 04:57 Hct 25.3 % (35.3-44.9) L 07/24/18 04:57 PT 12.8 Seconds (9.4-12.1) H 07/24/18 04:57 Total Bilirubin 0.2 mg/dL (0.3-1.0) L 07/20/18 03:40 AST 12 Units/L (13-39) L 07/20/18 03:40 ALT 23 Units/L (7-52) 07/20/18 03:40 - ABG ABG results: ABG ABG pH 7.50 pH Units (7.32-7.45) H 07/22/18 21:14 ABG pCO2 50 mmHg (35-45) H 07/22/18 21:14 ABG pO2 53 mmHg (85-104) L 07/22/18 21:14 ABG O2 Saturation 89 % (95-98) L 07/22/18 21:14 PT/INR, D-dimer PT 12.8 Seconds (9.4-12.1) H 07/24/18 04:57 - Attending Attestation Patient with severe underlying COPD. Discussed plan with her - she agreed to having an EGD only first and would decide on colonoscopy later. She was very relunctant to have colonoscopy so recommend just an EGD first under MAC. Informed consent obtained. I have personally performed a face to face evaluation on this patient. I have reviewed and agree with the care plan. History and Exam by me shows:
[2018-07-21] MEDS: amLODIPine 5 MG TABLET PO SCH (11:49)
--- NOTE | 2018-07-21 20:41 | Internal Med Progress Note ---
Hospitalist Progress Note - Encounter Date of Encounter: 07/21/18 Time of Encounter: 19:00 - Subjective Interval History: SUBJECTIVE: The patient feels good. Her breathing is not labored any more. She does have mild cough but not wheezing. She uses BiPAP - like at home. She uses supplemental oxygen at 2 L/min nasal cannula - like at home. Denies chest pain. Denies abdominal pain, nausea and vomiting. She has normal color bowel movements. She makes good amounts of urine. OBJECTIVE: Skin: Free of rash and discoloration. ENMT: Oral/pharyngeal mucosa is normal in appearance. Eyes: Sclera is white. There is no discharge from eyes. Respiratory: Normal breath sounds; no crackles or wheezes. CV: Heart is regular; no gallop or murmur. GI: Abdomen is soft and not tender. There is no palpable mass or visceromegaly. Neuro: There is no focal deficits. Her WBC is 16.9 thousand; 30.4 thousand at admission. Hemoglobin is 7.1; 7.5 yesterday. She had hemoglobin of 10.8 2 weeks ago. Her creatinine is 0.96; 1.29 at admission. She has normal electrolytes. ASSESSMENT AND PLAN: Pneumonia/COPD exacerbation/acute on chronic hypoxic and hypercapnic respiratory failure. Definitely better. Her breathing is baseline, again. She is on IV cefepime (Pseudomonas aeruginosa is growing in urine culture). We will continue prednisone at 20 mg daily and nebulizer treatments with DuoNeb/ Symbicort. We will continue BiPAP treatments and supplemental oxygen. Atrial fibrillation. Rate controlled. Will continue Coreg and Cardizem CD. Xarelto is on hold due to low Hb. Anemia. Hemoccult of stool is positive. GI service is consulted. They are planning upper and lower endoscopy tomorrow. We will monitor H&H every morning for a couple days. Hypertensive renal disease with her CKD 3. She is on Coreg and Cardizem CD. Her lisinopril is discontinued. - Exam Vitals: Temp Pulse Resp BP Pulse Ox 98.4 F 80 16 166/85 98 07/21/18 16:20 07/21/18 16:20 07/21/18 19:33 07/21/18 16:20 07/21/18 19:33 Exam: xx - Assessment and Plan (1) Pneumonia Current Visit: Yes Status: Suspected (2) COPD exacerbation Current Visit: Yes Status: Acute (3) Acute and chronic respiratory failure ([id number]) Current Visit: Yes Status: Acute (4) Atrial fibrillation Current Visit: Yes Status: Chronic (5) Hypertensive renal disease with renal failure Current Visit: Yes Status: Chronic (6) CKD (chronic kidney disease) stage 3, GFR 30-59 ml/min Current Visit: Yes Status: Chronic (7) Anemia Current Visit: Yes Status: Acute - Time Spent with Patient Total time spent is greater than 50% in coordination of care (as documented) at patient's floor/unit and/or counseling patient: 25 - 35 minutes Plan of Care Discussed with: patient Internal Medicine: Result - Labs CBC & Chem 7: 07/21/18 04:40 07/21/18 04:40 Labs: Short CBC 07/21/18 Range/Units 04:40 WBC 16.9 H (4.3-11.1) K/mcL Hgb 7.1 L (11.5-15.4) g/dL Hct 23.2 L (35.3-44.9) % Plt Count 268 (140-400) K/mcL Neutrophils # 15.5 H (1.6-8.9) K/mcL BMP 07/21/18 04:40 Sodium 142 Potassium 3.9 Chloride 103 Carbon Dioxide 35 H BUN 32 H Creatinine 0.96 Glucose 144 H Calcium 8.2 L - ABG Interpretation ABG results: ABG ABG pH 7.28 pH Units (7.32-7.45) L 07/18/18 10:44 ABG pCO2 75 mmHg (35-45) H* 07/18/18 10:44 ABG pO2 72 mmHg (85-104) L 07/18/18 10:44 ABG O2 Saturation 91 % (95-98) L 07/18/18 10:44 - Impressions Impressions Chest X-Ray 07/20/18 21:15 IMPRESSION: Bibasilar airspace disease, atelectasis or pneumonia. D/ / Maggy Gregorio Cha, MD / Maggy Gregorio Cha, MD Interpreting Provider: Maggy Gregorio Cha, MD Consult Discharge Plan - Plan Referrals: Petr,Ritika R, PAINT SPRAYER SANDBLASTER [Primary Care Provider] - (1) Pneumonia Qualifiers: Pneumonia type: due to methicillin-resistant Staphylococcus aureus (MRSA) Laterality: right Lung location: lower lobe of lung Qualified Code(s): J15.212 - Pneumonia due to Methicillin resistant Staphylococcus aureus (3) Acute and chronic respiratory failure ([id number]) Qualifiers: Respiratory failure complication: hypoxia and hypercapnia Qualified Code(s): J96.21 - Acute and chronic respiratory failure with hypoxia; J96.22 - Acute and chronic respiratory failure with hypercapnia; J96.22 - Acute and chronic respiratory failure with hypercapnia; J96.22 - Acute and chronic respiratory failure with hypercapnia (4) Atrial fibrillation Qualifiers: Atrial fibrillation type: paroxysmal Qualified Code(s): I48.0 - Paroxysmal atrial fibrillation (7) Anemia Qualifiers: Anemia type: unspecified type Qualified Code(s): D64.9 - Anemia, unspecified
[2018-07-21] MEDS ORDERED: Polyethylene Glycol 3350 255 GM POWDER PO ONE (22:30)
--- NOTE | 2018-07-22 00:36 | Anesthesia Evaluation PreOp ---
Date of Encounter: 07/22/18 Time of Encounter: 00:34 - Past History Planned Operation: EGD/Colonoscopy Cardiac History: CHF, HTN, Hyperlipidemia, Arrhythmia (AFib [anticoagulated on Xarelto]) Pulmonary History: Former smoker, Asthma, COPD RESTROOMS OR LOUNGES MAID History: Other (Neuropathy, Fibromyalgia) Other Medical History: Renal, Thyroid (Hypothyroidism), Other (RA, Hx MRSA [R- foot & bronchial washings]) Anesthesia History: No Prior Anesthetic Complications, Past Anesthesia (R- metatarsal amputation/Achilles tendon release 2016, [place], [place], [place],) Alcohol Use: none Drug use: none Medications and Allergies Albuterol Sulfate [Proair Hfa] 2 puff IH Q4H PRN 07/05/18 [History] Allopurinol [Zyloprim] 300 mg PO DAILY 07/05/18 [History] Amitriptyline [Elavil] 25 mg PO HS 07/05/18 [History] Azelastine HCl 1 drop BOTH EYES BID 07/05/18 [History] Carvedilol [Coreg] 6.25 mg PO BIDWM 07/05/18 [History] Citalopram Hydrobromide [Celexa] 40 mg PO DAILY 07/05/18 [History] Cyclobenzaprine HCl 10 mg PO TID PRN 07/05/18 [History] Denosumab [Prolia (For Outpatient Infusion)] 60 mg SQ [id number] 07/05/18 [History ] Docusate [Colace] 100 mg PO DAILY 07/05/18 [History] Ferrous Sulfate 325 mg PO DAILY 07/05/18 [History] Fluticasone Propionate Nasal [Flonase] 1 spr NS DAILY PRN 07/05/18 [History] Fluticasone/Salmeterol [Advair 250-50 Diskus] 1 puff IH BID 07/05/18 [History] Furosemide [Lasix] 20 mg PO DAILY 07/05/18 [History] Gabapentin [Neurontin] 400 mg PO BID 07/05/18 [History] HYDROcodone/Acet 10/325 mg [[place] 10-325 mg] 1 tab PO Q8H PRN 07/05/18 [History] Ipratropium/Albuterol Neb [Duoneb] 3 ml IH Q6HR PRN 07/05/18 [History] Lactobacillus Acidophilus [Acidophilus] 1 cap PO HS 07/05/18 [History] Levothyroxine [Synthroid] 125 mcg PO 6XW 07/05/18 [History] Lisinopril [Zestril] 5 mg PO DAILY 07/05/18 [History] Montelukast [Singulair] 10 mg PO HS 07/05/18 [History] Multivitamin [One Daily Multivitamin] 1 tab PO DAILY 07/05/18 [History] Nystatin Cream [Mycostatin Cream] 1 appl TP BID PRN 07/05/18 [History] Omeprazole [PriLOSEC] 20 mg PO DAILY 07/05/18 [History] Polyethylene Glycol 3350 [MiraLAX] 17 gm PO DAILY 07/05/18 [History] Roflumilast [Daliresp] 500 mcg PO DAILY 07/05/18 [History] Tiotropium [place] [Spiriva Respimat] 2 puff IH DAILY 07/05/18 [History] Diltiazem CD (24hr) [Cardizem CD] 120 mg PO DAILY 30 Days #30 cap.er.24h [Rx] Rivaroxaban [Xarelto] 20 mg PO DAILY 30 Days #30 tablet 07/07/18 [Rx] 3 Allergy/AdvReac Type Severity Reaction Status Date / Time acetaminophen [From Percocet] Allergy Rash Verified 07/05/18 19:07 aspirin Allergy See Verified 07/09/18 17:26 Comments clindamycin Allergy Itching Verified 07/09/18 17:26 hydrochlorothiazide Allergy Rash Verified 07/09/18 17:26 losartan [Losartan] Allergy Rash Verified 07/09/18 17:26 Oxycodone [From Percocet] Allergy Rash Verified 07/09/18 17:26 Sulfa (Sulfonamide Allergy Rash Verified 07/09/18 17:26 Antibiotics) codeine AdvReac Nausea Verified 07/09/18 17:26 levofloxacin [From Levaquin] AdvReac Hallucinati Verified 07/09/18 17:26 ng morphine AdvReac Irritable Verified 07/09/18 17:26 NSAIDS (Non-Steroidal AdvReac See Verified 07/09/18 17:26 Anti-Inflamma Comments rofecoxib [From Vioxx] AdvReac See Verified 07/09/18 17:26 Comments ropinirole [From Requip] AdvReac See Verified 07/09/18 17:26 Comments - Meds/Allergy Pre-op Review Medications Reviewed: Yes Allergies Reviewed: Yes Beta Blockers on Current Med List: No Anesthesia Results - Labs 07/21/18 04:40 07/21/18 04:40 Laboratory Tests 01/21/18 07/07/18 07/18/18 03:30 03:53 10:27 Est GFR (Non-Af Amer) Calcium Phosphorus 3.4 Magnesium 2.0 B-Natriuretic Peptide 181 H 07/21/18 04:40 Est GFR (Non-Af Amer) 56 L Calcium 8.2 L Phosphorus Magnesium B-Natriuretic Peptide - Imaging EKG: image reviewed (81bpm - Sinus rhythm Low voltage, precordial leads Left ventricular hypertrophy Anterior Q waves, possibly due to LVH Electronically Signed On 07-18-2018 18:30:32 EDT by Brian Vazquez) Additional studies: ECHO 03/2018 Impressions: Appropriate increase in LVEF with stress. Pharmacologic stress ECG is not diagnostic for ischemia secondary to baseline nonspecific ST and T findings. Normal left ventricular systolic function at baseline, LVEF 60-65%. Anesthesia Exam Vital Signs Temp Pulse Resp BP Pulse Ox 07/21/18 23:02 23 99 07/21/18 20:45 97.7 F 84 16 177/93 100 07/21/18 19:33 16 98 07/21/18 16:20 98.4 F 80 20 166/85 100 07/21/18 15:36 16 100 07/21/18 11:10 16 100 07/21/18 08:00 98 07/21/18 07:46 16 96 07/21/18 06:47 98.2 F 85 21 168/74 98 07/21/18 04:01 18 152/79 97 07/21/18 04:00 97.6 F 80 18 158/78 100 Height: 4'11" Weight: 277# BMI= 26 NPO (# of Hours): MNoc - HEENT Pupil (Motor): Pupils equal, EOMI Mallampati: II Teeth: Edentulous Denture Type: Upper: Complete, Lower: Complete - RESTROOMS OR LOUNGES MAID LOC: Oriented RESTROOMS OR LOUNGES MAID Motor: Normal RUE, Normal LUE, Normal RLE, Normal LLE, Normal Face RESTROOMS OR LOUNGES MAID Sensory: Normal: RUE, LUE, RLE, LLE, Face - Cardiac Rhythm: Irregular Murmur: None JVD: Yes - Pulmonary Breath Sounds: bilateral Clear Respiratory Effort: Symmetrical Anesthesia Assess/Plan ASA Score: 4 (AFib, COPD, RA, Fibromyalgia, HTN, Chol, CHF) Modified Jeromy Scale for Level of Consciousness: Cooperative, oriented, and tranquil Anesthetic Plan: General, MAC Monitoring Plan: Standard Monitors Recovery Plan: PACU
[2018-07-22] MEDS: Ipratropium/Albuterol Neb 3 ML IH SCH ×5 (03:26→19:37)
[2018-07-22] MEDS: Cefepime HCl 2,000 MG in Water for inj. (sterile) 20 ML 20 ML IVP SCH ×2 (04:19→15:36)
[2018-07-22 04:50] LABS: Hematocrit 27.1 % (35.3-44.9); Hemoglobin 8.1 g/dL (11.5-15.4)
[2018-07-22] MEDS ORDERED: Lidocaine -MPF 2% 2 ML VIAL ONE (06:30)
[2018-07-22] MEDS ORDERED: Propofol 500 MG/50 ML INFUS..BTL ONE (06:32)
[2018-07-22] MEDS ORDERED: *HR* Atropine Sulfate 8 MG/20 ML VIAL IVP ONE (06:34)
[2018-07-22] MEDS: Gabapentin 400 MG CAPSULE PO SCH ×2 (08:09→20:21)
[2018-07-22] MEDS: predniSONE 20 MG TABLET PO SCH (08:09)
[2018-07-22] MEDS: Diltiazem CD (24hr) 120 MG CAPSULE PO SCH (08:09)
[2018-07-22] MEDS: amLODIPine 5 MG TABLET PO SCH (08:09)
[2018-07-22] MEDS: Lactobacillus 1 EACH CAP.SPRINK PO SCH ×2 (08:10→20:21)
[2018-07-22] MEDS: Multivit/Ca/Min/Fe/FA 1 TAB TABLET PO SCH (08:11)
[2018-07-22] MEDS ORDERED: *HR* LORazepam 0.5 MG TABLET PO ONE (12:29)
[2018-07-22] MEDS ORDERED: Furosemide 40 MG/4 ML VIAL IVP ONE ×2 (14:22→21:49)
[2018-07-22] MEDS ORDERED: Haloperidol Lactate 5 MG/ML VIAL IVP ONE (16:55)
[2018-07-22] MEDS ORDERED: Haloperidol Lactate 5 MG/ML VIAL IVP PRN (17:09)
[2018-07-22] MEDS ORDERED: Warfarin perPT PO PRN (18:00)
[2018-07-22 18:25] LABS: INR 0.9; Prothrombin Time 10.4 Seconds (9.4-12.1)
[2018-07-22] MEDS ORDERED: *HR* Warfarin 2.5 MG TABLET PO ONE (19:47)
[2018-07-22] MEDS ORDERED: *HR* Warfarin 2 MG TABLET PO ONE (20:00)
[2018-07-22 21:18] LABS: ABG Base Excess 14 mEq/L (-2 to 3); ABG HCO3 39 mEq/L (21-27); ABG Oxygen Saturation 89 % (95-98); ABG PCO2 50 mmHg (35-45); ABG PO2 53 mmHg (85-104); ABG TCO2 40 mEq/L (20-26); Blood Gas PEEP 6 cm H2O
--- NOTE | 2018-07-22 21:20 | Internal Med Progress Note ---
Hospitalist Progress Note - Encounter Date of Encounter: 07/22/18 Time of Encounter: 15:00 - Subjective Interval History: SUBJECTIVE: The patient has developed severe dyspnea. It is associated with some confusion. The patient got bowel prep yesterday. She was using her BiPAP very little recently. OBJECTIVE: Skin: The patient has a bluish discoloration of her skin especially around her mouth. ENMT: Oral/pharyngeal mucosa is normal in appearance. Eyes: Sclera is white. There is no discharge from eyes. Respiratory: Normal breath sounds; no crackles or wheezes. CV: Heart is regular; no gallop or murmur. GI: Abdomen is soft and not tender. There is no palpable mass or visceromegaly. Neuro: There is no focal deficits. Her hemoglobin from today is 8.1; was 7.1 yesterday. Her chest x-ray shows pulmonary edema. ASSESSMENT AND PLAN: Pulmonary edema. Likely secondary to her bowel prep/limited use of BiPAP. I gave her 40 mg of IV Lasix. She has underlying CKD stage III. Dobutamine stress echo was done on 04/19/18. It showed no evidence for cardiac ischemia. It showed ejection fraction of 60-65%. We will repeat chest x-ray in the morning. Pneumonia/COPD exacerbation/acute on chronic hypoxic and hypercapnic respiratory failure. She is on IV cefepime (Pseudomonas aeruginosa is growing in urine culture). We will continue prednisone at 20 mg daily and nebulizer treatments with DuoNeb/Symbicort. We will continue BiPAP treatments and supplemental oxygen. Atrial fibrillation. Rate controlled. Will continue Coreg and Cardizem CD. Xarelto is on hold due to low Hb. I talked to the patient's family. We will put her on Coumadin (instead of Xarelto). It seems to be safer approach. Anemia. Hemoccult of stool is positive. GI service is consulted. The patient is not a candidate for any endoscopy at this time. We will monitor H&H closely. Hypertensive renal disease with her CKD 3. She is on Coreg and Cardizem CD. Her lisinopril is discontinued. - Exam Vitals: Temp Pulse Resp BP Pulse Ox 98.6 F 75 20 164/84 91 07/22/18 20:00 07/22/18 20:00 07/22/18 20:00 07/22/18 21:02 07/22/18 20:35 Exam: xx - Assessment and Plan (1) Pneumonia Current Visit: Yes Status: Suspected (2) COPD exacerbation Current Visit: Yes Status: Acute (3) Acute and chronic respiratory failure ([id number]) Current Visit: Yes Status: Acute (4) Atrial fibrillation Current Visit: Yes Status: Chronic (5) Hypertensive renal disease with renal failure Current Visit: Yes Status: Chronic (6) CKD (chronic kidney disease) stage 3, GFR 30-59 ml/min Current Visit: Yes Status: Chronic (7) Anemia Current Visit: Yes Status: Acute - Time Spent with Patient Total time spent is greater than 50% in coordination of care (as documented) at patient's floor/unit and/or counseling patient: 25 - 35 minutes Plan of Care Discussed with: patient (and family) Internal Medicine: Result - Labs CBC & Chem 7: 07/22/18 04:00 07/21/18 04:40 Labs: Short CBC 07/22/18 Range/Units 04:00 Hgb 8.1 L (11.5-15.4) g/dL Hct 27.1 L (35.3-44.9) % - ABG Interpretation ABG results: ABG ABG pH 7.28 pH Units (7.32-7.45) L 07/18/18 10:44 ABG pCO2 75 mmHg (35-45) H* 07/18/18 10:44 ABG pO2 72 mmHg (85-104) L 07/18/18 10:44 ABG O2 Saturation 91 % (95-98) L 07/18/18 10:44 PT/INR, D-dimer PT 10.4 Seconds (9.4-12.1) 07/22/18 15:57 - Impressions Impressions Chest X-Ray 07/22/18 14:42 IMPRESSION: Multifocal airspace opacities diffusely in the lungs, significantly increased from prior exam. Pattern may represent worsening pneumonia or developing ARDS. D/ / Daniele Zafar MD / Daniele Zafar MD Interpreting Provider: Daniele Zafar MD Consult Discharge Plan - Plan Referrals: Petr,Ritika R, PSS DELIVERY PROFESSIONAL [Primary Care Provider] - (1) Pneumonia Qualifiers: Pneumonia type: due to methicillin-resistant Staphylococcus aureus (MRSA) Laterality: right Lung location: lower lobe of lung Qualified Code(s): J15.212 - Pneumonia due to Methicillin resistant Staphylococcus aureus (3) Acute and chronic respiratory failure ([id number]) Qualifiers: Respiratory failure complication: hypoxia and hypercapnia Qualified Code(s): J96.21 - Acute and chronic respiratory failure with hypoxia; J96.22 - Acute and chronic respiratory failure with hypercapnia (4) Atrial fibrillation Qualifiers: Atrial fibrillation type: paroxysmal Qualified Code(s): I48.0 - Paroxysmal atrial fibrillation (7) Anemia Qualifiers: Anemia type: unspecified type Qualified Code(s): D64.9 - Anemia, unspecified
[2018-07-22] MEDS ORDERED: *HR* LORazepam 2 MG/ML VIAL IVP ONE (21:43)
[2018-07-23] MEDS: Ipratropium/Albuterol Neb 3 ML IH SCH ×7 (00:07→23:36)
[2018-07-23 01:26] LABS: Hematocrit 25.7 % (35.3-44.9); Hemoglobin 7.9 g/dL (11.5-15.4)
[2018-07-23 01:32] LABS: INR 1.1
[2018-07-23 01:47] LABS: BUN/Creatinine Ratio 23 (6-26); Blood Urea Nitrogen 22 mg/dL (8-23); Calcium 8.5 mg/dL (8.6-10.3); Carbon Dioxide 41 mEq/L (23-29); Chloride 94 mEq/L (98-107); Glucose 101 mg/dL (70-105); Osmolality,Calculated 295 (280-300); Potassium 3.4 mEq/L (3.5-5.1); Sodium 141 mEq/L (136-145); eGFR For Non-African Americans 56 (> 60)
[2018-07-23] MEDS: Cefepime HCl 2,000 MG in Water for inj. (sterile) 20 ML 20 ML IVP SCH ×2 (04:55→16:42)
[2018-07-23 05:26] LABS: Hematocrit 28.5 % (35.3-44.9); Hemoglobin 8.7 g/dL (11.5-15.4)
[2018-07-23] MEDS ORDERED: *HR* Metoprolol 5 MG/5 ML VIAL IVP ONE (06:45)
[2018-07-23] MEDS: Multivit/Ca/Min/Fe/FA 1 TAB TABLET PO SCH (09:52)
[2018-07-23] MEDS: Diltiazem CD (24hr) 120 MG CAPSULE PO SCH (09:53)
[2018-07-23] MEDS: Lactobacillus 1 EACH CAP.SPRINK PO SCH ×2 (09:54→20:19)
[2018-07-23] MEDS: predniSONE 20 MG TABLET PO SCH (09:54)
[2018-07-23] MEDS: amLODIPine 5 MG TABLET PO SCH (09:55)
[2018-07-23] MEDS: Gabapentin 400 MG CAPSULE PO SCH ×2 (09:55→20:19)
[2018-07-23] MEDS: Acetaminophen 325 MG TABLET PO PRN (10:03)
--- NOTE | 2018-07-23 17:26 | Internal Med Progress Note ---
Hospitalist Progress Note - Encounter Date of Encounter: 07/23/18 Time of Encounter: 17:24 - Subjective Interval History: SUBJECTIVE: The dyspnea observed yesterday subsided. She is pretty much baseline, again. She continues off and on BiPAP treatments at the daytime and continuously at bedtime. She is on 3 L/min nasal cannula oxygen. Denies chest pain. She has mild cough but not wheezing. Denies abdominal pain, nausea and vomiting. They have not seen anything like bleeding from her mouth or rectum. OBJECTIVE: Skin: The patient has a bluish discoloration of her skin especially around her mouth. ENMT: Oral/pharyngeal mucosa is normal in appearance. Eyes: Sclera is white. There is no discharge from eyes. Respiratory: Normal breath sounds; no crackles or wheezes. CV: Heart is regular; no gallop or murmur. GI: Abdomen is soft and not tender. There is no palpable mass or visceromegaly. Neuro: There is no focal deficits. Her hemoglobin is 7.9; 8.1 yesterday. Sodium is 141 with potassium of 3.4; 3.9 2 days ago. Bicarb is 41; 35 2 days ago. Creatinine is 0.96. Chest x-ray shows nearly complete resolution of pulmonary edema. It does show airspace opacities bilaterally. ASSESSMENT AND PLAN: Pulmonary edema. Resolved. Likely secondary to her bowel prep/limited use of BiPAP. Resolved after giving her 2 doses of IV Lasix. She has underlying CKD stage III. Dobutamine stress echo was done on 04/19/18. It showed no evidence for cardiac ischemia. It showed ejection fraction of 60-65%. Pneumonia/COPD exacerbation/acute on chronic hypoxic and hypercapnic respiratory failure. She is on IV cefepime (Pseudomonas aeruginosa is growing in urine culture). We will continue prednisone at 20 mg daily and nebulizer treatments with DuoNeb/Symbicort. We will continue BiPAP treatments and supplemental oxygen. Atrial fibrillation. Rate controlled. Will continue Coreg and Cardizem CD. Xarelto is on hold due to low Hb. I talked to the patient's family. We decided to put her on Coumadin (instead of Xarelto). It seems to be safer approach. Anemia. Hemoccult of stool is positive. GI service is consulted. The patient is not a candidate for any endoscopy at this time. We will monitor H&H closely. She will be on Coumadin instead of Xarelto. Hypertensive renal disease with her CKD 3. She is on Coreg and Cardizem CD. Her lisinopril is discontinued. I would like to see her stable for 2 days before discharging her. - Exam Vitals: Temp Pulse Resp BP Pulse Ox 98.2 F 100 17 136/90 92 07/23/18 16:33 07/23/18 16:33 07/23/18 16:33 07/23/18 16:33 07/23/18 16:33 Exam: xx - Assessment and Plan (1) Pneumonia Current Visit: Yes Status: Suspected (2) COPD exacerbation Current Visit: Yes Status: Acute (3) Acute and chronic respiratory failure ([id number]) Current Visit: Yes Status: Acute (4) Atrial fibrillation Current Visit: Yes Status: Chronic (5) Hypertensive renal disease with renal failure Current Visit: Yes Status: Chronic (6) CKD (chronic kidney disease) stage 3, GFR 30-59 ml/min Current Visit: Yes Status: Chronic (7) Anemia Current Visit: Yes Status: Acute - Time Spent with Patient Total time spent is greater than 50% in coordination of care (as documented) at patient's floor/unit and/or counseling patient: 25 - 35 minutes Plan of Care Discussed with: patient (and nurse..) Internal Medicine: Result - Labs CBC & Chem 7: 07/23/18 03:50 07/23/18 00:40 Labs: Short CBC 07/23/18 07/23/18 Range/Units 00:40 03:50 Hgb 7.9 L 8.7 L (11.5-15.4) g/dL Hct 25.7 L 28.5 L (35.3-44.9) % BMP 07/23/18 00:40 Sodium 141 Potassium 3.4 L Chloride 94 L Carbon Dioxide 41 H* BUN 22 Creatinine 0.96 Glucose 101 Calcium 8.5 L - ABG Interpretation ABG results: ABG ABG pH 7.50 pH Units (7.32-7.45) H 07/22/18 21:14 ABG pCO2 50 mmHg (35-45) H 07/22/18 21:14 ABG pO2 53 mmHg (85-104) L 07/22/18 21:14 ABG O2 Saturation 89 % (95-98) L 07/22/18 21:14 PT/INR, D-dimer PT 12.0 Seconds (9.4-12.1) 07/23/18 00:40 - Impressions Impressions Chest X-Ray 07/23/18 09:00 IMPRESSION: Stable exam with stable patchy/streaky airspace opacities bilaterally may relate to atelectasis, pulmonary edema or multifocal infiltrates. D/ / 07/23/2018 08:55:53 Miller Hendrix MD / jaron Interpreting Provider: Miller Hendrix MD Consult Discharge Plan - Plan Referrals: Ritika Humphreys CNP [Primary Care Provider] - (1) Pneumonia Qualifiers: Pneumonia type: due to methicillin-resistant Staphylococcus aureus (MRSA) Laterality: right Lung location: lower lobe of lung Qualified Code(s): J15.212 - Pneumonia due to Methicillin resistant Staphylococcus aureus (3) Acute and chronic respiratory failure ([id number]) Qualifiers: Respiratory failure complication: hypoxia and hypercapnia Qualified Code(s): J96.21 - Acute and chronic respiratory failure with hypoxia; J96.22 - Acute and chronic respiratory failure with hypercapnia (4) Atrial fibrillation Qualifiers: Atrial fibrillation type: paroxysmal Qualified Code(s): I48.0 - Paroxysmal atrial fibrillation (7) Anemia Qualifiers: Anemia type: unspecified type Qualified Code(s): D64.9 - Anemia, unspecified
[2018-07-24] MEDS: Ipratropium/Albuterol Neb 3 ML IH SCH ×6 (04:18→23:20)
[2018-07-24] MEDS: Cefepime HCl 2,000 MG in Water for inj. (sterile) 20 ML 20 ML IVP SCH ×2 (04:29→17:36)
[2018-07-24 05:04] LABS: Hematocrit 25.3 % (35.3-44.9)
[2018-07-24 05:10] LABS: INR 1.1; Prothrombin Time 12.8 Seconds (9.4-12.1)
[2018-07-24 05:41] LABS: BUN/Creatinine Ratio 18 (6-26); Blood Urea Nitrogen 18 mg/dL (8-23); Calcium 8.5 mg/dL (8.6-10.3); Carbon Dioxide 40 mEq/L (23-29); Chloride 98 mEq/L (98-107); Glucose 114 mg/dL (70-105); Osmolality,Calculated 299 (280-300); Potassium 3.4 mEq/L (3.5-5.1); Sodium 143 mEq/L (136-145); eGFR For Non-African Americans 54 (> 60)
[2018-07-24] MEDS: Diltiazem CD (24hr) 120 MG CAPSULE PO SCH (08:38)
[2018-07-24] MEDS: predniSONE 20 MG TABLET PO SCH (08:39)
[2018-07-24] MEDS: Multivit/Ca/Min/Fe/FA 1 TAB TABLET PO SCH ×2 (08:39→08:46)
[2018-07-24] MEDS: Gabapentin 400 MG CAPSULE PO SCH ×2 (08:39→20:28)
[2018-07-24] MEDS: amLODIPine 5 MG TABLET PO SCH (09:02)
[2018-07-24] MEDS: Lactobacillus 1 EACH CAP.SPRINK PO SCH ×2 (09:02→20:28)
[2018-07-24] MEDS: Acetaminophen 325 MG TABLET PO PRN (09:38)
--- NOTE | 2018-07-24 15:24 | Internal Med Progress Note ---
Hospitalist Progress Note - Encounter Date of Encounter: 07/24/18 Time of Encounter: 15:00 - Subjective Interval History: SUBJECTIVE: The patient feels weak. She struggles with her breathing at times. She continues off and on BiPAP treatments at the daytime and continuously at bedtime. She is on 3 L/min nasal cannula oxygen. Denies chest pain. She has mild cough but not wheezing. Denies abdominal pain, nausea and vomiting. They have not seen anything like bleeding from her mouth or rectum. She continues to struggle with chronic pain in her feet; right more than left. OBJECTIVE: Skin: The patient has a bluish discoloration of her skin especially around her mouth. ENMT: Oral/pharyngeal mucosa is normal in appearance. Eyes: Sclera is white. There is no discharge from eyes. Respiratory: Normal breath sounds; no crackles or wheezes. CV: Heart is regular; no gallop or murmur. GI: Abdomen is soft and not tender. There is no palpable mass or visceromegaly. Neuro: There is no focal deficits. Her hemoglobin is 8.0; 7.9 yesterday. She has potassium of 3.4; the same yesterday. Her bicarb is 40; 41 yesterday. Her creatinine is 0.99. Chest x-ray from yesterday shows nearly complete resolution of pulmonary edema. It does show airspace opacities bilaterally. ASSESSMENT AND PLAN: Pulmonary edema. Resolved. Likely secondary to her bowel prep/limited use of BiPAP. Resolved after giving her 2 doses of IV Lasix. She has underlying CKD stage III. Dobutamine stress echo was done on 04/19/18. It showed no evidence for cardiac ischemia. It showed ejection fraction of 60-65%. Pneumonia/COPD exacerbation/acute on chronic hypoxic and hypercapnic respiratory failure. She is on IV cefepime (Pseudomonas aeruginosa is growing in urine culture). We will continue prednisone at 20 mg daily and nebulizer treatments with DuoNeb/Symbicort. We will continue BiPAP treatments and supplemental oxygen. I am going to start her on Diamox at 250 mg IV twice a day. I will request pulmonary consult tomorrow, if she does not get better. Atrial fibrillation. Rate controlled. Will continue Coreg and Cardizem CD. Xarelto is on hold due to low Hb. I talked to the patient's family. We decided to put her on Coumadin (instead of Xarelto). It seems to be safer approach. Anemia. Hemoccult of stool is positive. GI service is consulted. The patient is not a candidate for any endoscopy at this time. We will monitor H&H closely. She will be on Coumadin instead of Xarelto. Hypertensive renal disease with her CKD 3. She is on Coreg and Cardizem CD. Her lisinopril is discontinued. I would like to see her stable for 2 days before discharging her. Talked to the patient's family in length about present medical problems and plan of treatment. - Exam Vitals: Temp Pulse Resp BP Pulse Ox 97.6 F 103 24 167/84 99 07/24/18 07:31 07/24/18 07:31 07/24/18 11:23 07/24/18 07:31 07/24/18 11:23 Exam: xx - Assessment and Plan (1) Pneumonia Current Visit: Yes Status: Suspected (2) COPD exacerbation Current Visit: Yes Status: Acute (3) Acute and chronic respiratory failure ([id number]) Current Visit: Yes Status: Acute (4) Atrial fibrillation Current Visit: Yes Status: Chronic (5) Hypertensive renal disease with renal failure Current Visit: Yes Status: Chronic (6) CKD (chronic kidney disease) stage 3, GFR 30-59 ml/min Current Visit: Yes Status: Chronic (7) Anemia Current Visit: Yes Status: Acute - Time Spent with Patient Total time spent is greater than 50% in coordination of care (as documented) at patient's floor/unit and/or counseling patient: 25 - 35 minutes Plan of Care Discussed with: patient (and family..) Internal Medicine: Result - Labs CBC & Chem 7: 07/24/18 04:57 07/24/18 04:57 Labs: Short CBC 07/24/18 Range/Units 04:57 Hgb 8.0 L (11.5-15.4) g/dL Hct 25.3 L (35.3-44.9) % BMP 07/24/18 04:57 Sodium 143 Potassium 3.4 L Chloride 98 Carbon Dioxide 40 H* BUN 18 Creatinine 0.99 Glucose 114 H Calcium 8.5 L - ABG Interpretation ABG results: ABG ABG pH 7.50 pH Units (7.32-7.45) H 07/22/18 21:14 ABG pCO2 50 mmHg (35-45) H 07/22/18 21:14 ABG pO2 53 mmHg (85-104) L 07/22/18 21:14 ABG O2 Saturation 89 % (95-98) L 07/22/18 21:14 PT/INR, D-dimer PT 12.8 Seconds (9.4-12.1) H 07/24/18 04:57 Consult Discharge Plan - Plan Referrals: Ritika Humphreys, [employer] [Primary Care Provider] - (1) Pneumonia Qualifiers: Pneumonia type: due to methicillin-resistant Staphylococcus aureus (MRSA) Laterality: right Lung location: lower lobe of lung Qualified Code(s): J15.212 - Pneumonia due to Methicillin resistant Staphylococcus aureus (3) Acute and chronic respiratory failure ([id number]) Qualifiers: Respiratory failure complication: hypoxia and hypercapnia Qualified Code(s): J96.21 - Acute and chronic respiratory failure with hypoxia; J96.22 - Acute and chronic respiratory failure with hypercapnia (4) Atrial fibrillation Qualifiers: Atrial fibrillation type: paroxysmal Qualified Code(s): I48.0 - Paroxysmal atrial fibrillation (7) Anemia Qualifiers: Anemia type: unspecified type Qualified Code(s): D64.9 - Anemia, unspecified
[2018-07-25] MEDS: Ipratropium/Albuterol Neb 3 ML IH SCH ×6 (04:09→23:56)
[2018-07-25] MEDS: Cefepime HCl 2,000 MG in Water for inj. (sterile) 20 ML 20 ML IVP SCH ×2 (05:59→16:53)
[2018-07-25 06:39] LABS: Basophils % 0.1 %; Eosinophils # 0.3 K/mcL (0.0-0.6); Eosinophils % 1.3 %; Hematocrit 26.5 % (35.3-44.9); Hemoglobin 8.2 g/dL (11.5-15.4); Immature Granulocytes % 0.4 % (0-4); Lymphocytes # 2.2 K/mcL (0.6-4.6); Mean Corpuscular HGB Conc 30.9 g/dL (31.6-35.5); Mean Corpuscular Hemoglobin 29.4 pg (28.0-33.3); Mean Platelet Volume 9.5 fL (9.4-12.4); Monocytes # 0.8 K/mcL (0.0-1.3); Monocytes % 3.9 %; Neutrophils # 16.4 K/mcL (1.6-8.9); Platelet Count 313 K/mcL (140-400); Red Blood Count 2.79 M/mcL (3.82-4.97); Red Cell Distribution Width 15.4 % (11.5-14.5); Segmented Neutrophils % 83.3 %
[2018-07-25 07:03] LABS: BUN/Creatinine Ratio 19 (6-26); Blood Urea Nitrogen 19 mg/dL (8-23); Calcium 8.8 mg/dL (8.6-10.3); Carbon Dioxide 32 mEq/L (23-29); Chloride 102 mEq/L (98-107); Glucose 90 mg/dL (70-105); Osmolality,Calculated 294 (280-300); Potassium 3.3 mEq/L (3.5-5.1); Sodium 141 mEq/L (136-145); eGFR For Non-African Americans 55 (> 60)
[2018-07-25 08:40] LABS: Prothrombin Time 11.5 Seconds (9.4-12.1)
--- NOTE | 2018-07-25 10:41 | Pulmonology Consult Note ---
<Andre Adams W - Last Filed: 07/25/18 16:31> Date of Encounter: 07/25/18 Medications and Allergies Albuterol Sulfate [Proair Hfa] 2 puff IH Q4H PRN 07/05/18 [History] Allopurinol [Zyloprim] 300 mg PO DAILY 07/05/18 [History] Amitriptyline [Elavil] 25 mg PO HS 07/05/18 [History] Azelastine HCl 1 drop BOTH EYES BID 07/05/18 [History] Carvedilol [Coreg] 6.25 mg PO BIDWM 07/05/18 [History] Citalopram Hydrobromide [Celexa] 40 mg PO DAILY 07/05/18 [History] Cyclobenzaprine HCl 10 mg PO TID PRN 07/05/18 [History] Denosumab [Prolia (For Outpatient Infusion)] 60 mg SQ [id number] 07/05/18 [History ] Docusate [Colace] 100 mg PO DAILY 07/05/18 [History] Ferrous Sulfate 325 mg PO DAILY 07/05/18 [History] Fluticasone Propionate Nasal [Flonase] 1 spr NS DAILY PRN 07/05/18 [History] Fluticasone/Salmeterol [Advair 250-50 Diskus] 1 puff IH BID 07/05/18 [History] Furosemide [Lasix] 20 mg PO DAILY 07/05/18 [History] Gabapentin [Neurontin] 400 mg PO BID 07/05/18 [History] HYDROcodone/Acet 10/325 mg [Abie 10-325 mg] 1 tab PO Q8H PRN 07/05/18 [History] Ipratropium/Albuterol Neb [Duoneb] 3 ml IH Q6HR PRN 07/05/18 [History] Lactobacillus Acidophilus [Acidophilus] 1 cap PO HS 07/05/18 [History] Levothyroxine [Synthroid] 125 mcg PO 6XW 07/05/18 [History] Lisinopril [Zestril] 5 mg PO DAILY 07/05/18 [History] Montelukast [Singulair] 10 mg PO HS 07/05/18 [History] Multivitamin [One Daily Multivitamin] 1 tab PO DAILY 07/05/18 [History] Nystatin Cream [Mycostatin Cream] 1 appl TP BID PRN 07/05/18 [History] Omeprazole [PriLOSEC] 20 mg PO DAILY 07/05/18 [History] Polyethylene Glycol 3350 [MiraLAX] 17 gm PO DAILY 07/05/18 [History] Roflumilast [Daliresp] 500 mcg PO DAILY 07/05/18 [History] Tiotropium Topmost [Spiriva Respimat] 2 puff IH DAILY 07/05/18 [History] Diltiazem CD (24hr) [Cardizem CD] 120 mg PO DAILY 30 Days #30 cap.er.24h [Rx] Rivaroxaban [Xarelto] 20 mg PO DAILY 30 Days #30 tablet 07/07/18 [Rx] 3 Allergy/AdvReac Type Severity Reaction Status Date / Time acetaminophen [From Percocet] Allergy Rash Verified 07/05/18 19:07 aspirin Allergy See Verified 07/09/18 17:26 Comments clindamycin Allergy Itching Verified 07/09/18 17:26 hydrochlorothiazide Allergy Rash Verified 07/09/18 17:26 losartan [Losartan] Allergy Rash Verified 07/09/18 17:26 Oxycodone [From Percocet] Allergy Rash Verified 07/09/18 17:26 Sulfa (Sulfonamide Allergy Rash Verified 07/09/18 17:26 Antibiotics) codeine AdvReac Nausea Verified 07/09/18 17:26 levofloxacin [From Levaquin] AdvReac Hallucinati Verified 07/09/18 17:26 ng morphine AdvReac Irritable Verified 07/09/18 17:26 NSAIDS (Non-Steroidal AdvReac See Verified 07/09/18 17:26 Anti-Inflamma Comments rofecoxib [From Vioxx] AdvReac See Verified 07/09/18 17:26 Comments ropinirole [From Requip] AdvReac See Verified 07/09/18 17:26 Comments All Systems: The remainder of the systems were reviewed and are negative Physical Examination Vital Signs: Vital Signs, Last 4 Hours Temp Pulse Resp BP Pulse Ox 07/25/18 15:00 97.6 F 90 17 149/77 98 Results - Laboratory Findings CBC and BMP: 07/25/18 06:27 07/25/18 06:27 ABG ABG pH 7.33 pH Units (7.32-7.45) 07/25/18 16:22 ABG pCO2 69 mmHg (35-45) H 07/25/18 16:22 ABG pO2 97 mmHg (85-104) 07/25/18 16:22 ABG O2 Saturation 97 % (95-98) 07/25/18 16:22 PT/INR, D-dimer PT 11.5 Seconds (9.4-12.1) 07/25/18 06:47 Abnormal lab findings: Abnormal lab results WBC 19.7 K/mcL (4.3-11.1) H 07/25/18 06:27 RBC 2.79 M/mcL (3.82-4.97) L 07/25/18 06:27 Hgb 8.2 g/dL (11.5-15.4) L 07/25/18 06:27 Hct 26.5 % (35.3-44.9) L 07/25/18 06:27 MCHC 30.9 g/dL (31.6-35.5) L 07/25/18 06:27 RDW 15.4 % (11.5-14.5) H 07/25/18 06:27 Neutrophils # 16.4 K/mcL (1.6-8.9) H 07/25/18 06:27 Nucleated RBCs/100 WBC 0.2 /100 WBC (0) H 07/21/18 04:40 Macrocytosis Present (Not Present) A 07/19/18 04:00 ABG pCO2 69 mmHg (35-45) H 07/25/18 16:22 ABG HCO3 37 mEq/L (21-27) H 07/25/18 16:22 ABG Total CO2 39 mEq/L (20-26) H 07/25/18 16:22 ABG Base Excess 9 mEq/L (-2 to 3) H 07/25/18 16:22 Potassium 3.3 mEq/L (3.5-5.1) L 07/25/18 06:27 Carbon Dioxide 32 mEq/L (23-29) H 07/25/18 06:27 Est GFR (Non-Af Amer) 55 (> 60) L 07/25/18 06:27 Total Bilirubin 0.2 mg/dL (0.3-1.0) L 07/20/18 03:40 AST 12 Units/L (13-39) L 07/20/18 03:40 B-Natriuretic Peptide 181 pg/mL (Less than 100) H 07/18/18 10:27 Serum Total Protein 5.6 g/dL (6.4-8.9) L 07/20/18 03:40 Albumin 3.2 g/dL (3.5-5.7) L 07/20/18 03:40 Procalcitonin 1.18 ng/mL (<=0.07) H 07/18/18 19:30 Urine Clarity Cloudy (Clear) A 07/18/18 12:10 Urine Blood Moderate (Negative) H 07/18/18 12:10 Urine Nitrite Positive (Negative) A 07/18/18 12:10 Ur Leukocyte Esterase Large (Negative) H 07/18/18 12:10 Urine Microscopic RBC 5-15 per hpf (0-3) H 07/18/18 12:10 Urine Microscopic WBC TNTC per hpf (0-3) H 07/18/18 12:10 Urine Bacteria Moderate per hpf (None-Few) H 07/18/18 12:10 Ur Culture Indicated? YES (NO) A 07/18/18 12:10 Stool Occult Blood Positive (Negative) A 07/19/18 Unknown Vancomycin Trough 12 mcg/mL (5-10) H 07/20/18 11:38 - Microbiology Findings Microbiology Findings: Microbiology, Last 48 Hours 07/18/18 15:56 Blood Culture - Final Peripheral Venipuncture No growth. Final report. - Clinical Findings Intake & Output: Intake & Output 07/25/18 07/25/18 07/25/18 07:59 15:59 23:59 Intake Total 0 / 0 360 / 360 Output Total 800 / 800 0 / 0 Balance -800 / -800 360 / 360 Weight 52.7 kg Consult Discharge Plan - Plan Referrals: Ritika Humphreys, [facility] [Primary Care Provider] - - Attending Attestation I examined this patient and my medical decision-making was reviewed with the Resident Physician. I agree with the documented findings, disposition and treatment plan as described except to the extent set forth below. We independently had [id number] contact with the patient Patient seen and examined at bedside Labs, radiology, chart personally reviewed. Impression: 1. Acute on chronic hypoxic hypercapnic respiratory failure 2. Pneumonia 3. AECOPD 4. HFpEF with acute volume overload 5. BEVERLY 6. Myoclonic Jerking. 7. Acute on chronic metabolic alkalosis Recs: 1. Continue supplemental oxygen during the day to use saturation greater than 89% incentive spirometry should be encouraged along with out of bed to chair and ambulation as tolerated once more stable and supervised which will help mitigate the effects of atelectasis and VQ mismatching while inpatient. There is some consideration of the patient being prepared for endoscopy which at this point I think represents a prohibitively high risk procedure given her respiratory status and should be considered further as an outpatient if at all 2. Send sputum culture and respiratory infection panel along with Legionella and strep pneumo antigen if not already obtained I believe blood cultures have been obtained at this point. I would broaden her antimicrobials to also cover for MRSA (vancomycin) given that she has had a history of this in the past and her white count continues to rise. We will send stool for induced sputum with hypertonic saline to facilitate sputum specimen. Would continue cefepime at present. 3. Continue schedule bronchodilators DuoNeb every 6 hours with every one hour albuterol treatments on an as-needed basis, Continue oral glucocorticoids would recommend prednisone 40 mg with plan to taper over the next 2-4 weeks 4. Appearing more euvolemic on examination today would hold further aggressive diuresis especially given worsening evidence of alkalosis which I suspect is related to contraction 5. Continue BiPAP at night there is no indication to could use this continuously in fact may worsen alkalosis 6. I suspect this is related to electrolyte derangements and possible medication effect repeat ABG at this time consider neurology consultation 7. Hold further doses of Diamox given HCO3 in the mid 30s at this time which is close to her baseline. Aggressive replacement of electrolytes including potassium and chloride. Continue to monitor renal function as she is on multiple medications that have possibility of nephrotoxicity Pulmonary will continue to follow thank you so much for this consultation. <Remy Bullock - Last Filed: 07/25/18 18:23> Date of Encounter: 07/25/18 Time of Encounter: 10:00 Assessment and Plan (1) Acute on chronic respiratory failure with hypoxia and hypercapnia Current Visit: Yes Status: Acute -Secondary to her history of chronic COPD. Patient on 4 L of oxygen at home and BiPAP. -Most recent chest x-ray showed persistent bilateral infiltrates. -Currently on IV cefepime, prednisone 20 mg, DuoNeb's q6h and 1 hour albuterol treatment PRN. -Increase prednisone from 20 to 40 mg, Legionella and strep pneumo antigen pending. Blood cultures pending, hypertonic sputum culture pending (2) Acute exacerbation of chronic obstructive airways disease Current Visit: No Status: Acute - Plan As above. (3) Pneumonia Current Visit: Yes Status: Suspected -Patient is a history of MRSA pneumonia. . His entered with right basilar opacity on chest x-ray and leukocytosis (16.9) -On physical exam it appears that the the pneumonia seems to be resolving - no egophony or tactile fremitus appreciated, however patient continues to be leukocytotic with WBC of 19.7. -Completed a course of IV vancomycin and Zosyn. Currently she is on IV cefepime -With the history of MRSA, it is recommended she continues to be vancomycin. -Continue to monitor Qualifiers: Pneumonia type: due to methicillin-resistant Staphylococcus aureus (MRSA) Laterality: right Lung location: lower lobe of lung Qualified Code(s): J15.212 - Pneumonia due to Methicillin resistant Staphylococcus aureus (4) Diastolic CHF Current Visit: No Status: Chronic -Patient has a history of diastolic CHF. Her most recent stress echo showed an EF of 60-65%. -Was given 40 mg Lasix 3 days ago. Currently discontinuing furosemide because patient does not appear to be volume overloaded. -Continue to monitor Qualifiers: Heart failure chronicity: acute on chronic Qualified Code(s): I50.33 - Acute on chronic diastolic (congestive) heart failure (5) Metabolic alkalosis Current Visit: No Status: Acute - likely due to contraction alkalosis secondary to lasix, currently trending better. - Recommended BiPAP use only at night and not every time because it might worsen metabolic alkalosis. -Recommended holding off on further doses of Diamox because the bicarbonate is in 30s at this time. (6) Myoclonic jerking Current Visit: Yes Status: Acute -She was tremulous today. This could be secondary to electrolyte derangements -Replenish electrolytes as needed. Repeat ABG. Consult neurology (7) BEVERLY (obstructive sleep apnea) Current Visit: No Status: Chronic -Patient has a history of BEVERLY. -Continue to use BiPAP at night. (8) Anemia Current Visit: Yes Status: Acute -likely anemia of chronic disease, patient has a history of COPD and a bunch of other comorbidities - Hemoglobin currently 8.2. -Transfuse packed red blood cells if hemoglobin is less than 7. Qualifiers: Anemia type: unspecified type Qualified Code(s): D64.9 - Anemia, unspecified History of Present Illness Consult date: 07/25/18 Chief complaint: shortness of breath History of present illness: Ms. Lennon is a 71 showed female with a past medical history of COPD, hyper lipidemia, hypertension, who is in the hospital for the last 7 days during treatment for pneumonia and COPD exacerbation. Patient recently underwent a bowel prep for undergoing EGD/colonoscopy. After the bowel prep patient has been found to have more shortness of breath with concerns for developing pulmonary edema, along with hypercarbia. Patient was given 40 mg IV Lasix and her symptoms seemed to have resolved radiographically . however yesterday she had some labored breathing and pulmonology was consulted for acute on chronic respiratory failure. Past Med Surg Social Fam HX - Past Medical History Medical history: asthma, atrial fibrillation, COPD, hyperlipidemia, hypertension , renal disease, thyroid disease Additional medical history: neuropathy; osteomyelitis; MRSA to right foot and detected in bronchial washings; Psychiatric history: no psych history, other - Past Surgical History Surgical History: appendectomy, cholecystectomy, hysterectomy, orthopedic, other , other Additional surgical history: right toes amputated - Social History Smoking Status: Former smoker Smokeless Tobacco Status: No Alcohol use: none Drug use: none - Family History Brother Family Member Ethnicity: Non- Living Status: Age at : 71 Cause of : CVA complications Hx Family Cardiac Disorders: Yes Hx Family Respiratory Disorders: No Hx Family Cancer: Yes Hx Family GI Disorders: No Hx Family Endocrine Disorder: Yes Hx Family Neuromuscular Disorders: No Hx Family Neurologic Disorders: Yes Hx Family HEENT Disorders: No Hx Family Autoimmune Disorders: No Hx Family Medical Disorders: Yes Sister Family Member Ethnicity: Non- Living Status: Hx Family Cardiac Disorders: Yes Hx Family Respiratory Disorders: No Hx Family Cancer: No Hx Family GI Disorders: No Hx Family Endocrine Disorder: Yes (DM) Hx Family Neuromuscular Disorders: No Hx Family Neurologic Disorders: No Hx Family HEENT Disorders: No Hx Family Autoimmune Disorders: No Father Family Member Ethnicity: Non- Living Status: Hx Family Cardiac Disorders: Yes (CAD, HF) Hx Family Respiratory Disorders: No Hx Family Cancer: No Hx Family GI Disorders: No Hx Family Endocrine Disorder: No Hx Family Neuromuscular Disorders: No Paternal Family Member Ethnicity: Non- Living Status: Hx Family Cardiac Disorders: Yes Hx Family Respiratory Disorders: Yes Hx Family Cancer: (liver) Hx Family GI Disorders: No Hx Family Endocrine Disorder: No Hx Family Neuromuscular Disorders: No Hx Family Neurologic Disorders: Yes Hx Family HEENT Disorders: No Hx Family Autoimmune Disorders: (arthritis) Mother Family Member Ethnicity: Non- Living Status: Hx Family Cardiac Disorders: Yes (HTN) Hx Family Respiratory Disorders: No Hx Family Cancer: Yes (Liver) Hx Family GI Disorders: Yes Hx Family Endocrine Disorder: Yes (DM) Hx Family Neuromuscular Disorders: No Hx Family Neurologic Disorders: No Hx Family HEENT Disorders: No Hx Family Autoimmune Disorders: No All Systems: The remainder of the systems were reviewed and are negative Physical Examination Vital Signs: Vital Signs, Last 4 Hours Temp Pulse Resp BP Pulse Ox 07/25/18 07:29 98.2 F 107 19 121/74 97 General appearance: alert (mildl ditressed) Effort: mildly labored Auscultation: bilateral: diminished breath sounds, rales Cardiovascular: regular rate and rhythm Gastrointestinal: soft, non-tender Extremities: no cyanosis, no edema, no clubbing Results - Laboratory Findings CBC and BMP: 07/25/18 06:27 07/25/18 06:27 ABG ABG pH 7.50 pH Units (7.32-7.45) H 07/22/18 21:14 ABG pCO2 50 mmHg (35-45) H 07/22/18 21:14 ABG pO2 53 mmHg (85-104) L 07/22/18 21:14 ABG O2 Saturation 89 % (95-98) L 07/22/18 21:14 PT/INR, D-dimer PT 11.5 Seconds (9.4-12.1) 07/25/18 06:47 Abnormal lab findings: Abnormal lab results WBC 19.7 K/mcL (4.3-11.1) H 07/25/18 06:27 RBC 2.79 M/mcL (3.82-4.97) L 07/25/18 06:27 Hgb 8.2 g/dL (11.5-15.4) L 07/25/18 06:27 Hct 26.5 % (35.3-44.9) L 07/25/18 06:27 MCHC 30.9 g/dL (31.6-35.5) L 07/25/18 06:27 RDW 15.4 % (11.5-14.5) H 07/25/18 06:27 Neutrophils # 16.4 K/mcL (1.6-8.9) H 07/25/18 06:27 Nucleated RBCs/100 WBC 0.2 /100 WBC (0) H 07/21/18 04:40 Macrocytosis Present (Not Present) A 07/19/18 04:00 ABG pH 7.50 pH Units (7.32-7.45) H 07/22/18 21:14 ABG pCO2 50 mmHg (35-45) H 07/22/18 21:14 ABG pO2 53 mmHg (85-104) L 07/22/18 21:14 ABG HCO3 39 mEq/L (21-27) H 07/22/18 21:14 ABG Total CO2 40 mEq/L (20-26) H 07/22/18 21:14 ABG O2 Saturation 89 % (95-98) L 07/22/18 21:14 ABG Base Excess 14 mEq/L (-2 to 3) H 07/22/18 21:14 Potassium 3.3 mEq/L (3.5-5.1) L 07/25/18 06:27 Carbon Dioxide 32 mEq/L (23-29) H 07/25/18 06:27 Est GFR (Non-Af Amer) 55 (> 60) L 07/25/18 06:27 Total Bilirubin 0.2 mg/dL (0.3-1.0) L 07/20/18 03:40 AST 12 Units/L (13-39) L 07/20/18 03:40 B-Natriuretic Peptide 181 pg/mL (Less than 100) H 07/18/18 10:27 Serum Total Protein 5.6 g/dL (6.4-8.9) L 07/20/18 03:40 Albumin 3.2 g/dL (3.5-5.7) L 07/20/18 03:40 Procalcitonin 1.18 ng/mL (<=0.07) H 07/18/18 19:30 Urine Clarity Cloudy (Clear) A 07/18/18 12:10 Urine Blood Moderate (Negative) H 07/18/18 12:10 Urine Nitrite Positive (Negative) A 07/18/18 12:10 Ur Leukocyte Esterase Large (Negative) H 07/18/18 12:10 Urine Microscopic RBC 5-15 per hpf (0-3) H 07/18/18 12:10 Urine Microscopic WBC TNTC per hpf (0-3) H 07/18/18 12:10 Urine Bacteria Moderate per hpf (None-Few) H 07/18/18 12:10 Ur Culture Indicated? YES (NO) A 07/18/18 12:10 Stool Occult Blood Positive (Negative) A 07/19/18 Unknown Vancomycin Trough 12 mcg/mL (5-10) H 07/20/18 11:38 - Microbiology Findings Microbiology Findings: Microbiology, Last 48 Hours 07/18/18 15:56 Blood Culture - Final Peripheral Venipuncture No growth. Final report. - Clinical Findings Intake & Output: Intake & Output 07/24/18 07/25/18 07/25/18 23:59 07:59 15:59 Intake Total 260 / 260 0 / 0 120 / 120 Output Total 0 / 0 800 / 800 Balance 260 / 260 -800 / -800 120 / 120 Weight 52.7 kg
[2018-07-25] MEDS: predniSONE 20 MG TABLET PO SCH (12:28)
[2018-07-25] MEDS: Diltiazem CD (24hr) 120 MG CAPSULE PO SCH (12:28)
[2018-07-25] MEDS: amLODIPine 5 MG TABLET PO SCH (12:29)
[2018-07-25] MEDS: Multivit/Ca/Min/Fe/FA 1 TAB TABLET PO SCH (12:29)
[2018-07-25] MEDS: Lactobacillus 1 EACH CAP.SPRINK PO SCH ×2 (12:29→22:47)
[2018-07-25] MEDS: Gabapentin 400 MG CAPSULE PO SCH ×2 (12:30→22:47)
[2018-07-25] MEDS: Nystatin SUSP 5 ML UD.LIQ PO SCH ×4 (12:31→22:48)
[2018-07-25] MEDS ORDERED: predniSONE 20 MG TABLET PO ONE (15:57)
[2018-07-25 16:26] LABS: ABG Base Excess 9 mEq/L (-2 to 3); ABG HCO3 37 mEq/L (21-27); ABG Oxygen Saturation 97 % (95-98); ABG PCO2 69 mmHg (35-45); ABG PH 7.33 pH Units (7.32-7.45); ABG PO2 97 mmHg (85-104); ABG TCO2 39 mEq/L (20-26)
--- NOTE | 2018-07-25 17:35 | Internal Med Progress Note ---
Hospitalist Progress Note - Encounter Date of Encounter: 07/25/18 Time of Encounter: 17:33 - Subjective Interval History: SUBJECTIVE: Her breathing seems to be better today, when compared to yesterday. She continues to use increase flow oxygen; at 4 L/min (at 3 L/min at home). She continues to use off and on BiPAP at the daytime and continuously at nighttime. She was doing better at home. She feels weak. She did not ambulate yesterday and today. Denies chest pain. She has mild cough but not wheezing. Denies abdominal pain, nausea and vomiting. They have not seen anything like bleeding from her mouth or rectum. OBJECTIVE: Skin: The patient has a bluish discoloration of her skin especially around her mouth. ENMT: Oral/pharyngeal mucosa is normal in appearance. Eyes: Sclera is white. There is no discharge from eyes. Respiratory: Normal breath sounds; no crackles or wheezes. CV: Heart is regular; no gallop or murmur. GI: Abdomen is soft and not tender. There is no palpable mass or visceromegaly. Neuro: There is no focal deficits. Hemoglobin is 8.2; 8.0 yesterday. WBC is 19.7 thousand; 16.9 thousand 4 days ago. Potassium is 3.3; 3.4 yesterday. Her bicarb is 32; 40 yesterday. Her creatinine is 0.98; with GFR of 55. Chest x-ray from today shows persistent bilateral lung infiltrates. ASSESSMENT AND PLAN: Acute on chronic respiratory failure with hypoxia and hypercapnia. Secondary to recently observed pulmonary congestion (likely triggered by her bowel prep, she received recently). Got better after giving her a couple doses of IV Lasix. She has underlying severe COPD, diastolic heart failure and mild CKD stage III. Dobutamine stress echo was done on 04/19/18. It showed no evidence for cardiac ischemia. It showed ejection fraction of 60-65%. Pneumonia/COPD exacerbation. She is on IV cefepime (Pseudomonas aeruginosa is growing in urine culture). We will continue prednisone at 20 mg daily and nebulizer treatments with DuoNeb/Symbicort. We will continue BiPAP treatments and supplemental oxygen. I started her on IV Diamox yesterday. Pulmonary diseases is consulted. Atrial fibrillation. Rate controlled. Will continue Coreg and Cardizem CD. Xarelto is on hold due to low Hb. I talked to the patient's family. We decided to put her on Coumadin (instead of Xarelto). It seems to be safer approach. Anemia. Hemoccult of stool is positive. GI service is consulted. The patient is not a candidate for any endoscopy at this time. We will monitor H&H closely. She will be on Coumadin instead of Xarelto. Hypertensive renal disease with her CKD 3. She is on Coreg and Cardizem CD. Her lisinopril is discontinued. - Exam Vitals: Temp Pulse Resp BP Pulse Ox 97.6 F 90 16 149/77 98 07/25/18 15:00 07/25/18 15:00 07/25/18 15:44 07/25/18 15:00 07/25/18 15:44 Exam: xx - Assessment and Plan (1) Acute and chronic respiratory failure ([id number]) Current Visit: Yes Status: Acute (2) Pneumonia Current Visit: Yes Status: Suspected (3) COPD exacerbation Current Visit: Yes Status: Acute (4) Atrial fibrillation Current Visit: Yes Status: Chronic (5) Hypertensive renal disease with renal failure Current Visit: Yes Status: Chronic (6) CKD (chronic kidney disease) stage 3, GFR 30-59 ml/min Current Visit: Yes Status: Chronic (7) Anemia Current Visit: Yes Status: Acute - Time Spent with Patient Total time spent is greater than 50% in coordination of care (as documented) at patient's floor/unit and/or counseling patient: 25 - 35 minutes Plan of Care Discussed with: patient (and family..) Internal Medicine: Result - Labs CBC & Chem 7: 07/25/18 06:27 07/25/18 06:27 Labs: Short CBC 07/25/18 Range/Units 06:27 WBC 19.7 H (4.3-11.1) K/mcL Hgb 8.2 L (11.5-15.4) g/dL Hct 26.5 L (35.3-44.9) % Plt Count 313 (140-400) K/mcL Neutrophils # 16.4 H (1.6-8.9) K/mcL BMP 07/25/18 06:27 Sodium 141 Potassium 3.3 L Chloride 102 Carbon Dioxide 32 H BUN 19 Creatinine 0.98 Glucose 90 Calcium 8.8 - ABG Interpretation ABG results: ABG ABG pH 7.33 pH Units (7.32-7.45) 07/25/18 16:22 ABG pCO2 69 mmHg (35-45) H 07/25/18 16:22 ABG pO2 97 mmHg (85-104) 07/25/18 16:22 ABG O2 Saturation 97 % (95-98) 07/25/18 16:22 PT/INR, D-dimer PT 11.5 Seconds (9.4-12.1) 07/25/18 06:47 - Impressions Impressions Chest X-Ray 07/25/18 08:00 IMPRESSION: Persistent bilateral lung infiltrates. D/ / 07/25/2018 07:50:08 Martir Larwence MD / rosa Interpreting Provider: Martir Lawrence MD Consult Discharge Plan - Plan Referrals: Ritika Humphreys, [employer] [facility] [Primary Care Provider] - (1) Acute and chronic respiratory failure ([id number]) Qualifiers: Respiratory failure complication: hypoxia and hypercapnia Qualified Code(s): J96.21 - Acute and chronic respiratory failure with hypoxia; J96.22 - Acute and chronic respiratory failure with hypercapnia (2) Pneumonia Qualifiers: Pneumonia type: due to methicillin-resistant Staphylococcus aureus (MRSA) Laterality: right Lung location: lower lobe of lung Qualified Code(s): J15.212 - Pneumonia due to Methicillin resistant Staphylococcus aureus (4) Atrial fibrillation Qualifiers: Atrial fibrillation type: paroxysmal Qualified Code(s): I48.0 - Paroxysmal atrial fibrillation (7) Anemia Qualifiers: Anemia type: unspecified type Qualified Code(s): D64.9 - Anemia, unspecified
[2018-07-25] MEDS: 3% Sodium Chloride Inhalation 4 ML VIAL.NEB IH SCH ×3 (18:44→22:24)
[2018-07-25] MEDS: *HR* HYDROcodone/Acet 10/325 mg TABLET PO PRN (22:45)
[2018-07-26] MEDS: Ipratropium/Albuterol Neb 3 ML IH SCH ×5 (03:35→21:55)
[2018-07-26] MEDS: Cefepime HCl 2,000 MG in Water for inj. (sterile) 20 ML 20 ML IVP SCH (04:37)
[2018-07-26 05:06] LABS: ABG Base Excess 3 mEq/L (-2 to 3); ABG HCO3 31 mEq/L (21-27); ABG Oxygen Saturation 97 % (95-98); ABG PCO2 74 mmHg (35-45); ABG PH 7.24 pH Units (7.32-7.45); ABG PO2 110 mmHg (85-104); ABG TCO2 34 mEq/L (20-26)
--- NOTE | 2018-07-26 06:45 | Pulmonology Progress Note ---
Date of Encounter: 07/26/18 Time of Encounter: 06:45 Assessment and Plan (1) Acute on chronic respiratory failure with hypoxia and hypercapnia Current Visit: Yes Status: Acute Worsening evidence of respiratory failure which I feel is a combination of pneumonia COPD exacerbation and hydrostatic pulmonary edema from heart failure Baldev would not start BiPAP for the course of the morning empirically IPAP 16/ EPAP 6 with FiO2 bleed to keep oxygen saturation greater than 88% Can likely be weaned off "rescue" BiPAP early afternoon And can return to home BiPAP settings at night (with sleep) and with naps (2) Pneumonia Current Visit: Yes Status: Acute Radiographically a headache concern for pneumonia with persistent leukocytosis she is been brought now to cover both vancomycin for MRSA coverage and cefepime for pseudomonas along with the rest of hospital associated pathogens. Induced sputum 3 was ordered yesterday pending results also results of respiratory infection panel. CBC from today is also pending she remains afebrile. This antimicrobial regimen should also cover for presumed urinary tract infection on this admission (Pseudomonas) which is pansensitive Qualifiers: Pneumonia type: due to unspecified organism Lung location: unspecified part of lung Qualified Code(s): J18.9 - Pneumonia, unspecified organism (3) BEVERLY on CPAP Current Visit: No Status: Chronic Home BiPAP settings are 11/6 she will need FiO2 bleed to keep saturation greater than 88% (4) Acute exacerbation of CHF (congestive heart failure) Current Visit: No Status: Acute Clear evidence of volume overload on examination a day recommend reinstitution of Lasix diuresis and most needed in this situation will be optimization of blood pressure control heart rate appears fairly well controlled right now I will defer to the primary medicine service for optimization of blood pressure. We will follow-up on bicarbonate she has no acute on chronic metabolic alkalosis which may have been precipitated by diuresis over the weekend she did receive the course of Diamox yesterday and HCO3 was on the blood gas looked within the acceptable range if no change in kidney function today would recommend reinstitution of Lasix over the next 24 hours and possibly beyond. No acute indication for reinstitution of Diamox at this time Qualifiers: Heart failure type: unspecified Qualified Code(s): I50.9 - Heart failure, unspecified (5) Acute exacerbation of chronic obstructive airways disease Current Visit: No Status: Acute Agree with today IV glucocorticoids and bronchodilators can likely be transitioned back to oral glucocorticoids over the next 24 hours (6) Myoclonic jerking Current Visit: Yes Status: Acute This is most likely a combination of electrolyte abnormalities and hypercarbia 1 caveat to this would be the use of cefepime in older individuals has been associated with neurological sequelae would defer to primary team for antimicrobial adjustment if they feel that this could be contributing factor which in my mind is at least equivocal Subjective Principal diagnosis: COPD exacerbation Interval history: Overnight she has not done particularly well blood gas has worsened indicative of both acute on chronic hypoxic hypercapnic respiratory failure she is much more lethargic when I am in the room speaking with her today. She remains afebrile overnight and otherwise hemodynamically stable with an admitting blood pressures been on the higher side Objective PUL Vital signs: Last Vital Signs Temp 97.5 F L 07/26/18 03:42 Pulse 86 07/26/18 03:42 Resp 15 07/26/18 03:42 BP 166/84 07/26/18 03:42 Pulse Ox 96 07/26/18 03:42 General appearance: lethargic, other (Easily arousable however and she is able to follow commands but quickly falls back asleep) Eyes: nonicteric ENT: oropharynx moist Neck: supple Effort: normal Auscultation: bilateral: diminished breath sounds (Right greater than left), rales (Up to the mid lung cruz), rhonchi (Scattered) Cardiovascular: regular rate and rhythm Gastrointestinal: normoactive bowel sounds, soft, non-tender Extremities: edema Musculoskeletal: no deformities pupils equal and round, other (She is able to move all extremities to my command with grossly preserved strength she does have evidence of periodic myoclonic jerking) affect normal Results - Laboratory Findings CBC and BMP: 07/25/18 06:27 07/25/18 06:27 ABG ABG pH 7.24 pH Units (7.32-7.45) L 07/26/18 04:57 ABG pCO2 74 mmHg (35-45) H* 07/26/18 04:57 ABG pO2 110 mmHg (85-104) H 07/26/18 04:57 ABG O2 Saturation 97 % (95-98) 07/26/18 04:57 PT/INR, D-dimer PT 11.5 Seconds (9.4-12.1) 07/25/18 06:47 Abnormal lab findings: Abnormal lab results WBC 19.7 K/mcL (4.3-11.1) H 07/25/18 06:27 RBC 2.79 M/mcL (3.82-4.97) L 07/25/18 06:27 Hgb 8.2 g/dL (11.5-15.4) L 07/25/18 06:27 Hct 26.5 % (35.3-44.9) L 07/25/18 06:27 MCHC 30.9 g/dL (31.6-35.5) L 07/25/18 06:27 RDW 15.4 % (11.5-14.5) H 07/25/18 06:27 Neutrophils # 16.4 K/mcL (1.6-8.9) H 07/25/18 06:27 Nucleated RBCs/100 WBC 0.2 /100 WBC (0) H 07/21/18 04:40 Macrocytosis Present (Not Present) A 07/19/18 04:00 ABG pH 7.24 pH Units (7.32-7.45) L 07/26/18 04:57 ABG pCO2 74 mmHg (35-45) H* 07/26/18 04:57 ABG pO2 110 mmHg (85-104) H 07/26/18 04:57 ABG HCO3 31 mEq/L (21-27) H 07/26/18 04:57 ABG Total CO2 34 mEq/L (20-26) H 07/26/18 04:57 Potassium 3.3 mEq/L (3.5-5.1) L 07/25/18 06:27 Carbon Dioxide 32 mEq/L (23-29) H 07/25/18 06:27 Est GFR (Non-Af Amer) 55 (> 60) L 07/25/18 06:27 Total Bilirubin 0.2 mg/dL (0.3-1.0) L 07/20/18 03:40 AST 12 Units/L (13-39) L 07/20/18 03:40 B-Natriuretic Peptide 181 pg/mL (Less than 100) H 07/18/18 10:27 Serum Total Protein 5.6 g/dL (6.4-8.9) L 07/20/18 03:40 Albumin 3.2 g/dL (3.5-5.7) L 07/20/18 03:40 Procalcitonin 1.18 ng/mL (<=0.07) H 07/18/18 19:30 Urine Clarity Cloudy (Clear) A 07/18/18 12:10 Urine Blood Moderate (Negative) H 07/18/18 12:10 Urine Nitrite Positive (Negative) A 07/18/18 12:10 Ur Leukocyte Esterase Large (Negative) H 07/18/18 12:10 Urine Microscopic RBC 5-15 per hpf (0-3) H 07/18/18 12:10 Urine Microscopic WBC TNTC per hpf (0-3) H 07/18/18 12:10 Urine Bacteria Moderate per hpf (None-Few) H 07/18/18 12:10 Ur Culture Indicated? YES (NO) A 07/18/18 12:10 Stool Occult Blood Positive (Negative) A 07/19/18 Unknown Vancomycin Trough 12 mcg/mL (5-10) H 07/20/18 11:38 - Clinical Findings Intake & Output: Intake & Output 07/25/18 07/25/18 07/26/18 15:59 23:59 07:59 Intake Total 360 / 360 390 / 390 20 Output Total 0 / 0 0 / 0 Balance 360 / 360 390 / 390 20 Weight 52 kg Consult Discharge Plan - Plan Referrals: Ritika Humphreys, CUSTOM MILLER [Primary Care Provider] -
[2018-07-26] MEDS ORDERED: Furosemide 40 MG/4 ML VIAL IVP ONE (08:03)
[2018-07-26 08:16] LABS: Adenovirus Not Detected (Not Detect); Bordetella Pertussis Not Detected (Not Detect); Chlamydophila pneumoniae Not Detected (Not Detect); Coronavirus 229E Not Detected (Not Detect); Coronavirus HKU1 Not Detected (Not Detect); Coronavirus NL63 Not Detected (Not Detect); Coronavirus OC43 Not Detected (Not Detect); Human Metapneumovirus Not Detected (Not Detect); Human Rhinovirus/Enterovirus Not Detected (Not Detect); Influenza A Subtype 2009 H1 Not Detected (Not Detect); Influenza A Untypeable Not Detected (Not Detect); Influenza B Not Detected (Not Detect); Mycoplasma pneumoniae Not Detected (Not Detect); Parainfluenza Virus 1 Not Detected (Not Detect); Parainfluenza Virus 2 Not Detected (Not Detect); Parainfluenza Virus 3 Not Detected (Not Detect); Parainfluenza Virus 4 Not Detected (Not Detect); Respiratory Syncytial Virus Not Detected (Not Detect)
[2018-07-26 08:40] LABS: Basophils % 0.1 %; Hematocrit 25.2 % (35.3-44.9); Hemoglobin 7.9 g/dL (11.5-15.4); Immature Granulocytes % 0.6 % (0-4); Lymphocytes # 0.9 K/mcL (0.6-4.6); Lymphocytes % 5.7 %; Mean Corpuscular HGB Conc 31.3 g/dL (31.6-35.5); Mean Corpuscular Volume 95.8 fL (83.0-100.0); Mean Platelet Volume 9.9 fL (9.4-12.4); Monocytes # 0.4 K/mcL (0.0-1.3); Monocytes % 2.2 %; Neutrophils # 14.5 K/mcL (1.6-8.9); Platelet Count 345 K/mcL (140-400); Red Blood Count 2.63 M/mcL (3.82-4.97); Red Cell Distribution Width 15.4 % (11.5-14.5); Segmented Neutrophils % 91.4 %
[2018-07-26 09:30] LABS: Calcium 9.2 mg/dL (8.6-10.3); Magnesium 2.1 mg/dL (1.6-2.6); Potassium 4.8 mEq/L (3.5-5.1)
[2018-07-26] MEDS: Nystatin SUSP 5 ML UD.LIQ PO SCH ×4 (12:22→20:11)
--- NOTE | 2018-07-26 14:28 | Internal Med Progress Note ---
Hospitalist Progress Note - Encounter Date of Encounter: 07/26/18 Time of Encounter: 12:13 - Subjective Interval History: Patient seen and examined this morning. On Bipap. Opening eyes to command. Following some commands. Afebrile. BP stable overnight. However as per nurse it dropped after received 1 dose of lasix this morning. Were told to hold amlodipine, coreg and diltiazem per cook taco. - Exam Vitals: Temp Pulse Resp BP Pulse Ox 97.6 F 90 27 90/56 93 07/26/18 11:00 07/26/18 11:00 07/26/18 11:27 07/26/18 11:00 07/26/18 11:27 Exam: Gen: On bipap, Not alert. Lethargic. N Respiratory exam: CTAB. no rales, rhonchi, wheezes Cardiovascular exam: RRR, +S1, +S2. no murmur, gallop, rubs. GI/Abdominal exam: Non-tender, Non-distended, normal bowel sounds, soft, no peritoneal signs. Extremities exam: full ROM, no pedal edema, warm, pulses palpable and symmetrical in both Upper and lower extremities. Neurological exam: Following commands occasionally. Moving all extremities. Skin exam: No skin rash, ulcer, purpura or ecchymosis. - Assessment and Plan (1) Acute and chronic respiratory failure ([id number]) Current Visit: Yes Status: Acute (2) CKD (chronic kidney disease) stage 3, GFR 30-59 ml/min Current Visit: Yes Status: Chronic (3) Pneumonia Current Visit: Yes Status: Suspected (4) COPD exacerbation Current Visit: Yes Status: Acute (5) Atrial fibrillation Current Visit: Yes Status: Chronic (6) Hypertensive renal disease with renal failure Current Visit: Yes Status: Chronic (7) Anemia Current Visit: Yes Status: Acute - Summary of Assessment and Plan Summary of Assessment and Plan: Acute on chronic respiratory failure with hypoxia and hypercapnia - Likely secondary pulmonary edema in combination with Pneumonia and Diastolic CHF. Possibly precipitated by GI prep. Improved with IV Lasix. - Underlying mild CKD stage III contributory. - Dobutamine stress echo was done on 04/19/18. It showed no evidence for cardiac ischemia. EF 60-65%. - Bipap management per pulm. To keep for the morning for rescue. To be weaned of early afternoon. Home Bipap with sleep and at night. - Received IV lasix this morning. BP in 90 systolic afterwards. Hold antihypertensives for now. Pneumonia/COPD exacerbation. - CXR on 07/25 with persitent b/l lung infiltrates. - On IV cefepime (Pseudomonas aeruginosa is growing in urine culture) for HCAP. Also started on Vancomycin yesterday with H/o MRSA. Will switch to Zosyn given myoclonic jerking, although possible from hypercapnia/metabolic causes. - c/w prednisone at 20 mg daily and nebulizer treatments with DuoNeb/Symbicort. Received dose of IV Diamox yesterday. - induced sputum 3 was ordered yesterday. - respiratory infection panel unremarkable. Atrial fibrillation - Rate controlled with Coreg and Cardizem CD. Will have to hold for now given low BP. Monitor for now. - Xarelto is on hold due to low Hb. Switched to Coumadin. . Anemia - Hemoccult of stool is positive - GI consulted. Patient is not a candidate for any endoscopy at this time. - We will monitor H&H closely. She will be on Coumadin instead of Xarelto. Hypertensive renal disease with her CKD 3. - c/w Coreg and Cardizem CD. Currently will have to hold given her BP. Her lisinopril is discontinued. - Time Spent with Patient Total time spent is greater than 50% in coordination of care (as documented) at patient's floor/unit and/or counseling patient: Internal Medicine: Result - Labs CBC & Chem 7: 07/26/18 07:37 07/26/18 07:37 Labs: Short CBC 07/26/18 Range/Units 07:37 WBC 15.8 H (4.3-11.1) K/mcL Hgb 7.9 L (11.5-15.4) g/dL Hct 25.2 L (35.3-44.9) % Plt Count 345 (140-400) K/mcL Neutrophils # 14.5 H (1.6-8.9) K/mcL BMP 07/26/18 07:37 Sodium 141 Potassium 4.8 Chloride 109 H Carbon Dioxide 27 BUN 31 H Creatinine 1.17 Glucose 127 H Calcium 9.2 - ABG Interpretation ABG results: ABG ABG pH 7.24 pH Units (7.32-7.45) L 07/26/18 04:57 ABG pCO2 74 mmHg (35-45) H* 07/26/18 04:57 ABG pO2 110 mmHg (85-104) H 07/26/18 04:57 ABG O2 Saturation 97 % (95-98) 07/26/18 04:57 PT/INR, D-dimer PT 11.5 Seconds (9.4-12.1) 07/25/18 06:47 Consult Discharge Plan - Plan Referrals: Ritika Humphreys, NURSE EXAMINER [Primary Care Provider] - (1) Acute and chronic respiratory failure ([id number]) Qualifiers: Respiratory failure complication: hypoxia and hypercapnia Qualified Code(s): J96.21 - Acute and chronic respiratory failure with hypoxia; J96.22 - Acute and chronic respiratory failure with hypercapnia (3) Pneumonia Qualifiers: Pneumonia type: due to methicillin-resistant Staphylococcus aureus (MRSA) Laterality: right Lung location: lower lobe of lung Qualified Code(s): J15.212 - Pneumonia due to Methicillin resistant Staphylococcus aureus (5) Atrial fibrillation Qualifiers: Atrial fibrillation type: paroxysmal Qualified Code(s): I48.0 - Paroxysmal atrial fibrillation (7) Anemia Qualifiers: Anemia type: unspecified type Qualified Code(s): D64.9 - Anemia, unspecified
[2018-07-26 16:03] LABS: ABG Base Excess 4 mEq/L (-2 to 3); ABG HCO3 32 mEq/L (21-27); ABG Oxygen Saturation 98 % (95-98); ABG PCO2 62 mmHg (35-45); ABG PH 7.32 pH Units (7.32-7.45); ABG PO2 110 mmHg (85-104); ABG TCO2 34 mEq/L (20-26)
[2018-07-26] MEDS: amLODIPine 5 MG TABLET PO SCH (17:18)
[2018-07-26] MEDS: Diltiazem CD (24hr) 120 MG CAPSULE PO SCH (17:27)
[2018-07-26] MEDS: Piperacillin/Tazobactam 3.375 GM in 0.9 % Sodium Chloride Mini Bag 100 ML IVPB SCH (17:27)
[2018-07-26] MEDS: predniSONE 20 MG TABLET PO SCH (18:05)
[2018-07-26] MEDS: Multivit/Ca/Min/Fe/FA 1 TAB TABLET PO SCH (18:05)
[2018-07-26] MEDS: Lactobacillus 1 EACH CAP.SPRINK PO SCH ×2 (18:05→20:13)
[2018-07-26] MEDS: Budesonide/Formoterol 80/4.5 MDI IH SCH (21:55)
[2018-07-27] MEDS: Piperacillin/Tazobactam 3.375 GM in 0.9 % Sodium Chloride Mini Bag 100 ML IVPB SCH ×3 (02:15→18:14)
[2018-07-27] MEDS: Ipratropium/Albuterol Neb 3 ML IH SCH ×4 (04:35→22:44)
--- NOTE | 2018-07-27 06:41 | Pulmonology Progress Note ---
Date of Encounter: 07/27/18 Time of Encounter: 06:41 Assessment and Plan (1) Acute on chronic respiratory failure with hypoxia and hypercapnia Current Visit: Yes Status: Acute Continue supplemental oxygen today to keep saturation greater than 89% around 92 % Recommend starting physical therapy and out of bed to chair as tolerated also incentive spirometry can be helpful (2) Pneumonia Current Visit: Yes Status: Acute White count is trending down and she is on Vanc and Zosyn at present I suspect she would need to complete a total course of 7-8 days for this starting from 48 hours ago Cultures thus far negative Qualifiers: Pneumonia type: due to unspecified organism Lung location: unspecified part of lung Qualified Code(s): J18.9 - Pneumonia, unspecified organism (3) BEVERLY on CPAP Current Visit: No Status: Chronic Home BiPAP settings are 08/30 she will need FiO2 bleed to keep saturation greater than 88% (4) Acute exacerbation of CHF (congestive heart failure) Current Visit: No Status: Acute With slight bump in creatinine and BUNs I would hold off on further diuresis today we will need to assess daily for need of foot loop diuretic. No indication for Diamox Qualifiers: Heart failure type: diastolic Qualified Code(s): I50.33 - Acute on chronic diastolic (congestive) heart failure (5) Acute exacerbation of chronic obstructive airways disease Current Visit: No Status: Acute Agree with today IV glucocorticoids and bronchodilators can likely be transitioned back to oral glucocorticoids over the next 24 hours (6) Myoclonic jerking Current Visit: Yes Status: Acute This this is improving likely related to hypercarbia and electrolyte derangements Subjective Principal diagnosis: COPD exacerbation Interval history: Ms. Lennon is done much better overnight that when I examined her yesterday morning and late afternoon. She is much more awake and alert able to follow commands and is not any distress. Oxygen saturation on a couple liters his mid to high 90s. She has been weaned off continuous noninvasive ventilation Objective PUL Vital signs: Last Vital Signs Temp 97.5 F L 07/27/18 04:08 Pulse 88 07/27/18 04:08 Resp 12 07/27/18 04:35 BP 150/83 07/27/18 04:08 Pulse Ox 92 07/27/18 04:35 General appearance: no acute distress Eyes: nonicteric ENT: oropharynx moist Neck: supple Effort: normal Auscultation: bilateral: diminished breath sounds (Right greater than left), rales (Lung bases) Gastrointestinal: normoactive bowel sounds, soft, non-tender Extremities: edema (Trace lower extremity edema) normal mental status, non-focal exam, pupils equal and round, other (Occasional myoclonic jerking but this is improved) mood appropriate Results - Laboratory Findings CBC and BMP: 07/26/18 07:37 07/26/18 07:37 ABG ABG pH 7.32 pH Units (7.32-7.45) 07/26/18 15:44 ABG pCO2 62 mmHg (35-45) H 07/26/18 15:44 ABG pO2 110 mmHg (85-104) H 07/26/18 15:44 ABG O2 Saturation 98 % (95-98) 07/26/18 15:44 PT/INR, D-dimer PT 11.5 Seconds (9.4-12.1) 07/25/18 06:47 Abnormal lab findings: Abnormal lab results WBC 15.8 K/mcL (4.3-11.1) H 07/26/18 07:37 RBC 2.63 M/mcL (3.82-4.97) L 07/26/18 07:37 Hgb 7.9 g/dL (11.5-15.4) L 07/26/18 07:37 Hct 25.2 % (35.3-44.9) L 07/26/18 07:37 MCHC 31.3 g/dL (31.6-35.5) L 07/26/18 07:37 RDW 15.4 % (11.5-14.5) H 07/26/18 07:37 Neutrophils # 14.5 K/mcL (1.6-8.9) H 07/26/18 07:37 Nucleated RBCs/100 WBC 0.2 /100 WBC (0) H 07/21/18 04:40 Macrocytosis Present (Not Present) A 07/19/18 04:00 ABG pCO2 62 mmHg (35-45) H 07/26/18 15:44 ABG pO2 110 mmHg (85-104) H 07/26/18 15:44 ABG HCO3 32 mEq/L (21-27) H 07/26/18 15:44 ABG Total CO2 34 mEq/L (20-26) H 07/26/18 15:44 ABG Base Excess 4 mEq/L (-2 to 3) H 07/26/18 15:44 Chloride 109 mEq/L (98-107) H 07/26/18 07:37 BUN 31 mg/dL (8-23) H 07/26/18 07:37 Est GFR ( Amer) 54 (> 60) L 07/26/18 07:37 Est GFR (Non-Af Amer) 45 (> 60) L 07/26/18 07:37 Glucose 127 mg/dL (70-105) H 07/26/18 07:37 Total Bilirubin 0.2 mg/dL (0.3-1.0) L 07/20/18 03:40 AST 12 Units/L (13-39) L 07/20/18 03:40 B-Natriuretic Peptide 181 pg/mL (Less than 100) H 07/18/18 10:27 Serum Total Protein 5.6 g/dL (6.4-8.9) L 07/20/18 03:40 Albumin 3.2 g/dL (3.5-5.7) L 07/20/18 03:40 Procalcitonin 1.18 ng/mL (<=0.07) H 07/18/18 19:30 Urine Clarity Cloudy (Clear) A 07/18/18 12:10 Urine Blood Moderate (Negative) H 07/18/18 12:10 Urine Nitrite Positive (Negative) A 07/18/18 12:10 Ur Leukocyte Esterase Large (Negative) H 07/18/18 12:10 Urine Microscopic RBC 5-15 per hpf (0-3) H 07/18/18 12:10 Urine Microscopic WBC TNTC per hpf (0-3) H 07/18/18 12:10 Urine Bacteria Moderate per hpf (None-Few) H 07/18/18 12:10 Ur Culture Indicated? YES (NO) A 07/18/18 12:10 Stool Occult Blood Positive (Negative) A 07/19/18 Unknown Vancomycin Trough 12 mcg/mL (5-10) H 07/20/18 11:38 - Microbiology Findings Microbiology Findings: Microbiology, Last 48 Hours 07/26/18 18:45 Legionella Antigen - Final Urine,Catheterized Streptococcus pneumoniae Antigen (M - Final - Clinical Findings Intake & Output: Intake & Output 07/26/18 07/26/18 07/27/18 15:59 23:59 07:59 Intake Total 580 / 580 100 / 100 Output Total 150 / 150 Balance 580 / 580 -50 / -50 Weight 52.1 kg Consult Discharge Plan - Plan Referrals: Ritika Humphreys, [employer] MOUNTER [Primary Care Provider] -
[2018-07-27 07:59] LABS: Basophils % 0.1 %; Hemoglobin 7.9 g/dL (11.5-15.4); Immature Granulocytes % 0.7 % (0-4); Lymphocytes # 0.7 K/mcL (0.6-4.6); Mean Corpuscular HGB Conc 30.4 g/dL (31.6-35.5); Mean Corpuscular Hemoglobin 29.6 pg (28.0-33.3); Mean Corpuscular Volume 97.4 fL (83.0-100.0); Mean Platelet Volume 9.3 fL (9.4-12.4); Monocytes # 0.3 K/mcL (0.0-1.3); Monocytes % 1.8 %; Neutrophils # 12.8 K/mcL (1.6-8.9); Platelet Count 363 K/mcL (140-400); Red Blood Count 2.67 M/mcL (3.82-4.97); Red Cell Distribution Width 15.2 % (11.5-14.5); Segmented Neutrophils % 92.4 %
[2018-07-27 08:16] LABS: Calcium 9.3 mg/dL (8.6-10.3); Potassium 4.4 mEq/L (3.5-5.1)
[2018-07-27] MEDS: Multivit/Ca/Min/Fe/FA 1 TAB TABLET PO SCH (09:36)
[2018-07-27] MEDS: Nystatin SUSP 5 ML UD.LIQ PO SCH ×4 (09:36→19:57)
[2018-07-27] MEDS: predniSONE 20 MG TABLET PO SCH (09:37)
[2018-07-27] MEDS: Lactobacillus 1 EACH CAP.SPRINK PO SCH ×2 (09:37→19:57)
[2018-07-27] MEDS: Diltiazem CD (24hr) 120 MG CAPSULE PO SCH (09:37)
[2018-07-27] MEDS: Budesonide/Formoterol 80/4.5 MDI IH SCH ×2 (11:12→22:44)
--- NOTE | 2018-07-27 11:57 | Internal Med Progress Note ---
Hospitalist Progress Note - Encounter Date of Encounter: 07/27/18 Time of Encounter: 09:55 - Subjective Interval History: Patient seen and examined this morning. Much more alert, awake and oriented. Non currently on Bipap. Daughter at bedside. Afebrile. - Exam Vitals: Temp Pulse Resp BP Pulse Ox 97.7 F 89 18 149/77 100 07/27/18 06:44 07/27/18 06:44 07/27/18 06:44 07/27/18 06:44 07/27/18 06:44 Exam: Gen: alert and awake on chair. Not in acute distress. Respiratory exam: Decreased air entry on Rt. rales at base. No rhonchi, wheezes Cardiovascular exam: RRR, +S1, +S2. systolic murmur, no gallop, rubs. GI/Abdominal exam: Non-tender, Non-distended, normal bowel sounds, soft, no peritoneal signs. Extremities exam: full ROM, no pedal edema, warm, pulses palpable and symmetrical in both Upper and lower extremities. Neurological exam: Following commands occasionally. Moving all extremities. Skin exam: no skin rash, ulcer, purpura or ecchymosis. - Assessment and Plan (1) Acute and chronic respiratory failure ([id number]) Current Visit: Yes Status: Acute (2) CKD (chronic kidney disease) stage 3, GFR 30-59 ml/min Current Visit: Yes Status: Chronic (3) Pneumonia Current Visit: Yes Status: Suspected (4) COPD exacerbation Current Visit: Yes Status: Acute (5) Atrial fibrillation Current Visit: Yes Status: Chronic (6) Hypertensive renal disease with renal failure Current Visit: Yes Status: Chronic (7) Anemia Current Visit: Yes Status: Acute - Summary of Assessment and Plan Summary of Assessment and Plan: Acute on chronic respiratory failure with hypoxia and hypercapnia - Likely secondary pulmonary edema in combination with Pneumonia and Diastolic CHF. Possibly precipitated by GI prep. Improved with IV Lasix. - Underlying mild CKD stage III contributory. - Dobutamine stress echo was done on 04/19/18. It showed no evidence for cardiac ischemia. EF 60-65%. - Bipap management per pulm. To keep for the morning for rescue. To be weaned of early afternoon. Home Bipap with sleep and at night. - Received IV lasix yesterday. Hold off today given worsening BUN/Insurance Appraiser. Pneumonia/COPD exacerbation. - CXR on 07/25 with persitent b/l lung infiltrates. - On IV cefepime (Pseudomonas aeruginosa is growing in urine culture and previous h/o) for HCAP. Also started on Vancomycin yesterday with H/o MRSA. Will switch to Zosyn given myoclonic jerking, although possible from hypercapnia /metabolic causes. - prednisone switched to PO. c/w nebulizer treatments with DuoNeb/Symbicort. No indication for diamox. - induced sputum 3 was ordered yesterday. - respiratory infection panel unremarkable. Legionella and streptococcus antigen negative. - ID consulted. BEVERLY - c/w Bipap settings are /. with fio2 titration. Atrial fibrillation - Rate controlled with Coreg and Cardizem CD. Will have to hold for now given low BP. Monitor for now. - Xarelto is on hold due to low Hb. Switched to Coumadin. . Anemia - Hemoccult of stool is positive - GI consulted. Patient is not a candidate for any endoscopy at this time. - We will monitor H&H closely. Hb stable. Hypertensive renal disease with her CKD 3. - c/w Coreg, amlodipine and Cardizem CD. Her lisinopril is discontinued. - Time Spent with Patient Total time spent is greater than 50% in coordination of care (as documented) at patient's floor/unit and/or counseling patient: Internal Medicine: Result - Labs CBC & Chem 7: 07/27/18 07:38 07/27/18 07:38 Labs: Short CBC 07/27/18 Range/Units 07:38 WBC 13.9 H (4.3-11.1) K/mcL Hgb 7.9 L (11.5-15.4) g/dL Hct 26.0 L (35.3-44.9) % Plt Count 363 (140-400) K/mcL Neutrophils # 12.8 H (1.6-8.9) K/mcL BMP 07/27/18 07:38 Sodium 141 Potassium 4.4 Chloride 104 Carbon Dioxide 31 H BUN 37 H Creatinine 1.10 Glucose 114 H Calcium 9.3 - ABG Interpretation ABG results: ABG ABG pH 7.32 pH Units (7.32-7.45) 07/26/18 15:44 ABG pCO2 62 mmHg (35-45) H 07/26/18 15:44 ABG pO2 110 mmHg (85-104) H 07/26/18 15:44 ABG O2 Saturation 98 % (95-98) 07/26/18 15:44 PT/INR, D-dimer PT 11.5 Seconds (9.4-12.1) 07/25/18 06:47 Consult Discharge Plan - Plan Referrals: Ritika Humphreys, RESIDENT CARE COORDINATOR [Primary Care Provider] - (1) Acute and chronic respiratory failure ([id number]) Qualifiers: Respiratory failure complication: hypoxia and hypercapnia Qualified Code(s): J96.21 - Acute and chronic respiratory failure with hypoxia; J96.22 - Acute and chronic respiratory failure with hypercapnia (3) Pneumonia Qualifiers: Pneumonia type: due to methicillin-resistant Staphylococcus aureus (MRSA) Laterality: right Lung location: lower lobe of lung Qualified Code(s): J15.212 - Pneumonia due to Methicillin resistant Staphylococcus aureus (5) Atrial fibrillation Qualifiers: Atrial fibrillation type: paroxysmal Qualified Code(s): I48.0 - Paroxysmal atrial fibrillation (7) Anemia Qualifiers: Anemia type: unspecified type Qualified Code(s): D64.9 - Anemia, unspecified
[2018-07-27] MEDS: *HR* HYDROcodone/Acet 10/325 mg TABLET PO PRN (15:01)
[2018-07-27] MEDS: Acetaminophen 325 MG TABLET PO PRN (15:01)
--- NOTE | 2018-07-27 15:37 | Infectious Disease Consult ---
Date of Encounter: 07/27/18 Time of Encounter: 15:35 Assessment and Plan (1) Sepsis Status: Acute Assessment and plan: secondary to pneumonia Qualifiers: Sepsis type: sepsis due to unspecified organism Qualified Code(s): A41.9 - Sepsis, unspecified organism (2) Multifocal pneumonia Status: Acute Assessment and plan: causative organism unclear negative urine legionella and S pneumo antigen RIP negative no sputum to check sputum culture clinically improved agree with vancomycin and zosyn goal vancomycin trough 10-15 monitor labs and for drug toxicity duration of treatment 10 days d/w Dr. Galarza (3) Allergy to multiple antibiotics Status: Acute (4) MAC (mycobacterium avium-intracellulare complex) Status: Acute Assessment and plan: History of MAC in 2014 attempted treatment with clarithromycin, ethambutol but she couldnt tolerate treatment and treatment was stopped (5) EMILIANO (acute kidney injury) Status: Acute Assessment and plan: Improved Likely secondary to sepsis Need to be very cautious with the vancomycin and Zosyn combination (6) Elevated CO2 level Status: Acute (7) Urinary tract infection Status: Acute Assessment and plan: causative organism pansensitive pseudomonas aeruginosa currently on zosyn Qualifiers: Urinary tract infection type: acute cystitis Hematuria presence: with hematuria Qualified Code(s): N30.01 - Acute cystitis with hematuria (8) Myoclonic jerking Status: Acute (9) Acute on chronic respiratory failure with hypoxia and hypercapnia Status: Acute Infectious Disease HPI - Data of Consult Patient: known to practice within the last 3 years Consult date: 07/27/18 Requesting Physician: Ramiro Valle MD Primary Care Provider: Ritika Humphreys CNP - Consult Narrative Reason for consult: pneumonia History of present illness: Ms. Lennon is a 78 year old female He should not is a 78-year-old woman who presents to [facility] on 07/18/2018 with shortness of breath admitted with acute on chronic respiratory failure and pneumonia, we are consulted today on 07/27/2018 for pneumonia treatment. Patient is a 78-year-old woman who is known to our service was seen on multiple occasions in the past initially for Mycobacterium avium complex pneumonia in 2014 was treated with azithromycin, ethambutol and rifampin but could not tolerate the treatment for severe nausea so no treatment was given and was stopped prematurely, she also had a history of MRSA pneumonia which was treated. 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 Patient presented to the ED with shortness of breath that has been getting progressively worse for 3 days. She had some clear sputum production but no hemoptysis. Apparently no fevers or chills. Since admission, patient has been afebrile, tachycardic. Presenting labs revealed a WBC of 30,000 with neutrophil predominance of 84.5% no bands. Patient was also pretty acidotic and had CO2 of 75. Patient also was in acute kidney injury with a BUN of 30 creatinine 1.29. Procalcitonin was checked on July 18 was elevated at 1.18. A urinalysis was suggestive of a UTI and a urine culture grew pansensitive pseudomonas aeruginosa. Patient had a chest x- ray initially which revealed elevated right hemidiaphragm and agrees for lung volumes with right basilar opacity which may represent atelectasis or infection. Repeat chest x-ray on 07/20/2018 was read as bibasilar airspace disease atelectasis or pneumonia. Repeat chest x-ray on 07/22/2018 revealed multifocal airspace opacity diffusely in the lungs, significant increased from prior exam. Patient may represent worsening pneumonia or developing ARDS. Patient also had blood cultures obtained on admission which are no growth. Patient continues to worse clinically and on 06/26/2018 she had a urine strep and Legionella antigen both of which came back negative. A respiratory infectious panel was also obtained and came back negative. Patient was on initially on cefepime and was switched to vancomycin and Zosyn on 07/25/2018. Patients steroids were also increased to 40 mg daily. Patient was seen by pulmonary team and I appreciate the recommendations. Currently patient appears comfortable laying in bed. Pleasant. Recognized me right away. She states her breathing has not really improved. Denies any URI symptoms denies any diarrhea no urinary symptoms. CC: Ramiro Valle MD Past Med Surg Social Fam HX - Past Medical History Medical history: asthma, atrial fibrillation, COPD, hyperlipidemia, hypertension , renal disease, thyroid disease Additional medical history: neuropathy; osteomyelitis; MRSA to right foot and detected in bronchial washings; Psychiatric history: no psych history, other - Past Surgical History Surgical History: appendectomy, cholecystectomy, hysterectomy, orthopedic, other , other Additional surgical history: right toes amputated - Social History Smoking Status: Former smoker Smokeless Tobacco Status: No Alcohol use: none Drug use: none - Family History Brother Family Member Ethnicity: Non- Living Status: Age at : 71 Cause of : CVA complications Hx Family Cardiac Disorders: Yes Hx Family Respiratory Disorders: No Hx Family Cancer: Yes Hx Family GI Disorders: No Hx Family Endocrine Disorder: Yes Hx Family Neuromuscular Disorders: No Hx Family Neurologic Disorders: Yes Hx Family HEENT Disorders: No Hx Family Autoimmune Disorders: No Hx Family Medical Disorders: Yes Sister Family Member Ethnicity: Non- Living Status: Hx Family Cardiac Disorders: Yes Hx Family Respiratory Disorders: No Hx Family Cancer: No Hx Family GI Disorders: No Hx Family Endocrine Disorder: Yes (DM) Hx Family Neuromuscular Disorders: No Hx Family Neurologic Disorders: No Hx Family HEENT Disorders: No Hx Family Autoimmune Disorders: No Father Family Member Ethnicity: Non- Living Status: Hx Family Cardiac Disorders: Yes (CAD, HF) Hx Family Respiratory Disorders: No Hx Family Cancer: No Hx Family GI Disorders: No Hx Family Endocrine Disorder: No Hx Family Neuromuscular Disorders: No Paternal Family Member Ethnicity: Non- Living Status: Hx Family Cardiac Disorders: Yes Hx Family Respiratory Disorders: Yes Hx Family Cancer: (liver) Hx Family GI Disorders: No Hx Family Endocrine Disorder: No Hx Family Neuromuscular Disorders: No Hx Family Neurologic Disorders: Yes Hx Family HEENT Disorders: No Hx Family Autoimmune Disorders: (arthritis) Mother Family Member Ethnicity: Non- Living Status: Hx Family Cardiac Disorders: Yes (HTN) Hx Family Respiratory Disorders: No Hx Family Cancer: Yes (Liver) Hx Family GI Disorders: Yes Hx Family Endocrine Disorder: Yes (DM) Hx Family Neuromuscular Disorders: No Hx Family Neurologic Disorders: No Hx Family HEENT Disorders: No Hx Family Autoimmune Disorders: No Infectious Disease-CN:Meds Albuterol Sulfate [Proair Hfa] 2 puff IH Q4H PRN 07/05/18 [History] Allopurinol [Zyloprim] 300 mg PO DAILY 07/05/18 [History] Amitriptyline [Elavil] 25 mg PO HS 07/05/18 [History] Azelastine HCl 1 drop BOTH EYES BID 07/05/18 [History] Carvedilol [Coreg] 6.25 mg PO BIDWM 07/05/18 [History] Citalopram Hydrobromide [Celexa] 40 mg PO DAILY 07/05/18 [History] Cyclobenzaprine HCl 10 mg PO TID PRN 07/05/18 [History] Denosumab [Prolia (For Outpatient Infusion)] 60 mg SQ [id number] 07/05/18 [History ] Docusate [Colace] 100 mg PO DAILY 07/05/18 [History] Ferrous Sulfate 325 mg PO DAILY 07/05/18 [History] Fluticasone Propionate Nasal [Flonase] 1 spr NS DAILY PRN 07/05/18 [History] Fluticasone/Salmeterol [Advair 250-50 Diskus] 1 puff IH BID 07/05/18 [History] Furosemide [Lasix] 20 mg PO DAILY 07/05/18 [History] Gabapentin [Neurontin] 400 mg PO BID 07/05/18 [History] HYDROcodone/Acet 10/325 mg [[place] 10-325 mg] 1 tab PO Q8H PRN 07/05/18 [History] Ipratropium/Albuterol Neb [Duoneb] 3 ml IH Q6HR PRN 07/05/18 [History] Lactobacillus Acidophilus [Acidophilus] 1 cap PO HS 07/05/18 [History] Levothyroxine [Synthroid] 125 mcg PO 6XW 07/05/18 [History] Lisinopril [Zestril] 5 mg PO DAILY 07/05/18 [History] Montelukast [Singulair] 10 mg PO HS 07/05/18 [History] Multivitamin [One Daily Multivitamin] 1 tab PO DAILY 07/05/18 [History] Nystatin Cream [Mycostatin Cream] 1 appl TP BID PRN 07/05/18 [History] Omeprazole [PriLOSEC] 20 mg PO DAILY 07/05/18 [History] Polyethylene Glycol 3350 [MiraLAX] 17 gm PO DAILY 07/05/18 [History] Roflumilast [Daliresp] 500 mcg PO DAILY 07/05/18 [History] Tiotropium [place] [Spiriva Respimat] 2 puff IH DAILY 07/05/18 [History] Diltiazem CD (24hr) [Cardizem CD] 120 mg PO DAILY 30 Days #30 cap.er.24h [Rx] Rivaroxaban [Xarelto] 20 mg PO DAILY 30 Days #30 tablet 07/07/18 [Rx] 3 Allergy/AdvReac Type Severity Reaction Status Date / Time acetaminophen [From Percocet] Allergy Rash Verified 07/05/18 19:07 aspirin Allergy See Verified 07/09/18 17:26 Comments clindamycin Allergy Itching Verified 07/09/18 17:26 hydrochlorothiazide Allergy Rash Verified 07/09/18 17:26 losartan [Losartan] Allergy Rash Verified 07/09/18 17:26 Oxycodone [From Percocet] Allergy Rash Verified 07/09/18 17:26 Sulfa (Sulfonamide Allergy Rash Verified 07/09/18 17:26 Antibiotics) codeine AdvReac Nausea Verified 07/09/18 17:26 levofloxacin [From Levaquin] AdvReac Hallucinati Verified 07/09/18 17:26 ng morphine AdvReac Irritable Verified 07/09/18 17:26 NSAIDS (Non-Steroidal AdvReac See Verified 07/09/18 17:26 Anti-Inflamma Comments rofecoxib [From Vioxx] AdvReac See Verified 07/09/18 17:26 Comments ropinirole [From Requip] AdvReac See Verified 07/09/18 17:26 Comments Review of systems: 10 point review of systems done, negative other for what is mentioned in history of present illness Exam - Constitutional Vitals: Temp Pulse Resp BP Pulse Ox 97.7 F 97 18 159/77 92 07/27/18 06:44 07/27/18 12:00 07/27/18 12:00 07/27/18 12:00 07/27/18 12:00 General appearance: no acute distress, no febrile - Head Head exam: Present: atraumatic, normocephalic - Eye Eye exam: Present: EOMI, sclera anicteric - ENT ENT exam: Present: mucous membranes moist Additional comments: No oral lesions - Neck Neck exam: Present: full ROM. Absent: meningismus - Respiratory Additional comments: Decreased breath sounds universally. Some expiratory wheezing. - Cardiovascular Cardiovascular exam: Present: RRR, +S1, +S2 - GI/Abdominal GI/Abdominal exam: Present: normal bowel sounds, soft. Absent: tenderness - Extremities Exam Extremities exam: Present: full ROM, normal inspection - Neurological Exam Neurological exam: Present: alert, oriented X3. Absent: speech deficit - Psychiatric Psychiatric exam: Present: normal affect, normal mood - Skin Skin exam: Present: normal color. Absent: rash Infectious Disease CN: Results - Labs CBC & Chem 7: 07/27/18 07:38 07/27/18 07:38 Cultures: Cultures 07/26/18 18:45 Legionella Antigen - Final Urine,Catheterized Streptococcus pneumoniae Antigen (M - Final 07/18/18 15:56 Blood Culture - Final Peripheral Venipuncture No growth. Final report. Serology: Serology 07/26/18 07/19/18 Range/Units 06:28 Unknown Stool Occult Blood Positive A (Negative) Chlamy pneumoniae PCR Not Detected (Not Detect) Adenovirus (PCR) Not Detected (Not Detect) B. pertussis DNA (PCR) Not Detected (Not Detect) B.parapertussis DNA PCR Not Detected (Not Detect) Coronavirus OC43 (PCR) Not Detected (Not Detect) Coronavirus HKU1 (PCR) Not Detected (Not Detect) Coronavirus 229E (PCR) Not Detected (Not Detect) Coronavirus NL63 (PCR) Not Detected (Not Detect) Human Metapneumovir PCR Not Detected (Not Detect) Influenza A (H1) PCR Not Detected (Not Detect) Influ A (H1N1/09) PCR Not Detected (Not Detect) Influenza A (H3) PCR Not Detected (Not Detect) Influenza A Untype (PCR) Not Detected (Not Detect) Influenza Type B (PCR) Not Detected (Not Detect) M.pneumoniae DNA (PCR) Not Detected (Not Detect) Parainfluenza 1 (PCR) Not Detected (Not Detect) Parainfluenza 2 (PCR) Not Detected (Not Detect) Parainfluenza 3 (PCR) Not Detected (Not Detect) Parainfluenza 4 (PCR) Not Detected (Not Detect) RSV (PCR) Not Detected (Not Detect) Entero/Rhino (PCR) Not Detected (Not Detect) Consult Discharge Plan - Plan Referrals: Ritika Humphreys, AERIAL LINEMAN [Primary Care Provider] -
[2018-07-28] MEDS: Piperacillin/Tazobactam 3.375 GM in 0.9 % Sodium Chloride Mini Bag 100 ML IVPB SCH ×3 (00:11→15:54)
[2018-07-28] MEDS: *HR* HYDROcodone/Acet 10/325 mg TABLET PO PRN ×2 (00:11→15:25)
[2018-07-28] MEDS: Acetaminophen 325 MG TABLET PO PRN ×2 (00:21→15:25)
[2018-07-28] MEDS: Ipratropium/Albuterol Neb 3 ML IH SCH ×4 (03:31→21:10)
--- NOTE | 2018-07-28 06:58 | Pulmonology Progress Note ---
Date of Encounter: 07/28/18 Time of Encounter: 06:58 Assessment and Plan (1) Acute on chronic respiratory failure with hypoxia and hypercapnia Current Visit: Yes Status: Acute Continue supplemental oxygen today to keep saturation greater than 89% around 92 % Recommend starting physical therapy and out of bed to chair as tolerated also incentive spirometry can be helpful (2) Pneumonia Current Visit: Yes Status: Acute White count is trending down and she is on Vanc and Zosyn Seen by infectious disease She will need antibiotics for 7-10 days based upon clinical course Cultures thus far negative Qualifiers: Pneumonia type: due to unspecified organism Lung location: unspecified part of lung Qualified Code(s): J18.9 - Pneumonia, unspecified organism (3) B[place] on CPAP Current Visit: No Status: Chronic Home BiPAP settings are 08/30 she will need FiO2 bleed to keep saturation greater than 88% (4) Acute exacerbation of CHF (congestive heart failure) Current Visit: No Status: Acute BUN/creatinine trending in a positive direction today I suspect that in the next 24 hours could reintroduce her home loop diuretic (orally) Qualifiers: Heart failure type: diastolic Qualified Code(s): I50.33 - Acute on chronic diastolic (congestive) heart failure (5) Acute exacerbation of chronic obstructive airways disease Current Visit: No Status: Acute Agree with today IV glucocorticoids and bronchodilators can likely be transitioned back to oral glucocorticoids over the next 24 hours (6) Myoclonic jerking Current Visit: Yes Status: Acute This has resolved likely related to hypercarbia and electrolyte derangements possibly cefepime use Pulmonary will sign off at this point please call with any questions she will need outpatient pulmonary follow-up in 1-2 weeks at the time of discharge Subjective Principal diagnosis: COPD exacerbation Interval history: She continues to improve. Remained hemodynamically stable overnight minimal amount of FiO2 (2 L) with excellent oxygenation. She says she is feeling better as well as subjectively Objective PUL Vital signs: Last Vital Signs Temp 98.1 F 07/28/18 06:53 Pulse 94 07/28/18 06:53 Resp 18 07/28/18 06:53 BP 161/78 07/28/18 06:53 Pulse Ox 94 07/28/18 06:53 General appearance: no acute distress Eyes: nonicteric ENT: oropharynx moist Auscultation: bilateral: rales (Date inspiratory) Rales at the lung bases), other (Improved air movement bilaterally from previous day's examination) Cardiovascular: regular rate and rhythm Gastrointestinal: normoactive bowel sounds, soft Integumentary: normal Extremities: edema (Trace lower extremity edema) Musculoskeletal: no deformities normal mental status, non-focal exam mood appropriate Results - Laboratory Findings CBC and BMP: 07/27/18 07:38 07/27/18 07:38 ABG ABG pH 7.32 pH Units (7.32-7.45) 07/26/18 15:44 ABG pCO2 62 mmHg (35-45) H 07/26/18 15:44 ABG pO2 110 mmHg (85-104) H 07/26/18 15:44 ABG O2 Saturation 98 % (95-98) 07/26/18 15:44 PT/INR, D-dimer PT 11.5 Seconds (9.4-12.1) 07/25/18 06:47 Abnormal lab findings: Abnormal lab results WBC 13.9 K/mcL (4.3-11.1) H 07/27/18 07:38 RBC 2.67 M/mcL (3.82-4.97) L 07/27/18 07:38 Hgb 7.9 g/dL (11.5-15.4) L 07/27/18 07:38 Hct 26.0 % (35.3-44.9) L 07/27/18 07:38 MCHC 30.4 g/dL (31.6-35.5) L 07/27/18 07:38 RDW 15.2 % (11.5-14.5) H 07/27/18 07:38 MPV 9.3 fL (9.4-12.4) L 07/27/18 07:38 Neutrophils # 12.8 K/mcL (1.6-8.9) H 07/27/18 07:38 Nucleated RBCs/100 WBC 0.2 /100 WBC (0) H 07/21/18 04:40 Macrocytosis Present (Not Present) A 07/19/18 04:00 ABG pCO2 62 mmHg (35-45) H 07/26/18 15:44 ABG pO2 110 mmHg (85-104) H 07/26/18 15:44 ABG HCO3 32 mEq/L (21-27) H 07/26/18 15:44 ABG Total CO2 34 mEq/L (20-26) H 07/26/18 15:44 ABG Base Excess 4 mEq/L (-2 to 3) H 07/26/18 15:44 Carbon Dioxide 31 mEq/L (23-29) H 07/27/18 07:38 BUN 37 mg/dL (8-23) H 07/27/18 07:38 Est GFR ( Amer) 58 (> 60) L 07/27/18 07:38 Est GFR (Non-Af Amer) 48 (> 60) L 07/27/18 07:38 BUN/Creatinine Ratio 34 (6-26) H 07/27/18 07:38 Glucose 114 mg/dL (70-105) H 07/27/18 07:38 Calculated Osmolality 302 (280-300) H 07/27/18 07:38 Total Bilirubin 0.2 mg/dL (0.3-1.0) L 07/20/18 03:40 AST 12 Units/L (13-39) L 07/20/18 03:40 B-Natriuretic Peptide 181 pg/mL (Less than 100) H 07/18/18 10:27 Serum Total Protein 5.6 g/dL (6.4-8.9) L 07/20/18 03:40 Albumin 3.2 g/dL (3.5-5.7) L 07/20/18 03:40 Procalcitonin 1.18 ng/mL (<=0.07) H 07/18/18 19:30 Urine Clarity Cloudy (Clear) A 07/18/18 12:10 Urine Blood Moderate (Negative) H 07/18/18 12:10 Urine Nitrite Positive (Negative) A 07/18/18 12:10 Ur Leukocyte Esterase Large (Negative) H 07/18/18 12:10 Urine Microscopic RBC 5-15 per hpf (0-3) H 07/18/18 12:10 Urine Microscopic WBC TNTC per hpf (0-3) H 07/18/18 12:10 Urine Bacteria Moderate per hpf (None-Few) H 07/18/18 12:10 Ur Culture Indicated? YES (NO) A 07/18/18 12:10 Stool Occult Blood Positive (Negative) A 07/19/18 Unknown Vancomycin Trough 18 mcg/mL (5-10) H 07/27/18 16:55 - Microbiology Findings Microbiology Findings: Microbiology, Last 48 Hours 07/26/18 18:45 Legionella Antigen - Final Urine,Catheterized Streptococcus pneumoniae Antigen (M - Final - Clinical Findings Intake & Output: Intake & Output 07/27/18 07/27/18 07/28/18 15:59 23:59 07:59 Intake Total 360 / 360 450 / 450 100 / 100 Output Total 300 / 300 400 / 400 Balance 360 / 360 150 / 150 -300 / -300 Weight 52.3 kg Consult Discharge Plan - Plan Referrals: Ritika Humphreys, CARE MGR [Primary Care Provider] -
[2018-07-28] MEDS: Multivit/Ca/Min/Fe/FA 1 TAB TABLET PO SCH (09:22)
[2018-07-28] MEDS: Diltiazem CD (24hr) 120 MG CAPSULE PO SCH (09:22)
[2018-07-28] MEDS: Nystatin SUSP 5 ML UD.LIQ PO SCH ×4 (09:23→22:20)
[2018-07-28] MEDS: Lactobacillus 1 EACH CAP.SPRINK PO SCH ×2 (09:23→22:18)
[2018-07-28] MEDS: predniSONE 20 MG TABLET PO SCH (09:23)
[2018-07-28] MEDS: Budesonide/Formoterol 80/4.5 MDI IH SCH ×2 (11:13→21:10)
--- NOTE | 2018-07-28 14:16 | Internal Med Progress Note ---
Hospitalist Progress Note - Encounter Date of Encounter: 07/28/18 Time of Encounter: 12:36 - Subjective Interval History: Patient seen and examined this morning. No overnight events. Feeling better. Afebrile. - Exam Vitals: Temp Pulse Resp BP Pulse Ox 98.3 F 104 18 164/78 98 07/28/18 10:54 07/28/18 10:54 07/28/18 10:54 07/28/18 10:54 07/28/18 10:54 Exam: Gen: alert and awake on chair. Not in acute distress. On nasal canula siting in chair comfortably. Respiratory exam: Decreased air entry on Rt. rales at base. No rhonchi, wheezes Cardiovascular exam: RRR, +S1, +S2. systolic murmur, no gallop, rubs. GI/Abdominal exam: Non-tender, Non-distended, normal bowel sounds, soft, no peritoneal signs. Extremities exam: No pedal edema Neurological exam: No focal deficits Skin exam: no skin rash, ulcer, purpura or ecchymosis. - Assessment and Plan (1) Acute and chronic respiratory failure ([id number]) Current Visit: Yes Status: Acute (2) CKD (chronic kidney disease) stage 3, GFR 30-59 ml/min Current Visit: Yes Status: Chronic (3) Pneumonia Current Visit: Yes Status: Suspected (4) COPD exacerbation Current Visit: Yes Status: Acute (5) Atrial fibrillation Current Visit: Yes Status: Chronic (6) Hypertensive renal disease with renal failure Current Visit: Yes Status: Chronic (7) Anemia Current Visit: Yes Status: Acute - Summary of Assessment and Plan Summary of Assessment and Plan: Acute on chronic respiratory failure with hypoxia and hypercapnia - Likely secondary pulmonary edema in combination with Pneumonia and Diastolic CHF. Possibly precipitated by GI prep. Improved with IV Lasix. - Underlying mild CKD stage III contributory. - Bipap management per pulm. To keep for the morning for rescue. To be weaned of early afternoon. Home Bipap with sleep and at night. Pneumonia/COPD exacerbation. - CXR on 07/25 with persitent b/l lung infiltrates. - On IV cefepime (Pseudomonas aeruginosa is growing in urine culture and previous h/o) for HCAP. Also started on Vancomycin yesterday with H/o MRSA. Will switch to Zosyn given myoclonic jerking, although possible from hypercapnia /metabolic causes. - prednisone switched to PO. c/w nebulizer treatments with DuoNeb/Symbicort. No indication for diamox. - respiratory infection panel unremarkable. Legionella and streptococcus antigen negative. sputum cultures negative. - ID following. Recommendation appreciated. To finish 10 day course of Vancomycin and Zosyn. Has IV access in place. BEVELRY - c/w Bipap settings are 11/6. with fio2 titration. Atrial fibrillation - Rate controlled with Coreg and Cardizem CD. Will have to hold for now given low BP. Monitor for now. - Xarelto is on hold due to low Hb. Switched to Coumadin but Hb dropped. Off AC. Discussed the risk benefits of being on and off anticoagulation. Patient understands and agrees to be off Anticoagulation. Anemia - Hemoccult of stool is positive - GI consulted. Patient is not a candidate for any endoscopy at this time. - Will transfuse 1 PRBC and give one dose of lasix. Hypertensive renal disease with her CKD 3. - c/w Coreg, amlodipine and Cardizem CD. Her lisinopril is discontinued. - Time Spent with Patient Total time spent is greater than 50% in coordination of care (as documented) at patient's floor/unit and/or counseling patient: Internal Medicine: Result - Labs CBC & Chem 7: 07/27/18 07:38 07/27/18 07:38 - ABG Interpretation ABG results: ABG ABG pH 7.32 pH Units (7.32-7.45) 07/26/18 15:44 ABG pCO2 62 mmHg (35-45) H 07/26/18 15:44 ABG pO2 110 mmHg (85-104) H 07/26/18 15:44 ABG O2 Saturation 98 % (95-98) 07/26/18 15:44 PT/INR, D-dimer PT 11.5 Seconds (9.4-12.1) 07/25/18 06:47 Consult Discharge Plan - Plan Referrals: Ritika Humphreys, HYDROGENATION OPERATOR [Primary Care Provider] - (1) Acute and chronic respiratory failure ([id number]) Qualifiers: Respiratory failure complication: hypoxia and hypercapnia Qualified Code(s): J96.21 - Acute and chronic respiratory failure with hypoxia; J96.22 - Acute and chronic respiratory failure with hypercapnia (3) Pneumonia Qualifiers: Pneumonia type: due to methicillin-resistant Staphylococcus aureus (MRSA) Laterality: right Lung location: lower lobe of lung Qualified Code(s): J15.212 - Pneumonia due to Methicillin resistant Staphylococcus aureus (5) Atrial fibrillation Qualifiers: Atrial fibrillation type: paroxysmal Qualified Code(s): I48.0 - Paroxysmal atrial fibrillation (7) Anemia Qualifiers: Anemia type: unspecified type Qualified Code(s): D64.9 - Anemia, unspecified
--- NOTE | 2018-07-28 15:14 | Infectious Disease Progress No ---
Date of Encounter: 07/28/18 Time of Encounter: 15:12 - Assessment and Plan (1) Sepsis Current Visit: Yes Status: Acute Secondary to pneumonia. Improved Qualifiers: Sepsis type: sepsis due to unspecified organism Qualified Code(s): A41.9 - Sepsis, unspecified organism (2) Multifocal pneumonia Current Visit: Yes Status: Acute causative organism unclear negative urine legionella and S pneumo antigen RIP negative no sputum to check sputum culture clinically improved agree with vancomycin and zosyn goal vancomycin trough 10-15 monitor labs and for drug toxicity duration of treatment 10 days d/w Dr. Galarza (3) Allergy to multiple antibiotics Current Visit: Yes Status: Acute (4) MAC (mycobacterium avium-intracellulare complex) Current Visit: No Status: Acute History of MAC in 2014 attempted treatment with clarithromycin, ethambutol but she couldnt tolerate treatment and treatment was stopped (5) EMILIANO (acute kidney injury) Current Visit: Yes Status: Acute Improved Likely secondary to sepsis Need to be very cautious with the vancomycin and Zosyn combination (6) Elevated CO2 level Current Visit: Yes Status: Acute (7) Urinary tract infection Current Visit: Yes Status: Acute causative organism pansensitive pseudomonas aeruginosa currently on zosyn Qualifiers: Urinary tract infection type: acute cystitis Hematuria presence: with hematuria Qualified Code(s): N30.01 - Acute cystitis with hematuria (8) Myoclonic jerking Current Visit: Yes Status: Acute (9) Acute on chronic respiratory failure with hypoxia and hypercapnia Current Visit: Yes Status: Acute (10) Diarrhea Current Visit: No Status: Acute She had 2 watery bowel movements daily I extended the patient that if she has a third watery bowel movement to let us know and we will check for C. difficile This could also be due to the antibiotic use Abdominal exam is benign Qualifiers: Diarrhea type: unspecified type Qualified Code(s): R19.7 - Diarrhea, unspecified - Subjective Interval history: Patient seen and examined. Appears to be doing better. 1999 her breathing has improved. She is having diarrhea however she had 2 watery bowel movements a day. She also had productive cough and were able to send sputum for cultures. Infect Dis PN-Objective Data - Labs CBC & Chem 7: 07/27/18 07:38 07/27/18 07:38 Labs: Laboratory Results - last 24 hr 07/27/18 16:55 Vancomycin Trough 18 H Cultures: Cultures 07/28/18 06:26 Sputum Culture - Final Sputum 07/26/18 18:45 Legionella Antigen - Final Urine,Catheterized Streptococcus pneumoniae Antigen (M - Final 07/18/18 15:56 Blood Culture - Final Peripheral Venipuncture No growth. Final report. Serology 07/26/18 07/19/18 Range/Units 06:28 Unknown Stool Occult Blood Positive A (Negative) Chlamy pneumoniae PCR Not Detected (Not Detect) Adenovirus (PCR) Not Detected (Not Detect) B. pertussis DNA (PCR) Not Detected (Not Detect) B.parapertussis DNA PCR Not Detected (Not Detect) Coronavirus OC43 (PCR) Not Detected (Not Detect) Coronavirus HKU1 (PCR) Not Detected (Not Detect) Coronavirus 229E (PCR) Not Detected (Not Detect) Coronavirus NL63 (PCR) Not Detected (Not Detect) Human Metapneumovir PCR Not Detected (Not Detect) Influenza A (H1) PCR Not Detected (Not Detect) Influ A (H1N1/09) PCR Not Detected (Not Detect) Influenza A (H3) PCR Not Detected (Not Detect) Influenza A Untype (PCR) Not Detected (Not Detect) Influenza Type B (PCR) Not Detected (Not Detect) M.pneumoniae DNA (PCR) Not Detected (Not Detect) Parainfluenza 1 (PCR) Not Detected (Not Detect) Parainfluenza 2 (PCR) Not Detected (Not Detect) Parainfluenza 3 (PCR) Not Detected (Not Detect) Parainfluenza 4 (PCR) Not Detected (Not Detect) RSV (PCR) Not Detected (Not Detect) Entero/Rhino (PCR) Not Detected (Not Detect) Exam - Constitutional Vitals: Temp Pulse Resp BP Pulse Ox 98.3 F 104 18 164/78 98 07/28/18 10:54 07/28/18 10:54 07/28/18 10:54 07/28/18 10:54 07/28/18 10:54 General appearance: no acute distress, no febrile - Head Head exam: Present: atraumatic, normocephalic - Respiratory Additional comments: Decreased breath sounds universally was some expiratory wheezing - Cardiovascular Cardiovascular exam: Present: RRR, +S2 - GI/Abdominal GI/Abdominal exam: Present: normal bowel sounds, soft. Absent: tenderness - Extremities Exam Extremities exam: Present: full ROM, normal inspection Consult Discharge Plan - Plan Referrals: Ritika Humphreys CNP [Primary Care Provider] -
[2018-07-28] MEDS ORDERED: Furosemide 20 MG/2 ML VIAL IVP ONE (17:01)
[2018-07-28] MEDS ORDERED: 0.9 % Sodium Chloride 250 ML ONE (21:58)
[2018-07-29] MEDS: Piperacillin/Tazobactam 3.375 GM in 0.9 % Sodium Chloride Mini Bag 100 ML IVPB SCH ×4 (02:53→23:37)
[2018-07-29 03:17] LABS: Hematocrit 27.1 % (35.3-44.9); Hemoglobin 8.4 g/dL (11.5-15.4); Immature Granulocytes % 0.5 % (0-4); Lymphocytes # 1.1 K/mcL (0.6-4.6); Lymphocytes % 9.2 %; Mean Corpuscular Hemoglobin 29.4 pg (28.0-33.3); Mean Corpuscular Volume 94.8 fL (83.0-100.0); Mean Platelet Volume 9.5 fL (9.4-12.4); Monocytes # 0.6 K/mcL (0.0-1.3); Monocytes % 4.9 %; Neutrophils # 10.2 K/mcL (1.6-8.9); Platelet Count 335 K/mcL (140-400); Red Blood Count 2.86 M/mcL (3.82-4.97); Red Cell Distribution Width 14.8 % (11.5-14.5); Segmented Neutrophils % 85.4 %
[2018-07-29 03:36] LABS: BUN/Creatinine Ratio 33 (6-26); Blood Urea Nitrogen 42 mg/dL (8-23); Calcium 9.3 mg/dL (8.6-10.3); Carbon Dioxide 33 mEq/L (23-29); Chloride 103 mEq/L (98-107); Glucose 116 mg/dL (70-105); Osmolality,Calculated 305 (280-300); Sodium 142 mEq/L (136-145); eGFR For Non-African Americans 40 (> 60)
[2018-07-29] MEDS: Ipratropium/Albuterol Neb 3 ML IH SCH ×4 (03:56→21:42)
[2018-07-29] MEDS ORDERED: hydrALAZINE 10 MG TABLET PO ONE (04:56)
--- NOTE | 2018-07-29 09:11 | Internal Med Progress Note ---
Hospitalist Progress Note - Encounter Date of Encounter: 07/29/18 Time of Encounter: 09:09 - Subjective Interval History: Patient seen and examined this morning. No overnight events. Loose stool. Non- bloody normal BM. Urinating well. In chair. Breathing well. No other complain. - Exam Vitals: Temp Pulse Resp BP Pulse Ox 97.6 F 99 16 175/91 99 07/29/18 07:47 07/29/18 07:47 07/29/18 07:47 07/29/18 07:47 07/29/18 07:47 Exam: Gen: alert and awake on chair. Not in acute distress. On nasal canula siting in chair comfortably. Respiratory exam: Decreased air entry on Rt. rales at base bilaterally. No rhonchi, wheezes Cardiovascular exam: RRR, +S1, +S2. systolic murmur, no gallop, rubs. GI/Abdominal exam: Non-tender, Non-distended, normal bowel sounds, soft, no peritoneal signs. Extremities exam: No pedal edema Neurological exam: No focal deficits. No myoclonic jerks Skin exam: no skin rash, ulcer, purpura or ecchymosis. - Assessment and Plan (1) Acute and chronic respiratory failure ([id number]) Current Visit: Yes Status: Acute (2) CKD (chronic kidney disease) stage 3, GFR 30-59 ml/min Current Visit: Yes Status: Chronic (3) Pneumonia Current Visit: Yes Status: Suspected (4) COPD exacerbation Current Visit: Yes Status: Acute (5) Atrial fibrillation Current Visit: Yes Status: Chronic (6) Hypertensive renal disease with renal failure Current Visit: Yes Status: Chronic (7) Anemia Current Visit: Yes Status: Acute - Summary of Assessment and Plan Summary of Assessment and Plan: Acute on chronic respiratory failure with hypoxia and hypercapnia - Likely secondary to combination of Pneumonia and Diastolic CHF and COPD. Possibly precipitated by GI prep. Improved with IV Lasix. Now stopped. - Underlying mild CKD stage III contributory. - Continue Bipap with sleep and at night. Pneumonia/COPD exacerbation. - On Vancoycin and Zosysin for HCAP given h/o MRSA and psuedomonas Pnemonia.( Previously received cefepime switch due to myoclonic jerks). To get for 10 days ( On day 5) - prednisone switched to PO. c/w nebulizer treatments with DuoNeb/Symbicort. No indication for diamox. - respiratory infection panel unremarkable. Legionella and streptococcus antigen negative. sputum cultures negative. - ID following. Recommendation appreciated. To finish 10 day course of Vancomycin and Zosyn. Has IV access in place. Will discuss options given worsening EMILIANO. BEVERLY - c/w Bipap settings are 11/6. with fio2 titration. Atrial fibrillation - Rate controlled with Coreg and Cardizem CD. Now resumed. - Xarelto is on hold due to low Hb. Switched to Coumadin but Hb dropped. Off AC. Discussed the risk benefits of being on and off anticoagulation. Patient understands and agrees to be off Anticoagulation. Loose stool - Likely from stool softner and laxative. - Discontinue lactulose Anemia - Hemoccult of stool is positive - GI consulted. Patient is not a candidate for any endoscopy at this time. - s/p 1 PRBC and give one dose of lasix. EMILIANO - Many possible etiology. Anemia vs diuresis vs Antibiotics - Nephrology consulted for need to change Abx given Vanc/Zosyn might be contributory. Hypertensive renal disease with her CKD 3. - c/w Coreg, amlodipine and Cardizem CD. Her lisinopril is discontinued. Did not get Coreg and amlodipine yesterday. Previously controlled on coreg, amlodipine and cardizem. Got one dose of Hydralazine this morning. Plan was for discharge for today. However will hold given worsening renal function. - Time Spent with Patient Total time spent is greater than 50% in coordination of care (as documented) at patient's floor/unit and/or counseling patient: Internal Medicine: Result - Labs CBC & Chem 7: 07/29/18 03:05 07/29/18 03:05 Labs: Short CBC 07/29/18 Range/Units 03:05 WBC 11.9 H (4.3-11.1) K/mcL Hgb 8.4 L (11.5-15.4) g/dL Hct 27.1 L (35.3-44.9) % Plt Count 335 (140-400) K/mcL Neutrophils # 10.2 H (1.6-8.9) K/mcL BMP 07/29/18 03:05 Sodium 142 Potassium 4.0 Chloride 103 Carbon Dioxide 33 H BUN 42 H Creatinine 1.28 H Glucose 116 H Calcium 9.3 - ABG Interpretation ABG results: ABG ABG pH 7.32 pH Units (7.32-7.45) 07/26/18 15:44 ABG pCO2 62 mmHg (35-45) H 07/26/18 15:44 ABG pO2 110 mmHg (85-104) H 07/26/18 15:44 ABG O2 Saturation 98 % (95-98) 07/26/18 15:44 PT/INR, D-dimer PT 11.5 Seconds (9.4-12.1) 07/25/18 06:47 Consult Discharge Plan - Plan Referrals: Ritika Humphreys, [employer] SERVICE ATTENDANT [Primary Care Provider] - (1) Acute and chronic respiratory failure ([id number]) Qualifiers: Respiratory failure complication: hypoxia and hypercapnia Qualified Code(s): J96.21 - Acute and chronic respiratory failure with hypoxia; J96.22 - Acute and chronic respiratory failure with hypercapnia (3) Pneumonia Qualifiers: Pneumonia type: due to methicillin-resistant Staphylococcus aureus (MRSA) Laterality: right Lung location: lower lobe of lung Qualified Code(s): J15.212 - Pneumonia due to Methicillin resistant Staphylococcus aureus (5) Atrial fibrillation Qualifiers: Atrial fibrillation type: paroxysmal Qualified Code(s): I48.0 - Paroxysmal atrial fibrillation (7) Anemia Qualifiers: Anemia type: unspecified type Qualified Code(s): D64.9 - Anemia, unspecified
--- NOTE | 2018-07-29 09:55 | Gastroenterology Progress Note ---
<Olivia العراقي - Last Filed: 07/29/18 09:53> Date of Encounter: 07/29/18 Time of Encounter: 09:53 - Assessment and plan (1) Anemia Current Visit: Yes Status: Acute Assessment and plan: Hgb on admission was 7.8 and this AM Hgb 8.4 which is improved. There is concern for possible GIB due to anemia the patient reporting blood in stool. However, at the last attempt for endoscopy the patient had respiratory decompensation in the endoscopy cannot be performed at that time. Due to her continued poor respiratory status she is not a candidate to undergo endoscopy. Stool occult positive BUN 42 Plan: The patient and daughter both do not want her to undergo endoscopy after having been informed of risks and benefits. Recommend to monitor CBCs, periodic iron and ferritin levels, blood transfusions as needed. Qualifiers: Anemia type: unspecified type Qualified Code(s): D64.9 - Anemia, unspecified (2) Acute and chronic respiratory failure ([id number]) Current Visit: Yes Status: Acute Assessment and plan: She is currently being treated for acute on chronic respiratory failure with hypoxia and hypercapnia secondary to pneumonia and diastolic CHF and COPD. -Management per primary team Qualifiers: Respiratory failure complication: hypoxia and hypercapnia Qualified Code(s) : J96.21 - Acute and chronic respiratory failure with hypoxia; J96.22 - Acute and chronic respiratory failure with hypercapnia - Time Spent With Patient Total time spent is greater than 50% in coordination of care (as documented) at patient's floor/unit and/or counseling patient: - Subjective Interval history: Patient was seen and examined at bedside. She is alert and oriented times 3. She reports having loose bowel movements. She admitted having bright red blood spotting per rectum which is unchanged. She denied melena. - Constitutional Vitals: Temp Pulse Resp BP Pulse Ox 97.6 F 99 16 175/91 99 07/29/18 07:47 07/29/18 07:47 07/29/18 07:47 07/29/18 07:47 07/29/18 07:47 General appearance: Present: cooperative, A&O X 3, no acute distress, answers questions appropriately Exam: Gen.: Vitals noted. No acute distress. AAOx3 HEENT: oropharynx clear, Normocephalic, atraumatic Cardiac: RRR, no murmur, +S1/S2 Pulmonary: bilaterally rales or rhonchi, equal chest expansion Abdomen: soft, nontender, Bowel sounds noted, no guarding MSK: ROM intact, no joint swelling noted Extremities: no BLE edema, nontender calf, no cyanosis or clubbing Neuro: A&Ox3, moves all extremities, no focal deficits Psych: Appropriate mood and behavior Results - Labs CBC & Chem 7: 07/29/18 03:05 07/29/18 03:05 Labs: Last Result Calcium 9.3 mg/dL (8.6-10.3) 07/29/18 03:05 Troponin I 0.03 ng/mL (< 0.04) 07/18/18 10:27 Stool Occult Blood Positive (Negative) A 07/19/18 Unknown Entire Visit Hgb 8.4 g/dL (11.5-15.4) L 07/29/18 03:05 Hct 27.1 % (35.3-44.9) L 07/29/18 03:05 PT 11.5 Seconds (9.4-12.1) 07/25/18 06:47 Total Bilirubin 0.2 mg/dL (0.3-1.0) L 07/20/18 03:40 AST 12 Units/L (13-39) L 07/20/18 03:40 ALT 23 Units/L (7-52) 07/20/18 03:40 - ABG ABG results: ABG ABG pH 7.32 pH Units (7.32-7.45) 07/26/18 15:44 ABG pCO2 62 mmHg (35-45) H 07/26/18 15:44 ABG pO2 110 mmHg (85-104) H 07/26/18 15:44 ABG O2 Saturation 98 % (95-98) 07/26/18 15:44 PT/INR, D-dimer PT 11.5 Seconds (9.4-12.1) 07/25/18 06:47 Consult Discharge Plan - Plan Referrals: Ritika Humphreys, [facility] [Primary Care Provider] - <Diego Lilly - Last Filed: 07/29/18 12:53> Date of Encounter: 07/29/18 - Time Spent With Patient Total time spent is greater than 50% in coordination of care (as documented) at patient's floor/unit and/or counseling patient: - Constitutional Vitals: Temp Pulse Resp BP Pulse Ox 97.6 F 99 16 175/91 99 07/29/18 07:47 07/29/18 07:47 07/29/18 11:06 07/29/18 07:47 07/29/18 11:06 Results - Labs CBC & Chem 7: 07/29/18 03:05 07/29/18 03:05 Labs: Last Result Calcium 9.3 mg/dL (8.6-10.3) 07/29/18 03:05 Troponin I 0.03 ng/mL (< 0.04) 07/18/18 10:27 Stool Occult Blood Positive (Negative) A 07/19/18 Unknown Entire Visit Hgb 8.4 g/dL (11.5-15.4) L 07/29/18 03:05 Hct 27.1 % (35.3-44.9) L 07/29/18 03:05 PT 11.5 Seconds (9.4-12.1) 07/25/18 06:47 Total Bilirubin 0.2 mg/dL (0.3-1.0) L 07/20/18 03:40 AST 12 Units/L (13-39) L 07/20/18 03:40 ALT 23 Units/L (7-52) 07/20/18 03:40 - ABG ABG results: ABG ABG pH 7.32 pH Units (7.32-7.45) 07/26/18 15:44 ABG pCO2 62 mmHg (35-45) H 07/26/18 15:44 ABG pO2 110 mmHg (85-104) H 07/26/18 15:44 ABG O2 Saturation 98 % (95-98) 07/26/18 15:44 PT/INR, D-dimer PT 11.5 Seconds (9.4-12.1) 07/25/18 06:47 - Attending Attestation I examined this patient and my medical decision-making was reviewed with the Resident Physician. I agree with the documented findings, disposition and treatment plan as described except to the extent set forth below. Pt seen with Dr. Mcconnell I agree with her assessment and plan. Exam: patient sitting in a chair breathing a bit hard. A: Patient with severe COPD now with anemia which has been stable no overt GI bleeding. Recommendation: Follow H&H as an outpatient periodically no need for endoscopy
[2018-07-29] MEDS: Multivit/Ca/Min/Fe/FA 1 TAB TABLET PO SCH (10:14)
[2018-07-29] MEDS: amLODIPine 5 MG TABLET PO SCH (10:14)
[2018-07-29] MEDS: Diltiazem CD (24hr) 120 MG CAPSULE PO SCH (10:15)
[2018-07-29] MEDS: Nystatin SUSP 5 ML UD.LIQ PO SCH ×4 (10:15→20:34)
[2018-07-29] MEDS: Lactobacillus 1 EACH CAP.SPRINK PO SCH ×2 (10:15→20:33)
[2018-07-29] MEDS: predniSONE 20 MG TABLET PO SCH (10:23)
[2018-07-29] MEDS: *HR* HYDROcodone/Acet 10/325 mg TABLET PO PRN (10:43)
[2018-07-29] MEDS: Acetaminophen 325 MG TABLET PO PRN (10:44)
[2018-07-29] MEDS: Budesonide/Formoterol 80/4.5 MDI IH SCH ×2 (10:59→21:42)
--- NOTE | 2018-07-29 12:24 | Infectious Disease Progress No ---
Date of Encounter: 07/29/18 Time of Encounter: 10:15 - Assessment and Plan (1) Sepsis Current Visit: Yes Status: Acute The patient had 2 subsequent criteria on admission. Likely secondary to multifocal pneumonia. Improved. White blood cell count is trending down. Tachycardia persists, but is intermittent. She has been afebrile. Blood cultures drawn 07/18/18 are negative 2 sets. Qualifiers: Sepsis type: sepsis due to unspecified organism Qualified Code(s): A41.9 - Sepsis, unspecified organism (2) Multifocal pneumonia Current Visit: Yes Status: Acute Causative organism: Unclear. Location: Multifocal. Strep pneumococcal and legionella urinary antigens are negative. Respiratory infectious panels negative. The patient has been unable to provide an adequate sputum specimen for culture. Clinically, the patient improved. Continue vancomycin IV. Pharmacy to dose. Goal trough approximately 15. (day 4 ) Continue Zosyn 3.375 g IV every 8 hours. (day 4 + 7 days of Cefepime) Duration of treatment depends on the clinical picture, but likely a total 10 days. May consider transitioning to oral antibiotics when ready for discharge. Monitor renal function and for drug toxicity and dose adjust antibiotics. (3) Urinary tract infection Current Visit: Yes Status: Acute Causative organism pansensitive pseudomonas aeruginosa. Continue Zosyn 3.375 g IV every 8 hours. (day 4 + 7 days of Cefepime). Duration of treatment and on the clinical picture, but likely total of 10 days would be adequate. We will need to continue her antibiotics for pneumonia as stated above. Qualifiers: Urinary tract infection type: acute cystitis Hematuria presence: with hematuria Qualified Code(s): N30.01 - Acute cystitis with hematuria (4) Diarrhea Current Visit: No Status: Acute The patient reports 4-5 loose stools yesterday, but per nursing the patient only had 2 loose stools yesterday. Likely secondary to antibiotic use. Clinically, does not that the picture of C. difficile. If the patient has greater than 4 loose watery stools in a 24-hour period, will check for C. difficile. Continue probiotics. Qualifiers: Diarrhea type: unspecified type Qualified Code(s): R19.7 - Diarrhea, unspecified (5) EMILIANO (acute kidney injury) Current Visit: Yes Status: Acute Improved initially, but serum creatinine elevated today. Etiology of her current unclear. Continue to trend. Dose adjust antibiotics. Avoid nephrotoxins as able. Need to be very cautious with the vancomycin and Zosyn combination. (6) Acute and chronic respiratory failure ([id number]) Current Visit: Yes Status: Acute Likely secondary to pneumonia. Appears improved. Continue supportive care per the primary and pulmonary teams. Qualifiers: Respiratory failure complication: hypoxia and hypercapnia Qualified Code(s) : J96.21 - Acute and chronic respiratory failure with hypoxia; J96.22 - Acute and chronic respiratory failure with hypercapnia (7) Elevated CO2 level Current Visit: Yes Status: Acute Likely secondary to COPD. Management per the primary pulmonary teams. (8) Myoclonic jerking Current Visit: Yes Status: Resolved Etiology unclear, but possibly secondary to cefepime, which as been discontinued. Appears resolved. (9) Allergy to multiple antibiotics Current Visit: Yes Status: Acute The patient has documented allergies to clindamycin, sulfa, Levaquin, which greatly inhibits our ability to use several different antibiotics to treat her pneumonia. (10) MAC (mycobacterium avium-intracellulare complex) Current Visit: No Status: Acute History of MAC in 2014. Attempted treatment with clarithromycin, ethambutol but she couldnt tolerate treatment and treatment was stopped. (11) Anemia Current Visit: Yes Status: Acute FOBT positive. GI consulted. Cannot perform endoscopy due to the patient's respiratory status. Qualifiers: Anemia type: unspecified type Qualified Code(s): D64.9 - Anemia, unspecified - Subjective Interval history: Patient seen and examined. No acute events noted overnight. Patient states overall she feels okay. Reports that she is short of breath, but this is at baseline for her. She reports a mild cough that is nonproductive. She denies any pain in her chest or belly. She denies any nausea or vomiting or diarrhea. She states she did eat a little bit of breakfast. She denies any urinary complaints. She reports 3 loose stools yesterday. She denies any oral thrush or new skin lesions. Infect Dis PN-Objective Data - Labs CBC & Chem 7: 07/29/18 03:05 07/29/18 03:05 Labs: Laboratory Results - last 24 hr 07/28/18 07/29/18 07/29/18 17:36 03:05 03:05 WBC 11.9 H RBC 2.86 L Hgb 8.4 L Hct 27.1 L MCV 94.8 MCH 29.4 MCHC 31.0 L RDW 14.8 H Plt Count 335 MPV 9.5 Immature Gran % 0.5 Seg Neutrophils % 85.4 Lymphocytes % 9.2 Monocytes % 4.9 Eosinophils % 0.0 Basophils % 0.0 Neutrophils # 10.2 H Lymphocytes # 1.1 Monocytes # 0.6 Eosinophils # 0.0 Basophils # 0.0 Sodium 142 Potassium 4.0 Chloride 103 Carbon Dioxide 33 H BUN 42 H Creatinine 1.28 H Est GFR ( Amer) 49 L Est GFR (Non-Af Amer) 40 L BUN/Creatinine Ratio 33 H Glucose 116 H Calculated Osmolality 305 H Calcium 9.3 Blood Type O POSITIVE Antibody Screen POSITIVE Antibody Identification Known Anti-K MTS Gel Crossmatch See Detail Cultures: Cultures 07/28/18 06:26 Sputum Culture - Final Sputum 07/26/18 18:45 Legionella Antigen - Final Urine,Catheterized Streptococcus pneumoniae Antigen (M - Final 07/18/18 15:56 Blood Culture - Final Peripheral Venipuncture No growth. Final report. Serology 07/26/18 07/19/18 Range/Units 06:28 Unknown Stool Occult Blood Positive A (Negative) Chlamy pneumoniae PCR Not Detected (Not Detect) Adenovirus (PCR) Not Detected (Not Detect) B. pertussis DNA (PCR) Not Detected (Not Detect) B.parapertussis DNA PCR Not Detected (Not Detect) Coronavirus OC43 (PCR) Not Detected (Not Detect) Coronavirus HKU1 (PCR) Not Detected (Not Detect) Coronavirus 229E (PCR) Not Detected (Not Detect) Coronavirus NL63 (PCR) Not Detected (Not Detect) Human Metapneumovir PCR Not Detected (Not Detect) Influenza A (H1) PCR Not Detected (Not Detect) Influ A (H1N1/09) PCR Not Detected (Not Detect) Influenza A (H3) PCR Not Detected (Not Detect) Influenza A Untype (PCR) Not Detected (Not Detect) Influenza Type B (PCR) Not Detected (Not Detect) M.pneumoniae DNA (PCR) Not Detected (Not Detect) Parainfluenza 1 (PCR) Not Detected (Not Detect) Parainfluenza 2 (PCR) Not Detected (Not Detect) Parainfluenza 3 (PCR) Not Detected (Not Detect) Parainfluenza 4 (PCR) Not Detected (Not Detect) RSV (PCR) Not Detected (Not Detect) Entero/Rhino (PCR) Not Detected (Not Detect) Exam - Constitutional Vitals: Temp Pulse Resp BP Pulse Ox 97.6 F 99 16 175/91 99 07/29/18 07:47 07/29/18 07:47 07/29/18 11:06 07/29/18 07:47 07/29/18 11:06 General appearance: average body habitus, cooperative, no acute distress - Head Head exam: Present: atraumatic, normal inspection, normocephalic - Eye Eye exam: Present: EOMI, normal appearance, PERRL Pupils: Present: normal accommodation - ENT ENT exam: Present: mucous membranes moist - Neck Neck exam: Present: normal inspection - Respiratory Respiratory exam: Present: decreased breath sounds (Bilateral bases). Absent: rales, respiratory distress, rhonchi, wheezes - Cardiovascular Cardiovascular exam: Present: RRR, +S1, +S2 - GI/Abdominal GI/Abdominal exam: Present: normal bowel sounds, soft. Absent: distended, tenderness - Extremities Exam Extremities exam: Present: normal inspection. Absent: joint swelling, pedal edema, tenderness Additional comments: Remote history of right foot TMA with surgical site well-healed. No erythema, warmth, tenderness, or drainage noted. - Neurological Exam Neurological exam: Present: alert, oriented X3, no focal deficits - Psychiatric Psychiatric exam: Present: normal affect, normal mood - Skin Skin exam: Present: dry, intact, normal color, warm Consult Discharge Plan - Plan Referrals: Ritika Humphreys, [employer] ENGINEER [Primary Care Provider] - - Attending Attestation I examined this patient and my medical decision-making was reviewed with the Resident Physician. I agree with the documented findings, disposition and treatment plan as described except to the extent set forth below. will check C diff patient and nursing tell me she had 3-4 loose stools
--- NOTE | 2018-07-29 13:04 | Nephrology Consult Note ---
Date of Encounter: 07/29/18 Time of Encounter: 13:00 Assessment and Plan (1) EMILIANO (acute kidney injury) Status: Acute Mildly elevated SCr from baseline in the setting of CHF with diuresis, PND on vanco/zosyn and anemia (hgb improved at 8.3) likely multifactorial Would check vanco level and dose by level but should any further decline occur, would need to switch vanco Urine studies Avoid all nephrotoxins if possible Renally dose all meds (2) Acute and chronic respiratory failure ([id number]) Status: Acute Per primary team Qualifiers: Respiratory failure complication: hypoxia and hypercapnia Qualified Code(s): J96.21 - Acute and chronic respiratory failure with hypoxia; J96.22 - Acute and chronic respiratory failure with hypercapnia (3) Anemia Status: Acute workup per GI, will follow hgb levels Qualifiers: Anemia type: unspecified type Qualified Code(s): D64.9 - Anemia, unspecified (4) COPD exacerbation Status: Acute Per primary team (5) Pneumonia Status: Acute Per primary team Qualifiers: Pneumonia type: due to unspecified organism Lung location: unspecified part of lung Qualified Code(s): J18.9 - Pneumonia, unspecified organism (6) CKD (chronic kidney disease) stage 3, GFR 30-59 ml/min Status: Chronic (7) Acute exacerbation of CHF (congestive heart failure) Status: Acute Qualifiers: Heart failure type: diastolic Qualified Code(s): I50.33 - Acute on chronic diastolic (congestive) heart failure History of Present Illness - Reason for Consult Consult date: 07/29/18 Acute Kidney Injury Requesting physician: Ramiro Valle - History of Present Illness 78 y o male with PMH of HTN, Afib, COPD and CHF admitted 07/18 for progressive SOB undergoing diuresis for acute resp. distress now discontinued. Stay also complicated by anemia with hgb down to 7.1 requiring GI workup with EGD/colonoscopy. Pt also developed PNA and was treated vanco/zosyn till ongoing. Initial SCr noted at 1.29, GFR 40 peaking at 1.3 but improving to 0.98, GFR 56. Renal consulted for worsening renal fxn for the past 3 days to 1.28, GFR 40. Past Med Surg Social Fam HX - Past Medical History Medical history: asthma, atrial fibrillation, COPD, hyperlipidemia, hypertension, renal disease, thyroid disease Additional medical history: neuropathy; osteomyelitis; MRSA to right foot and detected in bronchial washings; Psychiatric history: no psych history, other - Past Surgical History Surgical History: appendectomy, cholecystectomy, hysterectomy, orthopedic, other, other Additional surgical history: right toes amputated - Social History Smoking Status: Former smoker Smokeless Tobacco Status: No Alcohol use: none Drug use: none - Family History Brother Family Member Ethnicity: Non- Living Status: Age at : 71 Cause of : CVA complications Hx Family Cardiac Disorders: Yes Hx Family Respiratory Disorders: No Hx Family Cancer: Yes Hx Family GI Disorders: No Hx Family Endocrine Disorder: Yes Hx Family Neuromuscular Disorders: No Hx Family Neurologic Disorders: Yes Hx Family HEENT Disorders: No Hx Family Autoimmune Disorders: No Hx Family Medical Disorders: Yes Father Family Member Ethnicity: Non- Living Status: Hx Family Cardiac Disorders: Yes (CAD, HF) Hx Family Respiratory Disorders: No Hx Family Cancer: No Hx Family GI Disorders: No Hx Family Endocrine Disorder: No Hx Family Neuromuscular Disorders: No Mother Family Member Ethnicity: Non- Living Status: Hx Family Cardiac Disorders: Yes (HTN) Hx Family Respiratory Disorders: No Hx Family Cancer: Yes (Liver) Hx Family GI Disorders: Yes Hx Family Endocrine Disorder: Yes (DM) Hx Family Neuromuscular Disorders: No Hx Family Neurologic Disorders: No Hx Family HEENT Disorders: No Hx Family Autoimmune Disorders: No Paternal Family Member Ethnicity: Non- Living Status: Hx Family Cardiac Disorders: Yes Hx Family Respiratory Disorders: Yes Hx Family Cancer: (liver) Hx Family GI Disorders: No Hx Family Endocrine Disorder: No Hx Family Neuromuscular Disorders: No Hx Family Neurologic Disorders: Yes Hx Family HEENT Disorders: No Hx Family Autoimmune Disorders: (arthritis) Sister Family Member Ethnicity: Non- Living Status: Hx Family Cardiac Disorders: Yes Hx Family Respiratory Disorders: No Hx Family Cancer: No Hx Family GI Disorders: No Hx Family Endocrine Disorder: Yes (DM) Hx Family Neuromuscular Disorders: No Hx Family Neurologic Disorders: No Hx Family HEENT Disorders: No Hx Family Autoimmune Disorders: No Medications and Allergies RX: Albuterol Sulfate [Proair Hfa] 2 puff IH Q4H PRN 07/05/18 [History] RX: Allopurinol [Zyloprim] 300 mg PO DAILY 07/05/18 [History] RX: Amitriptyline [Elavil] 25 mg PO HS 07/05/18 [History] RX: Azelastine HCl 1 drop BOTH EYES BID 07/05/18 [History] RX: Carvedilol [Coreg] 6.25 mg PO BIDWM 07/05/18 [History] RX: Citalopram Hydrobromide [Celexa] 40 mg PO DAILY 07/05/18 [History] RX: Denosumab [Prolia (For Outpatient Infusion)] 60 mg SQ [id number] 07/05/18 [History] RX: Docusate [Colace] 100 mg PO DAILY 07/05/18 [History] RX: Ferrous Sulfate 325 mg PO DAILY 07/05/18 [History] RX: Fluticasone Propionate Nasal [Flonase] 1 spr NS DAILY PRN 07/05/18 [History] RX: Fluticasone/Salmeterol [Advair 250-50 Diskus] 1 puff IH BID 07/05/18 [History] RX: HYDROcodone/Acet 10/325 mg [[place] 10-325 mg] 1 tab PO Q8H PRN 07/05/18 [History] RX: Ipratropium/Albuterol Neb [Duoneb] 3 ml IH Q6HR PRN 07/05/18 [History] RX: Lactobacillus Acidophilus [Acidophilus] 1 cap PO HS 07/05/18 [History] RX: Levothyroxine [Synthroid] 125 mcg PO 6XW 07/05/18 [History] RX: Montelukast [Singulair] 10 mg PO HS 07/05/18 [History] RX: Multivitamin [One Daily Multivitamin] 1 tab PO DAILY 07/05/18 [History] RX: Nystatin Cream [Mycostatin Cream] 1 appl TP BID PRN 07/05/18 [History] RX: Omeprazole [PriLOSEC] 20 mg PO DAILY 07/05/18 [History] RX: Polyethylene Glycol 3350 [MiraLAX] 17 gm PO DAILY 07/05/18 [History] RX: Roflumilast [Daliresp] 500 mcg PO DAILY 07/05/18 [History] RX: Tiotropium [place] [Spiriva Respimat] 2 puff IH DAILY 07/05/18 [History] RX: Diltiazem CD (24hr) [Cardizem CD] 120 mg PO DAILY 30 Days #30 cap.er.24h 07/07/18 [Rx] RX: Fluticasone Propionate Nasal [Flonase] 50 mcg NS DAILY PRN bottle 08/01/18 [Rx] RX: amLODIPine [Norvasc] 5 mg PO DAILY 30 Days #30 tablet 08/01/18 [Rx] RX: predniSONE [PredniSONE] See Taper PO DAILY #70 tablet 08/01/18 [Rx] Allergy/AdvReac Type Severity Reaction Status Date / Time acetaminophen [From Percocet] Allergy Rash Verified 07/05/18 19:07 aspirin Allergy See Verified 07/09/18 17:26 Comments clindamycin Allergy Itching Verified 07/09/18 17:26 hydrochlorothiazide Allergy Rash Verified 07/09/18 17:26 losartan [Losartan] Allergy Rash Verified 07/09/18 17:26 Oxycodone [From Percocet] Allergy Rash Verified 07/09/18 17:26 Sulfa (Sulfonamide Allergy Rash Verified 07/09/18 17:26 Antibiotics) codeine AdvReac Nausea Verified 07/09/18 17:26 levofloxacin [From Levaquin] AdvReac Hallucinati Verified 07/09/18 17:26 ng morphine AdvReac Irritable Verified 07/09/18 17:26 NSAIDS (Non-Steroidal AdvReac See Verified 07/09/18 17:26 Anti-Inflamma Comments rofecoxib [From Vioxx] AdvReac See Verified 07/09/18 17:26 Comments ropinirole [From Requip] AdvReac See Verified 07/09/18 17:26 Comments Review of Systems All Systems review (narrative): The rest of the systems were negative Constitutional: anorexia (admits), fatigue (admits) Cardiovascular: chest pain (denies), leg edema (admits) Respiratory: dyspnea (admits) Exam - Vital Signs Vital signs: Initial Vital Signs Temp Pulse Resp BP Pulse Ox 97.6 F 85 10 100/53 97 07/18/18 09:26 07/18/18 09:26 07/18/18 09:26 07/18/18 09:26 07/18/18 09:26 Vital Signs - Last 8 Hours Temp Pulse Resp BP Pulse Ox 07/29/18 11:06 16 99 07/29/18 07:47 97.6 F 99 16 175/91 99 Intake and Output 07/28/18 07/29/18 07/29/18 23:59 07:59 15:59 Intake Total 100 / 100 450 / 450 100 / 100 Output Total 0 / 0 900 / 900 Balance 100 / 100 -450 / -450 100 / 100 Intake: IV Fluids 100 / 100 100 / 100 100 / 100 Zosyn 3.375 GM In 0.9 % Sodium 100 / 100 100 / 100 100 / 100 Chloride (Mini-Bag +) 100 ML @ 25 mls/hr IVPB Q8HR [facility] Rx#: [id number] Oral 0 / 0 0 / 0 Blood Product 0 / 0 350 / 350 Rbcs Leuko Poor As-1 Unit 0 / 0 350 / 350 [id number] Output: Urine 0 / 0 900 / 900 Other: Stool Size Small Smear Stool Consistency formed loose Stool Characteristics Normal for Patient Stool Color Brown Brown # Bowel Movements 1 Weight 52.6 kg Patient Weight 07/29/18 23:59 Weight 52.6 kg - General Appearance General appearance: chronically ill, fatigue EENT: ATNC, mucous membranes moist Neck: no JVD, supple Respiratory: course breath sounds Cardiology: edema, normal S1, normal S2 Gastrointestinal: no tenderness, no guarding Integumentary: warm and dry Neurologic: no focal deficit Musculoskeletal: no deformities Psychiatric: mood/affect appropriate Results - Lab Results 07/30/18 03:08 07/31/18 03:55 Most recent lab results ABG pH 7.32 pH Units (7.32-7.45) 07/26/18 15:44 ABG pCO2 62 mmHg (35-45) H 07/26/18 15:44 ABG pO2 110 mmHg (85-104) H 07/26/18 15:44 ABG HCO3 32 mEq/L (21-27) H 07/26/18 15:44 ABG O2 Saturation 98 % (95-98) 07/26/18 15:44 Calcium 9.3 mg/dL (8.6-10.3) 07/29/18 03:05 Magnesium 2.1 mg/dL (1.6-2.6) 07/26/18 07:37 Consult Discharge Plan - Plan Instructions: Prednisone (By mouth), Amlodipine (By mouth), Piperacillin/T azobactam (Injection), Vancomycin/Dextrose Premix (Injection), Myocardial Infarction (DC), Heart Failure (DC), Atrial Flutter (DC), Atrial Fibrillation (DC), Acute Respiratory Distress Syndrome (DC), Urinary Tract Infection in Women (DC), Chronic Obstructive Pulmonary Disease (DC), Sepsis (DC), Chronic Hypertension (DC), Anemia (GEN), Pneumonia (DC) Referrals: Ritika Humphreys CNP [Primary Care Provider] - Prescriptions: RX: amLODIPine [Norvasc] 5 mg PO DAILY 30 Days #30 tablet RX: predniSONE [PredniSONE] See Taper PO DAILY #70 tablet
[2018-07-29 15:08] LABS: Creatine Kinase < 10 Units/L (30-223)
--- NOTE | 2018-07-29 17:08 | Internal Med Progress Note ---
Hospitalist Progress Note - Encounter Date of Encounter: 07/29/18 Time of Encounter: 10:16 - Subjective Interval History: Patient seen and examined this morning. No overnight events. No diarrhea. Non- bloody normal BM. Urinating well. In chair. Breathing well. No other complain. - Exam Vitals: Temp Pulse Resp BP Pulse Ox 98.0 F 91 16 170/83 97 07/29/18 16:31 07/29/18 16:31 07/29/18 16:31 07/29/18 16:31 07/29/18 16:31 Exam: Gen: alert and awake on chair. Not in acute distress. On nasal canula siting in chair comfortably. Respiratory exam: Decreased air entry on Rt. rales at base bilaterally. No rhonchi, wheezes Cardiovascular exam: RRR, +S1, +S2. systolic murmur, no gallop, rubs. GI/Abdominal exam: Non-tender, Non-distended, normal bowel sounds, soft, no peritoneal signs. Extremities exam: No pedal edema Neurological exam: No focal deficits. No myoclonic jerks Skin exam: no skin rash, ulcer, purpura or ecchymosis. - Assessment and Plan (1) Acute and chronic respiratory failure ([id number]) Current Visit: Yes Status: Acute (2) CKD (chronic kidney disease) stage 3, GFR 30-59 ml/min Current Visit: Yes Status: Chronic (3) Pneumonia Current Visit: Yes Status: Suspected (4) COPD exacerbation Current Visit: Yes Status: Acute (5) Atrial fibrillation Current Visit: Yes Status: Chronic (6) Hypertensive renal disease with renal failure Current Visit: Yes Status: Chronic (7) Anemia Current Visit: Yes Status: Acute - Summary of Assessment and Plan Summary of Assessment and Plan: Acute on chronic respiratory failure with hypoxia and hypercapnia - Likely secondary to combination of Pneumonia and Diastolic CHF and COPD. Possibly precipitated by GI prep. Improved with IV Lasix. Now stopped. - Underlying mild CKD stage III contributory. - Continue Bipap with sleep and at night. - now resolved Pneumonia/COPD exacerbation. - On Vancoycin and Zosysin for HCAP given h/o MRSA and psuedomonas Pnemonia.( Previously received cefepime switch due to myoclonic jerks). To get for 10 days ( On day 5) - prednisone switched to PO. c/w nebulizer treatments with DuoNeb/Symbicort. No indication for diamox. - respiratory infection panel unremarkable. Legionella and streptococcus antigen negative. sputum cultures negative. - ID following. Recommendation appreciated. To finish 10 day course of Vancomycin and Zosyn. Has IV access in place. Will discuss options given worsening EMILIANO and may need to stop vancomyciin. EMILIANO - Many possible etiology. Anemia vs diuresis vs Antibiotics - Nephrology following. f/u vanc level. May need to switch vanco if decline further BEVERLY - c/w Bipap settings are /. with fio2 titration. Atrial fibrillation - Rate controlled with Coreg and Cardizem CD. Now resumed. - Xarelto is on hold due to low Hb. Switched to Coumadin but Hb dropped. Off AC. Discussed the risk benefits of being on and off anticoagulation. Patient understands and agrees to be off Anticoagulation. Loose stool - Likely from stool softner and laxative. - Discontinue lactulose Anemia - Hemoccult of stool is positive - GI consulted. Patient is not a candidate for any endoscopy given her respiratory status. - s/p 1 PRBC 07/28 - Monitor for now Hypertensive renal disease with her CKD 3. - c/w Coreg, amlodipine and Cardizem CD. Her lisinopril is discontinued. - Did not get Coreg and amlodipine yesterday. Previously controlled on coreg, amlodipine and cardizem. Got one dose of Hydralazine this morning. - May need to start additional medication if BP not controlled on resuming medications. - Time Spent with Patient Total time spent is greater than 50% in coordination of care (as documented) at patient's floor/unit and/or counseling patient: Internal Medicine: Result - Labs CBC & Chem 7: 07/29/18 03:05 07/29/18 03:05 Labs: Short CBC 07/29/18 Range/Units 03:05 WBC 11.9 H (4.3-11.1) K/mcL Hgb 8.4 L (11.5-15.4) g/dL Hct 27.1 L (35.3-44.9) % Plt Count 335 (140-400) K/mcL Neutrophils # 10.2 H (1.6-8.9) K/mcL BMP 07/29/18 03:05 Sodium 142 Potassium 4.0 Chloride 103 Carbon Dioxide 33 H BUN 42 H Creatinine 1.28 H Glucose 116 H Calcium 9.3 - ABG Interpretation ABG results: ABG ABG pH 7.32 pH Units (7.32-7.45) 07/26/18 15:44 ABG pCO2 62 mmHg (35-45) H 07/26/18 15:44 ABG pO2 110 mmHg (85-104) H 07/26/18 15:44 ABG O2 Saturation 98 % (95-98) 07/26/18 15:44 PT/INR, D-dimer PT 11.5 Seconds (9.4-12.1) 07/25/18 06:47 Consult Discharge Plan - Plan Referrals: Ritika Humphreys, [facility] [Primary Care Provider] - (1) Acute and chronic respiratory failure ([id number]) Qualifiers: Respiratory failure complication: hypoxia and hypercapnia Qualified Code(s): J96.21 - Acute and chronic respiratory failure with hypoxia; J96.22 - Acute and chronic respiratory failure with hypercapnia (3) Pneumonia Qualifiers: Pneumonia type: due to methicillin-resistant Staphylococcus aureus (MRSA) Laterality: right Lung location: lower lobe of lung Qualified Code(s): J15.212 - Pneumonia due to Methicillin resistant Staphylococcus aureus (5) Atrial fibrillation Qualifiers: Atrial fibrillation type: paroxysmal Qualified Code(s): I48.0 - Paroxysmal atrial fibrillation (7) Anemia Qualifiers: Anemia type: unspecified type Qualified Code(s): D64.9 - Anemia, unspecified
[2018-07-29] MEDS: Vancomycin 500 MG in 0.9 % Sodium Chloride Mini Bag 100 ML IVPB SCH (20:40)
[2018-07-29 23:10] LABS: Bacteria,Urine None Seen per hpf (None-Few); Hyaline Casts,Urine None Seen per lpf (None-Few); RBC,Urine 0-3 per hpf (0-3); Squamous Epithelial Cell,Urine Many per lpf (None-Few)
[2018-07-29 23:11] LABS: Bilirubin,Urine Negative (Negative); Blood,Urine Negative (Negative); Clarity,Urine Clear (Clear); Color,Urine Yellow (Yellow); Glucose,Urine (UA) Normal (Normal); Ketones,Urine Negative (Negative); Leukocyte Esterase,Urine Negative (Negative); Nitrite,Urine Negative (Negative); Protein,Urine 30 mg/dL (Neg-Trace); Specific Gravity,Urine 1.016 (1.010-1.025); Urobilinogen,Urine Normal (Normal)
[2018-07-29 23:16] LABS: Sodium, Urine 79.8 mEq/L
[2018-07-30] MEDS: Ipratropium/Albuterol Neb 3 ML IH SCH ×4 (03:34→22:55)
[2018-07-30 03:38] LABS: Basophils % 0.1 %; Hematocrit 27.2 % (35.3-44.9); Hemoglobin 8.4 g/dL (11.5-15.4); Immature Granulocytes % 0.5 % (0-4); Lymphocytes # 1.4 K/mcL (0.6-4.6); Lymphocytes % 10.8 %; Mean Corpuscular HGB Conc 30.9 g/dL (31.6-35.5); Mean Corpuscular Hemoglobin 29.1 pg (28.0-33.3); Mean Corpuscular Volume 94.1 fL (83.0-100.0); Mean Platelet Volume 9.5 fL (9.4-12.4); Monocytes # 0.6 K/mcL (0.0-1.3); Monocytes % 4.7 %; Neutrophils # 10.7 K/mcL (1.6-8.9); Platelet Count 361 K/mcL (140-400); Red Blood Count 2.89 M/mcL (3.82-4.97); Red Cell Distribution Width 14.7 % (11.5-14.5); Segmented Neutrophils % 83.9 %
[2018-07-30 03:43] LABS: Potassium 4.5 mEq/L (3.5-5.1)
[2018-07-30] MEDS: Budesonide/Formoterol 80/4.5 MDI IH SCH ×2 (09:15→22:55)
[2018-07-30] MEDS: Diltiazem CD (24hr) 120 MG CAPSULE PO SCH (10:47)
[2018-07-30] MEDS: predniSONE 20 MG TABLET PO SCH (10:47)
[2018-07-30] MEDS: *HR* HYDROcodone/Acet 10/325 mg TABLET PO PRN (10:50)
[2018-07-30] MEDS: amLODIPine 5 MG TABLET PO SCH (10:50)
[2018-07-30] MEDS: Multivit/Ca/Min/Fe/FA 1 TAB TABLET PO SCH (10:51)
[2018-07-30] MEDS: Acetaminophen 325 MG TABLET PO PRN (10:51)
[2018-07-30] MEDS: Lactobacillus 1 EACH CAP.SPRINK PO SCH ×2 (10:52→20:59)
[2018-07-30] MEDS: Nystatin SUSP 5 ML UD.LIQ PO SCH ×4 (10:52→21:05)
[2018-07-30] MEDS: Piperacillin/Tazobactam 3.375 GM in 0.9 % Sodium Chloride Mini Bag 100 ML IVPB SCH ×3 (10:52→23:45)
--- NOTE | 2018-07-30 13:09 | Internal Med Progress Note ---
Hospitalist Progress Note - Encounter Date of Encounter: 07/30/18 Time of Encounter: 13:08 - Subjective Interval History: Patient seen and examined this morning. No acute overnight events. Denies new complains. No fever, chills, N/V/D. - Exam Vitals: Temp Pulse Resp BP Pulse Ox 98.6 F 102 15 159/83 96 07/30/18 10:48 07/30/18 10:48 07/30/18 10:48 07/30/18 10:48 07/30/18 10:48 Exam: Gen: alert and awake on chair. Not in acute distress. On nasal canula siting in chair comfortably. Respiratory exam: Decreased air entry on Rt. rales at base bilaterally. No rhonchi, wheezes Cardiovascular exam: RRR, +S1, +S2. systolic murmur, no gallop, rubs. GI/Abdominal exam: Non-tender, Non-distended, normal bowel sounds, soft, no peritoneal signs. Extremities exam: No pedal edema Neurological exam: No focal deficits. No myoclonic jerks Skin exam: no skin rash, ulcer, purpura or ecchymosis. - Assessment and Plan (1) Acute and chronic respiratory failure ([id number]) Current Visit: Yes Status: Acute (2) CKD (chronic kidney disease) stage 3, GFR 30-59 ml/min Current Visit: Yes Status: Chronic (3) Pneumonia Current Visit: Yes Status: Suspected (4) COPD exacerbation Current Visit: Yes Status: Acute (5) Atrial fibrillation Current Visit: Yes Status: Chronic (6) Hypertensive renal disease with renal failure Current Visit: Yes Status: Chronic (7) Anemia Current Visit: Yes Status: Acute - Summary of Assessment and Plan Summary of Assessment and Plan: Pneumonia/COPD exacerbation. - On Vancoycin and Zosysin for HCAP given h/o MRSA and psuedomonas Pnemonia.( Previously received cefepime switch due to myoclonic jerks). To get for 10 days ( On day 6) - prednisone switched to PO. c/w nebulizer treatments with DuoNeb/Symbicort. No indication for diamox. - respiratory infection panel unremarkable. Legionella and streptococcus antigen negative. sputum cultures negative. - ID following. Recommendation appreciated. To finish 10 day course of Vancomycin and Zosyn. Has IV access in place. EMILIANO - Many possible etiology. Anemia vs diuresis vs Antibiotics - Nephrology following. Recommendation appreciated - vanc level elevated at 19. Dosing adjusted yesterday by pharmacy. Repeat check tommorrow. - Now improved. continue to monitor. Acute on chronic respiratory failure with hypoxia and hypercapnia - Likely secondary to combination of Pneumonia and Diastolic CHF and COPD. Possibly precipitated by GI prep. Improved with IV Lasix. Now stopped. - Underlying mild CKD stage III contributory. - Continue Bipap with sleep and at night. - now resolved BEVERLY - c/w Bipap settings are 08/30. with fio2 titration. Atrial fibrillation - Rate controlled with Coreg and Cardizem CD. Now resumed. - Xarelto is on hold due to low Hb. Switched to Coumadin but Hb dropped. Off AC. Discussed the risk benefits of being on and off anticoagulation. Patient understands and agrees to be off Anticoagulation. Loose stool - Likely from stool softner and laxative. - Discontinue lactulose - Now resolved Anemia - Hemoccult of stool is positive - GI consulted. Patient is not a candidate for any endoscopy given her respiratory status. - s/p 1 PRBC 07/28 - Stable now. continue to monitor Hypertensive renal disease with her CKD 3. - Now well controlled. - c/w Coreg, amlodipine and Cardizem CD. Her lisinopril is discontinued. Plan for discharge on Wednesday. - Time Spent with Patient Total time spent is greater than 50% in coordination of care (as documented) at patient's floor/unit and/or counseling patient: Internal Medicine: Result - Labs CBC & Chem 7: 07/30/18 03:08 07/30/18 03:08 Labs: Short CBC 07/30/18 Range/Units 03:08 WBC 12.7 H (4.3-11.1) K/mcL Hgb 8.4 L (11.5-15.4) g/dL Hct 27.2 L (35.3-44.9) % Plt Count 361 (140-400) K/mcL Neutrophils # 10.7 H (1.6-8.9) K/mcL BMP 07/29/18 07/30/18 03:05 03:08 Sodium 142 142 Potassium 4.0 4.5 Chloride 103 99 Carbon Dioxide 33 H 37 H BUN 42 H 39 H Creatinine 1.28 H 1.09 Glucose 116 H 101 Calcium 9.3 9.0 Urine 07/29/18 Range/Units 22:29 Urine Color Yellow (Yellow) Urine Clarity Clear (Clear) Urine pH 6.0 (5.0-8.0) pH Units Ur Specific [place] 1.016 (1.010-1.025) Urine Protein 30 H (Neg-Trace) mg/dL Urine Glucose (UA) Normal (Normal) mg/dL - ABG Interpretation ABG results: ABG ABG pH 7.32 pH Units (7.32-7.45) 07/26/18 15:44 ABG pCO2 62 mmHg (35-45) H 07/26/18 15:44 ABG pO2 110 mmHg (85-104) H 07/26/18 15:44 ABG O2 Saturation 98 % (95-98) 07/26/18 15:44 PT/INR, D-dimer PT 11.5 Seconds (9.4-12.1) 07/25/18 06:47 Consult Discharge Plan - Plan Referrals: Ritika Humphreys, [employer] [Primary Care Provider] - (1) Acute and chronic respiratory failure ([id number]) Qualifiers: Respiratory failure complication: hypoxia and hypercapnia Qualified Code(s): J96.21 - Acute and chronic respiratory failure with hypoxia; J96.22 - Acute and chronic respiratory failure with hypercapnia (3) Pneumonia Qualifiers: Pneumonia type: due to methicillin-resistant Staphylococcus aureus (MRSA) Laterality: right Lung location: lower lobe of lung Qualified Code(s): J15.212 - Pneumonia due to Methicillin resistant Staphylococcus aureus (5) Atrial fibrillation Qualifiers: Atrial fibrillation type: paroxysmal Qualified Code(s): I48.0 - Paroxysmal atrial fibrillation (7) Anemia Qualifiers: Anemia type: unspecified type Qualified Code(s): D64.9 - Anemia, unspecified
[2018-07-30] MEDS: Vancomycin 500 MG in 0.9 % Sodium Chloride Mini Bag 100 ML IVPB SCH (21:05)
[2018-07-31] MEDS: Ipratropium/Albuterol Neb 3 ML IH SCH ×4 (04:15→22:23)
[2018-07-31 04:31] LABS: BUN/Creatinine Ratio 34 (6-26); Blood Urea Nitrogen 36 mg/dL (8-23); Calcium 9.1 mg/dL (8.6-10.3); Carbon Dioxide 34 mEq/L (23-29); Chloride 99 mEq/L (98-107); Glucose 97 mg/dL (70-105); Osmolality,Calculated 296 (280-300); Potassium 3.9 mEq/L (3.5-5.1); Sodium 139 mEq/L (136-145); eGFR For Non-African Americans 51 (> 60)
[2018-07-31] MEDS: *HR* HYDROcodone/Acet 10/325 mg TABLET PO PRN ×2 (05:17→21:12)
[2018-07-31] MEDS: Acetaminophen 325 MG TABLET PO PRN ×2 (05:17→21:12)
[2018-07-31] MEDS: predniSONE 20 MG TABLET PO SCH (09:46)
[2018-07-31] MEDS: Lactobacillus 1 EACH CAP.SPRINK PO SCH ×2 (09:46→20:25)
[2018-07-31] MEDS: Multivit/Ca/Min/Fe/FA 1 TAB TABLET PO SCH (09:47)
[2018-07-31] MEDS: amLODIPine 5 MG TABLET PO SCH (09:48)
[2018-07-31] MEDS: Diltiazem CD (24hr) 120 MG CAPSULE PO SCH (09:48)
[2018-07-31] MEDS: Nystatin SUSP 5 ML UD.LIQ PO SCH ×4 (09:48→20:25)
[2018-07-31] MEDS: Piperacillin/Tazobactam 3.375 GM in 0.9 % Sodium Chloride Mini Bag 100 ML IVPB SCH ×3 (09:49→23:47)
[2018-07-31] MEDS: Budesonide/Formoterol 80/4.5 MDI IH SCH ×2 (10:24→22:23)
--- NOTE | 2018-07-31 12:51 | Internal Med Progress Note ---
Hospitalist Progress Note - Encounter Date of Encounter: 07/31/18 Time of Encounter: 10:20 - Subjective Interval History: Patient seen and examined this morning. No acute overnight events. Denies new complains. No fever, chills, N/V/D. - Exam Vitals: Temp Pulse Resp BP Pulse Ox 98.5 F 98 16 176/90 98 07/31/18 07:07 07/31/18 07:07 07/31/18 10:35 07/31/18 07:07 07/31/18 10:35 Exam: Gen: alert and awake on chair. Not in acute distress. On nasal canula siting in chair comfortably. Respiratory exam: Decreased air entry on Rt. rales at base bilaterally. No rhonchi, wheezes Cardiovascular exam: RRR, +S1, +S2. systolic murmur, no gallop, rubs. GI/Abdominal exam: Non-tender, Non-distended, normal bowel sounds, soft, no peritoneal signs. Extremities exam: No pedal edema Neurological exam: No focal deficits. No myoclonic jerks Skin exam: no skin rash, ulcer, purpura or ecchymosis. - Assessment and Plan (1) Acute and chronic respiratory failure ([id number]) Current Visit: Yes Status: Acute (2) CKD (chronic kidney disease) stage 3, GFR 30-59 ml/min Current Visit: Yes Status: Chronic (3) Pneumonia Current Visit: Yes Status: Suspected (4) COPD exacerbation Current Visit: Yes Status: Acute (5) Atrial fibrillation Current Visit: Yes Status: Chronic (6) Hypertensive renal disease with renal failure Current Visit: Yes Status: Chronic (7) Anemia Current Visit: Yes Status: Acute - Summary of Assessment and Plan Summary of Assessment and Plan: Pneumonia/COPD exacerbation. - On Vancoycin and Zosyn for HCAP given h/o MRSA and psuedomonas Pnemonia.( Previously received cefepime switch due to myoclonic jerks). To get for 10 days ( On day 7) - prednisone switched to PO. c/w nebulizer treatments with DuoNeb/Symbicort. No indication for diamox. - respiratory infection panel unremarkable. Legionella and streptococcus antigen negative. sputum cultures negative. - ID following. Recommendation appreciated. To finish 10 day course of Vancomycin and Zosyn. Has IV access in place. EMILIANO - Many possible etiology. Anemia vs diuresis vs Antibiotics - Nephrology following. Recommendation appreciated - vanc level elevated at 19. Dosing adjusted by pharmacy. Repeat check today. - Now improved. continue to monitor. Acute on chronic respiratory failure with hypoxia and hypercapnia - Likely secondary to combination of Pneumonia and Diastolic CHF and COPD. Possibly precipitated by GI prep. Improved with IV Lasix. Now stopped. - Underlying mild CKD stage III contributory. - Continue Bipap with sleep and at night. - now resolved BEVERLY - c/w Bipap settings are 08/30. with fio2 titration. Atrial fibrillation - Rate controlled with Coreg and Cardizem CD. Now resumed. - Xarelto is on hold due to low Hb. Switched to Coumadin but Hb dropped. Off AC. Discussed the risk benefits of being on and off anticoagulation. Patient understands and agrees to be off Anticoagulation. Loose stool - Likely from stool softner and laxative. - Discontinue lactulose - Now resolved Anemia - Hemoccult of stool is positive - GI consulted. Patient is not a candidate for any endoscopy given her respiratory status. - s/p 1 PRBC 07/28 - Stable now. continue to monitor Hypertensive renal disease with her CKD 3. - Now well controlled. - c/w Coreg, amlodipine and Cardizem CD. Her lisinopril is discontinued. Plan for discharge on Wednesday. - Time Spent with Patient Total time spent is greater than 50% in coordination of care (as documented) at patient's floor/unit and/or counseling patient: Internal Medicine: Result - Labs CBC & Chem 7: 07/30/18 03:08 07/31/18 03:55 Labs: BMP 07/31/18 03:55 Sodium 139 Potassium 3.9 Chloride 99 Carbon Dioxide 34 H BUN 36 H Creatinine 1.05 Glucose 97 Calcium 9.1 - ABG Interpretation ABG results: ABG ABG pH 7.32 pH Units (7.32-7.45) 07/26/18 15:44 ABG pCO2 62 mmHg (35-45) H 07/26/18 15:44 ABG pO2 110 mmHg (85-104) H 07/26/18 15:44 ABG O2 Saturation 98 % (95-98) 07/26/18 15:44 PT/INR, D-dimer PT 11.5 Seconds (9.4-12.1) 07/25/18 06:47 Consult Discharge Plan - Plan Referrals: Ritika Humphreys CNP [Primary Care Provider] - (1) Acute and chronic respiratory failure ([id number]) Qualifiers: Respiratory failure complication: hypoxia and hypercapnia Qualified Code(s): J96.21 - Acute and chronic respiratory failure with hypoxia; J96.22 - Acute and chronic respiratory failure with hypercapnia (3) Pneumonia Qualifiers: Pneumonia type: due to methicillin-resistant Staphylococcus aureus (MRSA) Laterality: right Lung location: lower lobe of lung Qualified Code(s): J15.212 - Pneumonia due to Methicillin resistant Staphylococcus aureus (5) Atrial fibrillation Qualifiers: Atrial fibrillation type: paroxysmal Qualified Code(s): I48.0 - Paroxysmal atrial fibrillation (7) Anemia Qualifiers: Anemia type: unspecified type Qualified Code(s): D64.9 - Anemia, unspecified
--- NOTE | 2018-07-31 14:08 | Nephrology Progress Note ---
Date of Encounter: 07/31/18 Time of Encounter: 14:00 - Assessment and Plan (1) EMILIANO (acute kidney injury) Current Visit: Yes Status: Acute SCr almost normalized at 1.05, GFR 51 UOP noted at 50cc in the past 24hrs Continue po fluids Continue vanco by levels Will sign off, please reconsult prn (2) Acute and chronic respiratory failure (hkuzj-hq-matupca) Current Visit: Yes Status: Acute Qualifiers: Respiratory failure complication: hypoxia and hypercapnia Qualified Code(s) : J96.21 - Acute and chronic respiratory failure with hypoxia; J96.22 - Acute and chronic respiratory failure with hypercapnia (3) Anemia Current Visit: Yes Status: Acute Qualifiers: Anemia type: unspecified type Qualified Code(s): D64.9 - Anemia, unspecified (4) COPD exacerbation Current Visit: Yes Status: Acute (5) Pneumonia Current Visit: Yes Status: Acute Qualifiers: Pneumonia type: due to unspecified organism Lung location: unspecified part of lung Qualified Code(s): J18.9 - Pneumonia, unspecified organism (6) CKD (chronic kidney disease) stage 3, GFR 30-59 ml/min Current Visit: Yes Status: Chronic (7) Acute exacerbation of CHF (congestive heart failure) Current Visit: No Status: Acute Qualifiers: Heart failure type: diastolic Qualified Code(s): I50.33 - Acute on chronic diastolic (congestive) heart failure Subjective Principal diagnosis: COPD exacerbation Interval history: Pt seen and examined eager to go home, feels better overall. Objective - Vital Signs Vital signs: Vital Signs Temp Pulse Resp BP Pulse Ox 07/31/18 10:35 16 98 07/31/18 07:07 98.5 F 98 16 176/90 99 07/31/18 04:15 18 97 07/31/18 03:19 97.7 F 99 18 148/87 97 07/30/18 22:55 18 96 07/30/18 21:44 97.6 F 90 18 163/97 96 07/30/18 18:07 16 148/76 98 07/30/18 15:04 98.6 F 90 16 148/76 97 Intake and Output 07/30/18 07/31/18 07/31/18 23:59 07:59 15:59 Intake Total 200 / 200 150 / 150 240 / 240 Output Total 200 / 200 200 / 200 Balance 0 / 0 -50 / -50 240 / 240 Intake: IV Fluids 200 / 200 100 / 100 Zosyn 3.375 GM In 0.9 % Sodium 100 / 100 100 / 100 Chloride (Mini-Bag +) 100 ML @ 25 mls/hr IVPB Q8HR [facility] Rx#: [id number] Vancocin 500 MG In 0.9 % Sodium 100 / 100 Chloride (Mini-Bag +) 100 ML @ 100 mls/hr IVPB Q24H [facility] Rx#: [id number] Oral 0 / 0 50 / 50 240 / 240 Output: Urine 200 / 200 200 / 200 Other: Meal Lunch Percent of Meal Consumed 80% Stool Size Moderate Stool Consistency soft Stool Characteristics Mucoid Stool Color Brown # Voids 0 # Bowel Movements 1 # Bowel Movement Diapers 1 Weight 55.9 kg Patient Weight 07/31/18 23:59 Weight 55.9 kg - General Appearance General appearance: Present: chronically ill (NAD) EENT: Present: ATNC, mucous membranes moist Neck: Present: no JVD, supple Additional Comments: decreased BS bases bilat Cardiology: Present: no edema, normal S1, normal S2 Gastrointestinal: Present: no tenderness, no guarding Integumentary: Present: warm and dry Neurologic: Present: no focal deficit Musculoskeletal: Present: no deformities Psychiatric: Present: mood/affect appropriate, cooperative - Lab 07/30/18 03:08 07/31/18 03:55 Most recent lab results ABG pH 7.32 pH Units (7.32-7.45) 07/26/18 15:44 ABG pCO2 62 mmHg (35-45) H 07/26/18 15:44 ABG pO2 110 mmHg (85-104) H 07/26/18 15:44 ABG HCO3 32 mEq/L (21-27) H 07/26/18 15:44 ABG O2 Saturation 98 % (95-98) 07/26/18 15:44 Calcium 9.1 mg/dL (8.6-10.3) 07/31/18 03:55 Magnesium 2.1 mg/dL (1.6-2.6) 07/26/18 07:37 Urine Creatinine 53 mg/dL 07/29/18 22:29 Urine Sodium 79.8 mEq/L 07/29/18 22:29 Consult Discharge Plan - Plan Referrals: Ritika Humphreys, AUTO BODY TECHNICIAN [Primary Care Provider] -
--- NOTE | 2018-07-31 14:11 | Nephrology Progress Note ---
Date of Encounter: 07/30/18 Time of Encounter: 14:00 - Assessment and Plan (1) EMILIANO (acute kidney injury) Current Visit: Yes Status: Acute SCr improved at 1.09, GFR 45 UOP noted at 1200cc in the past 24hrs Continue po fluids Continue vanco by levels and avoid other nephrotoxins if possible CPK and uric acid levels negative Urine studies unremarkable (2) Acute and chronic respiratory failure ([id number]) Current Visit: Yes Status: Acute Per primary team Qualifiers: Respiratory failure complication: hypoxia and hypercapnia Qualified Code(s) : J96.21 - Acute and chronic respiratory failure with hypoxia; J96.22 - Acute and chronic respiratory failure with hypercapnia (3) Anemia Current Visit: Yes Status: Acute Hgb noted at 8.4 for the past 2 days, will monitor Qualifiers: Anemia type: unspecified type Qualified Code(s): D64.9 - Anemia, unspecified (4) COPD exacerbation Current Visit: Yes Status: Acute Per primary team (5) Pneumonia Current Visit: Yes Status: Acute Per primary team Qualifiers: Pneumonia type: due to unspecified organism Lung location: unspecified part of lung Qualified Code(s): J18.9 - Pneumonia, unspecified organism (6) CKD (chronic kidney disease) stage 3, GFR 30-59 ml/min Current Visit: Yes Status: Chronic Baseline GFR around 50s (7) Acute exacerbation of CHF (congestive heart failure) Current Visit: No Status: Acute Qualifiers: Heart failure type: diastolic Qualified Code(s): I50.33 - Acute on chronic diastolic (congestive) heart failure Subjective Principal diagnosis: COPD exacerbation Interval history: Pt seen and examined , reports drinking more fluids overall. More UOP per pt but did have a couple episodes of incontinence as a result Objective - Vital Signs Vital signs: Vital Signs Temp Pulse Resp BP Pulse Ox 07/31/18 10:35 16 98 07/31/18 07:07 98.5 F 98 16 176/90 99 07/31/18 04:15 18 97 07/31/18 03:19 97.7 F 99 18 148/87 97 07/30/18 22:55 18 96 07/30/18 21:44 97.6 F 90 18 163/97 96 07/30/18 18:07 16 148/76 98 07/30/18 15:04 98.6 F 90 16 148/76 97 Intake and Output 07/30/18 07/31/18 07/31/18 23:59 07:59 15:59 Intake Total 200 / 200 150 / 150 240 / 240 Output Total 200 / 200 200 / 200 Balance 0 / 0 -50 / -50 240 / 240 Intake: IV Fluids 200 / 200 100 / 100 Zosyn 3.375 GM In 0.9 % Sodium 100 / 100 100 / 100 Chloride (Mini-Bag +) 100 ML @ 25 mls/hr IVPB Q8HR [facility] Rx#: [id number] Vancocin 500 MG In 0.9 % Sodium 100 / 100 Chloride (Mini-Bag +) 100 ML @ 100 mls/hr IVPB Q24H [facility] Rx#: [id number] Oral 0 / 0 50 / 50 240 / 240 Output: Urine 200 / 200 200 / 200 Other: Meal Lunch Percent of Meal Consumed 80% Stool Size Moderate Stool Consistency soft Stool Characteristics Mucoid Stool Color Brown # Voids 0 # Bowel Movements 1 # Bowel Movement Diapers 1 Weight 55.9 kg Patient Weight 07/31/18 23:59 Weight 55.9 kg - General Appearance General appearance: Present: chronically ill (NAD) EENT: Present: ATNC, mucous membranes moist Neck: Present: no JVD, supple Additional Comments: decreased BS bases bilat, otherwise good air entry Cardiology: Present: no edema, normal S1, normal S2 Gastrointestinal: Present: no tenderness, no guarding Integumentary: Present: warm and dry Neurologic: Present: no focal deficit Musculoskeletal: Present: no deformities Psychiatric: Present: mood/affect appropriate - Lab 07/30/18 03:08 07/31/18 03:55 Most recent lab results ABG pH 7.32 pH Units (7.32-7.45) 07/26/18 15:44 ABG pCO2 62 mmHg (35-45) H 07/26/18 15:44 ABG pO2 110 mmHg (85-104) H 07/26/18 15:44 ABG HCO3 32 mEq/L (21-27) H 07/26/18 15:44 ABG O2 Saturation 98 % (95-98) 07/26/18 15:44 Calcium 9.1 mg/dL (8.6-10.3) 07/31/18 03:55 Magnesium 2.1 mg/dL (1.6-2.6) 07/26/18 07:37 Urine Creatinine 53 mg/dL 07/29/18 22:29 Urine Sodium 79.8 mEq/L 07/29/18 22:29 Consult Discharge Plan - Plan Referrals: Ritika Humphreys, BOLTER HELPER [Primary Care Provider] -
[2018-07-31] MEDS: Vancomycin 500 MG in 0.9 % Sodium Chloride Mini Bag 100 ML IVPB SCH (21:13)
[2018-08-01] MEDS: Ipratropium/Albuterol Neb 3 ML IH SCH ×4 (03:39→22:12)
[2018-08-01] MEDS: predniSONE 20 MG TABLET PO SCH (09:37)
[2018-08-01] MEDS: Nystatin SUSP 5 ML UD.LIQ PO SCH ×4 (09:37→21:33)
[2018-08-01] MEDS: Lactobacillus 1 EACH CAP.SPRINK PO SCH ×2 (09:37→21:33)
[2018-08-01] MEDS: Multivit/Ca/Min/Fe/FA 1 TAB TABLET PO SCH (09:38)
[2018-08-01] MEDS: amLODIPine 5 MG TABLET PO SCH (09:38)
[2018-08-01] MEDS: Diltiazem CD (24hr) 120 MG CAPSULE PO SCH (09:38)
--- NOTE | 2018-08-01 09:50 | Discharge Summary ---
- NOTES TO OUTPATIENT PROVIDER Notes to Outpatient Provider: Patient was treated for COPD/CHF exacerbation/ pneumonia. She will continue vancomycin and Zosyn for 3 more days. She would also finish steroid taper. Her home lisinopril was stopped given she had EMILIANO in hospital. She was started on amlodipine and continued on Coreg and Cardizem. Her home gabapentin and Flexeril bolus held due to occasional confusion and hospital. She is not on anticoagulation given she cannot undergo endoscopy if needed because of her poor respiratory status. Follow-up on her blood pressure and need of additional antihypertensives. Date of Encounter: 08/01/18 Time of Encounter: 09:32 - Discharge Diagnosis (1) Acute and chronic respiratory failure ([id number]-[id number]) Priority: Primary Status: Acute Qualifiers: Respiratory failure complication: hypoxia and hypercapnia Qualified Code(s) : J96.21 - Acute and chronic respiratory failure with hypoxia; J96.22 - Acute and chronic respiratory failure with hypercapnia (2) CKD (chronic kidney disease) stage 3, GFR 30-59 ml/min Priority: Primary Status: Chronic (3) Pneumonia Priority: Primary Status: Suspected Qualifiers: Pneumonia type: due to methicillin-resistant Staphylococcus aureus (MRSA) Laterality: right Lung location: lower lobe of lung Qualified Code(s): J15.212 - Pneumonia due to Methicillin resistant Staphylococcus aureus (4) COPD exacerbation Priority: Primary Status: Acute (5) Atrial fibrillation Priority: Secondary Status: Chronic Qualifiers: Atrial fibrillation type: paroxysmal Qualified Code(s): I48.0 - Paroxysmal atrial fibrillation (6) Hypertensive renal disease with renal failure Priority: Primary Status: Chronic (7) Anemia Priority: Primary Status: Acute Qualifiers: Anemia type: unspecified type Qualified Code(s): D64.9 - Anemia, unspecified Hospital course: Ms. Lennon is a 78 year old female with past history of atrial fibrillation, hypertension, COPD and CHF was admitted for shortness of breath and was started treatment for pneumonia and COPD exacerbation. She was started on treatment with vancomycin and cefepime given her previous cultures growing MRSA and Pseudomonas . She was found to have fecal occult positive stool and was prepped for endoscopy however after endoscopy her shortness of breath significantly worsened. She was aggressively diuresed after and was put on BiPAP for longer duration for rescue. Her mentation improved after. Given her previous cultures she is supposed to get 10 day course of IV antibiotics. Her urine culture grew pseudomonas and blood culture and sputum culture were negative. She did develop some EMILIANO after diuresing this for which nephrology was consulted however she improved after her diuresis was stopped and vancomycin dosage was adjusted and received blood transfusion. Her blood pressure was difficult to control. Her home lisinopril was stopped and was started on amlodipine along with her Coreg and Cardizem which was able to control her blood pressure reasonably. She would not undergo any further endoscopic evaluation and would be off anticoagulation considering the risk and benefits of anticoagulation after discussion. She was discharged with 3 days of remaining antibiotics with the power glide to home. . Discharge discussed with: patient, family, nurse, social work, case management, program evaluation consultant - Time Spent with Patient Total time spent providing and/or coordinating discharge services: Greater than 30 minutes - Discharge Medications Prescriptions: amLODIPine [Norvasc] 5 mg PO DAILY 30 Days #30 tablet predniSONE [PredniSONE] See Taper PO DAILY #70 tablet Home Medications: Albuterol Sulfate [Proair Hfa] 2 puff IH Q4H PRN 07/05/18 [History] Allopurinol [Zyloprim] 300 mg PO DAILY 07/05/18 [History] Amitriptyline [Elavil] 25 mg PO HS 07/05/18 [History] Azelastine HCl 1 drop BOTH EYES BID 07/05/18 [History] Carvedilol [Coreg] 6.25 mg PO BIDWM 07/05/18 [History] Citalopram Hydrobromide [Celexa] 40 mg PO DAILY 07/05/18 [History] Denosumab [Prolia (For Outpatient Infusion)] 60 mg SQ [id number] 07/05/18 [History ] Docusate [Colace] 100 mg PO DAILY 07/05/18 [History] Ferrous Sulfate 325 mg PO DAILY 07/05/18 [History] Fluticasone Propionate Nasal [Flonase] 1 spr NS DAILY PRN 07/05/18 [History] Fluticasone/Salmeterol [Advair 250-50 Diskus] 1 puff IH BID 07/05/18 [History] HYDROcodone/Acet 10/325 mg [Emerado 10-325 mg] 1 tab PO Q8H PRN 07/05/18 [History] Ipratropium/Albuterol Neb [Duoneb] 3 ml IH Q6HR PRN 07/05/18 [History] Lactobacillus Acidophilus [Acidophilus] 1 cap PO HS 07/05/18 [History] Levothyroxine [Synthroid] 125 mcg PO 6XW 07/05/18 [History] Montelukast [Singulair] 10 mg PO HS 07/05/18 [History] Multivitamin [One Daily Multivitamin] 1 tab PO DAILY 07/05/18 [History] Nystatin Cream [Mycostatin Cream] 1 appl TP BID PRN 07/05/18 [History] Omeprazole [PriLOSEC] 20 mg PO DAILY 07/05/18 [History] Polyethylene Glycol 3350 [MiraLAX] 17 gm PO DAILY 07/05/18 [History] Roflumilast [Daliresp] 500 mcg PO DAILY 07/05/18 [History] Tiotropium [place] [Spiriva Respimat] 2 puff IH DAILY 07/05/18 [History] Diltiazem CD (24hr) [Cardizem CD] 120 mg PO DAILY 30 Days #30 cap.er.24h [Rx] Fluticasone Propionate Nasal [Flonase] 50 mcg NS DAILY PRN bottle 08/01/18 [Rx] amLODIPine [Norvasc] 5 mg PO DAILY 30 Days #30 tablet 08/01/18 [Rx] predniSONE [PredniSONE] See Taper PO DAILY #70 tablet 08/01/18 [Rx] Allergies/Adverse Reactions: 3 Allergy/AdvReac Type Severity Reaction Status Date / Time acetaminophen [From Percocet] Allergy Rash Verified 07/05/18 19:07 aspirin Allergy See Verified 07/09/18 17:26 Comments clindamycin Allergy Itching Verified 07/09/18 17:26 hydrochlorothiazide Allergy Rash Verified 07/09/18 17:26 losartan [Losartan] Allergy Rash Verified 07/09/18 17:26 Oxycodone [From Percocet] Allergy Rash Verified 07/09/18 17:26 Sulfa (Sulfonamide Allergy Rash Verified 07/09/18 17:26 Antibiotics) codeine AdvReac Nausea Verified 07/09/18 17:26 levofloxacin [From Levaquin] AdvReac Hallucinati Verified 07/09/18 17:26 ng morphine AdvReac Irritable Verified 07/09/18 17:26 NSAIDS (Non-Steroidal AdvReac See Verified 07/09/18 17:26 Anti-Inflamma Comments rofecoxib [From Vioxx] AdvReac See Verified 07/09/18 17:26 Comments ropinirole [From Requip] AdvReac See Verified 07/09/18 17:26 Comments Date of admission: 07/18/18 12:58 Primary care physician: Ritika Humphreys CNP Consults: 07/18/18 13:21 Consult to Invasive Line Access Team [CONS] Routine Reason for Consult: limited vascular access Line Type: EPIV 07/18/18 14:55 Consult to Equipment Engineer [CONS] Routine Reason for SW Consult: NCR HH [facility] Home O2 07/20/18 12:47 Consult to Gastroenterology [CONS] Routine Consulting Provider: [facility] [place] Reason for Consult: Ac anemia; suspect GI bleed (was on Xarelto).. Time Notified: 12:45 Call Completed: Yes 07/25/18 10:39 Consult to Pulmonology [CONS] Routine Consulting Provider: [facility] [place] Reason for Consult: Ac/chr resp fail with hypoxia/hyperkapnia; "bad" COPD/ pulmonary cogestion Time Notified: 10:40 Call Completed: Yes 07/28/18 07:14 Consult to Physical Therapy [CONS] Routine Comment: Evaluate, develop and implement POC Reason for Consult: evaluate for strength Does patient have active BEDREST order?: No Is patient medically & hemodynamically stable?: Yes 07/29/18 09:07 Consult to Nephrology [CONS] Routine Consulting Provider: Kid[facility] Eugenia/ROSALBA/EMELINA/RADHA Reason for Consult: EMILIANO Call Completed: Yes Discharging clinician: Ramiro Valle - Constitutional Vitals: Temp Pulse Resp BP Pulse Ox 97.4 F L 87 19 162/89 94 07/31/18 23:52 08/01/18 06:52 08/01/18 06:52 08/01/18 06:52 08/01/18 06:52 General appearance: Present: cooperative, A&O X 3, answers questions appropriately Exam: Gen: alert and awake on chair. Not in acute distress. On nasal canula siting in chair comfortably. Respiratory exam: Decreased air entry on Rt. rales at base bilaterally. No rhonchi, wheezes Cardiovascular exam: RRR, +S1, +S2. systolic murmur, no gallop, rubs. GI/Abdominal exam: Non-tender, Non-distended, normal bowel sounds, soft, no peritoneal signs. Extremities exam: No pedal edema Neurological exam: No focal deficits. No myoclonic jerks Skin exam: no skin rash, ulcer, purpura or ecchymosis. - Patient Status Disposition: Home Health Service Condition: Good - Discharge Instructions Follow Up With: Ritika Humphreys, COWLMAN [Primary Care Provider] - - Diet and Activity Activity: as per physical therapy
[2018-08-01] MEDS: Budesonide/Formoterol 80/4.5 MDI IH SCH ×2 (10:36→22:12)
--- NOTE | 2018-08-01 11:59 | Physician Discharge Referral ---
Home Health/Hosp Referral Info Transfer to: Home Health - Diagnosis (1) Acute and chronic respiratory failure ([id number]) Status: Acute (2) CKD (chronic kidney disease) stage 3, GFR 30-59 ml/min Status: Chronic (3) Pneumonia Status: Suspected (4) COPD exacerbation Status: Acute (5) Atrial fibrillation Status: Chronic (6) Hypertensive renal disease with renal failure Status: Chronic (7) Anemia Status: Acute - Respiratory Orders Smoking Cessation: Smoking cessation has been advised. For more information, call the [place] Tobacco Quit Line at 8-709-KIKR-NOW. - Diet/Nutrition Diet/Nutrition Orders: Regular - Services Needed Following services are medically necessary services: Physical Therapy, Home Infusion - Transfer Medications Prescriptions: amLODIPine [Norvasc] 5 mg PO DAILY 30 Days #30 tablet predniSONE [PredniSONE] See Taper PO DAILY #70 tablet Home Medications: Albuterol Sulfate [Proair Hfa] 2 puff IH Q4H PRN 07/05/18 [History] Allopurinol [Zyloprim] 300 mg PO DAILY 07/05/18 [History] Amitriptyline [Elavil] 25 mg PO HS 07/05/18 [History] Azelastine HCl 1 drop BOTH EYES BID 07/05/18 [History] Carvedilol [Coreg] 6.25 mg PO BIDWM 07/05/18 [History] Citalopram Hydrobromide [Celexa] 40 mg PO DAILY 07/05/18 [History] Denosumab [Prolia (For Outpatient Infusion)] 60 mg SQ [id number] 07/05/18 [History ] Docusate [Colace] 100 mg PO DAILY 07/05/18 [History] Ferrous Sulfate 325 mg PO DAILY 07/05/18 [History] Fluticasone Propionate Nasal [Flonase] 1 spr NS DAILY PRN 07/05/18 [History] Fluticasone/Salmeterol [Advair 250-50 Diskus] 1 puff IH BID 07/05/18 [History] HYDROcodone/Acet 10/325 mg [[place] 10-325 mg] 1 tab PO Q8H PRN 07/05/18 [History] Ipratropium/Albuterol Neb [Duoneb] 3 ml IH Q6HR PRN 07/05/18 [History] Lactobacillus Acidophilus [Acidophilus] 1 cap PO HS 07/05/18 [History] Levothyroxine [Synthroid] 125 mcg PO 6XW 07/05/18 [History] Montelukast [Singulair] 10 mg PO HS 07/05/18 [History] Multivitamin [One Daily Multivitamin] 1 tab PO DAILY 07/05/18 [History] Nystatin Cream [Mycostatin Cream] 1 appl TP BID PRN 07/05/18 [History] Omeprazole [PriLOSEC] 20 mg PO DAILY 07/05/18 [History] Polyethylene Glycol 3350 [MiraLAX] 17 gm PO DAILY 07/05/18 [History] Roflumilast [Daliresp] 500 mcg PO DAILY 07/05/18 [History] Tiotropium [place] [Spiriva Respimat] 2 puff IH DAILY 07/05/18 [History] Diltiazem CD (24hr) [Cardizem CD] 120 mg PO DAILY 30 Days #30 cap.er.24h [Rx] Fluticasone Propionate Nasal [Flonase] 50 mcg NS DAILY PRN bottle 08/01/18 [Rx] amLODIPine [Norvasc] 5 mg PO DAILY 30 Days #30 tablet 08/01/18 [Rx] predniSONE [PredniSONE] See Taper PO DAILY #70 tablet 08/01/18 [Rx] Allergies/Adverse Reactions: 3 Allergy/AdvReac Type Severity Reaction Status Date / Time acetaminophen [From Percocet] Allergy Rash Verified 07/05/18 19:07 aspirin Allergy See Verified 07/09/18 17:26 Comments clindamycin Allergy Itching Verified 07/09/18 17:26 hydrochlorothiazide Allergy Rash Verified 07/09/18 17:26 losartan [Losartan] Allergy Rash Verified 07/09/18 17:26 Oxycodone [From Percocet] Allergy Rash Verified 07/09/18 17:26 Sulfa (Sulfonamide Allergy Rash Verified 07/09/18 17:26 Antibiotics) codeine AdvReac Nausea Verified 07/09/18 17:26 levofloxacin [From Levaquin] AdvReac Hallucinati Verified 07/09/18 17:26 ng morphine AdvReac Irritable Verified 07/09/18 17:26 NSAIDS (Non-Steroidal AdvReac See Verified 07/09/18 17:26 Anti-Inflamma Comments rofecoxib [From Vioxx] AdvReac See Verified 07/09/18 17:26 Comments ropinirole [From Requip] AdvReac See Verified 07/09/18 17:26 Comments Certification: Further, I certify that my clinical findings support that this patient is homebound (i.e. absences from home require considerable and taxing effort and are for medical reasons or zoroastrianism services or infrequently or short duration when for other reasons) because: Homebound Reason: Patient requires assistance of a person or device to safely leave home Attestation: My signature below is to certify that this patient is under my care and that I, or nurse practitioner, or a physician's recruitment assistant working with me, has a face-to -face encounter with this patient.
--- NOTE | 2018-08-01 12:08 | Infectious Disease Progress No ---
Date of Encounter: 08/01/18 Time of Encounter: 12:06 - Assessment and Plan (1) Sepsis Current Visit: Yes Status: Acute The patient had 2 subsequent criteria on admission. Likely secondary to multifocal pneumonia. Improved. White blood cell count is trending down. Tachycardia persists, but is intermittent. She has been afebrile. Blood cultures drawn 07/18/18 are negative 2 sets. Qualifiers: Sepsis type: sepsis due to unspecified organism Qualified Code(s): A41.9 - Sepsis, unspecified organism (2) Multifocal pneumonia Current Visit: Yes Status: Acute Causative organism: Unclear. Location: Multifocal. Strep pneumococcal and legionella urinary antigens are negative. Respiratory infectious panels negative. The patient has been unable to provide an adequate sputum specimen for culture. Clinically, the patient improved. Continue vancomycin IV. Pharmacy to dose. Goal trough approximately 15. (day 7 ) Continue Zosyn 3.375 g IV every 8 hours. (day 7 + 7 days of Cefepime) Duration of treatment depends on the clinical picture. She has completed 14 days of adequate coverage for gram negative pneumonia. We will stop Zosyn after today and continue Vancomycin to complete a total of 14 days (7 more days). Due to her allergies and previous MRSA susceptibilities, we cannot switch her to PO antibiotics. Consult VAT for PICC line placement. Monitor renal function and for drug toxicity and dose-adjust antibiotics. (3) Urinary tract infection Current Visit: Yes Status: Acute Causative organism pansensitive pseudomonas aeruginosa. Continue Zosyn 3.375 g IV every 8 hours. (day 7 + 7 days of Cefepime). She has completed 14 days of treatment, which is more than adequate. Qualifiers: Urinary tract infection type: acute cystitis Hematuria presence: with hematuria Qualified Code(s): N30.01 - Acute cystitis with hematuria (4) Diarrhea Current Visit: No Status: Acute Likely secondary to antibiotic use. C. diff negative. Continue probiotics. Qualifiers: Diarrhea type: unspecified type Qualified Code(s): R19.7 - Diarrhea, unspecified (5) EMILIANO (acute kidney injury) Current Visit: Yes Status: Acute Resolved. Nephrology consulted. Continue to trend. Dose adjust antibiotics. Avoid nephrotoxins as able. Need to be very cautious with the vancomycin and Zosyn combination. (6) Acute and chronic respiratory failure ([id number]-xd-gujlmyy) Current Visit: Yes Status: Acute Likely secondary to pneumonia. Appears improved. Continue supportive care per the primary and pulmonary teams. Qualifiers: Respiratory failure complication: hypoxia and hypercapnia Qualified Code(s) : J96.21 - Acute and chronic respiratory failure with hypoxia; J96.22 - Acute and chronic respiratory failure with hypercapnia (7) Elevated CO2 level Current Visit: Yes Status: Acute Likely secondary to COPD. Management per the primary pulmonary teams. (8) Myoclonic jerking Current Visit: Yes Status: Resolved Etiology unclear, but possibly secondary to cefepime, which as been discontinued. Appears resolved. (9) Allergy to multiple antibiotics Current Visit: Yes Status: Acute The patient has documented allergies to clindamycin, sulfa, Levaquin, which greatly inhibits our ability to use several different antibiotics to treat her pneumonia. She will require IV antibiotics at home. Discussed with the patient. 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 Attempted treatment with clarithromycin, ethambutol but she couldnt tolerate treatment and treatment was stopped. (11) Anemia Current Visit: Yes Status: Acute FOBT positive. GI consulted. Cannot perform endoscopy due to the patient's respiratory status. Qualifiers: Anemia type: unspecified type Qualified Code(s): D64.9 - Anemia, unspecified - Subjective Interval history: Patient seen and examined. No acute events noted overnight. Patient states overall she feels okay. Reports her breathing is better and she is no longer coughing. She denies any pain in her chest or abdomen. She denies any nausea or vomiting or diarrhea. She states she did eat a little bit of breakfast. She denies any urinary complaints. She reports 3 loose stools yesterday. She denies any oral thrush or new skin lesions. Infect Dis PN-Objective Data - Labs CBC & Chem 7: 07/30/18 03:08 07/31/18 03:55 Labs: Laboratory Results - last 24 hr 07/31/18 20:00 Vancomycin Trough 11 H Cultures: Cultures 07/28/18 06:26 Sputum Culture - Final Sputum 07/26/18 18:45 Legionella Antigen - Final Urine,Catheterized Streptococcus pneumoniae Antigen (M - Final 07/18/18 15:56 Blood Culture - Final Peripheral Venipuncture No growth. Final report. Serology 10/04/1107/29/18 07/29/18 Range/Units 08:30 22:29 22:29 Urine Color Yellow (Yellow) Urine Clarity Clear (Clear) Urine pH 6.0 (5.0-8.0) pH Units Ur Specific [place] 1.016 (1.010-1.025) Urine Protein 30 H (Neg-Trace) mg/dL Urine Glucose (UA) Normal (Normal) mg/dL Urine Ketones Negative (Negative) mg/dL Urine Blood Negative (Negative) Urine Nitrite Negative (Negative) Urine Bilirubin Negative (Negative) Urine Urobilinogen Normal (Normal) mg/dL Ur Leukocyte Esterase Negative (Negative) Urine Microscopic RBC 0-3 (0-3) per hpf Urine Microscopic WBC 3-5 H (0-3) per hpf Ur Eosinophil Smear 0 (None Seen) % Ur Squamous Epith Cells Many H (None-Few) per lpf Urine Bacteria None Seen (None-Few) per hpf Hyaline Casts None Seen (None-Few) per lpf Ur Culture Indicated? NO (NO) Urine Creatinine 53 mg/dL Urine Sodium 79.8 mEq/L Urine Urea Nitrogen 944 mg/dL Stool Occult Blood (Negative) Stl C. diff Tox B Gene Negative (Negative) Chlamy pneumoniae PCR (Not Detect) Adenovirus (PCR) (Not Detect) B. pertussis DNA (PCR) (Not Detect) B.parapertussis DNA PCR (Not Detect) Coronavirus OC43 (PCR) (Not Detect) Coronavirus HKU1 (PCR) (Not Detect) Coronavirus 229E (PCR) (Not Detect) Coronavirus NL63 (PCR) (Not Detect) Human Metapneumovir PCR (Not Detect) Influenza A (H1) PCR (Not Detect) Influ A (H1N1/09) PCR (Not Detect) Influenza A (H3) PCR (Not Detect) Influenza A Untype (PCR) (Not Detect) Influenza Type B (PCR) (Not Detect) M.pneumoniae DNA (PCR) (Not Detect) Parainfluenza 1 (PCR) (Not Detect) Parainfluenza 2 (PCR) (Not Detect) Parainfluenza 3 (PCR) (Not Detect) Parainfluenza 4 (PCR) (Not Detect) RSV (PCR) (Not Detect) Entero/Rhino (PCR) (Not Detect) 10/02/18 09/25/18 Range/Units 06:28 Unknown Urine Color (Yellow) Urine Clarity (Clear) Urine pH (5.0-8.0) pH Units Ur Specific [place] (1.010-1.025) Urine Protein (Neg-Trace) mg/dL Urine Glucose (UA) (Normal) mg/dL Urine Ketones (Negative) mg/dL Urine Blood (Negative) Urine Nitrite (Negative) Urine Bilirubin (Negative) Urine Urobilinogen (Normal) mg/dL Ur Leukocyte Esterase (Negative) Urine Microscopic RBC (0-3) per hpf Urine Microscopic WBC (0-3) per hpf Ur Eosinophil Smear (None Seen) % Ur Squamous Epith Cells (None-Few) per lpf Urine Bacteria (None-Few) per hpf Hyaline Casts (None-Few) per lpf Ur Culture Indicated? (NO) Urine Creatinine mg/dL Urine Sodium mEq/L Urine Urea Nitrogen mg/dL Stool Occult Blood Positive A (Negative) Stl C. diff Tox B Gene (Negative) Chlamy pneumoniae PCR Not Detected (Not Detect) Adenovirus (PCR) Not Detected (Not Detect) B. pertussis DNA (PCR) Not Detected (Not Detect) B.parapertussis DNA PCR Not Detected (Not Detect) Coronavirus OC43 (PCR) Not Detected (Not Detect) Coronavirus HKU1 (PCR) Not Detected (Not Detect) Coronavirus 229E (PCR) Not Detected (Not Detect) Coronavirus NL63 (PCR) Not Detected (Not Detect) Human Metapneumovir PCR Not Detected (Not Detect) Influenza A (H1) PCR Not Detected (Not Detect) Influ A (H1N1/09) PCR Not Detected (Not Detect) Influenza A (H3) PCR Not Detected (Not Detect) Influenza A Untype (PCR) Not Detected (Not Detect) Influenza Type B (PCR) Not Detected (Not Detect) M.pneumoniae DNA (PCR) Not Detected (Not Detect) Parainfluenza 1 (PCR) Not Detected (Not Detect) Parainfluenza 2 (PCR) Not Detected (Not Detect) Parainfluenza 3 (PCR) Not Detected (Not Detect) Parainfluenza 4 (PCR) Not Detected (Not Detect) RSV (PCR) Not Detected (Not Detect) Entero/Rhino (PCR) Not Detected (Not Detect) Exam - Constitutional Vitals: Temp Pulse Resp BP Pulse Ox 97.4 F L 87 16 162/89 94 07/31/18 23:52 08/01/18 06:52 08/01/18 10:38 08/01/18 06:52 08/01/18 10:38 General appearance: average body habitus, cooperative, no acute distress - Head Head exam: Present: atraumatic, normal inspection, normocephalic - Eye Eye exam: Present: EOMI, normal appearance, PERRL Pupils: Present: normal accommodation - ENT ENT exam: Present: mucous membranes moist - Neck Neck exam: Present: normal inspection - Respiratory Respiratory exam: Present: CTAB. Absent: rales, respiratory distress, rhonchi, wheezes - Cardiovascular Cardiovascular exam: Present: RRR, +S1, +S2 - GI/Abdominal GI/Abdominal exam: Present: normal bowel sounds, soft. Absent: distended, tenderness - Extremities Exam Extremities exam: Present: normal inspection. Absent: joint swelling, pedal edema, tenderness - Neurological Exam Neurological exam: Present: alert, oriented X3, no focal deficits - Psychiatric Psychiatric exam: Present: normal affect, normal mood - Skin Skin exam: Present: dry, intact, normal color, warm Consult Discharge Plan - Plan Instructions: Prednisone (By mouth), Amlodipine (By mouth), Piperacillin/ Tazobactam (Injection), Vancomycin/Dextrose Premix (Injection), Myocardial Infarction (DC), Heart Failure (DC), Atrial Flutter (DC), Atrial Fibrillation ( DC), Acute Respiratory Distress Syndrome (DC), Urinary Tract Infection in Women (DC), Chronic Obstructive Pulmonary Disease (DC), Sepsis (DC), Chronic Hypertension (DC), Anemia (GEN), Pneumonia (DC) Referrals: Ritika Humphreys, COST ACCOUNTING ANALYST [Primary Care Provider] - Prescriptions: amLODIPine [Norvasc] 5 mg PO DAILY 30 Days #30 tablet predniSONE [PredniSONE] See Taper PO DAILY #70 tablet - Attending Attestation I examined this patient and my medical decision-making was reviewed with the Resident Physician. I agree with the documented findings, disposition and treatment plan as described except to the extent set forth below.
[2018-08-01] MEDS ORDERED: Aminoglycoside Consult 1 EACH MC ONE (13:14)
[2018-08-01] MEDS: Piperacillin/Tazobactam 3.375 GM in 0.9 % Sodium Chloride Mini Bag 100 ML IVPB SCH ×2 (17:27)
[2018-08-01] MEDS: Vancomycin 500 MG in 0.9 % Sodium Chloride Mini Bag 100 ML IVPB SCH (21:32)
[2018-08-02] MEDS: Acetaminophen 325 MG TABLET PO PRN (02:43)
[2018-08-02] MEDS ORDERED: *HR* HYDROcodone/Acet 10/325 mg TABLET PO ONE (03:21)
[2018-08-02] MEDS: Ipratropium/Albuterol Neb 3 ML IH SCH ×2 (04:28→09:55)
[2018-08-02 07:06] VITALS: BP 168/85
[2018-08-02] MEDS: amLODIPine 5 MG TABLET PO SCH (08:59)
[2018-08-02] MEDS: Diltiazem CD (24hr) 120 MG CAPSULE PO SCH (08:59)
[2018-08-02] MEDS: Nystatin SUSP 5 ML UD.LIQ PO SCH (08:59)
[2018-08-02] MEDS: Lactobacillus 1 EACH CAP.SPRINK PO SCH (09:00)
[2018-08-02] MEDS: predniSONE 20 MG TABLET PO SCH (09:00)
[2018-08-02] MEDS: Multivit/Ca/Min/Fe/FA 1 TAB TABLET PO SCH (09:00)
[2018-08-02] MEDS: Budesonide/Formoterol 80/4.5 MDI IH SCH (09:56)
--- NOTE | 2018-08-02 11:01 | Physician Discharge Referral ---
Home Health/Hosp Referral Info Transfer to: Home Health Provider in Charge Post Discharge: PCP - Diagnosis (1) Acute and chronic respiratory failure ([id number]) Status: Acute (2) Pneumonia Status: Acute (3) Urinary tract infection Status: Acute (4) Diarrhea Status: Acute - Respiratory Orders Oxygen / L per min Smoking Cessation: Smoking cessation has been advised. For more information, call the [place] Tobacco Quit Line at 0-014-TFQM-NOW. - Diet/Nutrition Diet/Nutrition Orders: Cardiac - Services Needed Following services are medically necessary services: Nursing, Home Health Aide, Physical Therapy, Occupational Therapy, Home Infusion - Transfer Medications Prescriptions: amLODIPine [Norvasc] 5 mg PO DAILY 30 Days #30 tablet predniSONE [PredniSONE] See Taper PO DAILY #70 tablet Home Medications: Albuterol Sulfate [Proair Hfa] 2 puff IH Q4H PRN 07/05/18 [History] Allopurinol [Zyloprim] 300 mg PO DAILY 07/05/18 [History] Amitriptyline [Elavil] 25 mg PO HS 07/05/18 [History] Azelastine HCl 1 drop BOTH EYES BID 07/05/18 [History] Carvedilol [Coreg] 6.25 mg PO BIDWM 07/05/18 [History] Citalopram Hydrobromide [Celexa] 40 mg PO DAILY 07/05/18 [History] Denosumab [Prolia (For Outpatient Infusion)] 60 mg SQ [id number] 07/05/18 [History ] Docusate [Colace] 100 mg PO DAILY 07/05/18 [History] Ferrous Sulfate 325 mg PO DAILY 07/05/18 [History] Fluticasone Propionate Nasal [Flonase] 1 spr NS DAILY PRN 07/05/18 [History] Fluticasone/Salmeterol [Advair 250-50 Diskus] 1 puff IH BID 07/05/18 [History] HYDROcodone/Acet 10/325 mg [[place] 10-325 mg] 1 tab PO Q8H PRN 07/05/18 [History] Ipratropium/Albuterol Neb [Duoneb] 3 ml IH Q6HR PRN 07/05/18 [History] Lactobacillus Acidophilus [Acidophilus] 1 cap PO HS 07/05/18 [History] Levothyroxine [Synthroid] 125 mcg PO 6XW 07/05/18 [History] Montelukast [Singulair] 10 mg PO HS 07/05/18 [History] Multivitamin [One Daily Multivitamin] 1 tab PO DAILY 07/05/18 [History] Nystatin Cream [Mycostatin Cream] 1 appl TP BID PRN 07/05/18 [History] Omeprazole [PriLOSEC] 20 mg PO DAILY 07/05/18 [History] Polyethylene Glycol 3350 [MiraLAX] 17 gm PO DAILY 07/05/18 [History] Roflumilast [Daliresp] 500 mcg PO DAILY 07/05/18 [History] Tiotropium [place] [Spiriva Respimat] 2 puff IH DAILY 07/05/18 [History] Diltiazem CD (24hr) [Cardizem CD] 120 mg PO DAILY 30 Days #30 cap.er.24h [Rx] Fluticasone Propionate Nasal [Flonase] 50 mcg NS DAILY PRN bottle 08/01/18 [Rx] amLODIPine [Norvasc] 5 mg PO DAILY 30 Days #30 tablet 08/01/18 [Rx] predniSONE [PredniSONE] See Taper PO DAILY #70 tablet 08/01/18 [Rx] Allergies/Adverse Reactions: 3 Allergy/AdvReac Type Severity Reaction Status Date / Time acetaminophen [From Percocet] Allergy Rash Verified 07/05/18 19:07 aspirin Allergy See Verified 07/09/18 17:26 Comments clindamycin Allergy Itching Verified 07/09/18 17:26 hydrochlorothiazide Allergy Rash Verified 07/09/18 17:26 losartan [Losartan] Allergy Rash Verified 07/09/18 17:26 Oxycodone [From Percocet] Allergy Rash Verified 07/09/18 17:26 Sulfa (Sulfonamide Allergy Rash Verified 07/09/18 17:26 Antibiotics) codeine AdvReac Nausea Verified 07/09/18 17:26 levofloxacin [From Levaquin] AdvReac Hallucinati Verified 07/09/18 17:26 ng morphine AdvReac Irritable Verified 07/09/18 17:26 NSAIDS (Non-Steroidal AdvReac See Verified 07/09/18 17:26 Anti-Inflamma Comments rofecoxib [From Vioxx] AdvReac See Verified 07/09/18 17:26 Comments ropinirole [From Requip] AdvReac See Verified 07/09/18 17:26 Comments Certification: Further, I certify that my clinical findings support that this patient is homebound (i.e. absences from home require considerable and taxing effort and are for medical reasons or rastafari services or infrequently or short duration when for other reasons) because: Homebound Reason: Patient requires assistance of a person or device to safely leave home Attestation: My signature below is to certify that this patient is under my care and that I, or nurse practitioner, or a physician's commercial lending assistant working with me, has a face-to -face encounter with this patient.
--- NOTE | 2018-08-02 13:09 | Internal Med Progress Note ---
Hospitalist Progress Note - Encounter Date of Encounter: 08/02/18 Time of Encounter: 09:00 - Subjective Interval History: Pt denies SOB. No overnight events. Has PICC on right arm. Waiting for discharge home (actually discharged yesterday but waiting for home infusion setup). - Exam Vitals: Temp Pulse Resp BP Pulse Ox 97.8 F 94 16 168/85 99 08/02/18 07:02 08/02/18 07:02 08/02/18 09:55 08/02/18 07:02 08/02/18 09:55 Exam: Gen: alert and awake on chair. Not in acute distress. On nasal canula siting in chair comfortably. Respiratory exam: Decreased air entry on Rt. rales at base bilaterally. No rhonchi, wheezes Cardiovascular exam: RRR, +S1, +S2. systolic murmur, no gallop, rubs. GI/Abdominal exam: Non-tender, Non-distended, normal bowel sounds, soft, no peritoneal signs. Extremities exam: No pedal edema Neurological exam: No focal deficits. No myoclonic jerks Skin exam: no skin rash, ulcer, purpura or ecchymosis. - Assessment and Plan (1) Acute and chronic respiratory failure ([id number]) Current Visit: Yes Status: Acute Assessment and Plan: Improved. Pt is on home O2 and now she is at baseline. (2) Pneumonia Current Visit: Yes Status: Acute Assessment and Plan: After zosyn/cefepime course. Per ID will cont vanco for 7 more days. (3) Urinary tract infection Current Visit: Yes Status: Acute Assessment and Plan: Urine culture positive for pseudomonas. Finishe 14 days of abx of cefepime/ zosyn. (4) Diarrhea Current Visit: No Status: Acute Assessment and Plan: C Diff negative. Cont probiotics. - Time Spent with Patient Total time spent is greater than 50% in coordination of care (as documented) at patient's floor/unit and/or counseling patient: 30 min less than 15 minutes Plan of Care Discussed with: patient Internal Medicine: Result - Labs CBC & Chem 7: 07/30/18 03:08 07/31/18 03:55 - ABG Interpretation ABG results: ABG ABG pH 7.32 pH Units (7.32-7.45) 07/26/18 15:44 ABG pCO2 62 mmHg (35-45) H 07/26/18 15:44 ABG pO2 110 mmHg (85-104) H 07/26/18 15:44 ABG O2 Saturation 98 % (95-98) 07/26/18 15:44 PT/INR, D-dimer PT 11.5 Seconds (9.4-12.1) 07/25/18 06:47 Consult Discharge Plan - Plan Instructions: Prednisone (By mouth), Amlodipine (By mouth), Piperacillin/ Tazobactam (Injection), Vancomycin/Dextrose Premix (Injection), Myocardial Infarction (DC), Heart Failure (DC), Atrial Flutter (DC), Atrial Fibrillation ( DC), Acute Respiratory Distress Syndrome (DC), Urinary Tract Infection in Women (DC), Chronic Obstructive Pulmonary Disease (DC), Sepsis (DC), Chronic Hypertension (DC), Anemia (GEN), Pneumonia (DC) Referrals: Ritika Humphreys CNP [Primary Care Provider] - Prescriptions: amLODIPine [Norvasc] 5 mg PO DAILY 30 Days #30 tablet predniSONE [PredniSONE] See Taper PO DAILY #70 tablet (1) Acute and chronic respiratory failure ([id number]) Qualifiers: Respiratory failure complication: hypoxia and hypercapnia Qualified Code(s): J96.21 - Acute and chronic respiratory failure with hypoxia; J96.22 - Acute and chronic respiratory failure with hypercapnia (2) Pneumonia Qualifiers: Pneumonia type: due to unspecified organism Lung location: unspecified part of lung Qualified Code(s): J18.9 - Pneumonia, unspecified organism (3) Urinary tract infection Qualifiers: Urinary tract infection type: acute cystitis Hematuria presence: with hematuria Qualified Code(s): N30.01 - Acute cystitis with hematuria (4) Diarrhea Qualifiers: Diarrhea type: unspecified type Qualified Code(s): R19.7 - Diarrhea, unspecified
--- NOTE | 2018-08-02 14:01 | Infectious Disease Progress No ---
Date of Encounter: 08/02/18 Time of Encounter: 13:58 - Assessment and Plan (1) Sepsis Status: Acute The patient had 2 subsequent criteria on admission. Likely secondary to multifocal pneumonia. Improved. White blood cell count is trending down. Tachycardia persists, but is intermittent. She has been afebrile. Blood cultures drawn 07/18/18 are negative 2 sets. Qualifiers: Sepsis type: sepsis due to unspecified organism Qualified Code(s): A41.9 - Sepsis, unspecified organism (2) Multifocal pneumonia Status: Acute Causative organism: Unclear. Location: Multifocal. Strep pneumococcal and legionella urinary antigens are negative. Respiratory infectious panels negative. The patient has been unable to provide an adequate sputum specimen for culture. Clinically, the patient improved. Continue vancomycin IV. Pharmacy to dose. Goal trough approximately 15. (day 8 ) Discontinue Zosyn (completed 14 days of gram-negative coverage). Duration of treatment depends on the clinical picture. She has completed 14 days of adequate coverage for gram negative pneumonia. We will stop Zosyn after today and continue Vancomycin to complete a total of 14 days (6 more days). Due to her allergies and previous MRSA susceptibilities, we cannot switch her to PO antibiotics. PICC line placed 08/01/18 Monitor renal function and for drug toxicity and dose-adjust antibiotics. (3) Urinary tract infection Status: Acute Causative organism pansensitive pseudomonas aeruginosa. She has completed 14 days of treatment, which is more than adequate. Qualifiers: Urinary tract infection type: acute cystitis Hematuria presence: with hematuria Qualified Code(s): N30.01 - Acute cystitis with hematuria (4) Diarrhea Status: Acute Likely secondary to antibiotic use. C. diff negative. Continue probiotics. Qualifiers: Diarrhea type: unspecified type Qualified Code(s): R19.7 - Diarrhea, unspecified (5) EMILIANO (acute kidney injury) Status: Acute Resolved. Nephrology consulted. Continue to trend. Dose adjust antibiotics. Avoid nephrotoxins as able. (6) Acute and chronic respiratory failure ([id number]) Status: Acute Likely secondary to pneumonia. Appears improved. Continue supportive care per the primary and pulmonary teams. Qualifiers: Respiratory failure complication: hypoxia and hypercapnia Qualified Code(s) : J96.21 - Acute and chronic respiratory failure with hypoxia; J96.22 - Acute and chronic respiratory failure with hypercapnia (7) Elevated CO2 level Status: Acute Likely secondary to COPD. Management per the primary pulmonary teams. (8) Myoclonic jerking Status: Resolved Etiology unclear, but possibly secondary to cefepime, which as been discontinued. Appears resolved. (9) Allergy to multiple antibiotics Status: Acute The patient has documented allergies to clindamycin, sulfa, Levaquin, which greatly inhibits our ability to use several different antibiotics to treat her pneumonia. She will require IV antibiotics at home. Discussed with the patient. 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 Attempted treatment with clarithromycin, ethambutol but she couldnt tolerate treatment and treatment was stopped. (11) Anemia Status: Acute FOBT positive. GI consulted. Cannot perform endoscopy due to the patient's respiratory status. Qualifiers: Anemia type: unspecified type Qualified Code(s): D64.9 - Anemia, unspecified - Subjective Interval history: Patient seen and examined. No acute events noted overnight. Patient states overall she feels okay. Reports her breathing is better and she is no longer coughing. She denies any pain in her chest or abdomen. She denies any nausea or vomiting or diarrhea. She states she did eat a little bit of breakfast. She denies any urinary complaints. She reports 3 loose stools yesterday. She denies any oral thrush or new skin lesions. Pending discharge home with IV antibiotics. Infect Dis PN-Objective Data - Labs CBC & Chem 7: 07/30/18 03:08 07/31/18 03:55 Cultures: Cultures 07/28/18 06:26 Sputum Culture - Final Sputum 07/26/18 18:45 Legionella Antigen - Final Urine,Catheterized Streptococcus pneumoniae Antigen (M - Final 07/18/18 15:56 Blood Culture - Final Peripheral Venipuncture No growth. Final report. Serology 07/30/18 07/29/18 07/29/18 Range/Units 08:30 22:29 22:29 Urine Color Yellow (Yellow) Urine Clarity Clear (Clear) Urine pH 6.0 (5.0-8.0) pH Units Ur Specific [place] 1.016 (1.010-1.025) Urine Protein 30 H (Neg-Trace) mg/dL Urine Glucose (UA) Normal (Normal) mg/dL Urine Ketones Negative (Negative) mg/dL Urine Blood Negative (Negative) Urine Nitrite Negative (Negative) Urine Bilirubin Negative (Negative) Urine Urobilinogen Normal (Normal) mg/dL Ur Leukocyte Esterase Negative (Negative) Urine Microscopic RBC 0-3 (0-3) per hpf Urine Microscopic WBC 3-5 H (0-3) per hpf Ur Eosinophil Smear 0 (None Seen) % Ur Squamous Epith Cells Many H (None-Few) per lpf Urine Bacteria None Seen (None-Few) per hpf Hyaline Casts None Seen (None-Few) per lpf Ur Culture Indicated? NO (NO) Urine Creatinine 53 mg/dL Urine Sodium 79.8 mEq/L Urine Urea Nitrogen 944 mg/dL Stool Occult Blood (Negative) Stl C. diff Tox B Gene Negative (Negative) Chlamy pneumoniae PCR (Not Detect) Adenovirus (PCR) (Not Detect) B. pertussis DNA (PCR) (Not Detect) B.parapertussis DNA PCR (Not Detect) Coronavirus OC43 (PCR) (Not Detect) Coronavirus HKU1 (PCR) (Not Detect) Coronavirus 229E (PCR) (Not Detect) Coronavirus NL63 (PCR) (Not Detect) Human Metapneumovir PCR (Not Detect) Influenza A (H1) PCR (Not Detect) Influ A (H1N1/09) PCR (Not Detect) Influenza A (H3) PCR (Not Detect) Influenza A Untype (PCR) (Not Detect) Influenza Type B (PCR) (Not Detect) M.pneumoniae DNA (PCR) (Not Detect) Parainfluenza 1 (PCR) (Not Detect) Parainfluenza 2 (PCR) (Not Detect) Parainfluenza 3 (PCR) (Not Detect) Parainfluenza 4 (PCR) (Not Detect) RSV (PCR) (Not Detect) Entero/Rhino (PCR) (Not Detect) 07/26/18 07/19/18 Range/Units 06:28 Unknown Urine Color (Yellow) Urine Clarity (Clear) Urine pH (5.0-8.0) pH Units Ur Specific [place] (1.010-1.025) Urine Protein (Neg-Trace) mg/dL Urine Glucose (UA) (Normal) mg/dL Urine Ketones (Negative) mg/dL Urine Blood (Negative) Urine Nitrite (Negative) Urine Bilirubin (Negative) Urine Urobilinogen (Normal) mg/dL Ur Leukocyte Esterase (Negative) Urine Microscopic RBC (0-3) per hpf Urine Microscopic WBC (0-3) per hpf Ur Eosinophil Smear (None Seen) % Ur Squamous Epith Cells (None-Few) per lpf Urine Bacteria (None-Few) per hpf Hyaline Casts (None-Few) per lpf Ur Culture Indicated? (NO) Urine Creatinine mg/dL Urine Sodium mEq/L Urine Urea Nitrogen mg/dL Stool Occult Blood Positive A (Negative) Stl C. diff Tox B Gene (Negative) Chlamy pneumoniae PCR Not Detected (Not Detect) Adenovirus (PCR) Not Detected (Not Detect) B. pertussis DNA (PCR) Not Detected (Not Detect) B.parapertussis DNA PCR Not Detected (Not Detect) Coronavirus OC43 (PCR) Not Detected (Not Detect) Coronavirus HKU1 (PCR) Not Detected (Not Detect) Coronavirus 229E (PCR) Not Detected (Not Detect) Coronavirus NL63 (PCR) Not Detected (Not Detect) Human Metapneumovir PCR Not Detected (Not Detect) Influenza A (H1) PCR Not Detected (Not Detect) Influ A (H1N1/09) PCR Not Detected (Not Detect) Influenza A (H3) PCR Not Detected (Not Detect) Influenza A Untype (PCR) Not Detected (Not Detect) Influenza Type B (PCR) Not Detected (Not Detect) M.pneumoniae DNA (PCR) Not Detected (Not Detect) Parainfluenza 1 (PCR) Not Detected (Not Detect) Parainfluenza 2 (PCR) Not Detected (Not Detect) Parainfluenza 3 (PCR) Not Detected (Not Detect) Parainfluenza 4 (PCR) Not Detected (Not Detect) RSV (PCR) Not Detected (Not Detect) Entero/Rhino (PCR) Not Detected (Not Detect) Exam - Constitutional Vitals: Temp Pulse Resp BP Pulse Ox 97.8 F 94 16 168/85 99 08/02/18 07:02 08/02/18 07:02 08/02/18 09:55 08/02/18 07:02 08/02/18 09:55 General appearance: average body habitus, cooperative, no acute distress - Head Head exam: Present: atraumatic, normal inspection, normocephalic - Eye Eye exam: Present: EOMI, normal appearance, PERRL Pupils: Present: normal accommodation - ENT ENT exam: Present: mucous membranes moist - Neck Neck exam: Present: normal inspection - Respiratory Respiratory exam: Present: CTAB. Absent: rales, respiratory distress, rhonchi, wheezes - Cardiovascular Cardiovascular exam: Present: RRR, +S1, +S2 - GI/Abdominal GI/Abdominal exam: Present: normal bowel sounds, soft. 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 with surgical site well-healed without erythema, warmth, tenderness, or drainage.), pedal edema, tenderness - Neurological Exam Neurological exam: Present: alert, oriented X3, no focal deficits - Psychiatric Psychiatric exam: Present: normal affect, normal mood - Skin Skin exam: Present: dry, intact, normal color, warm Consult Discharge Plan - Plan Instructions: Prednisone (By mouth), Amlodipine (By mouth), Piperacillin/ Tazobactam (Injection), Vancomycin/Dextrose Premix (Injection), Myocardial Infarction (DC), Heart Failure (DC), Atrial Flutter (DC), Atrial Fibrillation ( DC), Acute Respiratory Distress Syndrome (DC), Urinary Tract Infection in Women (DC), Chronic Obstructive Pulmonary Disease (DC), Sepsis (DC), Chronic Hypertension (DC), Anemia (GEN), Pneumonia (DC) Referrals: Ritika Humphreys, [employer] [Primary Care Provider] - Prescriptions: amLODIPine [Norvasc] 5 mg PO DAILY 30 Days #30 tablet predniSONE [PredniSONE] See Taper PO DAILY #70 tablet - Attending Attestation I examined this patient and my medical decision-making was reviewed with the Resident Physician. I agree with the documented findings, disposition and treatment plan as described except to the extent set forth below.
== END 2018-08-02 13:15 | disposition home health service (06) | DRG 871 ==
LOC: EMEROOARM 09:23 → 2NENU 12:58 → SUATTDRO 12:58 → 2NENU 14:38
PROVIDERS: ADMIT Internal Medicine; ATTEND Internal Medicine

== ENCOUNTER 2019-12-11 14:03 | Inpatient (IN) ==
[~2019-12-11 14:03] MED LIST: Aminoglycoside Consult 1 EACH MC ONE
[2019-12-11] MEDS ORDERED: Ondansetron ODT 4 MG TAB.RAPDIS SL PRN (17:52)
[2019-12-11 18:36] LABS: VBG HCO3 29 mEq/L (21-27); VBG PCO2 53 mmHg (41-51); VBG PH 7.34 pH Units (7.32-7.42); VBG PO2 89 mmHg (25-50)
[2019-12-11 18:38] LABS: Basophils % 0.1 %; Hematocrit 24.6 % (35.3-44.9); Hemoglobin 7.9 g/dL (11.5-15.4); Immature Granulocytes % 0.6 % (0-4); Lymphocytes # 0.5 K/mcL (0.6-4.6); Lymphocytes % 2.9 %; Mean Corpuscular HGB Conc 32.1 g/dL (31.6-35.5); Mean Corpuscular Hemoglobin 31.6 pg (28.0-33.3); Mean Corpuscular Volume 98.4 fL (83.0-100.0); Mean Platelet Volume 8.9 fL (9.4-12.4); Monocytes # 0.5 K/mcL (0.0-1.3); Monocytes % 2.7 %; Neutrophils # 16.7 K/mcL (1.6-8.9); Platelet Count 291 K/mcL (140-400); Red Cell Distribution Width 14.6 % (11.5-14.5); Segmented Neutrophils % 93.7 %; White Blood Count 17.8 K/mcL (4.3-11.1)
[2019-12-11 18:39] LABS: Prothrombin Time 11.8 Seconds (9.4-12.1)
[2019-12-11 18:53] LABS: Albumin 3.1 g/dL (3.5-5.7); Bilirubin,Total 0.3 mg/dL (0.3-1.0); Calcium 8.2 mg/dL (8.6-10.3); Globulin 3.1 g/dL (2.4-3.5); Total Protein 6.2 g/dL (6.4-8.9)
[2019-12-11] MEDS ORDERED: *HR* LORazepam 2 MG/ML VIAL IVP ONE ×2 (18:58→22:51)
[2019-12-11] MEDS ORDERED: Furosemide 40 MG/4 ML VIAL IVP ONE (19:08)
[2019-12-11] MEDS: *HR* Heparin 5,000 UNIT/ML VIAL SQ SCH (20:04)
[2019-12-11] MEDS: Azithromycin 500 MG in 0.9 % Sodium Chloride 250 ML IVPB SCH (20:06)
[2019-12-11] MEDS: Ipratropium/Albuterol Neb 3 ML IH SCH (20:14)
[2019-12-11] MEDS ORDERED: *HR* HYDROcodone/Acet 10/325 mg TABLET PO ONE (23:06)
[2019-12-11] MEDS ORDERED: hydrALAZINE 10 MG TABLET PO ONE (23:57)
[2019-12-12] MEDS: Ipratropium/Albuterol Neb 3 ML IH SCH ×6 (00:11→20:07)
[2019-12-12] MEDS: *HR* Metoprolol 5 MG/5 ML VIAL IVP PRN ×2 (03:12→13:00)
[2019-12-12 05:13] LABS: Basophils % 0.1 %; Eosinophils # 0.1 K/mcL (0.0-0.6); Eosinophils % 0.5 %; Hematocrit 24.5 % (35.3-44.9); Hemoglobin 7.9 g/dL (11.5-15.4); Immature Granulocytes % 0.4 % (0-4); Lymphocytes # 1.4 K/mcL (0.6-4.6); Mean Corpuscular HGB Conc 32.2 g/dL (31.6-35.5); Mean Corpuscular Hemoglobin 31.3 pg (28.0-33.3); Mean Corpuscular Volume 97.2 fL (83.0-100.0); Mean Platelet Volume 8.8 fL (9.4-12.4); Monocytes # 0.9 K/mcL (0.0-1.3); Monocytes % 6.9 %; Neutrophils # 10.4 K/mcL (1.6-8.9); Platelet Count 274 K/mcL (140-400); Red Blood Count 2.52 M/mcL (3.82-4.97); Red Cell Distribution Width 14.5 % (11.5-14.5); Segmented Neutrophils % 81.1 %; White Blood Count 12.8 K/mcL (4.3-11.1)
[2019-12-12] MEDS: *HR* Heparin 5,000 UNIT/ML VIAL SQ SCH ×2 (05:27→16:49)
[2019-12-12 05:39] LABS: BUN/Creatinine Ratio 18 (6-26); Blood Urea Nitrogen 16 mg/dL (8-23); Calcium 8.2 mg/dL (8.6-10.3); Carbon Dioxide 25 mEq/L (23-29); Chloride 105 mEq/L (98-107); Glucose 84 mg/dL (70-105); Osmolality,Calculated 288 (280-300); Potassium 3.8 mEq/L (3.5-5.1); Sodium 139 mEq/L (136-145); eGFR For African Americans > 60 (> 60); eGFR For Non-African Americans > 60 (> 60)
[2019-12-12] MEDS ORDERED: hydrALAZINE 25 MG TABLET PO PRN (07:35)
[2019-12-12] MEDS ORDERED: carvediloL 6.25 MG TABLET PO SCH ×2 (08:00→09:00)
[2019-12-12] MEDS ORDERED: hydrALAZINE 25 MG TABLET PO SCH (08:15)
[2019-12-12] MEDS: predniSONE 20 MG TABLET PO SCH (08:54)
[2019-12-12] MEDS: Furosemide 40 MG/4 ML VIAL IVP SCH ×3 (08:55→16:50)
[2019-12-12] MEDS: Cefepime HCl 1,000 MG in Water for inj. (sterile) 10 ML IVP SCH (13:01)
[2019-12-12 14:04] LABS: VBG HCO3 32 mEq/L (21-27); VBG PCO2 47 mmHg (41-51); VBG PH 7.44 pH Units (7.32-7.42); VBG PO2 211 mmHg (25-50)
[2019-12-12] MEDS: *HR* HYDROcodone/Acet 10/325 mg TABLET PO PRN (14:34)
[2019-12-12] MEDS: hydrALAZINE 25 MG TABLET PO SCH (15:48)
[2019-12-12] MEDS: carvediloL 6.25 MG TABLET PO SCH (16:49)
[2019-12-12] MEDS: Azithromycin 500 MG in 0.9 % Sodium Chloride 250 ML IVPB SCH (18:16)
[2019-12-12] MEDS ORDERED: Cefepime HCl 1,000 MG in Water for inj. (sterile) 10 ML IVP SCH (18:50)
[2019-12-13] MEDS: Ipratropium/Albuterol Neb 3 ML IH SCH ×7 (00:18→23:14)
[2019-12-13] MEDS: Cefepime HCl 1,000 MG in Water for inj. (sterile) 10 ML IVP SCH ×2 (01:03→15:51)
[2019-12-13] MEDS: hydrALAZINE 25 MG TABLET PO SCH ×4 (01:04→22:17)
[2019-12-13 02:58] LABS: Hematocrit 21.2 % (35.3-44.9); Hemoglobin 6.7 g/dL (11.5-15.4); Mean Corpuscular HGB Conc 31.6 g/dL (31.6-35.5); Mean Corpuscular Hemoglobin 30.7 pg (28.0-33.3); Mean Corpuscular Volume 97.2 fL (83.0-100.0); Mean Platelet Volume 9.6 fL (9.4-12.4); Platelet Count 280 K/mcL (140-400); Red Blood Count 2.18 M/mcL (3.82-4.97); Red Cell Distribution Width 14.6 % (11.5-14.5)
[2019-12-13 03:17] LABS: Calcium 8.4 mg/dL (8.6-10.3); Potassium 3.1 mEq/L (3.5-5.1)
[2019-12-13] MEDS: *HR* Heparin 5,000 UNIT/ML VIAL SQ SCH ×2 (05:52→17:12)
[2019-12-13] MEDS: *HR* Metoprolol 5 MG/5 ML VIAL IVP PRN (05:56)
[2019-12-13] MEDS: Furosemide 40 MG/4 ML VIAL IVP SCH ×2 (08:14→15:53)
[2019-12-13] MEDS: carvediloL 6.25 MG TABLET PO SCH ×2 (08:15→15:51)
[2019-12-13] MEDS: predniSONE 20 MG TABLET PO SCH (08:15)
[2019-12-13] MEDS ORDERED: 0.9 % Sodium Chloride 250 ML IVC SCH (08:30)
[2019-12-13] MEDS ORDERED: Furosemide 20 MG/2 ML VIAL IVP ONE (12:00)
[2019-12-13 17:38] LABS: Hemoglobin 9.6 g/dL (11.5-15.4)
[2019-12-14] MEDS: *HR* HYDROcodone/Acet 10/325 mg TABLET PO PRN (00:44)
[2019-12-14] MEDS: Ipratropium/Albuterol Neb 3 ML IH SCH ×6 (03:40→23:47)
[2019-12-14] MEDS: *HR* Heparin 5,000 UNIT/ML VIAL SQ SCH ×2 (03:54→16:53)
[2019-12-14] MEDS: Cefepime HCl 1,000 MG in Water for inj. (sterile) 10 ML IVP SCH ×2 (03:54→15:09)
[2019-12-14 05:06] LABS: Hematocrit 28.1 % (35.3-44.9); Hemoglobin 9.1 g/dL (11.5-15.4); Mean Corpuscular HGB Conc 32.4 g/dL (31.6-35.5); Mean Corpuscular Hemoglobin 30.7 pg (28.0-33.3); Mean Corpuscular Volume 94.9 fL (83.0-100.0); Mean Platelet Volume 9.3 fL (9.4-12.4); Platelet Count 303 K/mcL (140-400); Red Blood Count 2.96 M/mcL (3.82-4.97); Red Cell Distribution Width 14.6 % (11.5-14.5)
[2019-12-14 05:55] LABS: Calcium 9.6 mg/dL (8.6-10.3); Potassium 4.5 mEq/L (3.5-5.1)
[2019-12-14] MEDS: hydrALAZINE 25 MG TABLET PO SCH ×3 (08:51→23:01)
[2019-12-14] MEDS: predniSONE 20 MG TABLET PO SCH (08:51)
[2019-12-14] MEDS: carvediloL 6.25 MG TABLET PO SCH ×2 (08:51→16:53)
[2019-12-14] MEDS: Furosemide 40 MG/4 ML VIAL IVP SCH ×2 (08:52→16:53)
[2019-12-14] MEDS: Magic Mouthwash 10 ML UD Cup PO PRN ×2 (11:06→15:10)
[2019-12-14] MEDS ORDERED: Nystatin Cream 15 GM TUBE TP PRN (13:52)
[2019-12-14] MEDS ORDERED: Denosumab 60 MG/ML SYRINGE SQ SCH (14:00)
[2019-12-14] MEDS: CarBAMazepine XR (12 hr) 100 MG TAB PO SCH (23:02)
[2019-12-14] MEDS: AZELASTINE HCL 0.05% OP SCH (23:03)
[2019-12-14] MEDS: EYE OP SCH (23:03)
[2019-12-15] MEDS: Ipratropium/Albuterol Neb 3 ML IH SCH ×6 (04:10→23:51)
[2019-12-15] MEDS: Cefepime HCl 1,000 MG in Water for inj. (sterile) 10 ML IVP SCH ×2 (05:18→16:23)
[2019-12-15] MEDS: *HR* Heparin 5,000 UNIT/ML VIAL SQ SCH ×2 (05:19→17:08)
[2019-12-15 06:00] LABS: Hematocrit 33.8 % (35.3-44.9); Mean Corpuscular HGB Conc 32.5 g/dL (31.6-35.5); Mean Corpuscular Volume 95.2 fL (83.0-100.0); Mean Platelet Volume 9.7 fL (9.4-12.4); Platelet Count 382 K/mcL (140-400); Red Blood Count 3.55 M/mcL (3.82-4.97); Red Cell Distribution Width 14.4 % (11.5-14.5); White Blood Count 8.8 K/mcL (4.3-11.1)
[2019-12-15 06:25] LABS: Calcium 10.4 mg/dL (8.6-10.3); Potassium 4.7 mEq/L (3.5-5.1)
[2019-12-15] MEDS: DilTIAZem CD (24hr) 240 MG CAP.ER.24H PO SCH (08:59)
[2019-12-15] MEDS: predniSONE 20 MG TABLET PO SCH (08:59)
[2019-12-15] MEDS: Multivit/Ca/Min/Fe/FA 1 TAB TABLET PO SCH (08:59)
[2019-12-15] MEDS: carvediloL 6.25 MG TABLET PO SCH ×2 (08:59→16:21)
[2019-12-15] MEDS: Furosemide 40 MG/4 ML VIAL IVP SCH ×2 (09:00→16:18)
[2019-12-15] MEDS: Magic Mouthwash 10 ML UD Cup PO PRN ×2 (09:03→17:08)
[2019-12-15] MEDS: EYE OP SCH ×2 (09:07→22:04)
[2019-12-15] MEDS: AZELASTINE HCL 0.05% OP SCH ×2 (09:07→22:04)
[2019-12-15] MEDS: CarBAMazepine XR (12 hr) 100 MG TAB PO SCH ×2 (09:07→22:03)
[2019-12-15] MEDS: hydrALAZINE 25 MG TABLET PO SCH ×2 (10:58→16:22)
[2019-12-16] MEDS: hydrALAZINE 25 MG TABLET PO SCH ×3 (01:09→17:21)
[2019-12-16 02:49] LABS: Hematocrit 32.8 % (35.3-44.9); Hemoglobin 10.5 g/dL (11.5-15.4); Mean Corpuscular Hemoglobin 30.6 pg (28.0-33.3); Mean Corpuscular Volume 95.6 fL (83.0-100.0); Mean Platelet Volume 9.7 fL (9.4-12.4); Platelet Count 362 K/mcL (140-400); Red Blood Count 3.43 M/mcL (3.82-4.97); Red Cell Distribution Width 14.5 % (11.5-14.5); White Blood Count 9.9 K/mcL (4.3-11.1)
[2019-12-16 03:00] LABS: Calcium 9.8 mg/dL (8.6-10.3); Potassium 4.5 mEq/L (3.5-5.1)
[2019-12-16] MEDS: Ipratropium/Albuterol Neb 3 ML IH SCH ×6 (03:42→23:37)
[2019-12-16] MEDS: Cefepime HCl 1,000 MG in Water for inj. (sterile) 10 ML IVP SCH (03:50)
[2019-12-16] MEDS: *HR* Heparin 5,000 UNIT/ML VIAL SQ SCH ×2 (06:21→17:20)
[2019-12-16] MEDS: Furosemide 40 MG/4 ML VIAL IVP SCH ×2 (08:22→17:20)
[2019-12-16] MEDS: carvediloL 6.25 MG TABLET PO SCH ×2 (08:23→17:20)
[2019-12-16] MEDS: predniSONE 20 MG TABLET PO SCH (08:23)
[2019-12-16] MEDS: DilTIAZem CD (24hr) 240 MG CAP.ER.24H PO SCH (08:24)
[2019-12-16] MEDS: Multivit/Ca/Min/Fe/FA 1 TAB TABLET PO SCH (08:24)
[2019-12-16] MEDS: EYE OP SCH ×2 (08:26→20:46)
[2019-12-16] MEDS: AZELASTINE HCL 0.05% OP SCH ×2 (08:26→20:46)
[2019-12-16] MEDS: CarBAMazepine XR (12 hr) 100 MG TAB PO SCH ×2 (08:49→20:45)
[2019-12-16] MEDS: Magic Mouthwash 10 ML UD Cup PO PRN (08:58)
[2019-12-16] MEDS ORDERED: Simethicone 80 MG TAB.CHEW PO PRN (20:22)
[2019-12-17] MEDS: hydrALAZINE 25 MG TABLET PO SCH ×4 (00:29→23:54)
[2019-12-17 03:40] LABS: Hematocrit 32.6 % (35.3-44.9); Hemoglobin 10.2 g/dL (11.5-15.4); Mean Corpuscular HGB Conc 31.3 g/dL (31.6-35.5); Mean Corpuscular Volume 95.9 fL (83.0-100.0); Mean Platelet Volume 9.7 fL (9.4-12.4); Platelet Count 401 K/mcL (140-400); Red Cell Distribution Width 14.5 % (11.5-14.5); White Blood Count 10.8 K/mcL (4.3-11.1)
[2019-12-17 03:44] LABS: Calcium 9.1 mg/dL (8.6-10.3)
[2019-12-17] MEDS: Ipratropium/Albuterol Neb 3 ML IH SCH ×6 (04:14→23:16)
[2019-12-17] MEDS: Cefepime HCl 1,000 MG in Water for inj. (sterile) 10 ML IVP SCH (06:15)
[2019-12-17] MEDS: *HR* Heparin 5,000 UNIT/ML VIAL SQ SCH ×2 (06:16→16:42)
[2019-12-17] MEDS: Multivit/Ca/Min/Fe/FA 1 TAB TABLET PO SCH (09:12)
[2019-12-17] MEDS: carvediloL 6.25 MG TABLET PO SCH ×2 (09:12→16:40)
[2019-12-17] MEDS: predniSONE 20 MG TABLET PO SCH (09:12)
[2019-12-17] MEDS: DilTIAZem CD (24hr) 240 MG CAP.ER.24H PO SCH (09:13)
[2019-12-17] MEDS: CarBAMazepine XR (12 hr) 100 MG TAB PO SCH ×2 (09:13→20:43)
[2019-12-17] MEDS: EYE OP SCH ×2 (09:16→20:42)
[2019-12-17] MEDS: AZELASTINE HCL 0.05% OP SCH ×2 (09:16→20:42)
[2019-12-18] MEDS: Ipratropium/Albuterol Neb 3 ML IH SCH ×4 (03:26→16:17)
[2019-12-18] MEDS: Cefepime HCl 1,000 MG in Water for inj. (sterile) 10 ML IVP SCH (05:36)
[2019-12-18] MEDS: *HR* Heparin 5,000 UNIT/ML VIAL SQ SCH (05:37)
[2019-12-18 05:57] LABS: Mean Corpuscular HGB Conc 31.3 g/dL (31.6-35.5); Mean Corpuscular Hemoglobin 30.4 pg (28.0-33.3); Mean Corpuscular Volume 97.3 fL (83.0-100.0); Mean Platelet Volume 9.3 fL (9.4-12.4); Platelet Count 403 K/mcL (140-400); Red Blood Count 3.29 M/mcL (3.82-4.97); Red Cell Distribution Width 14.4 % (11.5-14.5)
[2019-12-18 06:28] LABS: Potassium 3.8 mEq/L (3.5-5.1)
[2019-12-18] MEDS ORDERED: Furosemide 20 MG TABLET PO SCH (07:30)
[2019-12-18] MEDS: predniSONE 20 MG TABLET PO SCH (08:05)
[2019-12-18] MEDS: Multivit/Ca/Min/Fe/FA 1 TAB TABLET PO SCH (08:06)
[2019-12-18] MEDS: DilTIAZem CD (24hr) 240 MG CAP.ER.24H PO SCH (08:06)
[2019-12-18] MEDS: Magic Mouthwash 10 ML UD Cup PO PRN (08:06)
[2019-12-18] MEDS: carvediloL 6.25 MG TABLET PO SCH (08:06)
[2019-12-18] MEDS: hydrALAZINE 25 MG TABLET PO SCH (08:06)
[2019-12-18] MEDS: AZELASTINE HCL 0.05% OP SCH (08:08)
[2019-12-18] MEDS: EYE OP SCH (08:08)
[2019-12-18] MEDS: CarBAMazepine XR (12 hr) 100 MG TAB PO SCH (08:10)
[2019-12-18 11:08] VITALS: BP 135/65
== END 2019-12-18 17:44 | disposition home health service (06) | DRG 871 ==
LOC: 2ANU → SUATTDRO 17:52 → 2ANU 19:35
PROVIDERS: ADMIT Pharmacist; ATTEND Internal Medicine

== ENCOUNTER 2020-02-11 03:30 | Observation (INO) ==
[2020-02-11 04:43] LABS: Red Cell Distribution Width 14.6 % (11.5-14.5)
[2020-02-11 04:44] LABS: Basophils # 0.1 K/mcL (0.0-0.2); Basophils % 0.3 %; Eosinophils # 0.6 K/mcL (0.0-0.6); Eosinophils % 2.5 %; Hematocrit 30.5 % (35.3-44.9); Hemoglobin 9.5 g/dL (11.5-15.4); Immature Granulocytes % 0.6 % (0-4); Lymphocytes # 1.1 K/mcL (0.6-4.6); Lymphocytes % 4.4 %; Mean Corpuscular HGB Conc 31.1 g/dL (31.6-35.5); Mean Corpuscular Hemoglobin 30.7 pg (28.0-33.3); Mean Corpuscular Volume 98.7 fL (83.0-100.0); Monocytes # 1.1 K/mcL (0.0-1.3); Monocytes % 4.2 %; Platelet Count 375 K/mcL (140-400); Red Blood Count 3.09 M/mcL (3.82-4.97); White Blood Count 25.7 K/mcL (4.3-11.1)
[2020-02-11 04:46] LABS: Neutrophils # 22.6 K/mcL (1.6-8.9)
[2020-02-11 05:00] LABS: Anisocytosis 1+ (Not Present); Platelet Estimate Normal (Normal)
[2020-02-11 05:08] LABS: Alanine Aminotransferase 37 Units/L (7-52); Albumin 3.8 g/dL (3.5-5.7); Albumin/Globulin Ratio 1.4 (1.1-2.2); Alkaline Phosphatase 137 Units/L (34-104); Aspartate Amino Transferase 49 Units/L (13-39); BUN/Creatinine Ratio 21 (6-26); Bilirubin,Total 0.4 mg/dL (0.3-1.0); Blood Urea Nitrogen 21 mg/dL (8-23); Calcium 9.8 mg/dL (8.6-10.3); Carbon Dioxide 31 mEq/L (23-29); Chloride 96 mEq/L (98-107); Globulin 2.8 g/dL (2.4-3.5); Glucose 104 mg/dL (70-105); Osmolality,Calculated 289 (280-300); Potassium 3.7 mEq/L (3.5-5.1); Sodium 138 mEq/L (136-145); Total Protein 6.6 g/dL (6.4-8.9); Troponin I < 0.03 ng/mL (< 0.04); eGFR For African Americans > 60 (> 60); eGFR For Non-African Americans 54 (> 60)
[2020-02-11] MEDS ORDERED: levoFLOXacin 750 MG/150 ML 750 MG/150 ML BAG IVPB ONE (05:13)
[2020-02-11] MEDS ORDERED: cefTRIAXone 1,000 MG in 0.9 % Sodium Chloride Mini Bag 100 ML IVPB ONE (05:17)
[2020-02-11] MEDS ORDERED: Naloxone 0.4 MG/ML INJ IVP PRN (05:18)
[2020-02-11] MEDS ORDERED: Fluticasone Propionate Nasal 50 MCG/SPRAY BOTTLE NS PRN (09:32)
[2020-02-11] MEDS ORDERED: Nystatin Cream 15 GM TUBE TP PRN (09:32)
[2020-02-11] MEDS ORDERED: *HR* HYDROcodone/Acet 10/325 mg TABLET PO PRN (09:32)
[2020-02-11] MEDS: DilTIAZem CD (24hr) 240 MG CAP.ER.24H PO SCH (09:51)
[2020-02-11] MEDS: Benzonatate 100 MG CAPSULE PO SCH ×2 (14:06→20:08)
[2020-02-11] MEDS: *HR* Heparin 5,000 UNIT/ML VIAL SQ SCH ×2 (14:07→20:08)
[2020-02-11] MEDS: carvediloL 6.25 MG TABLET PO SCH (16:44)
[2020-02-11] MEDS: Nitrofurantoin (BID) 100 MG CAPSULE PO SCH (16:44)
[2020-02-11] MEDS: Doxycycline 100 MG CAPSULE PO SCH ×2 (16:44→20:07)
[2020-02-11] MEDS: Lactobacillus 1 EACH CAP.SPRINK PO SCH (20:07)
[2020-02-11] MEDS ORDERED: CarBAMazepine XR (12 hr) 100 MG TAB PO SCH (21:00)
[2020-02-12] MEDS ORDERED: Acetaminophen 325 MG TABLET PO PRN (03:44)
[2020-02-12 04:11] LABS: Red Cell Distribution Width 14.7 % (11.5-14.5); Segmented Neutrophils % 74.7 %
[2020-02-12 04:13] LABS: Basophils % 0.2 %; Eosinophils % 6.9 %; Hemoglobin 9.4 g/dL (11.5-15.4); Immature Granulocytes % 0.4 % (0-4); Immature Platelets 1.8 % (1.1-6.1); Lymphocytes # 1.5 K/mcL (0.6-4.6); Lymphocytes % 10.5 %; Mean Corpuscular HGB Conc 32.4 g/dL (31.6-35.5); Mean Corpuscular Hemoglobin 30.9 pg (28.0-33.3); Mean Corpuscular Volume 95.4 fL (83.0-100.0); Mean Platelet Volume 9.9 fL (9.4-12.4); Monocytes # 1.1 K/mcL (0.0-1.3); Monocytes % 7.3 %; Neutrophils # 10.8 K/mcL (1.6-8.9); Nucleated Red Blood Cells 0.1 /100 WBC (0); Platelet Count 345 K/mcL (140-400); Red Blood Count 3.04 M/mcL (3.82-4.97); White Blood Count 14.4 K/mcL (4.3-11.1)
[2020-02-12 04:18] LABS: BUN/Creatinine Ratio 22 (6-26); Blood Urea Nitrogen 20 mg/dL (8-23); Calcium 9.1 mg/dL (8.6-10.3); Carbon Dioxide 28 mEq/L (23-29); Chloride 99 mEq/L (98-107); Glucose 92 mg/dL (70-105); Osmolality,Calculated 288 (280-300); Potassium 3.8 mEq/L (3.5-5.1); Sodium 138 mEq/L (136-145); eGFR For African Americans > 60 (> 60); eGFR For Non-African Americans 60 (> 60)
[2020-02-12 04:29] LABS: Anisocytosis 1+ (Not Present); Platelet Estimate Normal (Normal)
[2020-02-12] MEDS: *HR* Heparin 5,000 UNIT/ML VIAL SQ SCH (05:39)
[2020-02-12] MEDS ORDERED: cefTRIAXone 1,000 MG in Water for inj. (sterile) 10 ML IVP SCH (09:00)
[2020-02-12] MEDS ORDERED: allopurinoL 300 MG TABLET PO SCH (09:00)
[2020-02-12] MEDS ORDERED: Multivit/Ca/Min/Fe/FA 1 TAB TABLET PO SCH (09:00)
[2020-02-12 09:17] VITALS: BP 144/86
[2020-02-12] MEDS: Doxycycline 100 MG CAPSULE PO SCH (09:20)
[2020-02-12] MEDS: DilTIAZem CD (24hr) 240 MG CAP.ER.24H PO SCH (09:20)
[2020-02-12] MEDS: Lactobacillus 1 EACH CAP.SPRINK PO SCH (09:20)
[2020-02-12] MEDS: Nitrofurantoin (BID) 100 MG CAPSULE PO SCH (09:21)
[2020-02-12] MEDS: carvediloL 6.25 MG TABLET PO SCH (09:21)
[2020-02-12] MEDS: Benzonatate 100 MG CAPSULE PO SCH (09:21)
== END 2020-02-12 15:01 | disposition home or self-care (01) ==
LOC: 2NENU 03:30 → EMEROOARM 03:30 → 2NENU 06:20
PROVIDERS: ADMIT Internal Medicine; ATTEND Internal Medicine

== ENCOUNTER 2020-02-13 00:13 | Observation (INO) ==
[2020-02-13] MEDS ORDERED: Naloxone 0.4 MG/ML INJ IVP PRN (04:39)
[2020-02-13] MEDS ORDERED: Ipratropium/Albuterol Neb 3 ML IH PRN (04:40)
[2020-02-13] MEDS ORDERED: cefTRIAXone 2,000 MG in Water for inj. (sterile) 20 ML IVP ONE (04:43)
[2020-02-13] MEDS ORDERED: Doxycycline 100 MG in 0.9 % Sodium Chloride Mini Bag 100 ML IVPB ONE (04:43)
[2020-02-13] MEDS ORDERED: Ampicillin 1,000 MG in 0.9 % Sodium Chloride Mini Bag 100 ML IVPB ONE (05:00)
[2020-02-13 05:48] LABS: Basophils # 0.1 K/mcL (0.0-0.2); Basophils % 0.4 %; Eosinophils # 0.6 K/mcL (0.0-0.6); Eosinophils % 3.9 %; Hematocrit 26.8 % (35.3-44.9); Hemoglobin 8.4 g/dL (11.5-15.4); Immature Granulocytes % 0.5 % (0-4); Lymphocytes # 2.1 K/mcL (0.6-4.6); Lymphocytes % 14.6 %; Mean Corpuscular HGB Conc 31.3 g/dL (31.6-35.5); Mean Corpuscular Hemoglobin 30.9 pg (28.0-33.3); Mean Corpuscular Volume 98.5 fL (83.0-100.0); Mean Platelet Volume 9.3 fL (9.4-12.4); Monocytes # 0.9 K/mcL (0.0-1.3); Monocytes % 6.3 %; Neutrophils # 10.5 K/mcL (1.6-8.9); Platelet Count 326 K/mcL (140-400); Red Blood Count 2.72 M/mcL (3.82-4.97); Red Cell Distribution Width 14.3 % (11.5-14.5); Segmented Neutrophils % 74.3 %; White Blood Count 14.1 K/mcL (4.3-11.1)
[2020-02-13 06:12] LABS: Alanine Aminotransferase 23 Units/L (7-52); Albumin 3.2 g/dL (3.5-5.7); Albumin/Globulin Ratio 1.5 (1.1-2.2); Alkaline Phosphatase 116 Units/L (34-104); Aspartate Amino Transferase 17 Units/L (13-39); BUN/Creatinine Ratio 21 (6-26); Bilirubin,Total 0.2 mg/dL (0.3-1.0); Blood Urea Nitrogen 22 mg/dL (8-23); Calcium 8.4 mg/dL (8.6-10.3); Carbon Dioxide 28 mEq/L (23-29); Chloride 105 mEq/L (98-107); Globulin 2.2 g/dL (2.4-3.5); Glucose 101 mg/dL (70-105); Magnesium 1.7 mg/dL (1.6-2.6); Osmolality,Calculated 297 (280-300); Phosphorous 3.9 mg/dL (2.7-4.5); Potassium 3.2 mEq/L (3.5-5.1); Sodium 142 mEq/L (136-145); Total Protein 5.4 g/dL (6.4-8.9); eGFR For African Americans > 60 (> 60); eGFR For Non-African Americans 52 (> 60)
[2020-02-13] MEDS ORDERED: *HR* Heparin 5,000 UNIT/ML VIAL IVP PRN ×2 (06:16)
[2020-02-13] MEDS ORDERED: Aspirin Enteric Coated 325 MG Tablet PO ONE (06:16)
[2020-02-13] MEDS ORDERED: *HR* Heparin 5,000 UNIT/ML VIAL IVP ONE (06:16)
[2020-02-13] MEDS ORDERED: Potassium Chloride Elixir 20 MEQ/15 ML UDC PO ONE (06:19)
[2020-02-13 06:25] LABS: Thyroid Stimulating Hormone 0.893 mcIU/mL (0.340-5.600)
[2020-02-13] MEDS ORDERED: Heparin 25,000 UNIT/250 ML D5W 25,000 UNIT/250 ML IV.SOLN IVC SCH (06:30)
[2020-02-13 08:55] LABS: Hematocrit 27.4 % (35.3-44.9); Hemoglobin 8.7 g/dL (11.5-15.4)
[2020-02-13] MEDS: carvediloL 6.25 MG TABLET PO SCH ×2 (09:56→16:55)
[2020-02-13] MEDS: Nitrofurantoin (BID) 100 MG CAPSULE PO SCH ×2 (09:56→21:18)
[2020-02-13] MEDS: CarBAMazepine XR (12 hr) 100 MG TAB PO SCH (09:57)
[2020-02-13] MEDS: DilTIAZem CD (24hr) 240 MG CAP.ER.24H PO SCH (10:01)
[2020-02-13] MEDS: Budesonide/Formoterol 160/4.5 1 PUFF INH IH SCH ×2 (10:46→22:16)
[2020-02-13] MEDS: Tiotropium 18 MCG inhalation IH SCH (10:47)
[2020-02-13] MEDS ORDERED: Fluticasone Propionate Nasal 50 MCG/SPRAY BOTTLE NS PRN (13:51)
[2020-02-13] MEDS ORDERED: Furosemide 20 MG TABLET PO SCH (14:00)
[2020-02-13 16:39] LABS: Bilirubin,Urine Negative (Negative); Blood,Urine Negative (Negative); Clarity,Urine Clear (Clear); Color,Urine Yellow (Yellow); Glucose,Urine (UA) Normal (Normal); Ketones,Urine Negative (Negative); Leukocyte Esterase,Urine Trace (Negative); Nitrite,Urine Negative (Negative); Protein,Urine 30 mg/dL (Neg-Trace); Specific Gravity,Urine 1.018 (1.010-1.025); Urobilinogen,Urine Normal (Normal)
[2020-02-13 16:42] LABS: Bacteria,Urine None Seen per hpf (None-Few); Hyaline Casts,Urine None Seen per lpf (None-Few); Squamous Epithelial Cell,Urine Many per lpf (None-Few)
[2020-02-13 16:58] LABS: RBC,Urine 0-3 per hpf (0-3)
[2020-02-13] MEDS: Lactobacillus 1 EACH CAP.SPRINK PO SCH (21:17)
[2020-02-13] MEDS: Cefdinir 300 MG CAPSULE PO SCH (21:17)
[2020-02-13] MEDS ORDERED: *HR* Metoprolol 5 MG/5 ML VIAL IVP ONE (21:17)
[2020-02-13] MEDS: Doxycycline 100 MG CAPSULE PO SCH (21:18)
[2020-02-13] MEDS ORDERED: Acetaminophen 325 MG TABLET PO ONE (21:37)
[2020-02-13] MEDS: *HR* HYDROcodone/Acet 10/325 mg TABLET PO PRN (23:59)
[2020-02-14 02:13] LABS: Basophils % 0.4 %; Eosinophils # 1.1 K/mcL (0.0-0.6); Eosinophils % 9.3 %; Hematocrit 27.7 % (35.3-44.9); Hemoglobin 8.8 g/dL (11.5-15.4); Immature Granulocytes % 0.4 % (0-4); Lymphocytes % 17.8 %; Mean Corpuscular HGB Conc 31.8 g/dL (31.6-35.5); Mean Corpuscular Hemoglobin 30.8 pg (28.0-33.3); Mean Corpuscular Volume 96.9 fL (83.0-100.0); Mean Platelet Volume 9.1 fL (9.4-12.4); Monocytes # 1.2 K/mcL (0.0-1.3); Monocytes % 10.5 %; Platelet Count 334 K/mcL (140-400); Red Blood Count 2.86 M/mcL (3.82-4.97); Red Cell Distribution Width 14.5 % (11.5-14.5); Segmented Neutrophils % 61.6 %; White Blood Count 11.3 K/mcL (4.3-11.1)
[2020-02-14 02:30] LABS: BUN/Creatinine Ratio 20 (6-26); Blood Urea Nitrogen 18 mg/dL (8-23); Carbon Dioxide 29 mEq/L (23-29); Chloride 102 mEq/L (98-107); Glucose 97 mg/dL (70-105); Osmolality,Calculated 292 (280-300); Potassium 3.5 mEq/L (3.5-5.1); Sodium 140 mEq/L (136-145); eGFR For African Americans > 60 (> 60); eGFR For Non-African Americans > 60 (> 60)
[2020-02-14] MEDS ORDERED: Acetaminophen 325 MG TABLET PO ONE (06:57)
[2020-02-14] MEDS: Doxycycline 100 MG CAPSULE PO SCH (08:06)
[2020-02-14] MEDS: Lactobacillus 1 EACH CAP.SPRINK PO SCH (08:06)
[2020-02-14] MEDS: CarBAMazepine XR (12 hr) 100 MG TAB PO SCH (08:06)
[2020-02-14] MEDS: Nitrofurantoin (BID) 100 MG CAPSULE PO SCH (08:07)
[2020-02-14] MEDS: DilTIAZem CD (24hr) 240 MG CAP.ER.24H PO SCH (08:08)
[2020-02-14] MEDS: carvediloL 6.25 MG TABLET PO SCH (08:08)
[2020-02-14] MEDS: Cefdinir 300 MG CAPSULE PO SCH (08:08)
[2020-02-14] MEDS ORDERED: Multivit/Ca/Min/Fe/FA 1 TAB TABLET PO SCH (09:00)
[2020-02-14] MEDS ORDERED: allopurinoL 300 MG TABLET PO SCH (09:00)
[2020-02-14] MEDS ORDERED: Ondansetron 4 MG/2 ML VIAL IVP ONE (09:58)
[2020-02-14 10:31] VITALS: BP 138/54
[2020-02-14] MEDS: Budesonide/Formoterol 160/4.5 1 PUFF INH IH SCH (11:11)
[2020-02-14] MEDS: Tiotropium 18 MCG inhalation IH SCH (11:12)
[2020-02-14] MEDS: *HR* HYDROcodone/Acet 10/325 mg TABLET PO PRN (12:34)
== END 2020-02-14 13:11 | disposition home health service (06) ==
LOC: 2ANU → SUATTDRO 01:21
PROVIDERS: ADMIT Internal Medicine; ATTEND Internal Medicine

== ENCOUNTER 2020-03-27 22:08 | Observation (INO) ==
[2020-03-27] MEDS ORDERED: 0.9 % Sodium Chloride 1,000 ML IVC ONE (22:18)
[2020-03-27] MEDS ORDERED: DilTIAZem 50 MG/50 ML IV.SOLN IVC SCH (22:30)
[2020-03-27 22:47] LABS: Basophils # 0.1 K/mcL (0.0-0.2); Basophils % 0.6 %; Eosinophils # 0.2 K/mcL (0.0-0.6); Eosinophils % 2.6 %; Hemoglobin 10.4 g/dL (11.5-15.4); Immature Granulocytes % 0.5 % (0-4); Lymphocytes # 1.7 K/mcL (0.6-4.6); Lymphocytes % 21.1 %; Mean Corpuscular HGB Conc 30.6 g/dL (31.6-35.5); Mean Corpuscular Hemoglobin 30.2 pg (28.0-33.3); Mean Corpuscular Volume 98.8 fL (83.0-100.0); Mean Platelet Volume 8.7 fL (9.4-12.4); Monocytes # 0.6 K/mcL (0.0-1.3); Monocytes % 7.6 %; Neutrophils # 5.6 K/mcL (1.6-8.9); Platelet Count 266 K/mcL (140-400); Red Blood Count 3.44 M/mcL (3.82-4.97); Red Cell Distribution Width 13.8 % (11.5-14.5); Segmented Neutrophils % 67.6 %; White Blood Count 8.2 K/mcL (4.3-11.1)
[2020-03-27 22:57] LABS: Prothrombin Time 10.8 Seconds (9.4-12.1)
[2020-03-27 22:59] LABS: Activated Partial Thrombo Time 43.9 Seconds (26.0-36.0)
[2020-03-27 23:07] LABS: % Iron Saturation 25 % (15-50); BUN/Creatinine Ratio 14 (6-26); Blood Urea Nitrogen 13 mg/dL (8-23); Carbon Dioxide 29 mEq/L (23-29); Chloride 100 mEq/L (98-107); Glucose 131 mg/dL (70-105); Iron 60 mcg/dL (50-170); Magnesium 2.1 mg/dL (1.6-2.6); Osmolality,Calculated 286 (280-300); Potassium 3.6 mEq/L (3.5-5.1); Sodium 137 mEq/L (136-145); Transferrin 174 mg/dL (203-362); eGFR For African Americans > 60 (> 60); eGFR For Non-African Americans 58 (> 60)
[2020-03-27 23:09] LABS: Troponin I < 0.03 ng/mL (< 0.04)
[2020-03-27 23:27] LABS: Ferritin 227 ng/mL (10-120)
[2020-03-28] MEDS ORDERED: 0.9 % Sodium Chloride 1,000 ML IVC SCH (01:15)
[2020-03-28] MEDS ORDERED: Ondansetron 4 MG/2 ML VIAL IVP PRN (01:59)
[2020-03-28] MEDS ORDERED: Naloxone 0.4 MG/ML INJ IVP PRN (01:59)
[2020-03-28 06:15] LABS: Hematocrit 28.4 % (35.3-44.9); Mean Corpuscular HGB Conc 30.6 g/dL (31.6-35.5); Mean Corpuscular Hemoglobin 30.2 pg (28.0-33.3); Mean Corpuscular Volume 98.6 fL (83.0-100.0); Mean Platelet Volume 8.5 fL (9.4-12.4); Platelet Count 233 K/mcL (140-400); Red Blood Count 2.88 M/mcL (3.82-4.97); Red Cell Distribution Width 13.6 % (11.5-14.5)
[2020-03-28 06:16] LABS: Hemoglobin 8.7 g/dL (11.5-15.4)
[2020-03-28 06:37] LABS: BUN/Creatinine Ratio 15 (6-26); Blood Urea Nitrogen 12 mg/dL (8-23); Carbon Dioxide 28 mEq/L (23-29); Chloride 106 mEq/L (98-107); Glucose 87 mg/dL (70-105); Osmolality,Calculated 289 (280-300); Potassium 3.4 mEq/L (3.5-5.1); Sodium 140 mEq/L (136-145); eGFR For African Americans > 60 (> 60); eGFR For Non-African Americans > 60 (> 60)
[2020-03-28 08:49] LABS: Thyroid Stimulating Hormone 1.807 mcIU/mL (0.340-5.600)
[2020-03-28] MEDS ORDERED: DilTIAZem CD (24hr) 240 MG CAP.ER.24H PO SCH (09:00)
[2020-03-28] MEDS: carvediloL 6.25 MG TABLET PO SCH ×2 (09:35→16:43)
[2020-03-28] MEDS ORDERED: PrednisoLONE Acetate 1% Opth 5 ML BOTTLE BOTH EYES SCH (13:23)
[2020-03-28 16:12] VITALS: BP 135/62
[2020-03-28] MEDS ORDERED: *HR* HYDROcodone/Acet 10/325 mg TABLET PO ONE (16:37)
== END 2020-03-28 17:55 | disposition home or self-care (01) ==
LOC: EMEROOARM 22:08 → 3NENU 22:08 → UNDODISOB 03-28 17:58
PROVIDERS: ADMIT Internal Medicine; ATTEND Internal Medicine